=== PATIENT | female | born 1965 | race Caucasian/White ===

== ENCOUNTER → 2016-06-07 | Outpatient (CLI) | payer MEDICARE, MEDICAID ==
--- NOTE | 2016-06-07 18:34 | REP ---
MRI of lumbosacral spine 06/07/2016: Indication: Back pain, numbness, tingling. Comparison: None. Technique: Sagittal and axial images were obtained of the lumbosacral spine and T1 T2-weighted pulse sequences. STIR sagittal images were also provided. Findings: L1-2: Negative. L2-3: Negative without significant disc bulge or foraminal narrowing bilaterally. There is ligamentum flavum and facet joint hypertrophy but no central canal stenosis. Exiting nerve roots are without compression in the neural foramina L 3-4: Disc desiccation, minimal diffuse bulging disc with minimal thecal sac compression. There is moderate facet joint hypertrophy as well as facet osteoarthritic changes. There is no significant spinal stenosis and exiting nerve roots are without compression in the neural foramina bilaterally. L4-5: Disc desiccation small diffuse bulging disc with minimal thecal sac compression. Bilateral facet joint hypertrophy and mild facet osteoarthritis noted. Exiting L4 nerve roots however are without compression in the neural foramina. L5 S1: Minimal diffuse bulging disc with minimal anterior thecal sac compression . There is minimal impression on the S1 nerve roots bilaterally. Exiting L5 nerve roots are without compression in the neural foramina. There is facet joint hypertrophy and no significant spinal stenosis. Conus medullaris is normal. There is no fracture or abnormal marrow replacing lesion. Impression: Mild degenerative disc changes characterized by disc desiccation, and facet joint hypertrophy/mild facet osteoarthritis at multiple levels. There is no significant spinal stenosis and there is no compression of the exiting lumbar nerve roots within the neural foramina bilaterally. There is minimal impression on the S1 nerve roots bilaterally secondary to diffuse bulging disc at L5-S1.. Signed by Cailin Cassidy MD 06/07/2016 08:05 P
--- NOTE | 2016-06-08 08:20 | REP ---
MRI THORACIC SPINE WITHOUT CONTRAST: HISTORY: Mid back pain. A small right paracentral disc protrusion is present at the T4-5 level. There is minimal effacement of the thecal sac without spinal cord compression. The T4 neural foramina are patent. A small left paracentral disc protrusion is present at the T7-8 level. There is minimal effacement of the thecal sac without spinal cord compression. The T7 neural foramina are patent. A small right paracentral disc protrusion is present at the T8-9 level. There is minimal effacement of the thecal sac without spinal cord compression. The T8 neural foramina are patent. There is no other disc bulge or herniation. The remaining neural foramina are patent. The spinal cord is normal in signal intensity. There is no intradural extramedullary lesion. A hemangioma is present in the T9 vertebral body. Normal signal intensity is present in the remaining thoracic vertebral bodies. Anterior osteophytes are present in the mid and lower thoracic spine. IMPRESSION: Small disc protrusions at the T4-5, T7-8 and T8-9 levels without spinal cord compression. Signed by Souleymane Berumen MD 06/08/2016 08:31 A
== END ==
LOC: M RAD 15:20
PROVIDERS: ATTEND Anesthesiology
DX: M47.819 Spondylosis without myelopathy or radiculopathy, site unspecified (principal); M51.27 Other intervertebral disc displacement, lumbosacral region; M51.24 Other intervertebral disc displacement, thoracic region

== ENCOUNTER → 2016-06-11 | Outpatient (REF) | payer MEDICARE, MEDICAID ==
[2016-06-11 19:23] LABS: CALCIUM LEVEL 8.3 MG/DL (8.5-10.1); CREATININE FOR GFR 1.21 MG/DL (0.55-1.02); GLOMERULAR FILTRATION RATE 49.6 (>51); POTASSIUM SERUM 4.7 MEQ/L (3.5-5.1)
[2016-06-14 00:20] LABS: %CD3+CD4+CD8- 36.3 % (Not Estab.); %CD3+CD4-CD8+ 39.7 % (Not Estab.); %CD3+CD4-CD8- 1.9 % (Not Estab.); ABS CD3+CD4+CD8+ 18 /uL (Not Estab.); ABS CD3+CD4+CD8- 653 /uL (Not Estab.); ABS CD3+CD4-CD8+ 715 /uL (Not Estab.); ABS CD3+CD4-CD8- 34 /uL (Not Estab.); CD4/CD8 NYSDOH RATIO 0.91 (Not Estab.); Eosinophils 1 % (.); HCT 34.6 % (34.0-46.6); HGB 11.6 g/dL (11.1-15.9); Monocytes 7 % (.); Neutrophils 68 % (.); WBC 7.3 x10E3/uL (3.4-10.8)
== END ==
LOC: M SFHCPLAZ 14:52
PROVIDERS: ATTEND Internal Medicine Infectious Disease
DX: B20 Human immunodeficiency virus [HIV] disease (principal); E11.40 Type 2 diabetes mellitus with diabetic neuropathy, unspecified

== ENCOUNTER → 2016-08-19 | Outpatient (CLI) | payer MEDICARE, MEDICAID ==
--- NOTE | 2016-08-29 23:48 | ECWPNPC ---
PATIENT NAME: GEREMIAS WYATT : 1965 GENDER: FEMALE VISIT DATE: 08/19/2016 DISCHARGE DATE: 08/19/16 1724 VISIT LOCKED DATE TIME: PHYSICIAN: CLAUDIA HUI RESOURCE: CLAUDIA HUI REASON FOR APPOINTMENT 1. BACK PAIN HISTORY OF PRESENT ILLNESS HISTORY OF PRESENT ILLNESS: PAIN THE PATIENT DESCRIBES THE PAIN... 51 YEAR OLD FEMALE PATIENT WITH HISTORY OF CHRONIC BACK AND LEG PAIN. PATIENT DESCRIBES THE PAIN ACHING, BURNING, SHARP, TENDER, THROBBING, AND HAVING IT ALL THE TIME WITH A PAIN SCORE OF 10/10. PATIENT REPORTS UNABLE TO SEE DR. PHAM DUE TO NOT HAVING TRANSPORTATION TO [place]. MRS. WYATT STATES THAT INJECTIONS DO NOT WORK AND THE ONLY THING THAT AIDS IN PAIN RELIEF IS MEDICATION AT THIS TIME. PATIENT REPORTS THAT DR. BUTLER DOES NOT WANT TO CONTINUE TO PRESCRIBE THE PERCOCET TO THE PATIENT AND WOULD LIKE MYSELF TO TAKE OVER. MRS. WYATT STATES T HAT WALKING, STANDING, SITTING, AND ANY TYPE OF ACTIVITY INCREASES THE PAIN IN HER BACK AND FEET. FALL RISK SCREENING: SCREENING :NO FALLS IN THE PAST YEAR CURRENT MEDICATIONS TAKING FLINSTONES GUMMIES OMEGA-3 DHA TABLET CHEWABLE 2 TABLETS ORALLY BID TAKING TRAZODONE HCL 50 MG TABLET 1 TABLET AT BEDTIME NEEDED ORALLY ONCE A DAY TAKING PREZCOBIX 800-150 MG TABLET TAKE ONE TABLET BY MOUTH ONCE DAILY TAKING VIREAD 300 MG TABLET TAKE ONE TABLET BY MOUTH ONCE DAILY TAKING TIVICAY 50 MG TABLET TAKE ONE TABLET BY MOUTH ONCE DAILY TAKING NEXIUM 40 MG CAPSULE DELAYED RELEASE 1 CAPSULE ORALLY ONCE A DAY TAKING VENTOLIN HFA 108 (90 BASE) MCG/ACT AEROSOL SOLUTION INHALE 2 PUFFS BY MOUTH EVERY 4 HRS NEEDED TAKING SUMATRIPTAN SUCCINATE 100 MG TABLET TAKE NEEDED DIRECTED TAKING ATORVASTATIN CALCIUM 40 MG TABLET TAKE ONE TABLET BY MOUTH ONCE DAILY TAKING INCRUSE ELLIPTA 62.5 MCG/INH AEROSOL POWDER BREATH ACTIVATED INHALE 1 PUFF BY MOUTH ONCE DAILY TAKING ASPIRIN CHILDRENS 81 MG TABLET CHEWABLE 1 TABLET ORALLY ONCE A DAY TAKING LOMOTIL 2.5-0.025 MG TABLET 1 TABLET NEEDED ORALLY 4 TIMES A DAY NEEDED MDD: 4 TAKING TRIAMCINOLONE ACETONIDE 0.1 % CREAM APPLY TOPICALLY TWICE DAILY FOR ONE MONTH TAKING NYSTOP [id number] UNIT/GM POWDER USE DIRECTED EXTERNALLY NEEDED FOR 1 MONTH TAKING VITAMIN D 2000 UNIT TABLET TAKE ONE TABLET BY MOUTH ONCE DAILY DIRECTED TAKING LYRICA 100 MG CAPSULE 1 CAPSULE ORALLY TWICE A DAY TAKING PERCOCET 7.5-325 MG TABLET 1 TABLET NEEDED ORALLY/MDD#3 THREE TIMES DAILY NEEDED MEDICATION LIST REVIEWED AND RECONCILED WITH THE PATIENT PAST MEDICAL HISTORY HIV DIAGNOSED IN 1993, RESISTANCE TO EPIVIR HERPES SIMPLEX COPD ASTHMA IDDM CHRONIC DDD CAMPYLOBACTER COLITIS HYPERCHOLESTEOLEMIA MENOPAUSE RT ADRENAL MASS 2X 1 CM EDENTULOUS WEARS DENTURES HIV TREATMENT HISTORY VIDEX 1999 ZIAGEN 2000, TRIZIVIR [id number], ZERIT, TRUVADA,REYATAZ/NORVIR, ZERIT DC 01/29 DUE TO NEUROPATHY 2002 VIRTUAL PHENOTYPE RST EPIVIR, RST VIRAMUNE AND EFAVIRENZ 05/15/2014 NERVE CONDUCTION STUDOES SEVERE SENSORIMOTOR POLYNEUROPATHY DIABETES?HIV , 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 SOCIAL HISTORY GENERAL: TOBACCO USE ARE YOU A:CURRENT SMOKER HOW MANY CIGARETTES A DAY DO YOU SMOKE?6-10 HOW SOON AFTER YOU WAKE UP DO YOU SMOKE YOUR FIRST CIGARETTE?6-30 MIN HOW OFTEN DO YOU SMOKE CIGARETTES?EVERY DAY PATIENT COUNSELED ON THE DANGERS OF TOBACCO USE AND URGED TO QUIT:06/08/2016 ARE YOU INTERESTED IN QUITTING?NOT READY TO QUIT COUNSELED THE PATIENT ON SMOKING EFFECTS, EDUCATION [id number]/17/2017 SMOKING CESSATION INFORMATION GIVEN06/08/2016 BMI CARE GOAL FOLLOW-UP ABOVE NORMAL BMI FOLLOW-UPDIETARY NEEDS EDUCATION ALCOHOL SCREENING DID YOU HAVE A DRINK CONTAINING ALCOHOL IN THE PAST YEAR?NO POINTS0 INTERPRETATIONNEGATIVE RECREATIONAL DRUG USE DRUG USE?NO PATIENT DENIES ABUSE OR MISSUSED OF ANY MEDICATION. PATIENT DENIES USE OF ANY ILLEGAL SUBSTANCE INCLUDING MARIJUANA OR COCAINE. CAFFEINE CAFFEINE USE?YES HOW OFTEN AND HOW MUCH? 1-2 CUP QD HIV / HEP-C SCREENING HIV TEST OFFERED TO PATIENT:YES DATE OFFERED:06/08/2016 TEST ACCEPTED: PREV TESTED HEP-C TEST OFFERED TO PATIENT:YES DATE OFFERED:06/08/2016 TEST ACCEPTED: PREV TESTED OCCUPATION: DISABLED. MARITAL STATUS: SINGLE. MORMON NO YAZIDISM BELIEFS THAT WOULD IMPACT HEALTH CARE. LANGUAGE BAHAMIAN. LEARNING BARRIERS / SPECIAL NEEDS CHANGE FROM LAST VISIT?NO BARRIERS TO LEARNING?NO HEARING IMPAIRED?NO VISION IMPAIRED?YES :CORRECTIVE LENSES COGNITIVELY IMPAIRED?NO READINESS TO LEARN?YES LEARNING PREFERENCES?NO LEARNING CAPABILITIES PRESENT?YES EMOTIONAL BARRIERS?NO SPECIAL DEVICES?NO FEMALE 6 MONTH RISK ASSESSMENT FOR STD DESCRIBE YOUR SEXUAL PARTNERS:MALE MONOGAMOUS?YES HIV POSITIVE?YES EVER INJECT DRUGS?NO VAGINAL SEX?NO ANAL SEX?NO ORAL SEX?NO ARE YOU TAKING ANY STEPS TO PREVENT ?YES METHODS (CHECK ALL THAT APPLY):MALE CONDOMS WHAT STEPS HAVE YOU TAKEN TO PROTECT YOURSELF FROM STDS, INCLUDING HIV? (CHECK ALL THAT APPLY):MUTUAL MONOGAMY, MALE CONDOMS HAVE YOU OR ANY OF YOUR SEXUAL PARTNERS EVER HAD AN STD? IF YES PLEASE LIST:NO IS THERE ANYTHING ELSE WE SHOULD TALK ABOUT CONCERNING YOUR SEXUAL HISTORY OR PRACTICE?NO NEW PATIENT PAIN DIARY TODAY'S VISITNOTES FROM 0-10, WHAT LEVEL IS YOUR PAIN TODAY?0 PAIN CLINIC PFS, CLERGY, PUBLIC HEALTH REFERRALS PFS REFERRAL NEEDED?NO CLERGY REFERRAL NEEDED?NO PUBLIC HEALTH REFERRAL NEEDED?NO WAS THE PROVIDER NOTIFIED OF ANY PERTINENT INFO?NO PFS REFERRAL NEEDED?NO CLERGY REFERRAL NEEDED?NO PUBLIC HEALTH REFERRAL NEEDED?NO WAS THE PROVIDER NOTIFIED OF ANY PERTINENT INFO?NO HOSPITALIZATION/MAJOR DIAGNOSTIC PROCEDURE HYPOGLYCEMIC EPISODE/UTI 2016 REVIEW OF SYSTEMS CONSTITUTIONAL: ANY CHANGE IN YOUR MEDICAL CONDITION? NO . CHILLS NO . FEVER NO . INFECTION: DO YOU HAVE NEW INFECTIONS? NO . DO YOU HAVE HISTORY OF MRSA? NO . MUSCULOSKELETAL: ANY NEW PATTERNS OF PAIN OR NUMBNESS? NO . GASTROENTEROLOGY: ANY NEW CHANGE IN BOWEL CONTROL? NO . GENITOURINARY: ANY NEW CHANGE IN BLADDER CONTROL? NO . IS THERE A CHANCE YOU COULD BE ? NO . HEMATOLOGY/LYMPH: DO YOU TAKE ANY BLOOD THINNERS? (FOR EXAMPLE- COUMADIN, PLAVIX, AGGRENOX, PLATEL, PRADAXA, OR XARELTO) NO . WHEN WAS YOUR LAST DOSE? DATE: TIME: . NEUROLOGY: HAVE YOU FALLEN IN THE PAST 6 MONTHS? NO . ANY NEW EXTREMITY NUMBNESS OR WEAKNESS? NO . CARDIOLOGY: DO YOU HAVE A PACEMAKER OR DEFIBRILLATOR? NO . RESPIRATORY: HAVE YOU BEEN SICK IN THE PAST WEEK? NO . FEVER NO . FLU LIKE SYMPTOMS? NO . COUGH NO . INTEGUMENTARY: DO YOU HAVE ANY RASHES OR OPEN SORES? NO . ALLERGIC/IMMUNO: ARE YOU ALLERGIC TO SHELLFISH OR IV DYE? NO . ANY NEW ALLERGIES? NO . PSYCHIATRIC: DO YOU HAVE THOUGHTS OF HURTING YOURSELF OR SOMEONE ELSE? NO . ARE YOU ABUSED, NEGLECTED, OR IN AN UNSAFE ENVIRONMENT? NO . ENDOCRINOLOGY: ARE YOU DIABETIC? NO . OTHER: DO YOU NEED ANY PRESCRIPTIONS? PT STATES THAT SHE NEEDS REFILLS . IF YES, PLEASE LIST: ____ . ANY NEW PROBLEMS WITH YOUR MEDICATIONS? NO . WHEN DID YOU LAST EAT? NOON . WHEN DID YOU LAST DRINK? NOW . WHAT DID YOU LAST DRINK? WATER & COFFEE . NAME OF PERSON DRIVING YOU HOME? TRACK SERVICE PERSON . DO YOU HAVE ANY OTHER QUESTIONS OR CONCERNS PT STATES THAT SHE IS A CURRENT SMOKER AND REFUSES ANY SMOKING CESSATION COUSELING AT THIS TIME . REVIEWED BY: PROVIDER: CLAUDIA HUI MD . VITAL SIGNS WT 215.0 LBS, HT 69 IN, BMI 31.75 INDEX, BP 137/84 MM HG, HR 78 /MIN, RR 16 /MIN, TEMP 98.0 F, OXYGEN SAT % 95, NA INITIALS TL 1600. EXAMINATION : PATIENT IS ALERT O X 3 AND COOPERATIVE. TENDERNESS IN THE LOWER BACK AND PARASPINAL MUSCLE GROUP. PITTING EDEMA 3/4 ESPECIALLY OVER THE LEFT LEG. MRI DONE ON 11/18/11 SHOWS A TARLOV CYST AT S2, WITH DEGENERATIVE DISC DISEASE AT MULTIPLE LEVELS, AND DEGENERATIVE CHANGES OF MULTIPLE FACET JOINTS. 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 WYATT'S PAIN MANAGEMENT CASE. PATIENT IS AWARE THAT I WILL NEED TO SPEAK WITH DR. BUTLER BEFORE PRESCRIBING ANY TYPE OF NARCOTIC TO THE PATIENT. AT THIS TIME THE PATIENT REPORTS INJECTIONS NOT AIDING IN PAIN RELIEF. I WILL REFER THE PATIENT TO DR. ROPER'S FOR A PSYCHOLOGICAL EVALUATION DUE TO THE PATIENT UNABLE TO GET TO [facility]. PATIENT WILL RETURN TO THE CLINIC TOMORROW TO FURTHER DISCUSS MEDICATION MANAGEMENT WITH THE PATIENT, TO SEE IF THERE IS ANY MEDICATION THAT WILL AID THE PATIENT OVER THEN NARCOTICS. INSTRUCTIONS WERE GIVEN, QUESTIONS WERE ANSWERED, PATIENT REPORTS UNDERSTANDING AND AGREES WITH THE PLAN. I, DARON ALDRIDGE, DOCUMENTED THE ABOVE INFORMATION ACTING A SCRIBE FOR DR. HUI. I HAVE REVIEWED THE ABOVE DOCUMENT, WRITTEN BY DARON MILLER AND I VERIFY THAT IT IS ACCURATE. PROCEDURE CODES FA211 ESTABILISHED PATIENT [facility] CHARGE G8427 DOC MEDS VERIFIED W/PT OR RE G8730 PAIN ASSESS POS TOOL F/U PLAN DOC DISPOSITION & COMMUNICATION FOLLOW UP 2 - 3 DAYS ELECTRONICALLY SIGNED BY CLAUDIA HUI MD ON 08/29/2016 AT 09:14 PM EDT DISCLAIMER : THIS IS A VISIT SUMMARY EXTRACTED FROM THE [employer] CHART. IT IS NOT A COPY OF THE [employer] PROGRESS NOTE. DEE
== END ==
LOC: M PAIN 14:40
PROVIDERS: ATTEND Anesthesiology
DX: Z09 Encounter for follow-up examination after completed treatment for conditions other than malignant neoplasm (principal); G89.29 Other chronic pain; M51.16 Intervertebral disc disorders with radiculopathy, lumbar region; M51.17 Intervertebral disc disorders with radiculopathy, lumbosacral region; G62.9 Polyneuropathy, unspecified; B20 Human immunodeficiency virus [HIV] disease; J44.9 Chronic obstructive pulmonary disease, unspecified; E11.9 Type 2 diabetes mellitus without complications; E78.00 Pure hypercholesterolemia, unspecified; I10 Essential (primary) hypertension; E66.01 Morbid (severe) obesity due to excess calories; Z68.31 Body mass index [BMI] 31.0-31.9, adult; F17.200 Nicotine dependence, unspecified, uncomplicated; L23.1 Allergic contact dermatitis due to adhesives; Z79.82 Long term (current) use of aspirin; Z79.899 Other long term (current) drug therapy; Z96.612 Presence of left artificial shoulder joint

== ENCOUNTER → 2016-09-23 | Outpatient (CLI) | payer MEDICARE, MEDICAID ==
--- NOTE | 2016-10-05 02:14 | ECWPNPC ---
PATIENT NAME: GEREMIAS WYATT : 1965 GENDER: FEMALE VISIT DATE: 09/23/2016 DISCHARGE DATE: 09/23/16 1624 VISIT LOCKED DATE TIME: PHYSICIAN: CLAUDIA HUI RESOURCE: CLAUDIA HUI REASON FOR APPOINTMENT 1. MEDS HISTORY OF PRESENT ILLNESS HISTORY OF PRESENT ILLNESS: PAIN THE PATIENT DESCRIBES THE PAIN... 51 YEAR OLD FEMALE PATIENT WITH HISTORY OF CHRONIC BACK AND LEG PAIN. PATIENT DESCRIBES THE PAIN ACHING, BURNING, SHARP, STABBING, THROBBING, SORE, SHOOTING, IT COMES AND GOES, AND HAVING IT ALL THE TIME WITH A PAIN SCORE OF 10/10 ON TODAY'S VISIT. PATIENT REPORTS THAT SHE SAW A PSYCHOLOGIST FOR THE PSYCHOLOGICAL EVALUATION FOR THE SCS TRIAL. MS. WYATT STATES THAT WALKING, STANDING, SITTING, AND ANY TYPE OF ACTIVITY INCREASES THE PAIN IN HER BACK AND FEET. PATIENT DENIES UNEXPLAINABLE WEIGHT LOSS, FEVER, CHILLS, NEW CHANGES ON HER URINARY OR BOWEL CONTROL. ,. FALL RISK SCREENING: SCREENING :NO FALLS IN THE PAST YEAR CURRENT MEDICATIONS TAKING FLCaribou Coffee CompanyMERRY OMEGA-3 DHA TABLET CHEWABLE 2 TABLETS ORALLY BID TAKING LOMOTIL 2.5-0.025 MG TABLET 1 TABLET NEEDED ORALLY 4 TIMES A DAY NEEDED MDD: 4 TAKING PREZISTA 600 MG TABLET 1 TABLET WITH FOOD ORALLY DAILY TAKING GENVOYA [id number] MG TABLET DIRECTED ORALLY MONTHLY TAKING LYRICA 150 MG CAPSULE 1 CAPSULE ORALLY TWICE A DAY TAKING PERCOCET 10-325 MG TABLET 1 TABLET NEEDED ORALLY EVERY 8 HRS TAKING ANIMAL SHAPES WITH C & FA TABLET CHEWABLE TAKE TWO TABLETS BY MOUTH DAILY TAKING VITAMIN D 2000 UNIT TABLET TAKE ONE TABLET BY MOUTH ONCE DAILY DIRECTED ORALLY ONCE A DAY TAKING NEXIUM 40 MG CAPSULE DELAYED RELEASE 1 CAPSULE ORALLY ONCE A DAY TAKING TRAZODONE HCL 50 MG TABLET 1 TABLET AT BEDTIME NEEDED ORALLY ONCE A DAY UNKNOWN VENTOLIN HFA 108 (90 BASE) MCG/ACT AEROSOL SOLUTION INHALE 2 PUFFS BY MOUTH EVERY 4 HRS NEEDED UNKNOWN SUMATRIPTAN SUCCINATE 100 MG TABLET TAKE NEEDED DIRECTED UNKNOWN ATORVASTATIN CALCIUM 40 MG TABLET TAKE ONE TABLET BY MOUTH ONCE DAILY UNKNOWN INCRUSE ELLIPTA 62.5 MCG/INH AEROSOL POWDER BREATH ACTIVATED INHALE 1 PUFF BY MOUTH ONCE DAILY UNKNOWN ASPIRIN CHILDRENS 81 MG TABLET CHEWABLE 1 TABLET ORALLY ONCE A DAY UNKNOWN TRIAMCINOLONE ACETONIDE 0.1 % CREAM APPLY TOPICALLY TWICE DAILY FOR ONE MONTH UNKNOWN NYSTOP [id number] UNIT/GM POWDER USE DIRECTED EXTERNALLY NEEDED FOR 1 MONTH UNKNOWN VITAMIN D 2000 UNIT TABLET TAKE ONE TABLET BY MOUTH ONCE DAILY DIRECTED MEDICATION LIST REVIEWED AND RECONCILED WITH THE PATIENT PAST MEDICAL HISTORY HIV DIAGNOSED IN 1993, RESISTANCE TO EPIVIR HERPES SIMPLEX COPD ASTHMA IDDM CHRONIC DDD CAMPYLOBACTER COLITIS HYPERCHOLESTEOLEMIA MENOPAUSE RT ADRENAL MASS 2X 1 CM EDENTULOUS WEARS DENTURES HIV TREATMENT HISTORY VIDEX 1999 ZIAGEN 2001, TRIZIVIR [id number], ZERIT, TRUVADA,REYATAZ/NORVIR, ZERIT DC 01/29 DUE TO NEUROPATHY 2002 VIRTUAL PHENOTYPE RST EPIVIR, RST VIRAMUNE AND EFAVIRENZ 05/15/2014 NERVE CONDUCTION STUDOES SEVERE SENSORIMOTOR POLYNEUROPATHY DIABETES?HIV , 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 SOCIAL HISTORY GENERAL: TOBACCO USE ARE YOU A:CURRENT SMOKER HOW MANY CIGARETTES A DAY DO YOU SMOKE?6-10 HOW SOON AFTER YOU WAKE UP DO YOU SMOKE YOUR FIRST CIGARETTE?6-30 MIN HOW OFTEN DO YOU SMOKE CIGARETTES?EVERY DAY PATIENT COUNSELED ON THE DANGERS OF TOBACCO USE AND URGED TO QUIT:06/08/2016 ARE YOU INTERESTED IN QUITTING?NOT READY TO QUIT COUNSELED THE PATIENT ON SMOKING EFFECTS, EDUCATION [id number]/17/2017 SMOKING CESSATION INFORMATION GIVEN06/08/2016 BMI CARE GOAL FOLLOW-UP ABOVE NORMAL BMI FOLLOW-UPDIETARY NEEDS EDUCATION ALCOHOL SCREENING DID YOU HAVE A DRINK CONTAINING ALCOHOL IN THE PAST YEAR?NO POINTS0 INTERPRETATIONNEGATIVE RECREATIONAL DRUG USE DRUG USE?NO PATIENT DENIES ABUSE OR MISSUSED OF ANY MEDICATION. PATIENT DENIES USE OF ANY ILLEGAL SUBSTANCE INCLUDING MARIJUANA OR COCAINE. CAFFEINE CAFFEINE USE?YES HOW OFTEN AND HOW MUCH? 1-2 CUP QD HIV / HEP-C SCREENING HIV TEST OFFERED TO PATIENT:YES DATE OFFERED:06/08/2016 TEST ACCEPTED: PREV TESTED HEP-C TEST OFFERED TO PATIENT:YES DATE OFFERED:06/08/2016 TEST ACCEPTED: PREV TESTED OCCUPATION: DISABLED. MARITAL STATUS: SINGLE. PRESYBETERIAN NO YARSANISM BELIEFS THAT WOULD IMPACT HEALTH CARE. LANGUAGE YAKUT. LEARNING BARRIERS / SPECIAL NEEDS CHANGE FROM LAST VISIT?NO BARRIERS TO LEARNING?NO HEARING IMPAIRED?NO VISION IMPAIRED?YES :CORRECTIVE LENSES COGNITIVELY IMPAIRED?NO READINESS TO LEARN?YES LEARNING PREFERENCES?NO LEARNING CAPABILITIES PRESENT?YES EMOTIONAL BARRIERS?NO SPECIAL DEVICES?NO FEMALE 6 MONTH RISK ASSESSMENT FOR STD DESCRIBE YOUR SEXUAL PARTNERS:MALE MONOGAMOUS?YES HIV POSITIVE?YES EVER INJECT DRUGS?NO VAGINAL SEX?NO ANAL SEX?NO ORAL SEX?NO ARE YOU TAKING ANY STEPS TO PREVENT ?YES METHODS (CHECK ALL THAT APPLY):MALE CONDOMS WHAT STEPS HAVE YOU TAKEN TO PROTECT YOURSELF FROM STDS, INCLUDING HIV? (CHECK ALL THAT APPLY):MUTUAL MONOGAMY, MALE CONDOMS HAVE YOU OR ANY OF YOUR SEXUAL PARTNERS EVER HAD AN STD? IF YES PLEASE LIST:NO IS THERE ANYTHING ELSE WE SHOULD TALK ABOUT CONCERNING YOUR SEXUAL HISTORY OR PRACTICE?NO NEW PATIENT PAIN DIARY TODAY'S VISIT NOTES, FROM 0-10, WHAT LEVEL IS YOUR PAIN TODAY? 0. PAIN CLINIC PFS, CLERGY, PUBLIC HEALTH REFERRALS PFS REFERRAL NEEDED? NO, CLERGY REFERRAL NEEDED? NO, PUBLIC HEALTH REFERRAL NEEDED? NO, WAS THE PROVIDER NOTIFIED OF ANY PERTINENT INFO? NO, PFS REFERRAL NEEDED? NO, CLERGY REFERRAL NEEDED? NO, PUBLIC HEALTH REFERRAL NEEDED? NO, WAS THE PROVIDER NOTIFIED OF ANY PERTINENT INFO? NO. HOSPITALIZATION/MAJOR DIAGNOSTIC PROCEDURE HYPOGLYCEMIC EPISODE/UTI 2016 REVIEW OF SYSTEMS CONSTITUTIONAL: ANY CHANGE IN YOUR MEDICAL CONDITION? NO . CHILLS NO . FEVER NO . INFECTION: DO YOU HAVE NEW INFECTIONS? NO . DO YOU HAVE HISTORY OF MRSA? NO . MUSCULOSKELETAL: ANY NEW PATTERNS OF PAIN OR NUMBNESS? NO . GASTROENTEROLOGY: ANY NEW CHANGE IN BOWEL CONTROL? NO . GENITOURINARY: ANY NEW CHANGE IN BLADDER CONTROL? NO . IS THERE A CHANCE YOU COULD BE ? NO . HEMATOLOGY/LYMPH: DO YOU TAKE ANY BLOOD THINNERS? (FOR EXAMPLE- COUMADIN, PLAVIX, AGGRENOX, PLATEL, PRADAXA, OR XARELTO) NO . WHEN WAS YOUR LAST DOSE? DATE: TIME: . NEUROLOGY: HAVE YOU FALLEN IN THE PAST 6 MONTHS? NO . ANY NEW EXTREMITY NUMBNESS OR WEAKNESS? NO . CARDIOLOGY: DO YOU HAVE A PACEMAKER OR DEFIBRILLATOR? NO . RESPIRATORY: HAVE YOU BEEN SICK IN THE PAST WEEK? NO . FEVER NO . FLU LIKE SYMPTOMS? NO . COUGH NO . INTEGUMENTARY: DO YOU HAVE ANY RASHES OR OPEN SORES? NO . ALLERGIC/IMMUNO: ARE YOU ALLERGIC TO SHELLFISH OR IV DYE? NO . ANY NEW ALLERGIES? NO . PSYCHIATRIC: DO YOU HAVE THOUGHTS OF HURTING YOURSELF OR SOMEONE ELSE? NO . ARE YOU ABUSED, NEGLECTED, OR IN AN UNSAFE ENVIRONMENT? NO . ENDOCRINOLOGY: ARE YOU DIABETIC? NO . OTHER: DO YOU NEED ANY PRESCRIPTIONS? NO . IF YES, PLEASE LIST: ____ . ANY NEW PROBLEMS WITH YOUR MEDICATIONS? NO . WHEN DID YOU LAST EAT? ____LUNCHTIM . WHEN DID YOU LAST DRINK? ____ . WHAT DID YOU LAST DRINK? ____ . NAME OF PERSON DRIVING YOU HOME? ____ . DO YOU HAVE ANY OTHER QUESTIONS OR CONCERNS NO . REVIEWED BY: PROVIDER: CLAUDIA HUI MD . VITAL SIGNS WT 213.6 LBS, HT 69 IN, BMI 31.54 INDEX, BP 98/68 MM HG, HR 77 /MIN, RR 16 /MIN, TEMP 97.2 F, OXYGEN SAT % 99%, NA INITIALS SC 14:52, REVIEWED BY: VD. EXAMINATION : PATIENT IS ALERT O X 3 AND COOPERATIVE. TENDERNESS IN THE LOWER BACK AND PARASPINAL MUSCLE GROUP. PITTING EDEMA 3/4 ESPECIALLY OVER THE LEFT LEG. MRI DONE ON 11/18/11 SHOWS A TARLOV CYST AT S2, WITH DEGENERATIVE DISC DISEASE AT MULTIPLE LEVELS, AND DEGENERATIVE CHANGES OF MULTIPLE FACET JOINTS. 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 WYATT'S PAIN MANAGEMENT CASE. I DISCUSSED WITH THE PATIENT ABOUT THE RESULTS FROM THE PSYCHOLOGICAL EVALUATION. I EXPLAINED TO THE PATIENT THAT AT THE MOMENT WE WILL PUT ON HOLD THE SCS TRIAL. I START TO DISCUSS WITH HER OTHER OPTIONS. I EXPLAINED TO THE PATIENT TO GIVE ME SEVERAL MINUTES TO RESOLVE AN ISSUE AT ANOTHER ROOM. WHEN I CAME BACK I WAS INFORMED THAT MS. WYATT ABRUPTLY EXITED THE FOLLOW UP ROOM AND LEFT THE FACILITY GROUNDS. I WAS UNABLE TO COMPLETE THE DISCUSSION WITH MS. PEETS. IF THE PATIENT CALLS, I WILL HAVE HER FOLLOW UP WITH SHIVAM VALDES FOR MEDICATIONS AND AN AGREEMENT WITH LUKE DAILEY IS NEEDED FOR US TO PRESCRIBE ANY MEDICATIONS TO THE PATIENT. I, ABIDA SOTELO, DOCUMENTED THE ABOVE INFORMATION ACTING A SCRIBE FOR DR. HUI. I HAVE REVIEWED THE ABOVE DOCUMENT, WRITTEN BY ABIDA SOTELO SCRIBE AND I VERIFY THAT IT IS ACCURATE. PROCEDURE CODES FA211 ESTABILISHED PATIENT [facility] CHARGE G8730 PAIN ASSESS POS TOOL F/U PLAN DOC G8427 DOC MEDS VERIFIED W/PT OR RE DISPOSITION & COMMUNICATION FOLLOW UP WITH SHIVAM VALDES TO CONSIDER MEDICATION OPTIONS ELECTRONICALLY SIGNED BY CLAUDIA HUI MD ON 10/04/2016 AT 11:16 AM EDT DISCLAIMER : THIS IS A VISIT SUMMARY EXTRACTED FROM THE [employer] CHART. IT IS NOT A COPY OF THE [employer] PROGRESS NOTE. DEE
== END ==
LOC: M PAIN 15:00
PROVIDERS: ATTEND Anesthesiology
DX: G89.29 Other chronic pain (principal); G62.9 Polyneuropathy, unspecified; M51.16 Intervertebral disc disorders with radiculopathy, lumbar region; M51.17 Intervertebral disc disorders with radiculopathy, lumbosacral region; B20 Human immunodeficiency virus [HIV] disease; J44.9 Chronic obstructive pulmonary disease, unspecified; E11.9 Type 2 diabetes mellitus without complications; E78.00 Pure hypercholesterolemia, unspecified; F17.200 Nicotine dependence, unspecified, uncomplicated; L23.1 Allergic contact dermatitis due to adhesives; Z79.899 Other long term (current) drug therapy

== ENCOUNTER → 2016-09-23 | Outpatient (CLI) | payer MEDICARE, MEDICAID ==
--- NOTE | 2016-09-23 14:39 | REP ---
Chest two views HISTORY: COPD Comparison: 09/08/2015 The lungs are clear. The heart is normal in size. The pulmonary vasculature is normal in appearance. The bony structure is intact. The patient is status post left shoulder arthroplasty. IMPRESSION: No acute disease. Signed by Souleymane Berumen MD 09/23/2016 02:30 P
[2016-09-23 15:10] LABS: ALBUMIN 3.1 GM/DL (3.2-5.2); ALBUMIN/GLOBULIN RATIO 1.29 (1.00-1.93); ALKALINE PHOSPHATASE 59 U/L (45-117); ALT/SGPT 24 U/L (12-78); ANION GAP 6 MEQ/L (8-16); AST/SGOT 22 U/L (15-37); BILIRUBIN,TOTAL 0.7 MG/DL (0.2-1.0); BLOOD UREA NITROGEN 18 MG/DL (7-18); CALCIUM LEVEL 8.3 MG/DL (8.5-10.1); CARBON DIOXIDE LEVEL 29 MEQ/L (21-32); CHLORIDE LEVEL 109 MEQ/L (98-107); CHOLESTEROL LEVEL 101 MG/DL (<200); CREATININE FOR GFR 0.85 MG/DL (0.55-1.02); GLOMERULAR FILTRATION RATE > 60.0 (>51); GLUCOSE, FASTING 95 MG/DL (70-105); POTASSIUM SERUM 4.2 MEQ/L (3.5-5.1); SODIUM LEVEL 144 MEQ/L (136-145); TOTAL PROTEIN 5.5 GM/DL (6.4-8.2); TRIGLYCERIDES LEVEL 102 MG/DL (<150)
[2016-09-25 00:07] LABS: %CD3+CD4+CD8+ 1.1 % (Not Estab.); %CD3+CD4+CD8- 39.3 % (Not Estab.); %CD3+CD4-CD8+ 36.8 % (Not Estab.); %CD3+CD4-CD8- 2.6 % (Not Estab.); ABS CD3+CD4+CD8+ 23 /uL (Not Estab.); ABS CD3+CD4+CD8- 825 /uL (Not Estab.); ABS CD3+CD4-CD8+ 773 /uL (Not Estab.); ABS CD3+CD4-CD8- 55 /uL (Not Estab.); CD4/CD8 NYSDOH RATIO 1.07 (Not Estab.); Eosinophils 3 % (.); HCT 34.2 % (34.0-46.6); HGB 12.4 g/dL (11.1-15.9); Monocytes 7 % (.); Neutrophils 57 % (.); WBC 6.6 x10E3/uL (3.4-10.8)
[2016-09-27 10:09] LABS: HIV-1 RNA ULTRA 1 <20 copies/mL (.)
== END ==
LOC: M LAB 13:53
PROVIDERS: ATTEND Internal Medicine Infectious Disease
DX: B20 Human immunodeficiency virus [HIV] disease (principal); J44.9 Chronic obstructive pulmonary disease, unspecified; E11.40 Type 2 diabetes mellitus with diabetic neuropathy, unspecified
CPT/HCPCS: 36415; 71020; 80053; 80061; 81001; 82043; 83036; 86360; 87536; G0463

== ENCOUNTER → 2017-01-17 | Outpatient (REF) | payer MEDICARE, MEDICAID | LOC: M SFHCPLAZ 11:46 | PROVIDERS: ATTEND Internal Medicine Infectious Disease | DX: B20 Human immunodeficiency virus [HIV] disease (principal); E11.40 Type 2 diabetes mellitus with diabetic neuropathy, unspecified; Z53.8 Procedure and treatment not carried out for other reasons ==

== ENCOUNTER → 2017-01-26 | Outpatient (REF) | payer MEDICARE, MEDICAID ==
[2017-01-26 14:51] LABS: ALBUMIN 3.4 GM/DL (3.2-5.2); ALBUMIN/GLOBULIN RATIO 1.36 (1.00-1.93); ALKALINE PHOSPHATASE 66 U/L (45-117); ALT/SGPT 21 U/L (12-78); ANION GAP 8 MEQ/L (8-16); AST/SGOT 16 U/L (15-37); BILIRUBIN,TOTAL 0.6 MG/DL (0.2-1.0); BLOOD UREA NITROGEN 17 MG/DL (7-18); CALCIUM LEVEL 8.7 MG/DL (8.5-10.1); CARBON DIOXIDE LEVEL 28 MEQ/L (21-32); CHLORIDE LEVEL 107 MEQ/L (98-107); CHOLESTEROL LEVEL 185 MG/DL (<200); CREATININE FOR GFR 0.74 MG/DL (0.55-1.02); GLOMERULAR FILTRATION RATE > 60.0 (>51); GLUCOSE, FASTING 76 MG/DL (70-105); POTASSIUM SERUM 4.2 MEQ/L (3.5-5.1); SODIUM LEVEL 143 MEQ/L (136-145); TOTAL PROTEIN 5.9 GM/DL (6.4-8.2); TRIGLYCERIDES LEVEL 142 MG/DL (<150)
[2017-02-02 00:07] LABS: %CD3+CD4+CD8- 39.9 % (Not Estab.); %CD3+CD4-CD8+ 38.2 % (Not Estab.); %CD3+CD4-CD8- 2.4 % (Not Estab.); ABS CD3+CD4+CD8+ 22 /uL (Not Estab.); ABS CD3+CD4+CD8- 878 /uL (Not Estab.); ABS CD3+CD4-CD8+ 840 /uL (Not Estab.); ABS CD3+CD4-CD8- 53 /uL (Not Estab.); CD4/CD8 NYSDOH RATIO 1.04 (Not Estab.); Eosinophils 2 % (.); HCT 35.1 % (34.0-46.6); HGB 11.8 g/dL (11.1-15.9); Monocytes 6 % (.); Neutrophils 56 % (.); WBC 6.4 x10E3/uL (3.4-10.8)
== END ==
LOC: M SFHCPLAZ 10:29
PROVIDERS: ATTEND Internal Medicine Infectious Disease
DX: B20 Human immunodeficiency virus [HIV] disease (principal); E11.40 Type 2 diabetes mellitus with diabetic neuropathy, unspecified

== ENCOUNTER → 2017-04-07 | Outpatient (CLI) | payer MEDICARE, MEDICAID ==
--- NOTE | 2017-04-07 12:38 | REPMRS ---
Patient History The patient states she had a clinical breast exam in 04/08 Baseline Mammogram Patient is postmenopausal. No known family history of cancer. Benign excisional biopsy of the left breast. Digital Woman Screen Mammo: April 07, 2017 - Exam #: [id number] Bilateral CC and MLO view(s) were taken. Technologist: Meghana Bustamante, Technologist FINDINGS: There are scattered fibroglandular densities. There is no evidence of cancer on this mammogram. ASSESSMENT: BI-RADS/ACR category 2 mammogram. Benign finding(s). Recommendation Routine screening mammogram of both breasts in 1 year (for women over age 40). This mammogram was interpreted with the aid of an FDA-approved computer-aided dectection system. Electronically Signed By: Golden Cesar MD 04/07/17 [id number]
--- NOTE | 2017-04-08 09:08 | DEXA ---
AP SPINE L1 - L4 1.169 -0.2 0.5 LT FEMUR TOTAL 1.019 0.1 0.7 RT FEMUR TOTAL 1.026 0.1 0.7 TOTAL BODY TOTAL OTHER COMMENTS: Normal bone densitometry of the spine and hips. FOLLOW-UP: Recommendation for the next bone density exam: 5 years. FRANCYD
== END ==
LOC: M WHC 10:36
PROVIDERS: ATTEND Nurse Practitioner Family
DX: Z01.419 Encounter for gynecological examination (general) (routine) without abnormal findings (principal); Z12.31 Encounter for screening mammogram for malignant neoplasm of breast; N95.9 Unspecified menopausal and perimenopausal disorder; Z78.0 Asymptomatic menopausal state; Z12.12 Encounter for screening for malignant neoplasm of rectum
CPT/HCPCS: 77080; 82270; G0101; G0123; G0202

== ENCOUNTER → 2017-04-07 | Outpatient (REF) | payer MEDICARE, MEDICAID | LOC: M SFHCWAGY 11:12 | PROVIDERS: ATTEND Nurse Practitioner Family | DX: Z01.419 Encounter for gynecological examination (general) (routine) without abnormal findings (principal) ==

== ENCOUNTER → 2017-06-02 | Outpatient (REF) | payer MEDICARE, MEDICAID ==
[2017-06-02 14:19] LABS: ALBUMIN 3.6 GM/DL (3.2-5.2); ALBUMIN/GLOBULIN RATIO 1.29 (1.00-1.93); ALKALINE PHOSPHATASE 76 U/L (45-117); ALT/SGPT 32 U/L (12-78); ANION GAP 10 MEQ/L (8-16); AST/SGOT 21 U/L (7-37); BLOOD UREA NITROGEN 25 MG/DL (7-18); CALCIUM LEVEL 8.7 MG/DL (8.5-10.1); CARBON DIOXIDE LEVEL 24 MEQ/L (21-32); CHLORIDE LEVEL 108 MEQ/L (98-107); CHOLESTEROL LEVEL 172 MG/DL (<200); CREATININE FOR GFR 0.96 MG/DL (0.55-1.02); GLOMERULAR FILTRATION RATE > 60.0 (>51); GLUCOSE, FASTING 84 MG/DL (70-105); HDL CHOLESTEROL 86 MG/DL (>40); LDL CHOLESTEROL 67.2 MG/DL (<100); NON-HDL-C 86 MG/DL; POTASSIUM SERUM 4.3 MEQ/L (3.5-5.1); SODIUM LEVEL 142 MEQ/L (136-145); TOTAL PROTEIN 6.4 GM/DL (6.4-8.2); TRIGLYCERIDES LEVEL 94 MG/DL (<150)
[2017-06-02 15:25] LABS: AMORPHOUS SEDIMENT SMALL (NEGATIVE); APPEARANCE, URINE CLOUDY (CLEAR); BACTERIA, URINE AUTO NEGATIVE (NEGATIVE); BILIRUBIN, URINE AUTO NEGATIVE (NEGATIVE); BLOOD, URINE BLOOD NEGATIVE (NEGATIVE); COLOR, URINE AMBER (YELLOW); GLUCOSE, URINE (UA) AUTO NEGATIVE (NEGATIVE); KETONE, URINE AUTO TRACE mg/dL (NEGATIVE); LEUKOCYTE ESTERASE, URINE AUTO TRACE (NEGATIVE); MUCUS, URINE SMALL (NEGATIVE); NITRITE, URINE AUTO NEGATIVE (NEGATIVE); PROTEIN, URINE AUTO NEGATIVE (NEGATIVE); RBC, URINE AUTO 2 /HPF (0-3); SPECIFIC GRAVITY URINE AUTO 1.024 (1.002-1.035); SQUAMOUS EPITHELIAL CELL UR AU 11 /HPF (0-6); WBC, URINE AUTO 5 /HPF (0-3)
[2017-06-02 16:12] LABS: MALB URINE SIEMENS 32.8 MG/L; MAU/CREAT RATIO 18.1 MCG/MG (0.0-30.0)
[2017-06-02 17:06] LABS: CHLAMYDIA DNA AMPLIFICATION NEGATIVE (NEGATIVE); GC DNA AMPLIFICATION NEGATIVE (NEGATIVE)
[2017-06-04 14:10] LABS: QUANTIFERON GOLD TB Negative (Negative); TB Test (QFT) Antigen 0.12 IU/mL (.); TB Test (QFT) Antigen Minus Ni 0.07 IU/mL (.); TB Test (QFT) Mitogen 5.38 IU/mL (.); TB Test (QFT) Nil 0.05 IU/mL (.)
[2017-06-07 00:08] LABS: % CD8 Pos Lymph 39.3 % (12.0-35.5); %CD4 Pos Lymphs 41.8 % (30.8-58.5); ABS Eosinophils 0.2 x10E3/uL (0.0-0.4); ABS Lymphs 2.7 x10E3/uL (0.7-3.1); ABS Monocytes 0.6 x10E3/uL (0.1-0.9); ABS Neutophils 5.3 x10E3/uL (1.4-7.0); Abs CD4 Helper 1129 /uL (359-1519); Abs CD8 Suppres 1061 /uL (109-897); CD4/CD8 Ratio 1.06 (0.92-3.72); Eosinophils 2 % (Not Estab.); HCT 38.7 % (34.0-46.6); HGB 12.3 g/dL (11.1-15.9); HIV-1 RNA PCR QUANT 2 LC550285 <20 copies/mL (.); Immature Grans 0 % (Not Estab.); Lymphocytes 31 % (Not Estab.); MCH 29.7 pg (26.6-33.0); MCHC 31.8 g/dL (31.5-35.7); MCV 94 fL (79-97); Monocytes 7 % (Not Estab.); Neutrophils 60 % (Not Estab.); Platelets 127 x10E3/uL (150-379); RBC 4.14 x10E6/uL (3.77-5.28); RDW 14.1 % (12.3-15.4); WBC 8.9 x10E3/uL (3.4-10.8)
== END ==
LOC: M SFHCPLAZ 11:07
DX: B20 Human immunodeficiency virus [HIV] disease (principal); E11.40 Type 2 diabetes mellitus with diabetic neuropathy, unspecified
CPT/HCPCS: 80053

== ENCOUNTER → 2017-08-23 | Outpatient (REF) | payer MEDICARE, MEDICAID ==
[2017-08-23 13:28] LABS: APPEARANCE, URINE CLOUDY (CLEAR); BACTERIA, URINE AUTO NEGATIVE (NEGATIVE); BILIRUBIN, URINE AUTO NEGATIVE (NEGATIVE); BLOOD, URINE BLOOD NEGATIVE (NEGATIVE); CALCIUM OXALATE CRYSTALS SMALL; COLOR, URINE YELLOW (YELLOW); GLUCOSE, URINE (UA) AUTO NEGATIVE (NEGATIVE); KETONE, URINE AUTO TRACE mg/dL (NEGATIVE); LEUKOCYTE ESTERASE, URINE AUTO NEGATIVE (NEGATIVE); MUCUS, URINE SMALL (NEGATIVE); NITRITE, URINE AUTO NEGATIVE (NEGATIVE); PROTEIN, URINE AUTO NEGATIVE (NEGATIVE); RBC, URINE AUTO 1 /HPF (0-3); SPECIFIC GRAVITY URINE AUTO 1.017 (1.002-1.035); SQUAMOUS EPITHELIAL CELL UR AU 11 /HPF (0-6); WBC, URINE AUTO 2 /HPF (0-3)
[2017-08-23 13:40] LABS: ALBUMIN 3.4 GM/DL (3.2-5.2); ALBUMIN/GLOBULIN RATIO 1.26 (1.00-1.93); ALKALINE PHOSPHATASE 64 U/L (45-117); ALT/SGPT 20 U/L (12-78); ANION GAP 3 MEQ/L (8-16); AST/SGOT 21 U/L (7-37); BILIRUBIN,TOTAL 0.8 MG/DL (0.2-1.0); BLOOD UREA NITROGEN 18 MG/DL (7-18); CALCIUM LEVEL 8.3 MG/DL (8.5-10.1); CARBON DIOXIDE LEVEL 29 MEQ/L (21-32); CHLORIDE LEVEL 110 MEQ/L (98-107); CHOLESTEROL LEVEL 163 MG/DL (<200); CHOLESTEROL RISK RATIO 2.762 (<5); CREATININE FOR GFR 0.73 MG/DL (0.55-1.30); GLOMERULAR FILTRATION RATE > 60.0 (>51); GLUCOSE, FASTING 92 MG/DL (70-100); HDL CHOLESTEROL 59 MG/DL (>40); LDL CHOLESTEROL 79.2 MG/DL (<100); NON-HDL-C 104 MG/DL; POTASSIUM SERUM 3.9 MEQ/L (3.5-5.1); SODIUM LEVEL 142 MEQ/L (136-145); TOTAL PROTEIN 6.1 GM/DL (6.4-8.2); TRIGLYCERIDES LEVEL 124 MG/DL (<150)
[2017-08-23 13:44] LABS: ESTIMATED AVERAGE GLUCOSE 94 MG/DL (60-110); HEMOGLOBIN A1c 4.9 %
[2017-08-23 13:51] LABS: AMPHETAMINES URINE REFLEX NEGATIVE (NEGATIVE); BARBITURATES URINE REFLEX NEGATIVE (NEGATIVE); BENZODIAZEPINES URINE REFLEX NEGATIVE (NEGATIVE); CANNABINOIDS URINE REFLEX NEGATIVE (NEGATIVE); COCAINE METABOLITE URINE REFLE NEGATIVE (NEGATIVE); METHADONE URINE REFLEX NEGATIVE (NEGATIVE); OPIATES URINE REFLEX NEGATIVE (NEGATIVE); PHENCYCLIDINE URINE REFLEX NEGATIVE (NEGATIVE)
[2017-08-23 14:58] LABS: CHLAMYDIA DNA AMPLIFICATION NEGATIVE (NEGATIVE); GC DNA AMPLIFICATION NEGATIVE (NEGATIVE)
[2017-08-24 14:13] LABS: % CD8 Pos Lymph 37.3 % (12.0-35.5); %CD4 Pos Lymphs 40.2 % (30.8-58.5); ABS Eosinophils 0.1 x10E3/uL (0.0-0.4); ABS Lymphs 1.6 x10E3/uL (0.7-3.1); ABS Monocytes 0.5 x10E3/uL (0.1-0.9); ABS Neutophils 4.5 x10E3/uL (1.4-7.0); Abs CD4 Helper 643 /uL (359-1519); Abs CD8 Suppres 597 /uL (109-897); CD4/CD8 Ratio 1.08 (0.92-3.72); Eosinophils 2 % (Not Estab.); HCT 36.2 % (34.0-46.6); HGB 11.9 g/dL (11.1-15.9); Immature Grans 0 % (Not Estab.); Lymphocytes 23 % (Not Estab.); MCH 30.4 pg (26.6-33.0); MCHC 32.9 g/dL (31.5-35.7); MCV 93 fL (79-97); Monocytes 8 % (Not Estab.); Neutrophils 67 % (Not Estab.); Platelets 135 x10E3/uL (150-379); RBC 3.91 x10E6/uL (3.77-5.28); RDW 13.7 % (12.3-15.4); WBC 6.7 x10E3/uL (3.4-10.8)
[2017-08-25 14:15] LABS: HIV-1 RNA PCR QUANT 2 LC550285 <20 copies/mL (.); QUANTIFERON GOLD TB Negative (Negative); TB Test (QFT) Antigen 0.15 IU/mL (.); TB Test (QFT) Mitogen 8.24 IU/mL (.); TB Test (QFT) Nil 0.15 IU/mL (.)
== END ==
LOC: M SFHCPLAZ 11:32
DX: B20 Human immunodeficiency virus [HIV] disease (principal); E11.40 Type 2 diabetes mellitus with diabetic neuropathy, unspecified; E11.621 Type 2 diabetes mellitus with foot ulcer; L97.419 Non-pressure chronic ulcer of right heel and midfoot with unspecified severity; Z79.899 Other long term (current) drug therapy
CPT/HCPCS: 80053

== ENCOUNTER 2017-12-20 17:40 | Emergency (ER) | payer MEDICARE, MEDICAID ==
[2017-12-20] MEDS: CLINDAMYCIN 900 MG in APPROPRIATE DILUENT 1 EA IV (19:27)
[2017-12-20] MEDS: PREGABALIN 100 MG CAP (LYRICA) PO (19:28)
[2017-12-20] MEDS: PERCOCET 5MG/325MG TAB PO (19:29)
[2017-12-20 19:58] LABS: BASO # 0.1 10^3/uL (0.0-0.2); EOS # 0.1 10^3/uL (0.0-0.50); EOS % 1.8 % (0.0-3.0); HEMOGLOBIN 11.1 g/dl (12.0-15.5); IMMATURE GRANULOCYTE % 2.4 % (0-3.0); LYMPH # 1.3 10^3/uL (1.5-4.5); LYMPH % 25.2 % (24.0-44.0); MEAN CORPUSCULAR HEMOGLOBIN 28.9 pg (27.0-33.0); MEAN CORPUSCULAR HGB CONC 31.7 g/dl (32.0-36.5); MEAN CORPUSCULAR VOLUME 91.1 fl (80.0-96.0); MONO # 0.5 10^3/uL (0.0-0.8); MONO % 9.7 % (0.0-5.0); NEUTROPHILS % 59.9 % (36.0-66.0); PLATELET COUNT, AUTOMATED 111 10^3/uL (150-450); RED BLOOD COUNT 3.84 10^6/uL (4.00-5.40); RED CELL DISTRIBUTION WIDTH 13.5 % (11.5-14.5)
[2017-12-20 20:20] LABS: ANION GAP 7 MEQ/L (8-16); BLOOD UREA NITROGEN 11 MG/DL (7-18); C REACTIVE PROTEIN QUANTITATIV 1.57 MG/DL (0.00-0.30); CALCIUM LEVEL 8.1 MG/DL (8.5-10.1); CARBON DIOXIDE LEVEL 29 MEQ/L (21-32); CHLORIDE LEVEL 106 MEQ/L (98-107); CREATININE FOR GFR 0.71 MG/DL (0.55-1.30); GLOMERULAR FILTRATION RATE > 60.0 (>51); GLUCOSE, FASTING 83 MG/DL (70-100); SODIUM LEVEL 142 MEQ/L (136-145)
[2017-12-20 20:25] LABS: ERYTHROCYTE SEDIMENTATION RATE 40 mm/hr (0-30)
[2017-12-20 20:30] LABS: LACTIC ACID SEPSIS PROTOCOL 0.8 MMOL/L (0.4-2.0)
== END 2017-12-20 21:29 | disposition home or self-care (01) ==
LOC: M ED 17:40
DX: L03.116 Cellulitis of left lower limb (principal); B20 Human immunodeficiency virus [HIV] disease; Z98.84 Bariatric surgery status; Z79.899 Other long term (current) drug therapy; F17.210 Nicotine dependence, cigarettes, uncomplicated
CPT/HCPCS: 73630

== ENCOUNTER → 2018-02-27 | Outpatient (REF) | payer MEDICARE, MEDICAID ==
[2018-02-27 14:18] LABS: ESTIMATED AVERAGE GLUCOSE 111 MG/DL (60-110); HEMOGLOBIN A1c 5.5 %
[2018-02-27 14:32] LABS: ALBUMIN 3.5 GM/DL (3.2-5.2); ALBUMIN/GLOBULIN RATIO 0.97 (1.00-1.93); ALKALINE PHOSPHATASE 99 U/L (45-117); ALT/SGPT 14 U/L (12-78); ANION GAP 8 MEQ/L (8-16); AST/SGOT 17 U/L (7-37); BILIRUBIN,TOTAL 0.5 MG/DL (0.2-1.0); BLOOD UREA NITROGEN 22 MG/DL (7-18); C REACTIVE PROTEIN QUANTITATIV 0.93 MG/DL (0.00-0.30); CALCIUM LEVEL 9.3 MG/DL (8.5-10.1); CARBON DIOXIDE LEVEL 29 MEQ/L (21-32); CHLORIDE LEVEL 105 MEQ/L (98-107); CREATININE FOR GFR 0.94 MG/DL (0.55-1.30); GLOMERULAR FILTRATION RATE > 60.0 (>51); GLUCOSE, FASTING 101 MG/DL (70-100); POTASSIUM SERUM 4.2 MEQ/L (3.5-5.1); SODIUM LEVEL 142 MEQ/L (136-145); TOTAL PROTEIN 7.1 GM/DL (6.4-8.2)
[2018-02-27 14:35] LABS: ERYTHROCYTE SEDIMENTATION RATE 44 mm/hr (0-30)
== END ==
LOC: M SFHCPLAZ 11:30
DX: L97.522 Non-pressure chronic ulcer of other part of left foot with fat layer exposed (principal); B20 Human immunodeficiency virus [HIV] disease; E08.621 Diabetes mellitus due to underlying condition with foot ulcer
CPT/HCPCS: 80053

== ENCOUNTER → 2018-02-27 | Outpatient (REF) | payer MEDICARE, MEDICAID | LOC: M SFHCPLAZ 13:10 | DX: Z01.812 Encounter for preprocedural laboratory examination (principal); M20.12 Hallux valgus (acquired), left foot; Z21 Asymptomatic human immunodeficiency virus [HIV] infection status; E08.621 Diabetes mellitus due to underlying condition with foot ulcer; Z23 Encounter for immunization | CPT/HCPCS: 80053; 87070; 87186 ==

== ENCOUNTER → 2018-04-11 | Outpatient (REF) | payer MEDICARE, MEDICAID | LOC: M SFHCWAGY 11:11 | DX: Z12.4 Encounter for screening for malignant neoplasm of cervix (principal) | CPT/HCPCS: G0123 ==

== ENCOUNTER → 2018-04-11 | Outpatient (CLI) | payer MEDICARE, MEDICAID | LOC: M WHC 10:52 | DX: Z12.31 Encounter for screening mammogram for malignant neoplasm of breast (principal); Z01.419 Encounter for gynecological examination (general) (routine) without abnormal findings (principal); Z78.0 Asymptomatic menopausal state; R92.1 Mammographic calcification found on diagnostic imaging of breast; Z92.89 Personal history of other medical treatment; Z12.12 Encounter for screening for malignant neoplasm of rectum | CPT/HCPCS: 77067; G0123 ==

== ENCOUNTER 2018-04-19 16:00 | Inpatient (IN) | payer MEDICARE, MEDICAID ==
[2018-04-19 17:43] LABS: ALBUMIN 2.7 GM/DL (3.2-5.2); ALBUMIN/GLOBULIN RATIO 0.73 (1.00-1.93); ALKALINE PHOSPHATASE 84 U/L (45-117); ALT/SGPT 13 U/L (12-78); ANION GAP 9 MEQ/L (8-16); AST/SGOT 17 U/L (7-37); BILIRUBIN,TOTAL 1.1 MG/DL (0.2-1.0); BLOOD UREA NITROGEN 26 MG/DL (7-18); CALCIUM LEVEL 8.1 MG/DL (8.5-10.1); CARBON DIOXIDE LEVEL 28 MEQ/L (21-32); CHLORIDE LEVEL 100 MEQ/L (98-107); CREATININE FOR GFR 0.71 MG/DL (0.55-1.30); GLOMERULAR FILTRATION RATE > 60.0 (>51); GLUCOSE, FASTING 84 MG/DL (70-100); POTASSIUM SERUM 4.1 MEQ/L (3.5-5.1); SODIUM LEVEL 137 MEQ/L (136-145); TOTAL PROTEIN 6.4 GM/DL (6.4-8.2)
[2018-04-19] MEDS ORDERED: traZODone 50 MG TAB PO (17:45)
[2018-04-19] MEDS: PIPERACILLIN/TAZOBACTAM SOD 3.375 GM in D5W MINI-BAG PLUS 50 ML IV ×2 (17:52→23:53)
[2018-04-19] MEDS: MORPHINE 4 MG/ML 1ML VIAL/SYRINGE (J2270) IV ×2 (17:52→23:53)
[2018-04-19] MEDS: VANCOMYCIN HCL 1,000 MG, VIAL MATE ADAPTER 1 EACH in D5W 250 ML IV (18:47)
[2018-04-19] MEDS: VANCOMYCIN HCL 500 MG in D5W MINI-BAG PLUS 100 ML IV (20:09)
[2018-04-19] MEDS: PREGABALIN 100 MG CAP (LYRICA) PO (20:09)
[2018-04-20] MEDS: VANCOMYCIN HCL 1,000 MG, VIAL MATE ADAPTER 1 EACH in D5W 250 ML IV ×3 (03:34→20:52)
[2018-04-20] MEDS: MORPHINE 4 MG/ML 1ML VIAL/SYRINGE (J2270) IV ×3 (05:47→18:29)
[2018-04-20] MEDS: PIPERACILLIN/TAZOBACTAM SOD 3.375 GM in D5W MINI-BAG PLUS 50 ML IV ×3 (05:47→18:29)
[2018-04-20] MEDS: VITAMIN D 1,000 INTERNATIONAL UNITS TABLET PO (08:26)
[2018-04-20] MEDS: PREGABALIN 100 MG CAP (LYRICA) PO ×2 (08:26→20:52)
[2018-04-20 09:52] LABS: HEMATOCRIT 32.9 % (36.0-47.0); HEMOGLOBIN 10.5 g/dl (12.0-15.5); MEAN CORPUSCULAR HEMOGLOBIN 27.3 pg (27.0-33.0); MEAN CORPUSCULAR HGB CONC 31.9 g/dl (32.0-36.5); MEAN CORPUSCULAR VOLUME 85.5 fl (80.0-96.0); PLATELET COUNT, AUTOMATED 110 10^3/uL (150-450); RED BLOOD COUNT 3.85 10^6/uL (4.00-5.40); RED CELL DISTRIBUTION WIDTH 14.5 % (11.5-14.5); WHITE BLOOD COUNT 7.1 10^3/uL (4.0-10.0)
[2018-04-20 10:19] LABS: C REACTIVE PROTEIN QUANTITATIV 7.93 MG/DL (0.00-0.30)
[2018-04-20] MEDS: PERCOCET 5MG/325MG TAB PO ×3 (12:32→20:53)
[2018-04-20 18:52] LABS: VANCOMYCIN LEVEL TROUGH 16.5 UG/ML (10.0-20.0)
[2018-04-21] MEDS: PIPERACILLIN/TAZOBACTAM SOD 3.375 GM in D5W MINI-BAG PLUS 50 ML IV ×4 (00:06→18:30)
[2018-04-21] MEDS: MORPHINE 4 MG/ML 1ML VIAL/SYRINGE (J2270) IV ×2 (01:25→07:47)
[2018-04-21] MEDS: VANCOMYCIN HCL 1,000 MG, VIAL MATE ADAPTER 1 EACH in D5W 250 ML IV ×3 (03:14→20:21)
[2018-04-21] MEDS: PERCOCET 5MG/325MG TAB PO ×4 (05:17→20:23)
[2018-04-21 06:27] LABS: HEMOGLOBIN 10.1 g/dl (12.0-15.5); MEAN CORPUSCULAR HEMOGLOBIN 26.8 pg (27.0-33.0); MEAN CORPUSCULAR HGB CONC 31.6 g/dl (32.0-36.5); MEAN CORPUSCULAR VOLUME 84.9 fl (80.0-96.0); PLATELET COUNT, AUTOMATED 102 10^3/uL (150-450); RED BLOOD COUNT 3.77 10^6/uL (4.00-5.40); RED CELL DISTRIBUTION WIDTH 14.4 % (11.5-14.5); WHITE BLOOD COUNT 4.9 10^3/uL (4.0-10.0)
[2018-04-21 06:46] LABS: ANION GAP 8 MEQ/L (8-16); BLOOD UREA NITROGEN 22 MG/DL (7-18); C REACTIVE PROTEIN QUANTITATIV 7.14 MG/DL (0.00-0.30); CALCIUM LEVEL 8.1 MG/DL (8.5-10.1); CARBON DIOXIDE LEVEL 28 MEQ/L (21-32); CHLORIDE LEVEL 100 MEQ/L (98-107); CREATININE FOR GFR 0.78 MG/DL (0.55-1.30); GLOMERULAR FILTRATION RATE > 60.0 (>51); GLUCOSE, FASTING 93 MG/DL (70-100); MAGNESIUM LEVEL 1.8 MG/DL (1.8-2.4); POTASSIUM SERUM 3.7 MEQ/L (3.5-5.1); SODIUM LEVEL 136 MEQ/L (136-145)
[2018-04-21] MEDS: PREGABALIN 100 MG CAP (LYRICA) PO ×2 (09:30→20:22)
[2018-04-21] MEDS: VITAMIN D 1,000 INTERNATIONAL UNITS TABLET PO (09:30)
[2018-04-21] MEDS ORDERED: PROPOFOL 200 MG/20 ML VIAL As Ordered (16:51)
[2018-04-21] MEDS ORDERED: MIDAZOLAM INJ 2 MG/2 ML VIAL (J2250) As Ordered (16:51)
[2018-04-21] MEDS ORDERED: fentaNYL 100 MCG/2 ML INJECTION (J3010) As Ordered (16:51)
[2018-04-21] MEDS: LIDOCAINE 1% MDV 20ML VIAL As Ordered (17:15)
[2018-04-21] MEDS: BUPIVACAINE HCL 0.5% 10 ML VIAL As Ordered (17:15)
[2018-04-21] MEDS ORDERED: ONDANSETRON 4MG/2ML VIAL (J2405) As Ordered (17:18)
[2018-04-21] MEDS ORDERED: dexameTHASONE 4 MG/ML 1ML VIAL (J1100) As Ordered (17:18)
[2018-04-21] MEDS ORDERED: ePHEDrine SULFATE 25 MG/5 ML(5MG/ML) SYRINGE As Ordered (17:22)
[2018-04-21] MEDS ORDERED: ONDANSETRON 4MG/2ML VIAL (J2405) IV (18:15)
[2018-04-21] MEDS: LR 1,000 ML IV (18:15)
[2018-04-21] MEDS ORDERED: PERCOCET 5MG/325MG TAB PO (18:15)
[2018-04-22] MEDS: PIPERACILLIN/TAZOBACTAM SOD 3.375 GM in D5W MINI-BAG PLUS 50 ML IV ×4 (00:15→18:22)
[2018-04-22] MEDS: PERCOCET 5MG/325MG TAB PO ×5 (00:16→20:58)
[2018-04-22] MEDS: VANCOMYCIN HCL 1,000 MG, VIAL MATE ADAPTER 1 EACH in D5W 250 ML IV ×2 (03:13→11:14)
[2018-04-22] MEDS: MORPHINE 4 MG/ML 1ML VIAL/SYRINGE (J2270) IV (03:15)
[2018-04-22 06:46] LABS: HEMATOCRIT 31.8 % (36.0-47.0); HEMOGLOBIN 10.1 g/dl (12.0-15.5); MEAN CORPUSCULAR HEMOGLOBIN 26.9 pg (27.0-33.0); MEAN CORPUSCULAR HGB CONC 31.8 g/dl (32.0-36.5); MEAN CORPUSCULAR VOLUME 84.8 fl (80.0-96.0); PLATELET COUNT, AUTOMATED 136 10^3/uL (150-450); RED BLOOD COUNT 3.75 10^6/uL (4.00-5.40); RED CELL DISTRIBUTION WIDTH 13.7 % (11.5-14.5); WHITE BLOOD COUNT 5.3 10^3/uL (4.0-10.0)
[2018-04-22 07:00] LABS: ANION GAP 8 MEQ/L (8-16); BLOOD UREA NITROGEN 19 MG/DL (7-18); C REACTIVE PROTEIN QUANTITATIV 5.71 MG/DL (0.00-0.30); CALCIUM LEVEL 8.4 MG/DL (8.5-10.1); CARBON DIOXIDE LEVEL 26 MEQ/L (21-32); CHLORIDE LEVEL 99 MEQ/L (98-107); CREATININE FOR GFR 0.84 MG/DL (0.55-1.30); GLOMERULAR FILTRATION RATE > 60.0 (>51); GLUCOSE, FASTING 216 MG/DL (70-100); MAGNESIUM LEVEL 2.1 MG/DL (1.8-2.4); POTASSIUM SERUM 4.2 MEQ/L (3.5-5.1); SODIUM LEVEL 133 MEQ/L (136-145)
[2018-04-22] MEDS: PREGABALIN 100 MG CAP (LYRICA) PO ×2 (09:13→20:01)
[2018-04-22] MEDS: ENOXAPARIN 40 MG/0.4 ML SYRINGE (J1650) SC (09:13)
[2018-04-22] MEDS: VITAMIN D 1,000 INTERNATIONAL UNITS TABLET PO (09:13)
[2018-04-22 18:45] LABS: VANCOMYCIN LEVEL TROUGH 26.5 UG/ML (10.0-20.0)
[2018-04-23] MEDS: PIPERACILLIN/TAZOBACTAM SOD 3.375 GM in D5W MINI-BAG PLUS 50 ML IV ×2 (00:40→08:03)
[2018-04-23] MEDS: PERCOCET 5MG/325MG TAB PO ×4 (03:25→21:23)
[2018-04-23 05:51] LABS: HEMOGLOBIN 9.5 g/dl (12.0-15.5); MEAN CORPUSCULAR HEMOGLOBIN 26.5 pg (27.0-33.0); MEAN CORPUSCULAR HGB CONC 31.7 g/dl (32.0-36.5); MEAN CORPUSCULAR VOLUME 83.8 fl (80.0-96.0); PLATELET COUNT, AUTOMATED 132 10^3/uL (150-450); RED BLOOD COUNT 3.58 10^6/uL (4.00-5.40); RED CELL DISTRIBUTION WIDTH 13.8 % (11.5-14.5); WHITE BLOOD COUNT 4.8 10^3/uL (4.0-10.0)
[2018-04-23] MEDS: VANCOMYCIN HCL 1,000 MG, VIAL MATE ADAPTER 1 EACH in D5W 250 ML IV ×2 (06:00→17:10)
[2018-04-23 06:06] LABS: ANION GAP 6 MEQ/L (8-16); BLOOD UREA NITROGEN 21 MG/DL (7-18); C REACTIVE PROTEIN QUANTITATIV 2.16 MG/DL (0.00-0.30); CALCIUM LEVEL 8.2 MG/DL (8.5-10.1); CARBON DIOXIDE LEVEL 28 MEQ/L (21-32); CHLORIDE LEVEL 104 MEQ/L (98-107); CREATININE FOR GFR 0.76 MG/DL (0.55-1.30); GLOMERULAR FILTRATION RATE > 60.0 (>51); GLUCOSE, FASTING 92 MG/DL (70-100); MAGNESIUM LEVEL 1.8 MG/DL (1.8-2.4); POTASSIUM SERUM 3.3 MEQ/L (3.5-5.1); SODIUM LEVEL 138 MEQ/L (136-145)
[2018-04-23] MEDS: PREGABALIN 100 MG CAP (LYRICA) PO ×2 (08:01→21:22)
[2018-04-23] MEDS: VITAMIN D 1,000 INTERNATIONAL UNITS TABLET PO (08:01)
[2018-04-23] MEDS: ENOXAPARIN 40 MG/0.4 ML SYRINGE (J1650) SC (08:03)
[2018-04-23] MEDS: POTASSIUM CHLORIDE 10 MEQ SR TABLET PO (09:35)
[2018-04-24] MEDS: PERCOCET 5MG/325MG TAB PO ×4 (05:40→23:50)
[2018-04-24 05:41] LABS: HEMATOCRIT 30.6 % (36.0-47.0); HEMOGLOBIN 9.6 g/dl (12.0-15.5); MEAN CORPUSCULAR HGB CONC 31.4 g/dl (32.0-36.5); RED BLOOD COUNT 3.56 10^6/uL (4.00-5.40); RED CELL DISTRIBUTION WIDTH 14.2 % (11.5-14.5); WHITE BLOOD COUNT 4.1 10^3/uL (4.0-10.0)
[2018-04-24 05:42] LABS: PLATELET COUNT, AUTOMATED 146 10^3/uL (150-450)
[2018-04-24 06:00] LABS: ANION GAP 3 MEQ/L (8-16); BLOOD UREA NITROGEN 21 MG/DL (7-18); C REACTIVE PROTEIN QUANTITATIV 1.71 MG/DL (0.00-0.30); CALCIUM LEVEL 7.8 MG/DL (8.5-10.1); CARBON DIOXIDE LEVEL 30 MEQ/L (21-32); CHLORIDE LEVEL 108 MEQ/L (98-107); CREATININE FOR GFR 0.61 MG/DL (0.55-1.30); GLOMERULAR FILTRATION RATE > 60.0 (>51); GLUCOSE, FASTING 79 MG/DL (70-100); MAGNESIUM LEVEL 1.6 MG/DL (1.8-2.4); POTASSIUM SERUM 4.7 MEQ/L (3.5-5.1); SODIUM LEVEL 141 MEQ/L (136-145)
[2018-04-24 06:02] LABS: VANCOMYCIN LEVEL TROUGH 14.7 UG/ML (10.0-20.0)
[2018-04-24] MEDS: VANCOMYCIN HCL 1,000 MG, VIAL MATE ADAPTER 1 EACH in D5W 250 ML IV ×3 (06:32→18:25)
[2018-04-24] MEDS: ENOXAPARIN 40 MG/0.4 ML SYRINGE (J1650) SC (09:49)
[2018-04-24] MEDS: VITAMIN D 1,000 INTERNATIONAL UNITS TABLET PO (09:49)
[2018-04-24] MEDS: PREGABALIN 100 MG CAP (LYRICA) PO ×2 (09:49→20:30)
[2018-04-25] MEDS: PERCOCET 5MG/325MG TAB PO ×3 (06:03→17:52)
[2018-04-25] MEDS: VANCOMYCIN HCL 1,000 MG, VIAL MATE ADAPTER 1 EACH in D5W 250 ML IV ×2 (06:03→17:52)
[2018-04-25 06:56] LABS: HEMATOCRIT 27.8 % (36.0-47.0); HEMOGLOBIN 8.9 g/dl (12.0-15.5); MEAN CORPUSCULAR HEMOGLOBIN 27.1 pg (27.0-33.0); MEAN CORPUSCULAR VOLUME 84.8 fl (80.0-96.0); PLATELET COUNT, AUTOMATED 141 10^3/uL (150-450); RED BLOOD COUNT 3.28 10^6/uL (4.00-5.40); RED CELL DISTRIBUTION WIDTH 14.3 % (11.5-14.5); WHITE BLOOD COUNT 3.5 10^3/uL (4.0-10.0)
[2018-04-25 07:23] LABS: ANION GAP 4 MEQ/L (8-16); BLOOD UREA NITROGEN 21 MG/DL (7-18); C REACTIVE PROTEIN QUANTITATIV 1.52 MG/DL (0.00-0.30); CALCIUM LEVEL 8.1 MG/DL (8.5-10.1); CARBON DIOXIDE LEVEL 29 MEQ/L (21-32); CHLORIDE LEVEL 108 MEQ/L (98-107); CREATININE FOR GFR 0.56 MG/DL (0.55-1.30); GLOMERULAR FILTRATION RATE > 60.0 (>51); GLUCOSE, FASTING 89 MG/DL (70-100); MAGNESIUM LEVEL 1.4 MG/DL (1.8-2.4); POTASSIUM SERUM 3.9 MEQ/L (3.5-5.1); SODIUM LEVEL 141 MEQ/L (136-145)
[2018-04-25] MEDS: ENOXAPARIN 40 MG/0.4 ML SYRINGE (J1650) SC (08:40)
[2018-04-25] MEDS: PREGABALIN 100 MG CAP (LYRICA) PO (08:40)
[2018-04-25] MEDS: MAG SULF 1GM/100ML (MAG RUN) 1 GM in APPROPRIATE DILUENT 1 EA IV ×3 (08:40→10:00)
[2018-04-25] MEDS: VITAMIN D 1,000 INTERNATIONAL UNITS TABLET PO (08:40)
== END 2018-04-25 18:35 | disposition home health service (06) | DRG 617 ==
LOC: M MS4PR 04-24 18:37 → M MS5PR 16:00
PROC: 0Y6Q0Z1 Detachment at Left 1st Toe, High, Open Approach (ICD-10-PCS; principal; 2018-04-21 17:04)
DX: E11.622 Type 2 diabetes mellitus with other skin ulcer (principal); L03.116 Cellulitis of left lower limb; E11.51 Type 2 diabetes mellitus with diabetic peripheral angiopathy without gangrene; E11.40 Type 2 diabetes mellitus with diabetic neuropathy, unspecified; E11.621 Type 2 diabetes mellitus with foot ulcer; Z79.899 Other long term (current) drug therapy; F17.200 Nicotine dependence, unspecified, uncomplicated; K21.9 Gastro-esophageal reflux disease without esophagitis

== ENCOUNTER → 2018-06-19 | Outpatient (CLI) | payer MEDICARE, MEDICAID ==
[~2018-06-19] MED LIST: CEPH500C PO; CLEO300C2 PO; CLOP75TA2 PO; DIFL10SU PO; DOXY-350 PO; ESOM1CAP5 PO; FURO20TA2 PO; FURO40TA2; FURO40TA2 PO; GENV1TAB PO; KLOR10TA76 PO; LOMO2.5T PO; LYRI300C PO; MAG400TA PO; NITR2OI TOP; ONDA8TAB7 PO; OXYC10TA3 PO; OXYCOD/APAP PO; PANT40TA3 PO; PERC7.5T11 PO; PREZ800T2 PO; SUCR1SS; SUCR1SS PO; TRAZ-160 PO; VITA100066 PO; VITA100067 PO
--- NOTE | 2018-06-19 14:50 | REP ---
Duplex extremity venous ultrasound: Left lower extremity. History: Left leg swelling. Findings: The deep veins are anechoic and fully compressible from the groin to the popliteal fossa in the left lower extremity. Color flow imaging is homogeneous. Spectral Doppler interrogation demonstrates intact respiratory variation in flow and normal manual augmentation of flow. There is no evidence of deep vein thrombosis. Impression: Negative left lower extremity duplex venous ultrasound. No evidence of deep vein thrombosis. Electronically Signed by Aristeo Gonzalez MD 06/19/2018 02:41 P
== END ==
LOC: M RAD 14:04
PROVIDERS: ATTEND Internal Medicine Infectious Disease
DX: M79.89 Other specified soft tissue disorders (principal)
CPT/HCPCS: 93971; G0463

== ENCOUNTER 2018-06-27 18:13 | Inpatient (IN) | payer MEDICARE, OTHER, MEDICAID ==
[~2018-06-27] VITALS: Ht 172.7 cm; Wt 83.1 kg
[~2018-06-27 18:13] MED LIST changes: -CLOP75TA2 PO; -DIFL10SU PO; -FURO40TA2; -FURO40TA2 PO; -KLOR10TA76 PO; -MAG400TA PO; -NITR2OI TOP; -ONDA8TAB7 PO; -PANT40TA3 PO; -SUCR1SS; -SUCR1SS PO; -VITA100066 PO
[2018-06-27] MEDS ORDERED: FURO40TA2 (18:25)
[2018-06-27] MEDS ORDERED: SUCR1SS (18:25)
[2018-06-27] MEDS ORDERED: PREGABALIN 100 MG CAP (LYRICA) PO ONE (20:15)
[2018-06-27] MEDS ORDERED: PERCOCET 5MG/325MG TAB PO ONE (20:15)
[2018-06-27 21:21] LABS: BASO # 0.1 10^3/uL (0.0-0.2); EOS % 0.7 % (0.0-3.0); HEMATOCRIT 31.7 % (36.0-47.0); HEMOGLOBIN 10.3 g/dl (12.0-15.5); LYMPH # 2.1 10^3/uL (1.5-4.5); LYMPH % 34.6 % (24.0-44.0); MEAN CORPUSCULAR HEMOGLOBIN 26.7 pg (27.0-33.0); MEAN CORPUSCULAR HGB CONC 32.5 g/dl (32.0-36.5); MEAN CORPUSCULAR VOLUME 82.1 fl (80.0-96.0); MONO # 0.5 10^3/uL (0.0-0.8); NEUTROPHILS # 3.2 10^3/uL (1.8-7.7); NEUTROPHILS % 53.7 % (36.0-66.0); PLATELET COUNT, AUTOMATED 120 10^3/uL (150-450); RED BLOOD COUNT 3.86 10^6/uL (4.00-5.40); WHITE BLOOD COUNT 5.9 10^3/uL (4.0-10.0)
[2018-06-27 21:33] LABS: INR 1.02; PROTHROMBIN TIME 13.5 SECONDS (12.1-14.4)
[2018-06-27 21:34] LABS: PARTIAL THROMBOPLASTIN TIME 33.7 SECONDS (25.4-37.6)
[2018-06-27 21:46] LABS: BLOOD UREA NITROGEN 27 MG/DL (7-18); C REACTIVE PROTEIN QUANTITATIV 0.98 MG/DL (0.00-0.30); CALCIUM LEVEL 7.8 MG/DL (8.5-10.1); CARBON DIOXIDE LEVEL 28 MEQ/L (21-32); CHLORIDE LEVEL 102 MEQ/L (98-107); CREATININE FOR GFR 0.61 MG/DL (0.55-1.30); GLOMERULAR FILTRATION RATE > 60.0 (>51); GLUCOSE, FASTING 97 MG/DL (70-100); NT-PRO BNP 323 PG/ML (<125); POTASSIUM SERUM 3.1 MEQ/L (3.5-5.1); SODIUM LEVEL 138 MEQ/L (136-145)
[2018-06-27 21:53] LABS: ERYTHROCYTE SEDIMENTATION RATE 21 mm/hr (0-30)
[2018-06-27] MEDS ORDERED: FUROSEMIDE 20 MG/2 ML VIAL (J1940) IV ONE (22:30)
[2018-06-27] MEDS ORDERED: POTASSIUM CHLORIDE 10 MEQ SR TABLET PO ONE (23:30)
[2018-06-28 00:04] LABS: ALBUMIN 2.4 GM/DL (3.2-5.2); ALT/SGPT 15 U/L (12-78); BILIRUBIN,DIRECT 0.3 MG/DL (0.0-0.2); BILIRUBIN,TOTAL 0.6 MG/DL (0.2-1.0); MAGNESIUM LEVEL 1.3 MG/DL (1.8-2.4); TOTAL PROTEIN 5.1 GM/DL (6.4-8.2)
[2018-06-28] MEDS ORDERED: DIFL10SU PO (00:16)
[2018-06-28] MEDS ORDERED: ONDA8TAB7 PO (00:16)
[2018-06-28] MEDS ORDERED: VITA100066 PO (00:16)
[2018-06-28] MEDS ORDERED: FURO40TA2 PO (00:16)
[2018-06-28] MEDS ORDERED: PANT40TA3 PO (00:16)
[2018-06-28] MEDS ORDERED: SUCR1SS PO (00:16)
[2018-06-28] MEDS ORDERED: traZODone 50 MG TAB PO PRN (00:45)
[2018-06-28] MEDS ORDERED: ONDANSETRON 4 MG TAB (S0181) PO PRN (00:45)
--- NOTE | 2018-06-28 01:34 | HPEPDOC ---
[facility] Medical History & Physical Date of Admission Jun 28, 2018 Other Provider Dictating/admitting: Virginia Warren M.D. Attending Physician: MIRANDA HERNANDEZ MD History and Physical CHIEF COMPLAINT: Swollen lower extremities 1 week. Unable to ambulate in her home 1 week. HISTORY OF PRESENT ILLNESS: Patient is a 53-year-old woman with medical history significant for diabetes, chronic tobacco use, peripheral vascular disease, HIV and GERD. She is status post left hallux amputation last year. Patient follows with Dr. Arroyo (ID) and Saravanan (Podiatry). According to her, she was in her usual state of health until sometime about a week ago when she started having bilateral lower extremity swellings with pains. She had gone earlier to see her PCP who placed her on increased doses of Lasix. She reports using Lasix and being compliant with all her medications, but swelling still persists and now she is finding it difficult ambulating up and down the stairways in the home as she is unable to use her bathroom which is on the upper level in her home. On account of this, she decided to come in and seek medical attention. She denies any chills, fevers, nausea, vomiting, chest pain, palpitations, cough, shortness of breath. She also denies any trauma to both lower extremities. She denies recent long distance travel or so, denies any change in her bowel or urinary habits. Patient was worked up in the emergency room with unremarkable, labs, but due to the fact that she is unable to ambulate at this time in the home. She is requesting home care, hence the reason for this admission on observation. PAST MEDICAL HISTORY: Per HPI PAST SURGICAL HISTORY: Status post left hallux amputation March 2018. SOCIAL HISTORY: Smokes 2 packs a day cigarette denies alcohol use. Denies illicit drug use. FAMILY HISTORY: No significant ischemic heart disease in the family. ALLERGIES: Please see below. REVIEW OF SYSTEMS: he denies any chills, fevers, nausea, vomiting, chest pain, palpitations, cough, shortness of breath. She also denies any trauma to both lower extremities. She denies recent long distance travel or so, denies any change in her bowel or urinary habits. Other systems reviewed, negative other than that specified in the body of HPI. 12 point review of system was done. HOME MEDICATIONS: Please see below. PHYSICAL EXAMINATION: VITAL SIGNS: Temperature 97.8, pulse 86, respiratory rate 16, blood pressure 95/62, pulse oximetry 100 % on room air. GENERAL APPEARANCE: Middle aged woman, lying calmly in bed, not in any apparent distress. She is not pale, anicteric and afebrile HEENT: Atraumatic. Neck: Supple. LUNGS: Clear to auscultation bilaterally. CARDIOVASCULAR: S1 and 2 heard, no murmurs, rubs or gallops. ABDOMEN: Obese, soft, not tender, not distended. Bowel sounds normoactive. MUSCULOSKELETAL: Apparently within normal limits. EXTREMITIES: bilateral stasis dermatitis/erythematous, 2+ bilateral pedal pulses noted. NEUROLOGICAL: Awake, alert, oriented 3. PSYCHIATRIC: Normal affect LABORATORY DATA: See below. IMAGING: Chest x-ray: No acute disease MICROBIOLOGY: Please see below. ASSESSMENT: 53-year-old woman with HIV diabetes, chronic tobacco use, peripheral vascular disease and GERD comes in with a weeks duration of lower extremity swelling with redness and pain bilaterally, having failed management with diuretics as outpatient and having progressive difficulty ambulating in her home. Physical exam reveals features consistent with bilateral lower extremity venous stasis dermatitis unlikely bilateral cellulitis. DIAGNOSES: 1. Bilateral lower extremity venous stasis dermatitis. 2. Physical deconditioning. . PLAN: 1. I will admit this patient for observation to the medical floors under care of Dr. Hernandez. 2. Lower extremity lesions, highly unlikely a case of bilateral cellulitis but consistent with bilateral venous stasis dermatitis. Will continue patient's pain medication for pain control. I will also rule out DVT with lower extremity ultrasonogram. Patient will also get visits from both physical therapy and social work as she would need home care or assistance with ambulating at home. 3. HIV. Patient will continue her home HIV medications. 4. GI prophylaxis. Continue pantoprazole. 5. DVT prophylaxis with subcutaneous heparin. 6. Anticipate discharge after patient has been seen by social worker aide. Vital Signs Vital Signs Date Time Temp Pulse Resp B/P (MAP) Pulse Ox O2 Delivery O2 Flow Rate FiO2 06/28/18 00:05 98.6 06/28/18 00:02 74 16 88/51 (63) 100 Room Air Laboratory Data Labs 24H Laboratory Tests 2 06/27/18 20:44: Immature Granulocyte % (Auto) 1.0, White Blood Count 5.9, Red Blood Count 3.86L, Hemoglobin 10.3L, Hematocrit 31.7L, Mean Corpuscular Volume 82.1, Mean Corpuscular Hemoglobin 26.7L, Mean Corpuscular Hemoglobin Concent 32.5, Red Cell Distribution Width 18.1H, Platelet Count 120L, Neutrophils (%) (Auto) 53.7, Lymphocytes (%) (Auto) 34.6, Monocytes (%) (Auto) 9.0H, Eosinophils (%) (Auto) 0.7, Basophils (%) (Auto) 1.0, Neutrophils # (Auto) 3.2, Lymphocytes # (Auto) 2.1, Monocytes # (Auto) 0.5, Eosinophils # (Auto) 0.0, Basophils # (Auto) 0.1, Nucleated Red Blood Cells % (auto) 0.0, Erythrocyte Sedimentation Rate 21, Prothrombin Time 13.5, Prothromb Time International Ratio 1.02, Activated Partia l Thromboplast Time 33.7, Anion Gap 8, Glomerular Filtration Rate > 60.0, Calcium Level 7.8L, Magnesium Level 1.3L, Aspartate Amino Transf (AST/SGOT) 25, Alanine Aminotransferase (ALT/SGPT) 15, Alkaline Phosphatase 82, Total Bilirubin 0.6, Direct Bilirubin 0.3H, C-Reactive Protein, Quantitative 0.98H, PT-Duh-F-Type Natriuretic Peptide 323H, Total Protein 5.1L, Albumin 2.4L, Albumin/Globulin Ratio 0.89L CBC/BMP Laboratory Tests 06/27/18 20:44 Red Blood Count 3.86 L, Mean Corpuscular Volume 82.1, Mean Corpuscular Hemoglobin 26.7 L, Mean Corpuscular Hemoglobin Concent 32.5, Red Cell Distribution Width 18.1 H, Neutrophils (%) (Auto) 53.7, Lymphocytes (%) (Auto) 34.6, Monocytes (%) (Auto) 9.0 H, Eosinophils (%) (Auto) 0.7, Basophils (%) (Auto) 1.0, Neutrophils # (Auto) 3.2, Lymphocytes # (Auto) 2.1, Monocytes # (Auto) 0.5, Eosinophils # (Auto) 0.0, Basophils # (Auto) 0.1 Microbiology Microbiology 06/27/18 Blood Culture, Received Pending 06/27/18 Blood Culture, Received Pending Home Medications Scheduled (Genvoya [phone] mg) 1 Tab Tab, 1 TAB PO DAILY Cholecalciferol (Vitamin D) 1,000 Unit Tab, 1,000 UNIT PO DAILY Darunavir Ethanolate (Prezista) 800 Mg Tab, 1 TAB PO DAILY Fluconazole (Diflucan) 10 Mg/Ml Kristi, 10 ML PO DAILY Furosemide (Furosemide) 40 Mg Tab, 40 MG PO DAILY Pantoprazole Sodium (Pantoprazole Sodium) 40 Mg Tab, 40 MG PO DAILY Pregabalin (Lyrica) 300 Mg Cap, 300 MG PO BID Sucralfate (Carafate) 1 Gm/10 Ml Kristi, 10 ML PO QID Scheduled PRN (Oxycodone/Acetaminophen 10-325 mg) 1 Tab Tab, 1 TAB PO QID PRN for PAIN Diphenoxylate/Atropine (Lomotil 2.5-0.025 mg) 1 Tab Tab, 1 TAB PO Q4H PRN for DIARRHEA Ondansetron HCl (Ondansetron HCl) 8 Mg Tab, 8 MG PO TID PRN for NAUSEA Trazodone HCl (Trazodone HCl) 50 Mg Tab, 50 MG PO QHS PRN for SLEEP Allergies Coded Allergies: No Known Drug Allergy (Verified Allergy, Unknown, 02/24/18) VIRGINIA WARREN MD Jun 28, 2018 01:34
[2018-06-28] MEDS ORDERED: GLUCAGON FOR INJ 1 MG VIAL (J1610) SC PRN (02:30)
[2018-06-28] MEDS ORDERED: GLUCOSE 4 GM CHEW TABLET PO PRN (02:30)
[2018-06-28] MEDS ORDERED: DEXTROSE 50% 50 ML SYRINGE IV PRN (02:30)
[2018-06-28 03:00] VITALS: BP 88/59
[2018-06-28] MEDS: PERCOCET 5MG/325MG TAB PO PRN ×3 (03:21→19:02)
[2018-06-28 06:37] LABS: BASO # 0.1 10^3/uL (0.0-0.2); BASO % 1.1 % (0.0-1.0); EOS # 0.1 10^3/uL (0.0-0.50); EOS % 1.2 % (0.0-3.0); HEMATOCRIT 29.9 % (36.0-47.0); HEMOGLOBIN 9.8 g/dl (12.0-15.5); LYMPH # 2.1 10^3/uL (1.5-4.5); LYMPH % 37.7 % (24.0-44.0); MEAN CORPUSCULAR HEMOGLOBIN 26.5 pg (27.0-33.0); MEAN CORPUSCULAR HGB CONC 32.8 g/dl (32.0-36.5); MEAN CORPUSCULAR VOLUME 80.8 fl (80.0-96.0); MONO # 0.5 10^3/uL (0.0-0.8); MONO % 9.5 % (0.0-5.0); NEUTROPHILS # 2.8 10^3/uL (1.8-7.7); NEUTROPHILS % 48.9 % (36.0-66.0); PLATELET COUNT, AUTOMATED 151 10^3/uL (150-450); WHITE BLOOD COUNT 5.7 10^3/uL (4.0-10.0)
[2018-06-28 07:01] LABS: BLOOD UREA NITROGEN 26 MG/DL (7-18); CALCIUM LEVEL 7.9 MG/DL (8.5-10.1); CARBON DIOXIDE LEVEL 30 MEQ/L (21-32); CHLORIDE LEVEL 101 MEQ/L (98-107); CREATININE FOR GFR 0.63 MG/DL (0.55-1.30); GLOMERULAR FILTRATION RATE > 60.0 (>51); GLUCOSE, FASTING 99 MG/DL (70-100); POTASSIUM SERUM 3.3 MEQ/L (3.5-5.1); SODIUM LEVEL 139 MEQ/L (136-145)
[2018-06-28] MEDS ORDERED: POTASSIUM CHLORIDE 10 MEQ SR TABLET PO ONE (07:30)
[2018-06-28] MEDS: HumaLOG INSULIN (NovoLOG) PER UNIT SC SCH ×3 (07:30→18:09)
[2018-06-28 07:59] LABS: MAGNESIUM LEVEL 1.4 MG/DL (1.8-2.4)
[2018-06-28 08:24] VITALS: BP 90/50
--- NOTE | 2018-06-28 08:36 | REP ---
Chest two views HISTORY: Edema Comparison: 09/23/2016 The lungs are clear. The heart is normal in size. The pulmonary vasculature is normal in appearance. The patient is status post left shoulder arthroplasty. IMPRESSION: No acute disease. Electronically Signed by Souleymane Berumen MD 06/28/2018 08:28 A
[2018-06-28] MEDS ORDERED: FUROSEMIDE 20 MG/2 ML VIAL (J1940) IV ONE (09:00)
[2018-06-28] MEDS ORDERED: FUROSEMIDE 40 MG TAB PO SCH (09:00)
[2018-06-28] MEDS: SUCRALFATE SUSP 1GM/10ML UD PO SCH ×4 (09:37→21:19)
[2018-06-28] MEDS: PANTOPRAZOLE 40MG TAB (PROTONIX) PO SCH (09:38)
[2018-06-28] MEDS: VITAMIN D 1,000 INTERNATIONAL UNITS TABLET PO SCH (09:38)
[2018-06-28] MEDS: PREGABALIN 100 MG CAP (LYRICA) PO SCH ×2 (09:38→21:19)
[2018-06-28] MEDS: MAG SULF 1GM/100ML (MAG RUN) 1 GM in APPROPRIATE DILUENT 1 EA IV SCH ×2 (09:40→11:09)
[2018-06-28] MEDS: HEPARIN SOD (PORCINE) 5000 UNITS/ML VIAL SQ SCH ×2 (09:40→21:19)
[2018-06-28 10:00] VITALS: BP 100/58
[2018-06-28 10:15] VITALS: BP 100/58
--- NOTE | 2018-06-28 10:16 | REP ---
Duplex extremity venous ultrasound: Bilateral lower extremities. History: Lower extremity swelling and pain bilaterally. Venous stasis. Rule out DVT. Findings: The deep veins are anechoic and fully compressible from the groin to the popliteal fossa in the left and right lower extremity. Color flow imaging is homogeneous. Spectral Doppler interrogation demonstrates intact respiratory variation in flow and normal manual augmentation of flow. There is no evidence of deep vein thrombosis. Incidental note is made of a Wilson's cyst in the left popliteal soft tissues measuring 4.8 x 1.0 x 2.2 cm. Impression: 4.8 cm left Wilson's cyst noted. Otherwise negative bilateral lower extremity duplex venous ultrasound. No evidence of deep vein thrombosis. Electronically Signed by Aristeo Gonzalez MD 06/28/2018 10:07 A
[2018-06-28 14:00] VITALS: BP 110/72
--- NOTE | 2018-06-28 15:58 | REP ---
Bilateral lower extremity arterial Doppler ultrasound: History: Issue diabetes. Prior toe amputations. Findings: Ankle brachial indices are normal, measured at 1.0 on the right and 1.1 on the left. Extensive atherosclerotic plaquing is seen throughout both lower extremity arteries. Abnormal monophasic wave forms are seen in the arteries distal to the and including the popliteal on the right and distal to and including the mid SFA on the left. Multiple areas of stenosis less than 50% are seen bilaterally. Question inflow disease. Abdominal aortic peak systolic velocity is somewhat low at 46 cm/sec. Consider angiography. Right lower extremity arterial Doppler velocity chart: Right common iliac artery 108 cm/S Right external iliac artery 83 cm/S CF A 75 Profunda 86 Proximal SFA 65 Mid SFA 86-131 Distal SFA 95-134 Popliteal 46 Proximal AT A 44 Tibioperoneal trunk 67 Proximal FORENSIC SCIENCE TECHNICIAN 97 Distal FORENSIC SCIENCE TECHNICIAN 17 Distal AT A 62 Left lower extremity arterial Doppler velocity chart: Left common iliac artery 08/02 cm/S Left external iliac artery 79 cm/S CF A 74 Profunda 68 Proximal SFA 103 Mid SFA 108 Distal SFA 89-163 Popliteal 86 Proximal AT A 55 Tibioperoneal trunk 81 Proximal FORENSIC SCIENCE TECHNICIAN 107 Distal FORENSIC SCIENCE TECHNICIAN 61 Distal AT A 87 Electronically Signed by Aristeo Gonzalez MD 06/28/2018 03:50 P
[2018-06-28 20:00] VITALS: BP 88/52
[2018-06-28] MEDS ORDERED: HumaLOG INSULIN (NovoLOG) PER UNIT SC SCH (21:00)
--- NOTE | 2018-06-28 21:46 | CR ---
DATE OF CONSULTATION: 06/28/2018 REASON FOR CONSULTATION: Lower extremity swelling and toe discoloration. Carol Ann Dhillon is a patient well known to me who was admitted to the hospital yesterday due to worsening swelling and redness in her legs. She states she has had this swelling for the last few weeks. She has been prescribed Lasix, which she states she has been taking but with persisting swelling and redness, which is affecting her ability to walk. She denies other symptoms. Denies nausea, vomiting, fever, or chills. Does note some discoloration to her toes. PAST MEDICAL HISTORY: Significant for: 1. Diabetes. 2. Chronic tobacco use. 3. Peripheral vascular disease. 4. Acid reflux. 5. History of gastrointestinal (GI) bleeds. PAST SURGICAL HISTORY: Include: 1. Left hallux amputation. 2. Right 2nd toe amputation. ALLERGIES: No known allergies. FAMILY HISTORY: Noncontributory. SOCIAL HISTORY: Positive for 2-pack a day smoking. Vital signs are reviewed. She has been able since admission. Maximal temperature is 98.6. Labs are reviewed. White blood cell count is 5.7, neutrophils 48.9. Labs are reviewed. Lactic acid is 1.0. ESR is 21. CRP is 0.98. Glucose is 99. Blood cultures are pending. IMAGING STUDIES: Chest x-ray showed no pathology. Vascular ultrasound shows Wilson's cyst on the left but no signs of deep vein thrombosis (DVT). Lower extremity examination: There is positive erythema and edema to the bilateral lower extremities with some warmth to the anterior shins. There are no open ulcerations to the feed or legs. There is some duskiness with delayed capillary refill to the 1st and 2nd toes on both feet. Pedal pulses are weakly palpable. ASSESSMENT: A 53-year-old female with a history of toe amputations with lower leg edema. Recommend arterial ultrasounds to evaluate for arterial flow to rule out any blockages. Should there be a blockage, would recommend vascular consultation. At this time I do not see obvious signs of infection or positive signs in lab work to suggest need for antibiotics; however, if swelling and redness do not improve with diuretics, may consider antibiotic therapy. Will follow.
[2018-06-29] MEDS: PERCOCET 5MG/325MG TAB PO PRN ×4 (03:16→22:18)
[2018-06-29 06:00] VITALS: BP 90/59
[2018-06-29 06:04] LABS: BASO # 0.1 10^3/uL (0.0-0.2); BASO % 1.2 % (0.0-1.0); EOS # 0.1 10^3/uL (0.0-0.50); HEMATOCRIT 32.8 % (36.0-47.0); HEMOGLOBIN 10.5 g/dl (12.0-15.5); LYMPH # 1.2 10^3/uL (1.5-4.5); LYMPH % 22.2 % (24.0-44.0); MEAN CORPUSCULAR HEMOGLOBIN 26.8 pg (27.0-33.0); MEAN CORPUSCULAR VOLUME 83.7 fl (80.0-96.0); MONO # 0.5 10^3/uL (0.0-0.8); MONO % 8.9 % (0.0-5.0); NEUTROPHILS # 3.4 10^3/uL (1.8-7.7); NEUTROPHILS % 65.5 % (36.0-66.0); PLATELET COUNT, AUTOMATED 137 10^3/uL (150-450); RED BLOOD COUNT 3.92 10^6/uL (4.00-5.40); WHITE BLOOD COUNT 5.2 10^3/uL (4.0-10.0)
[2018-06-29 06:18] LABS: BLOOD UREA NITROGEN 32 MG/DL (7-18); CALCIUM LEVEL 7.9 MG/DL (8.5-10.1); CARBON DIOXIDE LEVEL 30 MEQ/L (21-32); CHLORIDE LEVEL 105 MEQ/L (98-107); CREATININE FOR GFR 0.66 MG/DL (0.55-1.30); GLOMERULAR FILTRATION RATE > 60.0 (>51); GLUCOSE, FASTING 73 MG/DL (70-100); MAGNESIUM LEVEL 1.9 MG/DL (1.8-2.4); POTASSIUM SERUM 4.1 MEQ/L (3.5-5.1); SODIUM LEVEL 140 MEQ/L (136-145)
[2018-06-29] MEDS: HumaLOG INSULIN (NovoLOG) PER UNIT SC SCH ×2 (07:30→12:00)
[2018-06-29] MEDS ORDERED: GENVOYA PO SCH (08:00)
[2018-06-29] MEDS ORDERED: DARUNAVIR 800 MG PO SCH ×2 (08:00→09:00)
[2018-06-29] MEDS: HEPARIN SOD (PORCINE) 5000 UNITS/ML VIAL SQ SCH ×2 (09:36→20:43)
[2018-06-29] MEDS: SUCRALFATE SUSP 1GM/10ML UD PO SCH ×4 (09:36→20:43)
[2018-06-29] MEDS: PREGABALIN 100 MG CAP (LYRICA) PO SCH ×2 (09:36→20:44)
[2018-06-29] MEDS: PANTOPRAZOLE 40MG TAB (PROTONIX) PO SCH (09:37)
[2018-06-29] MEDS: VITAMIN D 1,000 INTERNATIONAL UNITS TABLET PO SCH (09:37)
[2018-06-29 14:00] VITALS: BP 95/54
--- NOTE | 2018-06-29 14:12 | IPN ---
DATE: 06/29/2018 Patient is seen and examined. Notes some improvement in her leg swelling, although states the discoloration to her toes has not improved. Denies other complaints. Vitals are reviewed. She has been afebrile. Labs are reviewed. White blood cell count is 5.2 and neutrophils 65.5. Arterial imaging studies show monophasic waveforms distal to and including the popliteal on the right and including the mid SFA on the left with multiple areas of 50% stenosis, and suggest angiography for further evaluation. Lower extremity examination: Erythema and edema to the legs are improved. There is some persisting purplish discoloration at the 1st and 2nd toes of both feet. Assessment is diabetic female with peripheral vascular disease. Recommend consultation with Dr. Ballard for evaluation and possible angiogram as indicated. Will follow. DEE
[2018-06-29 14:30] LABS: HEMOGLOBIN A1c 5.2 %
[2018-06-29] MEDS: LACTIC ACID 12% LOTION 225 GM BTL TOP SCH (18:04)
[2018-06-29] MEDS: DARUNAVIR 800 MG PO SCH (19:22)
[2018-06-29] MEDS: GENVOYA PO SCH (19:23)
[2018-06-29 22:00] VITALS: BP 88/50
--- NOTE | 2018-06-29 22:00 | ECHO ---
DATE OF PROCEDURE: 06/29/2018 REFERRING PHYSICIAN: Dr. Lorene Hernandez INDICATION: Edema. HEIGHT: 173 cm WEIGHT: 83.1 kg 2D MEASUREMENTS: Left atrium: 3.6 cm Ventricular septum: 0.98 cm Posterior wall: 0.94 cm Left ventricle diastole: 4.6 cm Aortic root: 3.1 cm Aortic annulus: 2.0 cm Inferior vena cava: Measurement was technically difficult due to poor subcostal views. DOPPLER MEASUREMENTS: Aortic valve velocity: 130 cm/s LVOT velocity: 128 cm/s LVOT VTI: 24.9 cm Very mild mitral regurgitation. Mitral E velocity: 72.6 cm/s Mitral A velocity: 73.1 cm/s Mitral deceleration time: 201 ms Very mild tricuspid regurgitation. Estimated right ventricle systolic pressure: 24 mmHg assuming a right atrial pressure of 5 mmHg. Pulmonary artery systolic pressure: 28 mmHg. MITRAL ANNULAR TISSUE DOPPLER: E prime septal: 7.2 cm/s E prime lateral: 10.4 cm/s DESCRIPTION: Rhythm was sinus. Image quality was fair. Technically difficult subcostal views. No pericardial effusion. This was a 2D, M-mode, color flow Doppler and pulse wave Doppler examination and included mitral annular tissue Doppler. CONCLUSIONS: 1. Normal left ventricle internal dimensions and wall thickness. Normal regional left ventricular (LV) wall motion and wall thickening. Normal LV systolic function. Left ventricular ejection fraction (LVEF) 70% by visual estimate. Normal LV diastolic function for age. 2. Normal pulmonary artery systolic pressure and estimated right ventricle systolic pressure. 3. Technically difficult visualization for the inferior vena cava due to difficult subcostal views. Unable to estimate central venous pressure. 4. Otherwise normal appearing echocardiogram Doppler findings.
[2018-06-29] MEDS ORDERED: FUROSEMIDE 20 MG/2 ML VIAL (J1940) IV ONE (23:00)
[2018-06-30] MEDS: PERCOCET 5MG/325MG TAB PO PRN ×4 (04:20→22:29)
[2018-06-30] MEDS: LOMOTIL 2.5MG/0.025MG TABLET PO PRN ×4 (05:19→20:32)
[2018-06-30 06:00] VITALS: BP 93/55
[2018-06-30 07:03] LABS: BASO % 1.2 % (0.0-1.0); EOS % 0.9 % (0.0-3.0); HEMOGLOBIN 9.6 g/dl (12.0-15.5); LYMPH % 29.9 % (24.0-44.0); MEAN CORPUSCULAR HEMOGLOBIN 26.7 pg (27.0-33.0); MEAN CORPUSCULAR VOLUME 86.1 fl (80.0-96.0); MONO # 0.5 10^3/uL (0.0-0.8); MONO % 14.5 % (0.0-5.0); NEUTROPHILS # 1.7 10^3/uL (1.8-7.7); PLATELET COUNT, AUTOMATED 104 10^3/uL (150-450); WHITE BLOOD COUNT 3.2 10^3/uL (4.0-10.0)
[2018-06-30 07:25] LABS: BLOOD UREA NITROGEN 32 MG/DL (7-18); CALCIUM LEVEL 7.7 MG/DL (8.5-10.1); CARBON DIOXIDE LEVEL 29 MEQ/L (21-32); CHLORIDE LEVEL 109 MEQ/L (98-107); CHOLESTEROL LEVEL 100 MG/DL (<200); CHOLESTEROL RISK RATIO 2.083 (<5); CREATININE FOR GFR 0.62 MG/DL (0.55-1.30); GLOMERULAR FILTRATION RATE > 60.0 (>51); GLUCOSE, FASTING 79 MG/DL (70-100); HDL CHOLESTEROL 48 MG/DL (>40); LDL CHOLESTEROL 28 MG/DL (<100); MAGNESIUM LEVEL 1.7 MG/DL (1.8-2.4); NON-HDL-C 52 MG/DL; POTASSIUM SERUM 3.9 MEQ/L (3.5-5.1); SODIUM LEVEL 143 MEQ/L (136-145); TRIGLYCERIDES LEVEL 121 MG/DL (<150)
[2018-06-30] MEDS: VITAMIN D 1,000 INTERNATIONAL UNITS TABLET PO SCH (08:59)
[2018-06-30] MEDS: HEPARIN SOD (PORCINE) 5000 UNITS/ML VIAL SQ SCH ×2 (08:59→20:32)
[2018-06-30] MEDS: PANTOPRAZOLE 40MG TAB (PROTONIX) PO SCH (08:59)
[2018-06-30] MEDS: SUCRALFATE SUSP 1GM/10ML UD PO SCH ×4 (08:59→20:32)
[2018-06-30] MEDS: LACTIC ACID 12% LOTION 225 GM BTL TOP SCH (09:00)
[2018-06-30] MEDS: PREGABALIN 100 MG CAP (LYRICA) PO SCH ×2 (09:00→20:32)
--- NOTE | 2018-06-30 12:56 | REP ---
DUPLEX DOPPLER ULTRASOUND, BILATERAL LOWER EXTREMITIES VENOUS SYSTEMS FOR VENOUS REFLUX: Real-time ultrasound evaluation of bilateral lower extremity venous systems is performed to evaluate for possible reflux. Exam was done with the bed tipped as well as in the standing position. On the right there is no evidence of reflux throughout the deep system. There is no reflux in any portion of the greater saphenous or lesser saphenous veins. There is an anterior accessory greater saphenous vein present without reflux. AP diameter of the right greater saphenous vein at the saphenofemoral junction is 6 mm, at midthigh and knee level 2 mm. AP diameter lesser saphenous vein is 4 mm. On the left there is reflux is minimal reflux in the common femoral, superficial femoral and popliteal veins. There is no evidence of an anterior accessory greater saphenous vein. There is no reflux in any portion of the greater saphenous vein, which measures 4 mm at the saphenofemoral junction, 3 mm in mid thigh and at the knee. There is no reflux in the lesser saphenous vein which measures 2 mm. Electronically Signed by Golden Cesar MD 06/30/2018 01:44 P
[2018-06-30 14:00] VITALS: BP 90/50
[2018-06-30] MEDS: DARUNAVIR 800 MG PO SCH (17:18)
[2018-06-30] MEDS: GENVOYA PO SCH (17:18)
--- NOTE | 2018-06-30 21:21 | IPNPDOC ---
Date Seen The patient was seen on 06/30/18. Progress Note SUBJECTIVE: Patient c/o that she is no longer diabetic or has HLD and she is still receiving a diet with those specifications. She said she is otherwise doing well, but her lower extremity swelling is hindering her to ambulating the way she wants to. She denied sob, cough, chest pain, or fever OBJECTIVE REVIEW OF SYSTEMS: All 14 points ROS is negative except what's stated as above PHYSICAL EXAMINATION: GEN: no acute distress HEENT : no lymphadenopathy, PERRLA , no oropharyngeal erythema or exudates CVS: Normal S1/s2, no murmurs, rubs or gallops, RESP: Lungs are clear to auscultation bilaterally, no crackles, wheezes or rhonchi Abd: soft, nontender, nondistended, + BS MSK: full ROM, 5/5 strength in all extremities , b/l 3+ pitting edema, right >left Integumentary: no rash or bruises Neuro: AOAx3, no focal deficit psych: normal mood, good judgement and cooperative LABORATORY DATA, IMAGING STUDIES, MICROBIOLOGY: Please see below. hba1c 5.2 - dc all DM2, patient is no longer diabetic. SHe is half the size she was when dx with DM2 Arterial doppler Findings: Ankle brachial indices are normal, measured at 1.0 on the right and 1.1 on the left. Extensive atherosclerotic plaquing is seen throughout both lower extremity arteries. Abnormal monophasic wave forms are seen in the arteries distal to the and including the popliteal on the right and distal to a nd including the mid SFA on the left. Multiple areas of stenosis less than 50% are seen bilaterally. Question inflow disease. Abdominal aortic peak systolic velocity is somewhat low at 46 cm/sec. Consider angiography. Venous doppler 4.8 cm left Wilson's cyst noted. Otherwise negative bilateral lower extremity duplex venous ultrasound. No evidence of deep vein thrombosis. Echocardiogram: [wnl ]. ASSESSMENT AND PLAN: Lower extremity chronic venous - with mild erythema - negative for dvt elevated legs compression stockings diet changed to regular diet -patient is no longer diabetic and cholesterol is wnl dvt ppx full code VS, I&O, 24H, Fishbone Vital Signs/I&O Vital Signs Date Time Temp Pulse Resp B/P (MAP) Pulse Ox O2 Delivery O2 Flow Rate FiO2 06/30/18 17:10 18 06/30/18 14:00 98.2 101 90/50 (63) 100 06/28/18 03:51 2.0 06/28/18 02:22 Room Air I&O- Last 24 Hours up to 6 AM 06/30/18 06:00 Intake Total 2400 ml Output Total 500 ml Balance 1900 ml Laboratory Data 24H LABS Laboratory Tests 2 06/30/18 06:07: Immature Granulocyte % (Auto) 1.5, White Blood Count 3.2L, Red Blood Count 3.60L, Hemoglobin 9.6L, Hematocrit 31.0L, Mean Corpuscular Volume 86.1, Mean Corpuscular Hemoglobin 26.7L, Mean Corpuscular Hemoglobin Concent 31.0L, Red Cell Distribution Width 18.6H, Platelet Count 104L, Neutrophils (%) (Auto) 52.0, Lymphocytes (%) (Auto) 29.9, Monocytes (%) (Auto) 14.5H, Eosinophils (%) (Auto) 0.9, Basophils (%) (Auto) 1.2H, Neutrophils # (Auto) 1.7L, Lymphocytes # (Auto) 1.0L, Monocytes # (Auto) 0.5, Eosinophils # (Auto) 0.0, Basophils # (Auto) 0.0, Nucleated Red Blood Cells % (auto) 0.0, Anion Gap 5L, Glomerular Filtration Rate > 60.0, Calcium Level 7.7L, Magnesium Level 1.7L, Triglycerides Level 121, LDL Cholesterol 28, Total Cholesterol 100, Non-HDL Cholesterol (LDL + VLDL) 52, Total HDL Cholesterol 48, Cholesterol/HDL Ratio 2.083 06/30/18 10:26: Bedside Glucose (Misc Panel) 69L 06/30/18 11:42: Bedside Glucose (Misc Panel) 111H CBC/BMP Laboratory Tests 06/30/18 06:07 Red Blood Count 3.60 L, Mean Corpuscular Volume 86.1, Mean Corpuscular Hemoglobin 26.7 L, Mean Corpuscular Hemoglobin Concent 31.0 L, Red Cell Distribution Width 18.6 H, Neutrophils (%) (Auto) 52.0, Lymphocytes (%) (Auto) 29.9, Monocytes (%) (Auto) 14.5 H, Eosinophils (%) (Auto) 0.9, Basophils (%) (Auto) 1.2 H, Neutrophils # (Auto) 1.7 L, Lymphocytes # (Auto) 1.0 L, Monocytes # (Auto) 0.5, Eosinophils # (Auto) 0.0, Basophils # (Auto) 0.0 Microbiology Microbiology 06/27/18 Blood Culture - Preliminary, Resulted No Growth after 72 hours. All specime... 06/27/18 Blood Culture - Preliminary, Resulted No Growth after 72 hours. All specime... LEXY ART MD Jun 30, 2018 21:21
[2018-06-30 22:00] VITALS: BP 105/59
[2018-07-01] MEDS: LOMOTIL 2.5MG/0.025MG TABLET PO PRN ×5 (00:49→22:42)
[2018-07-01] MEDS: PERCOCET 5MG/325MG TAB PO PRN ×4 (04:33→22:43)
[2018-07-01 06:00] VITALS: BP_SYST 157; BP_SYST 98; BP_DIAS 53; BP_DIAS 69
[2018-07-01 06:24] LABS: BASO % 1.2 % (0.0-1.0); EOS # 0.1 10^3/uL (0.0-0.50); EOS % 2.1 % (0.0-3.0); HEMATOCRIT 31.5 % (36.0-47.0); HEMOGLOBIN 9.7 g/dl (12.0-15.5); LYMPH # 1.2 10^3/uL (1.5-4.5); MEAN CORPUSCULAR HEMOGLOBIN 26.4 pg (27.0-33.0); MEAN CORPUSCULAR HGB CONC 30.8 g/dl (32.0-36.5); MEAN CORPUSCULAR VOLUME 85.8 fl (80.0-96.0); MONO # 0.4 10^3/uL (0.0-0.8); MONO % 11.7 % (0.0-5.0); NEUTROPHILS # 1.6 10^3/uL (1.8-7.7); NEUTROPHILS % 48.5 % (36.0-66.0); PLATELET COUNT, AUTOMATED 117 10^3/uL (150-450); RED BLOOD COUNT 3.67 10^6/uL (4.00-5.40); WHITE BLOOD COUNT 3.3 10^3/uL (4.0-10.0)
[2018-07-01 06:41] LABS: BLOOD UREA NITROGEN 31 MG/DL (7-18); CALCIUM LEVEL 7.7 MG/DL (8.5-10.1); CARBON DIOXIDE LEVEL 27 MEQ/L (21-32); CHLORIDE LEVEL 111 MEQ/L (98-107); CREATININE FOR GFR 0.58 MG/DL (0.55-1.30); GLOMERULAR FILTRATION RATE > 60.0 (>51); GLUCOSE, FASTING 75 MG/DL (70-100); MAGNESIUM LEVEL 1.3 MG/DL (1.8-2.4); POTASSIUM SERUM 3.8 MEQ/L (3.5-5.1); SODIUM LEVEL 143 MEQ/L (136-145)
[2018-07-01] MEDS: SUCRALFATE SUSP 1GM/10ML UD PO SCH ×4 (07:38→21:51)
--- NOTE | 2018-07-01 09:07 | IPN ---
DATE: 07/01/2018 Carol Ann was seen while rounding for the hospitalist. She was admitted with chronic edema with venous stasis dermatitis. Ultrasound was negative for deep vein thrombosis (DVT). She had echocardiogram done that showed ejection fraction of 70%, essentially normal echocardiogram. It looks like she has only had a single dose of intravenous Lasix and had a positive I/O yesterday. PHYSICAL EXAMINATION: Vital signs stable. Lungs clear. Heart regular rhythm. Abdomen soft and nontender. She has 2+ peripheral edema with venous stasis dermatitis. No cellulitis. IMPRESSION: 1. Lower extremity chronic venous stasis. Ultrasound negative for DVT. At this point, she is not really being diuresed. In fact, she had more input than output yesterday. Will initiate some intravenous Lasix to maintain a net diuresis. 2. Anemia of chronic disease probably secondary to chronic HIV. Her hemoglobin is stable. 3. HIV. Continue her current antiviral medications. 4. Type 2 diabetes. She reportedly has type 2 diabetes. She is on a sliding scale based upon fingerstick blood sugars. She has had only 4 units of insulin over three days, so we are going to stop the fingersticks and the coverage.
[2018-07-01] MEDS: FUROSEMIDE 20 MG/2 ML VIAL (J1940) IV SCH ×3 (09:30→18:20)
[2018-07-01] MEDS: PREGABALIN 100 MG CAP (LYRICA) PO SCH ×2 (09:43→21:51)
[2018-07-01] MEDS: VITAMIN D 1,000 INTERNATIONAL UNITS TABLET PO SCH (09:43)
[2018-07-01] MEDS: HEPARIN SOD (PORCINE) 5000 UNITS/ML VIAL SQ SCH ×2 (09:44→21:52)
[2018-07-01] MEDS: POTASSIUM CHLORIDE 10 MEQ SR TABLET PO SCH ×2 (09:44→21:51)
[2018-07-01] MEDS: PANTOPRAZOLE 40MG TAB (PROTONIX) PO SCH (09:44)
[2018-07-01] MEDS: LACTIC ACID 12% LOTION 225 GM BTL TOP SCH (10:12)
[2018-07-01 14:00] VITALS: BP 85/53
[2018-07-01] MEDS: DARUNAVIR 800 MG PO SCH (17:16)
[2018-07-01] MEDS: GENVOYA PO SCH (17:16)
[2018-07-01 22:00] VITALS: BP 95/59
[2018-07-02] MEDS: FUROSEMIDE 20 MG/2 ML VIAL (J1940) IV SCH ×2 (00:17→06:00)
[2018-07-02] MEDS: LOMOTIL 2.5MG/0.025MG TABLET PO PRN ×2 (04:47→20:51)
[2018-07-02] MEDS: PERCOCET 5MG/325MG TAB PO PRN ×4 (04:48→23:20)
[2018-07-02 06:00] VITALS: BP 99/57
[2018-07-02 06:40] LABS: BASO % 0.7 % (0.0-1.0); EOS # 0.1 10^3/uL (0.0-0.50); EOS % 1.7 % (0.0-3.0); HEMATOCRIT 29.6 % (36.0-47.0); HEMOGLOBIN 9.3 g/dl (12.0-15.5); LYMPH # 1.5 10^3/uL (1.5-4.5); LYMPH % 35.6 % (24.0-44.0); MEAN CORPUSCULAR HEMOGLOBIN 26.7 pg (27.0-33.0); MEAN CORPUSCULAR HGB CONC 31.4 g/dl (32.0-36.5); MEAN CORPUSCULAR VOLUME 85.1 fl (80.0-96.0); MONO # 0.3 10^3/uL (0.0-0.8); MONO % 7.8 % (0.0-5.0); NEUTROPHILS # 2.2 10^3/uL (1.8-7.7); PLATELET COUNT, AUTOMATED 118 10^3/uL (150-450); RED BLOOD COUNT 3.48 10^6/uL (4.00-5.40); WHITE BLOOD COUNT 4.1 10^3/uL (4.0-10.0)
[2018-07-02 06:49] LABS: BLOOD UREA NITROGEN 25 MG/DL (7-18); CALCIUM LEVEL 7.6 MG/DL (8.5-10.1); CARBON DIOXIDE LEVEL 26 MEQ/L (21-32); CHLORIDE LEVEL 113 MEQ/L (98-107); CREATININE FOR GFR 0.64 MG/DL (0.55-1.30); GLOMERULAR FILTRATION RATE > 60.0 (>51); GLUCOSE, FASTING 85 MG/DL (70-100); MAGNESIUM LEVEL 1.4 MG/DL (1.8-2.4); POTASSIUM SERUM 3.5 MEQ/L (3.5-5.1); SODIUM LEVEL 145 MEQ/L (136-145)
[2018-07-02] MEDS: SUCRALFATE SUSP 1GM/10ML UD PO SCH ×4 (08:10→20:40)
[2018-07-02] MEDS: HEPARIN SOD (PORCINE) 5000 UNITS/ML VIAL SQ SCH ×2 (08:10→20:40)
[2018-07-02] MEDS: POTASSIUM CHLORIDE 10 MEQ SR TABLET PO SCH ×2 (08:11→20:41)
[2018-07-02] MEDS: PANTOPRAZOLE 40MG TAB (PROTONIX) PO SCH (08:11)
[2018-07-02] MEDS: VITAMIN D 1,000 INTERNATIONAL UNITS TABLET PO SCH (08:11)
[2018-07-02] MEDS: LACTIC ACID 12% LOTION 225 GM BTL TOP SCH (08:11)
[2018-07-02] MEDS: PREGABALIN 100 MG CAP (LYRICA) PO SCH ×2 (08:11→20:41)
[2018-07-02] MEDS: FUROSEMIDE 40 MG/4 ML VIAL (J1940) IV SCH ×3 (11:38→23:19)
[2018-07-02 14:00] VITALS: BP 156/68
--- NOTE | 2018-07-02 14:14 | IPN ---
DATE: 07/02/2018 Carol Ann has not had any diuresis. I put her on net negative Lasix yesterday trying to get 1200 mL net negative but instead she is positive 1500. We will discuss this with the nursing staff and because of this there is no clinical change. PHYSICAL EXAMINATION: Afebrile. Vital signs stable. LUNGS: Clear. HEART: Regular rhythm. ABDOMEN: Soft, nontender. EXTREMITIES : Lower extremities have 2+ peripheral edema. PLAN: I increased her dose of furosemide. We are not going to get anywhere until she diureses. Her legs are still significantly edematous and I am not convinced there is a whole lot of cellulitis going on, I think that it is mostly peripheral edema with venous stasis. She is not on any antibiotic at this point, nor do I think that she needs it. She just needs to diurese.
[2018-07-02] MEDS: GENVOYA PO SCH (17:03)
[2018-07-02] MEDS: DARUNAVIR 800 MG PO SCH (17:04)
[2018-07-02 22:00] VITALS: BP 138/62
[2018-07-03 06:00] VITALS: BP 140/68
[2018-07-03] MEDS: PERCOCET 5MG/325MG TAB PO PRN ×3 (06:21→18:03)
[2018-07-03] MEDS: FUROSEMIDE 40 MG/4 ML VIAL (J1940) IV SCH ×3 (06:22→18:02)
[2018-07-03] MEDS: LOMOTIL 2.5MG/0.025MG TABLET PO PRN ×2 (06:33→20:45)
[2018-07-03 06:50] LABS: BLOOD UREA NITROGEN 23 MG/DL (7-18); CALCIUM LEVEL 7.6 MG/DL (8.5-10.1); CARBON DIOXIDE LEVEL 24 MEQ/L (21-32); CHLORIDE LEVEL 110 MEQ/L (98-107); CREATININE FOR GFR 0.59 MG/DL (0.55-1.30); GLOMERULAR FILTRATION RATE > 60.0 (>51); GLUCOSE, FASTING 68 MG/DL (70-100); MAGNESIUM LEVEL 1.2 MG/DL (1.8-2.4); SODIUM LEVEL 141 MEQ/L (136-145)
[2018-07-03] MEDS: VITAMIN D 1,000 INTERNATIONAL UNITS TABLET PO SCH (09:54)
[2018-07-03] MEDS: POTASSIUM CHLORIDE 10 MEQ SR TABLET PO SCH ×2 (09:54→20:45)
[2018-07-03] MEDS: SUCRALFATE SUSP 1GM/10ML UD PO SCH ×4 (09:54→20:44)
[2018-07-03] MEDS: PREGABALIN 100 MG CAP (LYRICA) PO SCH ×2 (09:54→20:45)
[2018-07-03] MEDS: PANTOPRAZOLE 40MG TAB (PROTONIX) PO SCH (09:54)
[2018-07-03] MEDS: LACTIC ACID 12% LOTION 225 GM BTL TOP SCH (09:55)
[2018-07-03] MEDS: HEPARIN SOD (PORCINE) 5000 UNITS/ML VIAL SQ SCH ×2 (09:55→20:44)
--- NOTE | 2018-07-03 10:31 | IPN ---
DATE: 07/03/2018 Carol Ann is here essentially for lower extremity edema with some venous stasis. She finally had a net diuresis yesterday. I spoke with the staff about the net diuresis concept. We have been eliminating her fluid intake a little bit. We finally got ahead on fluids yesterday. PHYSICAL EXAMINATION: Vital signs: Stable, 140/68. Lungs: Clear. Heart: Regular rate and rhythm. Abdomen: Soft, nontender. 1+ peripheral edema. Lower extremity venous stasis. LABS: Potassium is 4. BUN/creatinine 23/0.5. CBC is pending. IMPRESSION: Lower extremity venous stasis. PLAN: Continue current diuretic regimen. We are finally getting ahead on the fluids. I suspect she could probably be discharged tomorrow. I will put in for a home safety evaluation. Dr. Traci Romeo will be assuming her care in the morning.
[2018-07-03 14:00] VITALS: BP 81/52
[2018-07-03] MEDS: GENVOYA PO SCH (18:02)
[2018-07-03] MEDS: DARUNAVIR 800 MG PO SCH (18:02)
[2018-07-03 20:46] LABS: BASO % 0.6 % (0.0-1.0); EOS # 0.1 10^3/uL (0.0-0.50); EOS % 0.9 % (0.0-3.0); HEMATOCRIT 32.8 % (36.0-47.0); HEMOGLOBIN 10.2 g/dl (12.0-15.5); LYMPH % 30.9 % (24.0-44.0); MEAN CORPUSCULAR HEMOGLOBIN 26.6 pg (27.0-33.0); MEAN CORPUSCULAR HGB CONC 31.1 g/dl (32.0-36.5); MEAN CORPUSCULAR VOLUME 85.6 fl (80.0-96.0); MONO # 0.5 10^3/uL (0.0-0.8); MONO % 7.8 % (0.0-5.0); NEUTROPHILS # 3.9 10^3/uL (1.8-7.7); NEUTROPHILS % 59.3 % (36.0-66.0); PLATELET COUNT, AUTOMATED 118 10^3/uL (150-450); RED BLOOD COUNT 3.83 10^6/uL (4.00-5.40); WHITE BLOOD COUNT 6.6 10^3/uL (4.0-10.0)
--- NOTE | 2018-07-03 21:25 | IPN ---
DATE OF SERVICE: 06/29/2018 This is a 53-year-old female with a history of peripheral vascular disease, hypertension, reflux, HIV, who was admitted with bilateral lower extremity swelling and pain. She had gone earlier to see her primary care provider, who placed her on an increased dose of Lasix. She reports using it. She found it difficult to ambulate. Assessment was done and she was admitted to the hospital. She has a history of amputation first digit left toe by Dr. Coe. He was consulted, recommended an extremity arterial study of her thumb, and it showed abnormal monophasic waveforms as seen in the arteries distal to and including the popliteal on the right and including the mid-superficial femoral artery (SFA) on the left. Multiple areas of stenosis. Consider angiography. Dr. Ballard will be consulted. Echocardiogram was done, shows ejection fraction 70%. LABORATORY STUDIES: Today, white count remains normal. Hemoglobin and hematocrit 10.5 and 32.8, platelets are 137, electrolytes are normal, BUN 32, creatinine 0.66. Blood pressure 95/54, which is her baseline. She runs high 80s to 90 systolic. Pulse 80, respirations 20, temperature 98.1, oxygen saturation 100% on room air. Patient is alert and oriented times three. Pupils equal and reactive to light. Pharynx, tongue, gums pink and moist. Tongue is midline. NECK: Is supple without lymphadenopathy. No thyromegaly. No goiter. CHEST: Clear to auscultation without wheeze or retraction. HEART: Is regular. ABDOMEN: Benign. Bowel sounds are positive. GENITOURINARY ()/RECTAL: Not done. LOWER EXTREMITIES: Bilateral stasis dermatitis. 2+ bilateral pedal pulses noted. +1 bilateral pedal and ankle edema. IMPRESSION/PLAN: Bilateral lower extremity venous stasis dermatitis. Abnormal lower extremity arterial ultrasound. Dr. Ballard was consulted. 1. History of reflux, stable. 2. History of HIV. Continues on her medications. 3. Gastrointestinal (GI) prophylaxis. Continue pantoprazole. 4. Deep venous thrombosis (DVT) prophylaxis. Continue subcutaneous Heparin. Patient had been placed on fingerstick Accu-Cheks with a sliding scale. Blood sugar after (cut off) had been 70s to 90s. After dinner, it had been (cut off). On a coverage and immediately dropped to 50s. Throughout the day today, she has been being fed to keep it above 90. She states that she has not taken any medication for diabetes for over 2 years since she lost 150 pounds having gastric bypass. Hemoglobin A1c was done; it is 5.2. Mean plasma glucose is 103. Blood sugars today have been 97 and 73. We will discontinue consistent carbohydrate diet. Place on low fat, low cholesterol. Discontinue insulin sliding scale protocol. Will do fingerstick once a day. Continue DVT prophylaxis with heparin.
[2018-07-03 22:00] VITALS: BP 110/64
[2018-07-04] MEDS: FUROSEMIDE 40 MG/4 ML VIAL (J1940) IV SCH ×4 (00:09→18:05)
[2018-07-04] MEDS: PERCOCET 5MG/325MG TAB PO PRN ×4 (00:10→20:44)
[2018-07-04 06:00] VITALS: BP 105/68
[2018-07-04] MEDS: LOMOTIL 2.5MG/0.025MG TABLET PO PRN ×2 (06:25→20:43)
[2018-07-04 06:39] LABS: BASO % 0.8 % (0.0-1.0); EOS # 0.1 10^3/uL (0.0-0.50); EOS % 1.3 % (0.0-3.0); HEMATOCRIT 32.3 % (36.0-47.0); LYMPH # 1.6 10^3/uL (1.5-4.5); MEAN CORPUSCULAR HEMOGLOBIN 26.4 pg (27.0-33.0); MEAN CORPUSCULAR VOLUME 85.2 fl (80.0-96.0); MONO # 0.3 10^3/uL (0.0-0.8); MONO % 8.7 % (0.0-5.0); NEUTROPHILS # 1.7 10^3/uL (1.8-7.7); NEUTROPHILS % 45.9 % (36.0-66.0); PLATELET COUNT, AUTOMATED 111 10^3/uL (150-450); RED BLOOD COUNT 3.79 10^6/uL (4.00-5.40); WHITE BLOOD COUNT 3.8 10^3/uL (4.0-10.0)
[2018-07-04] MEDS: SUCRALFATE SUSP 1GM/10ML UD PO SCH ×4 (06:44→20:43)
[2018-07-04 07:05] LABS: BLOOD UREA NITROGEN 25 MG/DL (7-18); CALCIUM LEVEL 8.1 MG/DL (8.5-10.1); CARBON DIOXIDE LEVEL 30 MEQ/L (21-32); CHLORIDE LEVEL 105 MEQ/L (98-107); CREATININE FOR GFR 0.68 MG/DL (0.55-1.30); GLOMERULAR FILTRATION RATE > 60.0 (>51); GLUCOSE, FASTING 76 MG/DL (70-100); MAGNESIUM LEVEL 1.3 MG/DL (1.8-2.4); POTASSIUM SERUM 3.9 MEQ/L (3.5-5.1); SODIUM LEVEL 141 MEQ/L (136-145)
[2018-07-04] MEDS: LACTIC ACID 12% LOTION 225 GM BTL TOP SCH (09:00)
[2018-07-04] MEDS: HEPARIN SOD (PORCINE) 5000 UNITS/ML VIAL SQ SCH ×2 (09:38→20:43)
[2018-07-04] MEDS: POTASSIUM CHLORIDE 10 MEQ SR TABLET PO SCH ×2 (09:38→20:44)
[2018-07-04] MEDS: VITAMIN D 1,000 INTERNATIONAL UNITS TABLET PO SCH (09:39)
[2018-07-04] MEDS: PREGABALIN 100 MG CAP (LYRICA) PO SCH ×2 (09:39→20:43)
[2018-07-04] MEDS: PANTOPRAZOLE 40MG TAB (PROTONIX) PO SCH (09:39)
[2018-07-04] MEDS: MAGNESIUM OXIDE 400 MG TAB (MAG-OX) PO SCH ×2 (09:47→20:44)
[2018-07-04] MEDS ORDERED: LIDOCAINE 2% MDV 20 ML VIAL As Ordered ONE (11:14)
[2018-07-04] MEDS ORDERED: ISOVUE-300 61% 50ML VIAL (Q9967) As Ordered ONE (11:14)
[2018-07-04] MEDS ORDERED: HEPARIN 1,000 UNITS/ML 10ML VIAL (FOR RADIOLOGY& DIALYSIS ONLY) As Ordered ONE (11:14)
[2018-07-04] MEDS ORDERED: fentaNYL 100 MCG/2 ML INJECTION (J3010) As Ordered ONE (11:15)
[2018-07-04] MEDS ORDERED: MIDAZOLAM INJ 2 MG/2 ML VIAL (J2250) As Ordered ONE (11:16)
--- NOTE | 2018-07-04 13:46 | IPN ---
DATE: 07/03/2018 Patient is seen and examined. She states her legs are feeling better but her toes are looking a little bit worse. She denies other complaints. Vital signs are reviewed. She has been afebrile. Lab work is essentially benign in terms of infection. LOWER EXTREMITY EXAMINATION: There is some further discoloration to the 1st and 2nd toes on both feet with some distal gangrenous dry changes. ASSESSMENT: Patient is a 53-year-old diabetic female with some peripheral vascular disease. PLAN: Treatment is discussed with Dr. Ballard who states he will plan on doing angiogram in the next day or two to evaluate blood flow. Possible intervention to follow. Continue diuretics per primary.
[2018-07-04 14:00] VITALS: BP 107/63
[2018-07-04 14:30] VITALS: BP 96/60
[2018-07-04 15:30] VITALS: BP 98/56
[2018-07-04 16:30] VITALS: BP 95/53
[2018-07-04] MEDS: GENVOYA PO SCH (18:06)
[2018-07-04] MEDS: DARUNAVIR 800 MG PO SCH (18:06)
[2018-07-04 22:00] VITALS: BP 102/67
[2018-07-05] VITALS (7 sets, daily range): BP systolic 77–107; BP diastolic 46–69
[2018-07-05] MEDS: FUROSEMIDE 40 MG/4 ML VIAL (J1940) IV SCH ×3 (00:53→13:55)
[2018-07-05] MEDS: LOMOTIL 2.5MG/0.025MG TABLET PO PRN ×2 (00:53→06:10)
--- NOTE | 2018-07-05 01:53 | IPNPDOC ---
Text Note Date of Service The patient was seen on 07/04/18. NOTE Subjective: Patient does not offer any complaints today. Had lower expremity angio today. Pateint says that the skin over the amputated great toe on the right broke open after application of the lotion for dry skin. No fever or chills, no chest pain or SOB , no abdominal pain, nausea or vomiting or diarrhea. PHYSICAL EXAMINATION: VITAL SIGNS: As below GENERAL APPEARANCE: Middle aged woman, lying calmly in bed, not in any apparent distress. She is not pale, anicteric and afebrile HEENT: Atraumatic. Neck: Supple. LUNGS: Clear to auscultation bilaterally. CARDIOVASCULAR: S1 and 2 heard, no murmurs, rubs or gallops. ABDOMEN: Obese, soft, not tender, not distended. Bowel sounds normoactive. EXTREMITIES: bilateral stasis dermatitis/erythematous, 2+ bilateral pedal pulses noted. right great toe tip is dusky to black. NEUROLOGICAL: Awake, alert, oriented 3. PSYCHIATRIC: Normal affect Labs and Radiology : reviewed. Assessment and Plan: Patient is a 53-year-old woman with medical history significant for diabetes, chronic tobacco use, peripheral vascular disease, HIV and GERD. She is status post left hallux amputation last year. Patient follows with Dr. Arroyo (ID) and Saravanan (Podiatry). According to her, she was in her usual state of health until sometime about a week ago when she started having bilateral lower extremity swellings with pains. She had gone earlier to see her PCP who placed her on increased doses of Lasix. She reports using Lasix and being compliant with all her medications, but swelling still persists and now she is finding it difficult ambulating up and down the stairways in the home as she is unable to use her bathroom which is on the upper level in her home. On account of this, she decided to come in and seek medical attention. Bilateral venous stasis with stasis dermatitis and chronic arterial insufficiency toes with dusky coloration continue lasix. Had angio today await Dr Lindquist Distal gangrenous changes of the toes Angio done today. Diabetes with neuropathy continue insulin, lyrica, HIV continue home medication Peripheral arterial disease GERD continue pantoprazole and carafate. DVT prophylaxis in place. VS,Fishbone, I+O VS, Fishbone, I+O Laboratory Tests 07/04/18 06:15 Red Blood Count 3.79 L, Mean Corpuscular Volume 85.2, Mean Corpuscular Hemoglobin 26.4 L, Mean Corpuscular Hemoglobin Concent 31.0 L, Red Cell Distribution Width 19.1 H, Neutrophils (%) (Auto) 45.9, Lymphocytes (%) (Auto) 42.0, Monocytes (%) (Auto) 8.7 H, Eosinophils (%) (Auto) 1.3, Basophils (%) (Auto) 0.8, Neutrophils # (Auto) 1.7 L, Lymphocytes # (Auto) 1.6, Monocytes # (Auto) 0.3, Eosinophils # (Auto) 0.1, Basophils # (Auto) 0.0, Calcium Level 8.1 L Vital Signs Date Time Temp Pulse Resp B/P (MAP) Pulse Ox O2 Delivery O2 Flow Rate FiO2 07/04/18 22:00 97.7 75 19 102/67 (37) 97 I&O- Last 24 Hours up to 6 AM 07/05/18 06:00 Intake Total 2868 ml Output Total 3350 ml Balance -482 ml LINO DOUGLAS MD Jul 05, 2018 01:53
[2018-07-05] MEDS: PERCOCET 5MG/325MG TAB PO PRN ×4 (02:15→21:12)
[2018-07-05 06:58] LABS: BASO % 0.9 % (0.0-1.0); EOS # 0.1 10^3/uL (0.0-0.50); EOS % 1.3 % (0.0-3.0); HEMATOCRIT 33.2 % (36.0-47.0); HEMOGLOBIN 10.3 g/dl (12.0-15.5); LYMPH # 1.5 10^3/uL (1.5-4.5); LYMPH % 32.6 % (24.0-44.0); MEAN CORPUSCULAR HEMOGLOBIN 26.3 pg (27.0-33.0); MEAN CORPUSCULAR VOLUME 84.9 fl (80.0-96.0); MONO # 0.4 10^3/uL (0.0-0.8); MONO % 8.5 % (0.0-5.0); NEUTROPHILS # 2.5 10^3/uL (1.8-7.7); NEUTROPHILS % 55.4 % (36.0-66.0); PLATELET COUNT, AUTOMATED 123 10^3/uL (150-450); RED BLOOD COUNT 3.91 10^6/uL (4.00-5.40); WHITE BLOOD COUNT 4.5 10^3/uL (4.0-10.0)
[2018-07-05 07:18] LABS: BLOOD UREA NITROGEN 30 MG/DL (7-18); CALCIUM LEVEL 7.8 MG/DL (8.5-10.1); CARBON DIOXIDE LEVEL 31 MEQ/L (21-32); CHLORIDE LEVEL 104 MEQ/L (98-107); CREATININE FOR GFR 0.78 MG/DL (0.55-1.30); GLOMERULAR FILTRATION RATE > 60.0 (>51); GLUCOSE, FASTING 74 MG/DL (70-100); MAGNESIUM LEVEL 1.4 MG/DL (1.8-2.4); POTASSIUM SERUM 4.3 MEQ/L (3.5-5.1); SODIUM LEVEL 141 MEQ/L (136-145)
[2018-07-05] MEDS: MAG SULF 1GM/100ML (MAG RUN) 1 GM in APPROPRIATE DILUENT 1 EA IV ONE ×2 (08:22→12:39)
[2018-07-05] MEDS: SUCRALFATE SUSP 1GM/10ML UD PO SCH ×4 (08:22→21:11)
[2018-07-05] MEDS: VITAMIN D 1,000 INTERNATIONAL UNITS TABLET PO SCH (08:23)
[2018-07-05] MEDS: PANTOPRAZOLE 40MG TAB (PROTONIX) PO SCH (08:23)
[2018-07-05] MEDS: HEPARIN SOD (PORCINE) 5000 UNITS/ML VIAL SQ SCH ×2 (08:23→21:14)
[2018-07-05] MEDS: MAGNESIUM OXIDE 400 MG TAB (MAG-OX) PO SCH ×2 (08:23→21:13)
[2018-07-05] MEDS: PREGABALIN 100 MG CAP (LYRICA) PO SCH ×2 (08:23→21:13)
[2018-07-05] MEDS: LACTIC ACID 12% LOTION 225 GM BTL TOP SCH (08:24)
[2018-07-05] MEDS: POTASSIUM CHLORIDE 10 MEQ SR TABLET PO SCH ×2 (08:24→21:13)
[2018-07-05] MEDS: CLOPIDOGREL 75 MG TAB PO SCH (14:33)
[2018-07-05] MEDS: NITROGLYCERIN 2% OINT 1 GM *U/D* PKT TOP SCH ×2 (15:45→18:06)
[2018-07-05] MEDS: FUROSEMIDE 80 MG TAB PO SCH (18:03)
[2018-07-05] MEDS: GENVOYA PO SCH (18:04)
[2018-07-05] MEDS: DARUNAVIR 800 MG PO SCH (18:04)
--- NOTE | 2018-07-05 20:23 | IPNPDOC ---
Text Note Date of Service The patient was seen on 07/05/18. NOTE Subjective: Patient does not offer any complaints today. PHYSICAL EXAMINATION: VITAL SIGNS: As below GENERAL APPEARANCE: Middle aged woman, lying calmly in bed, not in any apparent distress. She is not pale, anicteric and afebrile HEENT: Atraumatic. Neck: Supple. LUNGS: Clear to auscultation bilaterally. CARDIOVASCULAR: S1 and 2 heard, no murmurs, rubs or gallops. ABDOMEN: Obese, soft, not tender, not distended. Bowel sounds normoactive. EXTREMITIES: bilateral stasis dermatitis/erythematous, 2+ bilateral pedal pulses noted. right great toe tip is dusky to black. NEUROLOGICAL: Awake, alert, oriented 3. PSYCHIATRIC: Normal affect Labs and Radiology : reviewed. Assessment and Plan: Patient is a 53-year-old woman with medical history significant for diabetes, chronic tobacco use, peripheral vascular disease, HIV and GERD. She is status post left hallux amputation last year. Patient follows with Dr. Arroyo (ID) and Saravanan (Podiatry). According to her, she was in her usual state of health until sometime about a week ago when she started having bilateral lower extremity swellings with pains. She had gone earlier to see her PCP who placed her on increased doses of Lasix. She reports using Lasix and being compliant with all her medications, but swelling still persists and now she is finding it difficult ambulating up and down the stairways in the home as she is unable to use her bathroom which is on the upper level in her home. On account of this, she decided to come in and seek medical attention. Bilateral venous stasis with stasis dermatitis and chronic small vessel arterial insufficiency probably due to DM and heavy smoking toes with dusky coloration probably due to small vessel ischemic disease will start on plavix. Angio showed only about 30% occlusion on both the legs in the thigh and calf region , no intervention was needed. Had good run off. continue lasix. Distal gangrenous changes of the toes Angio done today. Diabetes with neuropathy continue insulin, lyrica, HIV continue home medication Peripheral arterial disease GERD continue pantoprazole and carafate. DVT prophylaxis in place. VS,Fishbone, I+O VS, Fishbone, I+O Laboratory Tests 07/05/18 06:34 Red Blood Count 3.91 L, Mean Corpuscular Volume 84.9, Mean Corpuscular Hemoglobin 26.3 L, Mean Corpuscular Hemoglobin Concent 31.0 L, Red Cell Distribution Width 19.2 H, Neutrophils (%) (Auto) 55.4, Lymphocytes (%) (Auto) 32.6, Monocytes (%) (Auto) 8.5 H, Eosinophils (%) (Auto) 1.3, Basophils (%) (Auto) 0.9, Neutrophils # (Auto) 2.5, Lymphocytes # (Auto) 1.5, Monocytes # (Auto) 0.4, Eosinophils # (Auto) 0.1, Basophils # (Auto) 0.0, Calcium Level 7.8 L Vital Signs Date Time Temp Pulse Resp B/P (MAP) Pulse Ox O2 Delivery O2 Flow Rate FiO2 07/05/18 18:06 100/52 07/05/18 15:03 16 07/05/18 14:00 98.4 07/05/18 06:00 81 99 I&O- Last 24 Hours up to 6 AM 07/05/18 05:59 Intake Total 3508 ml Output Total 3750 ml Balance -242 ml LINO DOUGLAS MD Jul 05, 2018 20:23
[2018-07-06] MEDS: PERCOCET 5MG/325MG TAB PO PRN ×2 (03:13→09:37)
[2018-07-06 06:00] VITALS: BP 84/48
[2018-07-06] MEDS: SUCRALFATE SUSP 1GM/10ML UD PO SCH (08:01)
[2018-07-06] MEDS ORDERED: CLOP75TA2 PO (08:11)
[2018-07-06] MEDS ORDERED: MAG400TA PO (08:11)
[2018-07-06] MEDS ORDERED: FURO40TA2 PO (08:11)
[2018-07-06] MEDS ORDERED: NITR2OI TOP (08:11)
[2018-07-06] MEDS ORDERED: KLOR10TA76 PO (08:11)
[2018-07-06] MEDS: FUROSEMIDE 80 MG TAB PO SCH ×2 (09:00→10:05)
[2018-07-06] MEDS: PREGABALIN 100 MG CAP (LYRICA) PO SCH (09:36)
[2018-07-06] MEDS: LOMOTIL 2.5MG/0.025MG TABLET PO PRN (09:36)
[2018-07-06 09:40] VITALS: BP 84/50
[2018-07-06] MEDS: POTASSIUM CHLORIDE 10 MEQ SR TABLET PO SCH (10:03)
[2018-07-06] MEDS: MAGNESIUM OXIDE 400 MG TAB (MAG-OX) PO SCH (10:04)
[2018-07-06] MEDS: VITAMIN D 1,000 INTERNATIONAL UNITS TABLET PO SCH (10:04)
[2018-07-06] MEDS: CLOPIDOGREL 75 MG TAB PO SCH (10:04)
[2018-07-06] MEDS: PANTOPRAZOLE 40MG TAB (PROTONIX) PO SCH (10:04)
--- NOTE | 2018-07-06 13:26 | DS.PDOC ---
Discharge Summary General Date of Admission Jun 29, 2018 at 11:48 Date of Discharge 07/06/18 Attending Physician: LINO DOUGLAS MD Specialist/Consultants Involve: Evangelista Ballard MD Specialist/Consultants Involve Dr Coe Discharge Summary PROCEDURES PERFORMED DURING STAY: Lower extremity Angiogram DISCHARGE DIAGNOSES: Chronic small vessel arterial insufficiency with duskiness of several Toes Distal dry gangrenous changes of several toes Smoker Diabetes with neuropathy HIV Bilateral venous stasis with stasis dermatitis GERD COMPLICATIONS/CHIEF COMPLAINT: Venous Stasis Dermatitis Of Both Lower Extremeties. HISTORY OF PRESENT ILLNESS: Please see history and physical HOSPITAL COURSE: Patient is a 53-year-old woman with medical history significant for diabetes, chronic tobacco use, peripheral vascular disease, HIV and GERD. She is status post left hallux amputation last year. Patient follows with Dr. Arroyo (ID) and Saravanan (Podiatry). According to her, she was in her usual state of health until sometime about a week ago when she started having bilateral lower extremity swellings with pains. She had gone earlier to see her PCP who placed her on increased doses of Lasix. She reports using Lasix and being compliant with all her medications, but swelling still persists and now she is finding it difficult ambulating up and down the stairways in the home as she is unable to use her bathroom which is on the upper level in her home. On account of this, she decided to come in and seek medical attention. Bilateral venous stasis with stasis dermatitis and chronic small vessel arterial insufficiency probably due to DM and heavy smoking toes with dusky coloration probably due to small vessel ischemic disease will start on plavix. Angio showed only about 30% occlusion on both the legs in the thigh and calf region , no intervention was needed. Had good run off. continue lasix. Distal gangrenous changes of the toes Angio done today. Diabetes with neuropathy continue insulin, lyrica, HIV continue home medication Peripheral arterial disease only 30% occlusion in the arteries of both legs with good run off as per Dr Ballard seen in angio No intervention was needed GERD continue pantoprazole and carafate. DISCHARGE MEDICATIONS: Please see below. ALLERGIES: Please see below. PHYSICAL EXAMINATION ON DISCHARGE: VITAL SIGNS: Please see below. GENERAL APPEARANCE: Middle aged woman, lying calmly in bed, not in any apparent distress. She is not pale, anicteric and afebrile HEENT: Atraumatic. Neck: Supple. LUNGS: Clear to auscultation bilaterally. CARDIOVASCULAR: S1 and 2 heard, no murmurs, rubs or gallops. ABDOMEN: Obese, soft, not tender, not distended. Bowel sounds normoactive. EXTREMITIES: bilateral stasis dermatitis/erythematous, 2+ bilateral pedal pulses noted. right great toe tip is dusky to black. NEUROLOGICAL: Awake, alert, oriented 3. PSYCHIATRIC: Normal affect LABORATORY DATA: Please see below. ACTIVITY: [As tolerated]. DIET: Carb consistent DISPOSITION: Home Health Service. DISCHARGE INSTRUCTIONS: Follow up with [facility] in 2 weeks Follow up With Saravanan in 1 week Follow up With [facility] in 1 month DISCHARGE CONDITION: Stable TIME SPENT ON DISCHARGE: Greater than 30 minutes. Vital Signs/I&Os Vital Signs Date Time Temp Pulse Resp B/P (MAP) Pulse Ox O2 Delivery O2 Flow Rate FiO2 07/06/18 09:40 99.0 88 14 84/50 (61) 100 I&O- Last 24 Hours up to 6 AM 07/06/18 06:00 Intake Total 1920 ml Output Total 2300 ml Balance -380 ml Microbiology Microbiology 06/27/18 Blood Culture - Final, Complete NO GROWTH AFTER 5 DAYS 06/27/18 Blood Culture - Final, Complete NO GROWTH AFTER 5 DAYS Discharge Medications Scheduled (Genvoya [phone] mg) 1 Tab Tab, 1 TAB PO DAILY, (Reported) Cholecalciferol (Vitamin D) 1,000 Unit Tab, 1,000 UNIT PO DAILY, (Reported) Clopidogrel Bisulfate (Clopidogrel) 75 Mg Tab, 75 MG PO DAILY Darunavir Ethanolate (Prezista) 800 Mg Tab, 1 TAB PO DAILY, (Reported) Fluconazole (Diflucan) 10 Mg/Ml Kristi, 10 ML PO DAILY, (Reported) Furosemide (Furosemide) 40 Mg Tab, 40 MG PO BID Magnesium Oxide (Magnesium Oxide) 400 Mg Tab, 400 MG PO DAILY Nitroglycerin (Nitro-Bid) 1 Gm Oint, 0 GM TOP BID Pantoprazole Sodium (Pantoprazole Sodium) 40 Mg Tab, 40 MG PO DAILY, (Reported) Potassium Chloride (Klor-Con M10) 10 Meq Tabcr, 20 MEQ PO DAILY Pregabalin (Lyrica) 300 Mg Cap, 300 MG PO BID, (Reported) Sucralfate (Carafate) 1 Gm/10 Ml Kristi, 10 ML PO QID, (Reported) Scheduled PRN (Oxycodone/Acetaminophen 10-325 mg) 1 Tab Tab, 1 TAB PO QID PRN for PAIN, (Reported) Diphenoxylate/Atropine (Lomotil 2.5-0.025 mg) 1 Tab Tab, 1 TAB PO Q4H PRN for DIARRHEA, (Reported) Ondansetron HCl (Ondansetron HCl) 8 Mg Tab, 8 MG PO TID PRN for NAUSEA, (Reported) Trazodone HCl (Trazodone HCl) 50 Mg Tab, 50 MG PO QHS PRN for SLEEP, (Reported) Allergies Coded Allergies: No Known Drug Allergy (Verified Allergy, Unknown, 02/24/18) LINO DOUGLAS MD Jul 06, 2018 13:26
--- NOTE | 2018-07-06 16:21 | IPN ---
DATE OF SERVICE: 07/05/2018 Patient seen and examined at bedside. Denies new complaints. She had her angiogram done by Dr. Ballard. There was some mild stenosis, but no further intervention was required. No significant blockages were noted. Vital signs are reviewed. She has remained afebrile. Labs are reviewed. White blood cell count is 4.5. 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 ASSESSMENT: A 53-year-old diabetic female with likely small-vessel vascular disease PLAN: No further vascular intervention apparently warranted. She does seem to have some distal vascular changes to her toes. Will order Nitrobid paste to be applied to the base of the toes twice daily. She is okay to be discharged home. Would have followup with the wound care center in [place] for hyperbaric oxygen evaluation. Patient is closer to the [facility] [facility], as she is from [place]. She can followup with me in office 1-2 weeks. Patient was encouraged to further reduce or quit smoking, as this certainly can influence the perfusion to her toes. Edited: frank 07/07/2018 1908 MTDD
--- NOTE | 2018-07-19 11:52 | REPIR ---
DATE OF PROCEDURE: 07/04/2018 ATTENDING SURGEON: Dr. Brad Ballard ASSISTANTS: Alem Mendez and Adriana Walls. PREOPERATIVE DIAGNOSES: Bilateral lower extremity swelling, bilateral lower extremity toe discoloration and ulceration. POSTOPERATIVE DIAGNOSES: Bilateral lower extremity swelling, bilateral lower extremity toe discoloration and ulceration. PROCEDURE: Aortogram, iliofemoral angiogram, selective left common femoral artery catheter placement with left lower extremity angiogram, selective left superficial femoral artery catheter placement with left lower extremity angiogram, right lower extremity angiogram via the right common femoral arterial sheath. Mynx closure of the right common femoral arteriotomy. INDICATION: The patient is a 53-year-old female with swelling of both lower extremities and ulceration and discoloration of the toes bilaterally with diminished pulses in the lower extremities. The patient will undergo an angiogram with possible angioplasty stent and/or atherectomy. Risks, benefits, and alternative treatment options were discussed with the patient. ANESTHESIA: Local with sedation with 2 mg Versed, 100 mcg fentanyl and 10 mL of 2% lidocaine. FLUOROSCOPY TIME: 2.0 minutes. CONTRAST: 18 mL of Isovue-300. SEDATION TIME: 12:28 a.m. to 13:12 p.m. for a total of 44 minutes. COMPLICATIONS: None. Drains: None. SPECIMENS: None. IMPLANT: Right common femoral arteriotomy closure with a Mynx closure device. DESCRIPTION OF PROCEDURE: The patient was taken to the angiography suite, placed supine on the angiography room table and then prepped and draped in a standard surgical fashion. The right common femoral artery was cannulated with a micropuncture needle after anesthetizing overlying skin with 2% lidocaine. The micropuncture wire was advanced through the micropuncture needle, which was upsized to a micropuncture sheath. A Bentson wire was advanced through the micropuncture sheath, which was upsized to a 5-Pakistani sheath. An Omni flush catheter was placed in the aorta and an aortogram was performed. Catheter was pulled down to level of the bifurcation iliac arteries and an iliofemoral angiogram was performed. Catheter was directed over the bifurcation of the iliac arteries, placed in the left common femoral artery and a left lower extremity angiogram was performed. Catheter was advanced into the left superficial femoral artery and a left lower extremity angiogram was performed. Right lower extremity angiography was then performed through the right common femoral arterial sheath. Angiography showed no intervention was required. The right common femoral artery sheath was removed and the arteriotomy closed with a Mynx closure device with an additional 10 minutes of adjunctive pressure applied for hemostasis. Dressings were then applied. The patient tolerated the procedure well. All instrument, sponge, and needle counts were correct at the end the case. There were no complications. Dr. Ballard was present for directed the entire case. The patient was transferred to [facility] and subsequent to the floor in stable condition. There was no significant stenosis in the aortoiliac femoral popliteal or and tibial peroneal systems. There was diffuse small vessel disease in the foot bilaterally.
== END 2018-07-06 10:05 | disposition home health service (06) | DRG 253 ==
LOC: M ED 18:13 → M ED INP 18:14 → M MS5PR 06-28 03:00 → OBSVTOIN 06-29 11:48
PROVIDERS: ADMIT Hospitalist; ATTEND Internal Medicine Nephrology
PROC: 047N3ZZ Dilation of Left Popliteal Artery, Percutaneous Approach (ICD-10-PCS; principal; 2018-07-04)
PROC: 047L3ZZ Dilation of Left Femoral Artery, Percutaneous Approach (ICD-10-PCS; 2018-07-04)
PROC: 047J3ZZ Dilation of Left External Iliac Artery, Percutaneous Approach (ICD-10-PCS; 2018-07-04)
PROC: B41DYZZ Fluoroscopy of Aorta and Bilateral Lower Extremity Arteries using Other Contrast (ICD-10-PCS; 2018-07-04)
DX: E11.52 Type 2 diabetes mellitus with diabetic peripheral angiopathy with gangrene (principal); B20 Human immunodeficiency virus [HIV] disease; I70.263 Atherosclerosis of native arteries of extremities with gangrene, bilateral legs; I87.2 Venous insufficiency (chronic) (peripheral); E11.40 Type 2 diabetes mellitus with diabetic neuropathy, unspecified; F17.200 Nicotine dependence, unspecified, uncomplicated; K21.9 Gastro-esophageal reflux disease without esophagitis; Z79.899 Other long term (current) drug therapy; D63.8 Anemia in other chronic diseases classified elsewhere

== ENCOUNTER → 2018-07-21 | Outpatient (REF) | payer MEDICARE, OTHER, MEDICAID ==
[~2018-07-21] MED LIST changes: +BACT800T5 PO; +CLOP75TA2 PO; +DIFL10SU PO; +FURO40TA2; +FURO40TA2 PO; +KLOR10TA76 PO; +MAG400TA PO; +NITR2OI TOP; +ONDA8TAB7 PO; +PANT40TA3 PO; +SUCR1SS; +SUCR1SS PO; +VITA100066 PO
== END ==
LOC: M LAB REF 13:08
PROVIDERS: ATTEND Podiatrist Foot & Ankle Surgery
DX: M86.9 Osteomyelitis, unspecified (principal)

== ENCOUNTER → 2018-08-03 | Outpatient (REF) | payer MEDICARE, MEDICAID ==
[2018-08-03 16:39] LABS: ALBUMIN 2.4 GM/DL (3.2-5.2); ALT/SGPT 12 U/L (12-78); BILIRUBIN,TOTAL 0.3 MG/DL (0.2-1.0); BLOOD UREA NITROGEN 30 MG/DL (7-18); C REACTIVE PROTEIN QUANTITATIV < 0.30 MG/DL (0.00-0.30); CALCIUM LEVEL 8.1 MG/DL (8.5-10.1); CARBON DIOXIDE LEVEL 25 MEQ/L (21-32); CHLORIDE LEVEL 107 MEQ/L (98-107); CHOLESTEROL LEVEL 128 MG/DL (<200); CHOLESTEROL RISK RATIO 2.285 (<5); CREATININE FOR GFR 0.79 MG/DL (0.55-1.30); GLOMERULAR FILTRATION RATE > 60.0 (>51); GLUCOSE, FASTING 75 MG/DL (70-100); HDL CHOLESTEROL 56 MG/DL (>40); LDL CHOLESTEROL 52 MG/DL (<100); NON-HDL-C 72 MG/DL; POTASSIUM SERUM 4.5 MEQ/L (3.5-5.1); SODIUM LEVEL 140 MEQ/L (136-145); TOTAL PROTEIN 5.3 GM/DL (6.4-8.2); TRIGLYCERIDES LEVEL 99 MG/DL (<150)
[2018-08-03 16:55] LABS: FOLATE 7.4 NG/ML; TOTAL 25(OH) VITAMIN D 19.1 NG/ML (30.0-100.0); VITAMIN B12 LEVEL 267 PG/ML
[2018-08-05 14:37] LABS: % CD8 Pos Lymph 54.7 % (12.0-35.5); ABS Eosinophils 0.1 x10E3/uL (0.0-0.4); ABS Lymphs 2.2 x10E3/uL (0.7-3.1); ABS Monocytes 0.7 x10E3/uL (0.1-0.9); ABS Neutophils 3.6 x10E3/uL (1.4-7.0); Abs CD4 Helper 682 /uL (359-1519); Abs CD8 Suppres 1203 /uL (109-897); CD4/CD8 Ratio 0.57 (0.92-3.72); Eosinophils 1 % (Not Estab.); HCT 24.4 % (34.0-46.6); HGB 7.9 g/dL (11.1-15.9); Imm ABS Grans 0.1 x10E3/uL (0.0-0.1); Immature Grans 1 % (Not Estab.); Lymphocytes 33 % (Not Estab.); MCH 27.7 pg (26.6-33.0); MCHC 32.4 g/dL (31.5-35.7); MCV 86 fL (79-97); Monocytes 11 % (Not Estab.); Neutrophils 54 % (Not Estab.); Platelets 160 x10E3/uL (150-379); RBC 2.85 x10E6/uL (3.77-5.28); RDW 18.8 % (12.3-15.4); WBC 6.7 x10E3/uL (3.4-10.8)
[2018-08-09 00:06] LABS: HIV-1 RNA PCR QUANT 2 LC550285 13430 copies/mL (.); HIV-1 RNA PCR QUANT 3 LC550285 4.128 (.)
== END ==
LOC: M SFHCPLAZ 13:07
PROVIDERS: ATTEND Internal Medicine Infectious Disease
DX: B20 Human immunodeficiency virus [HIV] disease (principal); M86.9 Osteomyelitis, unspecified; E66.01 Morbid (severe) obesity due to excess calories; E08.621 Diabetes mellitus due to underlying condition with foot ulcer
CPT/HCPCS: 36415; 80053; 80061; 82306; 82607; 82746; 83036; 85652; 86140; 86360; 87536; G0463

== ENCOUNTER 2018-08-09 11:28 | Day surgery (SDC) | payer MEDICARE, MEDICAID ==
[~2018-08-09] VITALS: Ht 172.7 cm; Wt 70.3 kg
[~2018-08-09 11:28] MED LIST changes: +LIDOCAINE 2% INJ 100 MG/5 ML SDV (FOR ANES.) As Ordered ONE; +LR 1,000 ML IV SCH; +MIDAZOLAM INJ 2 MG/2 ML VIAL (J2250) As Ordered ONE; +ONDANSETRON 4MG/2ML VIAL (J2405) As Ordered ONE; +PROPOFOL 200 MG/20 ML VIAL As Ordered ONE; +VANCOMYCIN HCL 1,000 MG, VIAL MATE ADAPTER 1 EACH in D5W 250 ML IV SCH; +dexameTHASONE 4 MG/ML 1ML VIAL (J1100) As Ordered ONE; +fentaNYL 100 MCG/2 ML INJECTION (J3010) As Ordered ONE
[2018-08-09] MEDS ORDERED: dexameTHASONE 4 MG/ML 1ML VIAL (J1100) As Ordered ONE (11:36)
[2018-08-09] MEDS ORDERED: BUPIVACAINE HCL 0.5% 10 ML VIAL As Ordered ONE (11:36)
[2018-08-09] MEDS ORDERED: LIDOCAINE 1% MDV 20ML VIAL As Ordered ONE (11:36)
[2018-08-09] MEDS ORDERED: ePHEDrine SULFATE 25 MG/5 ML(5MG/ML) SYRINGE As Ordered ONE (12:47)
[2018-08-09] MEDS ORDERED: PERCOCET 5MG/325MG TAB As Ordered ONE (13:23)
[2018-08-09] MEDS: PERCOCET 5MG/325MG TAB PO PRN ×2 (13:25→14:00)
[2018-08-09] MEDS ORDERED: LR 1,000 ML IV SCH (13:30)
[2018-08-09] MEDS ORDERED: fentaNYL 100 MCG/2 ML INJECTION (J3010) IV PRN (13:30)
[2018-08-09] MEDS ORDERED: ONDANSETRON 4MG/2ML VIAL (J2405) IV PRN (13:30)
[2018-08-09] MEDS ORDERED: SUCRALFATE SUSP 1GM/10ML UD PO ONE (14:15)
[2018-08-09 16:30] VITALS: BP 98/56
--- NOTE | 2018-08-10 07:57 | RO ---
DATE OF PROCEDURE: 08/09/2018 PREPROCEDURE DIAGNOSIS: Left second toe osteomyelitis, gangrene. POSTPROCEDURE DIAGNOSIS: Left second toe osteomyelitis, gangrene. PROCEDURE: Left second toe amputation. SURGEON: Geovanni Coe DPM AUTOMATIC RIVETING MACHINE OPERATOR: None. ANESTHESIA: Monitored anesthesia care. PREOPERATIVE INJECTION: 10 mL of 1 to 1 mixture of 1% lidocaine plain and 1/2% Marcaine plain. ESTIMATED BLOOD LOSS: Minimal. MATERIAL: 3-0 Nylon. INJECTABLES: None. COMPLICATION: None. SPECIMEN: Left second toe. Carol Ann Dhillon is a 53-year-old female who was seen in my office and noted to have worsening progression of her left second toe ulceration. She was noted to have necrotic bone sticking out from the wound. Decision was made to bring her to the operating room for left second toe amputation. The patient signed consent. The patient's site and side were verified and marked in the preoperative area. Consent was reviewed and obtained. The risks, complications, and alternatives of the procedure were explained to the patient in detail and all questions were answered. PROCEDURE: Patient was brought to the operating room and placed on the operating room table in supine position. Monitored anesthesia care was delivered by the anesthesia team. Preoperative injection of 10 mL of a 1 to 1 mixture of 1% Lidocaine plain, 1/2% Marcaine plain were injected into the left foot. The left foot was prepped and draped in a normal sterile fashion. A tourniquet was used during the procedure. The patient received vancomycin preoperatively. An incision was drawn surrounding the left second toe in an elliptical fashion, this was carried full thickness with a #15 blade. The toe was disarticulated at the second metatarsal phalangeal joint and sent for pathology. There was no necrotic tissue noted or necrotic bone at the metatarsal head level. Site was irrigated with normal saline and the incision was repaired using #3-0 Nylon. Sterile dressings were applied. The patient was brought to the post-anesthesia care unit (PACU) with vital signs stable and neurovascular status intact. She will be weightbearing as tolerated. She will followup in the office in 2 days.
== END 2018-08-09 17:00 | disposition home or self-care (01) ==
LOC: M SDC 11:28
PROVIDERS: ATTEND Podiatrist Foot & Ankle Surgery
DX: M86.172 Other acute osteomyelitis, left ankle and foot (principal); I96 Gangrene, not elsewhere classified; E11.621 Type 2 diabetes mellitus with foot ulcer; E11.40 Type 2 diabetes mellitus with diabetic neuropathy, unspecified; B20 Human immunodeficiency virus [HIV] disease; J44.9 Chronic obstructive pulmonary disease, unspecified; M51.36 Other intervertebral disc degeneration, lumbar region; E78.00 Pure hypercholesterolemia, unspecified; K21.9 Gastro-esophageal reflux disease without esophagitis; E55.9 Vitamin D deficiency, unspecified; G25.81 Restless legs syndrome; I87.2 Venous insufficiency (chronic) (peripheral); B35.1 Tinea unguium; Z79.899 Other long term (current) drug therapy; Z72.0 Tobacco use; Z78.0 Asymptomatic menopausal state; Z98.84 Bariatric surgery status; Z96.612 Presence of left artificial shoulder joint; Z96.1 Presence of intraocular lens; Z98.41 Cataract extraction status, right eye
CPT/HCPCS: 28820; 88304; 88311; J1100; J2250; J2405; J3010; J3370

== ENCOUNTER → 2018-08-21 | Outpatient (REF) | payer MEDICARE, MEDICAID ==
[~2018-08-21] MED LIST changes: -LIDOCAINE 2% INJ 100 MG/5 ML SDV (FOR ANES.) As Ordered ONE; -LR 1,000 ML IV SCH; -MIDAZOLAM INJ 2 MG/2 ML VIAL (J2250) As Ordered ONE; -ONDANSETRON 4MG/2ML VIAL (J2405) As Ordered ONE; -PROPOFOL 200 MG/20 ML VIAL As Ordered ONE; -VANCOMYCIN HCL 1,000 MG, VIAL MATE ADAPTER 1 EACH in D5W 250 ML IV SCH; -dexameTHASONE 4 MG/ML 1ML VIAL (J1100) As Ordered ONE; -fentaNYL 100 MCG/2 ML INJECTION (J3010) As Ordered ONE
[2018-08-21 15:27] LABS: BASO % 0.3 % (0.0-1.0); EOS % 0.3 % (0.0-3.0); HEMATOCRIT 37.4 % (36.0-47.0); HEMOGLOBIN 11.8 g/dl (12.0-15.5); LYMPH # 2.3 10^3/uL (1.5-4.5); LYMPH % 35.4 % (24.0-44.0); MEAN CORPUSCULAR HEMOGLOBIN 27.2 pg (27.0-33.0); MEAN CORPUSCULAR HGB CONC 31.6 g/dl (32.0-36.5); MEAN CORPUSCULAR VOLUME 86.2 fl (80.0-96.0); MONO # 0.4 10^3/uL (0.0-0.8); MONO % 6.1 % (0.0-5.0); NEUTROPHILS # 3.6 10^3/uL (1.8-7.7); NEUTROPHILS % 57.1 % (36.0-66.0); PLATELET COUNT, AUTOMATED 130 10^3/uL (150-450); RED BLOOD COUNT 4.34 10^6/uL (4.00-5.40); WHITE BLOOD COUNT 6.4 10^3/uL (4.0-10.0)
[2018-08-21 16:06] LABS: ALT/SGPT 20 U/L (12-78); BILIRUBIN,TOTAL 0.3 MG/DL (0.2-1.0); BLOOD UREA NITROGEN 24 MG/DL (7-18); CALCIUM LEVEL 8.1 MG/DL (8.5-10.1); CARBON DIOXIDE LEVEL 26 MEQ/L (21-32); CHLORIDE LEVEL 104 MEQ/L (98-107); CREATININE FOR GFR 0.69 MG/DL (0.55-1.30); FERRITIN 272 NG/ML (8-252); GLOMERULAR FILTRATION RATE > 60.0 (>51); GLUCOSE, FASTING 98 MG/DL (70-100); IRON (FE) 33 UG/DL (50-170); PERCENT SATURATION 13.2 % (13.2-45.0); POTASSIUM SERUM 4.1 MEQ/L (3.5-5.1); SODIUM LEVEL 138 MEQ/L (136-145); TOTAL IRON BINDING CAPACITY 250 UG/DL (250-450); TOTAL PROTEIN 6.6 GM/DL (6.4-8.2)
[2018-08-25 00:06] LABS: HIV-1 RNA PCR QUANT 2 LC550285 60 copies/mL (.); HIV-1 RNA PCR QUANT 3 LC550285 1.778 (.)
== END ==
LOC: M SFHCPLAZ 14:16
PROVIDERS: ATTEND Internal Medicine Infectious Disease
DX: D50.0 Iron deficiency anemia secondary to blood loss (chronic) (principal); B20 Human immunodeficiency virus [HIV] disease
CPT/HCPCS: 36415; 80053; 82728; 83550; 85025; 86850; 86900; 86901; 87536; G0463

== ENCOUNTER 2018-10-17 12:20 | Inpatient (IN) | payer MEDICARE, MEDICAID ==
[~2018-10-17] VITALS: Ht 172.7 cm; Wt 96.9 kg
[~2018-10-17 12:20] MED LIST changes: -TRAZ-160 PO; +TRAZ-252 PO
[2018-10-17 13:25] VITALS: BP 93/69
[2018-10-17] MEDS ORDERED: ACETAMINOPHEN TAB 650MG DOSE (2X325MG) PO PRN (14:00)
[2018-10-17] MEDS ORDERED: MOM 30ML SUSPENSION UDC PO PRN (14:00)
[2018-10-17] MEDS ORDERED: MAGN400C PO (14:12)
[2018-10-17] MEDS ORDERED: TORS20TA2 PO (14:12)
[2018-10-17] MEDS ORDERED: ECOT81TA5 PO (14:12)
[2018-10-17] MEDS ORDERED: NEXI40CA PO (14:12)
[2018-10-17] MEDS ORDERED: PLAV1TAB2 PO (14:12)
[2018-10-17] MEDS ORDERED: POTA10TA17 PO (14:12)
[2018-10-17] MEDS ORDERED: NITR0.4S14 SL (14:12)
[2018-10-17] MEDS ORDERED: GLUCAGON FOR INJ 1 MG VIAL (J1610) SC PRN (14:30)
[2018-10-17] MEDS ORDERED: DEXTROSE 50% 50 ML SYRINGE IV PRN (14:30)
[2018-10-17] MEDS ORDERED: ONDANSETRON 4 MG TAB (S0181) PO PRN (14:30)
[2018-10-17] MEDS ORDERED: LOMOTIL 2.5MG/0.025MG TABLET PO PRN (14:30)
[2018-10-17] MEDS ORDERED: NITROGLYCERIN 0.4 MG SUBL TABLET SL PRN (14:30)
[2018-10-17] MEDS ORDERED: traZODone 50 MG TAB PO PRN (14:30)
[2018-10-17] MEDS ORDERED: GLUCOSE 4 GM CHEW TABLET PO PRN (14:30)
[2018-10-17 14:40] LABS: HEMATOCRIT 33.5 % (36.0-47.0); HEMOGLOBIN 10.4 g/dl (12.0-15.5); MEAN CORPUSCULAR HEMOGLOBIN 27.1 pg (27.0-33.0); MEAN CORPUSCULAR VOLUME 87.2 fl (80.0-96.0); PLATELET COUNT, AUTOMATED 148 10^3/uL (150-450); RED BLOOD COUNT 3.84 10^6/uL (4.00-5.40); WHITE BLOOD COUNT 7.1 10^3/uL (4.0-10.0)
[2018-10-17] MEDS: ASPIRIN 81 MG ENTERIC TAB PO SCH (14:58)
[2018-10-17] MEDS: CLOPIDOGREL 75 MG TAB PO SCH (14:59)
[2018-10-17] MEDS: PERCOCET 5MG/325MG TAB PO PRN ×3 (14:59→23:03)
[2018-10-17] MEDS ORDERED: SLF 3 ML SYR IV PRN (15:00)
[2018-10-17] MEDS ORDERED: PIPERACILLIN/TAZOBACTAM SOD 3.375 GM in D5W MINI-BAG PLUS 50 ML IV SCH (15:00)
[2018-10-17 15:09] LABS: INR 1.05; PROTHROMBIN TIME 13.8 SECONDS (12.1-14.4)
[2018-10-17 15:10] LABS: PARTIAL THROMBOPLASTIN TIME 41.9 SECONDS (25.4-37.6)
[2018-10-17 15:20] LABS: ALBUMIN 1.8 GM/DL (3.2-5.2); ALT/SGPT 10 U/L (12-78); BILIRUBIN,TOTAL 0.5 MG/DL (0.2-1.0); BLOOD UREA NITROGEN 23 MG/DL (7-18); CALCIUM LEVEL 7.8 MG/DL (8.5-10.1); CARBON DIOXIDE LEVEL 30 MEQ/L (21-32); CHLORIDE LEVEL 103 MEQ/L (98-107); CREATININE FOR GFR 0.46 MG/DL (0.55-1.30); GLOMERULAR FILTRATION RATE > 60.0 (>51); GLUCOSE, FASTING 86 MG/DL (70-100); POTASSIUM SERUM 2.6 MEQ/L (3.5-5.1); SODIUM LEVEL 140 MEQ/L (136-145); TOTAL PROTEIN 5.7 GM/DL (6.4-8.2)
[2018-10-17 16:00] VITALS: BP 82/51
--- NOTE | 2018-10-17 16:04 | HPEPDOC ---
General Date of Admission October 17, 2018 at 12:20 Date of Service: October 17, 2018 Chief Complaint The patient is a 53-year-old female admitted with a reason for visit of Infected Decubitus ulcer. Source: Patient History of Present Illness The patient is a 52-year-old female who was sent over as a direct admission from Dr. Arroyo's office for concerns regarding infected sacral decubitus ulcer. The patient reports having a fall in May and landing on her buttocks. She reports ever since, she has had a wound on her sacrum that has not healed. She reports she has been to the wound clinic previously but does not want to go there anymore. She reports she is also had increasing pain involving the sacral areadescribed as sharp/achy nature, 10 over 10 in intensity, constant, better with the Percocet and Lyricacomes down to 5/10 after the Ultracet. Denies any associated fevers or chills or sweats. She also reports a slight dry cough. She also has been dealing with a hawthorne ulcer since July of this year. She was seen in follow-up at Dr. Arroyo's office earlier today where, given concerns regarding possible infection involving the sacral decubitus ulcer, she was referred to the hospital for possible debridement. The patient reports she has been trying to stay off her back when she lies down in the bed. She reports she is usually able to ambulate about 15-20 feet with walker. She reports her friend helps her with ambulation. Home Medications Scheduled Aspirin (Ecotrin) 81 Mg Tablet.dr, 81 MG PO DAILY, (Reported) Cholecalciferol (Vitamin D3) (Vitamin D3) 1,000 Unit Tab, 1,000 UNIT PO DAILY, (Reported) Clopidogrel Bisulfate (Plavix) 75 Mg Tablet, 75 MG PO DAILY, (Reported) Darunavir Ethanolate (Prezista) 800 Mg Tab, 800 MG PO DAILY, (Reported) Elviteg/Cob/Emtri/Tenof Alafen (Genvoya Tablet) 1 Tab Tab, 1 TAB PO DAILY, (Reported) Esomeprazole Magnesium (Nexium) 40 Mg Capsule.dr, 40 MG PO DAILY, (Reported) Magnesium Oxide (Magnesium) 400 Mg Capsule, 400 MG PO DAILY, (Reported) Potassium Chloride (Potassium Chloride) 10 Meq Tab.er.prt, 20 MEQ PO DAILY, (Reported) Pregabalin (Lyrica) 300 Mg Cap, 300 MG PO BID, (Reported) Sucralfate (Carafate) 1 Gm/10 Ml Kristi, 10 ML PO QID, (Reported) Torsemide (Torsemide) 20 Mg Tablet, 20 MG PO BID, (Reported) Scheduled PRN Diphenoxylate HCl/Atropine (Lomotil 2.5-0.025 mg Tablet) 1 Tab Tab, 1 TAB PO Q4H PRN for DIARRHEA, (Reported) Nitroglycerin (Nitroglycerin) 0.4 Mg Tab.subl, 0.4 MG SL NITRO PRN for CHEST PAIN, (Reported) Ondansetron HCl (Ondansetron HCl) 8 Mg Tab, 8 MG PO TID PRN for NAUSEA, (Reported) Oxycodone HCl/Acetaminophen (Oxycodone-Acetaminophen 10-325) 1 Tab Tab, 1 TAB PO QID PRN for PAIN, (Reported) Trazodone HCl (Trazodone HCl) 50 Mg Tab, 50 MG PO QHS PRN for SLEEP, (Reported) Allergies Coded Allergies: No Known Allergies (Unverified , 10/17/18) Past Medical History Medical History Hawthorne ulcer, HIV on treatment, bilateral second toe amputation and left hallux amputation, orthostatic syncope previously, COPD/asthma, DM type II diet- controlled, chronic degenerative disc disease, Campylobacter colitis, hypercholesterolemia, menopause, right adrenal mass, edentulous state, severe sensory motor peripheral polyneuropathy, severe bilateral carpal tunnel and right ulnar neuropathy, right knee osteoarthritis Surgical History Gastric bypass, bowel perforation at site of gastric bypass, STEMI status post 1 stent/angioplasty, pericardial effusion/pericarditis after STEMI earlier this year, cholecystectomy, appendectomy, section, tubal ligation, bilateral rotator cuff repair, left shoulder replacement, bilateral Retinal surgery/elbow surgery, right cataract surgery, tonsillectomy and adenoidectomy Family History Dad secondary to PR, mom from unknown causes, one sister passed from lung cancer Social History * Smoker: other (smokes less than 1 pack per dayhe used to smoke 3 packs per day for 15 yearscurrently 3 cigarettes per day. She has been counseled zaina yuening quitting smoking.) Alcohol: Denies Drugs: denies A-FIB/CHADSVASC A-FIB History Current/History of A-Fib/PAF?: No Review of Systems Other systems Negative for 10 systems except as noted under history of present illness Physical Examination General Exam: Positive: Cooperative, No Acute Distress Eye Exam: Positive: PERRLA ENT Exam: Positive: Mucous membr. moist/pink Chest Exam: Positive: Clear to auscultation, Normal air movement; Negative: Rales, Rhonchi, Wheezing Heart Exam: Positive: Rate Normal, Regular Rhythm Abdomen Exam: Positive: Normal bowel sounds, Soft; Negative: Tenderness Extremity Exam: Positive: Other (bilateral lower extremity pitting edema2+ to 3+. ) Skin Exam: Positive: Other skin issue (sacral decubitus ulcer about 2.5-3 cm in size with purulent base and slight surrounding erythema. Also her hawthorne appears to be healing well. Necrotic appearing lesions over the left third and right first toe. Cool extremities and some slight dusky discolorationpatient had been walking outside in the rain with only socks on earlier.) Neuro Exam: Positive: Other (awake, alert, oriented 3. Moving all 4 extremities.) Psych Exam: Positive: Mental status NL Vital Signs Vital Signs Date Time Temp Pulse Resp B/P (MAP) Pulse Ox O2 Delivery O2 Flow Rate FiO2 10/17/18 14:59 17 10/17/18 13:25 98.0 95 93/69 (77) 100 Laboratory Data Labs 24H Laboratory Tests 2 10/17/18 14:27: Nucleated Red Blood Cells % (auto) 0.0, Prothrombin Time 13.8, Prothromb Time International Ratio 1.05, Activated Partial Thromboplast Time 41.9H, Anion Gap 7L, Glomerular Filtration Rate > 60.0, Lactic Acid Level 1.4, Blood Urea Nitrogen 23H, Creatinine 0.46L, Sodium Level 140, Potassium Level 2.6*L, Chloride Level 103, Carbon Dioxide Level 30, Calcium Level 7.8L, Aspartate Amino Transf (AST/SGOT) 18, Alanine Aminotransferase (ALT/SGPT) 10L, Alkaline Phosphatase 111, Total Bilirubin 0.5, Total Protein 5.7L, Albumin 1.8L, Al bumin/Globulin Ratio 0.46L, Prealbumin 8.4L CBC/BMP Laboratory Tests 10/17/18 14:27 Red Blood Count 3.84 L, Mean Corpuscular Volume 87.2, Mean Corpuscular Hemoglobin 27.1, Mean Corpuscular Hemoglobin Concent 31.0 L, Red Cell Distribution Width 18.1 H, Calcium Level 7.8 L, Aspartate Amino Transf (AST/SGOT) 18, Alanine Aminotransferase (ALT/SGPT) 10 L, Alkaline Phosphatase 111, Total Bilirubin 0.5, Total Protein 5.7 L, Albumin 1.8 L Microbiology Microbiology 10/17/18 Blood Culture, Received Pending Assessment/Plan Current Medications Acetaminophen (Tylenol Tab) 650 mg Q4H PRN PO PAIN OR FEVER; Start 10/17/18 at 14:00 Aspirin (Ecotrin) 81 mg DAILY PO Last administered on 10/17/18at 14:58; Start 10/17/18 at 09:00 Clopidogrel Bisulfate (PLAVix) 75 mg DAILY PO Last administered on 10/17/18at 14:59; Start 10/17/18 at 09:00 Dextrose (Dextrose 50%) 25 ml ASDIRECTED PRN IV SEE LABEL COMMENTS; Start 10/17/18 at 14:30 Diphenoxylate HCl/ Atropine (Lomotil 2.5mg/ 0.025mg) 1 ea Q4H PRN PO DIARRHEA; Start 10/17/18 at 14:30 Enoxaparin Sodium (Lovenox) 40 mg DAILY@2100 SC ; Start 10/17/18 at 21:00 Glucagon (Glucagon) 1 mg ASDIRECTED PRN SC SEE LABEL COMMENTS; Start 10/17/18 at 14:30 Glucose (Glucose) 16 GM ASDIRECTED PRN PO SEE LABEL COMMENTS; Start 10/17/18 at 14:30 Home Med (Med Rec Complete!) ASDIRECTED XX ; Start 10/17/18 at 14:15; Stop 10/17/18 at 14:15; Status DC Insulin Human Lispro (HumaLOG INSULIN) SEE PROTOCOL TABLE AC SC ; Start 10/17/18 at 17:30 Insulin Human Lispro (HumaLOG INSULIN) SEE PROTOCOL TABLE QHS SC ; Start 10/17/18 at 21:00 Magnesium Hydroxide (Milk Of Magnesia) 30 ml DAILY PRN PO CONSTIPATION; Start 10/17/18 at 14:00 Magnesium Oxide (Mag-Ox) 400 mg DAILY PO ; Start 10/18/18 at 09:00 Miscellaneous (Unresolved Patient Own Med Order) SEE LABEL COMMENTS DAILY XX ; Start 10/17/18 at 09:00 Nitroglycerin (Nitrostat (1/ 150)) 0.4 mg Q5MP PRN SL CHEST PAIN; Start 10/17/18 at 14:30 Ondansetron HCl (Zofran) 8 mg TID PRN PO NAUSEA; Start 10/17/18 at 14:30 Oxycodone/ Acetaminophen (Percocet 5mg/ 325mg Tablet) 2 tab Q4HP PRN PO MODERATE/SEVERE PAIN (PS 5-10) Last administered on 10/17/18at 14:59; Start 10/17/18 at 14:00 Pantoprazole Sodium (Protonix) 40 mg DAILY PO ; Start 10/18/18 at 09:00 Patient Own Medication (Patient'S Own Med) Genvoya [phone] mg 1 tab... DAILY PO ; Start 10/18/18 at 09:00; Status Future Hold Patient Own Medication (Patient'S Own Med) Prezista 800 mg 1 tab o... DAILY PO ; Start 10/18/18 at 09:00; Status UNV Piperacillin Sod/ Tazobactam Sod 3.375 gm/Dextrose 50 ml @ 50 mls/hr Q6H IV ; Start 10/17/18 at 15:00 Potassium Chloride (Micro-K Extencaps) 20 meq DAILY PO ; Start 10/18/18 at 09:00 Pregabalin (Lyrica) 300 mg BID PO ; Start 10/17/18 at 21:00 Sodium Chloride (Saline Lock Flush) 2 ml ASDIRECTED PRN IV SEE LABEL COMMENTS; Start 10/17/18 at 15:00 Sodium Chloride (Saline Lock Flush) 2 ml SLF IV ; Start 10/17/18 at 22:00 Sucralfate (Carafate Suspension) 1 gm QID PO ; Start 10/17/18 at 17:00 Torsemide (Demadex) 20 mg BID PO ; Start 10/17/18 at 21:00 Trazodone HCl (Desyrel) 50 mg QHS PRN PO SLEEP; Start 10/17/18 at 14:30 Vitamin D (Vitamin D) 1,000 units DAILY PO ; Start 10/18/18 at 09:00 Infected sacral decubitus ulcer: -Patient will be started on IV vancomycin and Zosyn -Wound cultures -General surgery consultation for a relation for debridement -Infectious disease consultation -Midline to be placed as peripheral IV could not be obtained -Blood cultures to be sent prior to antibiotics -When necessary Percocet for pain control Diabetes mellitus type 2 complicated by diabetic foot infections requiring previous toe amputations with necrotic areas over left third and right first toe: -Sliding-scale insulin -Consult and podiatrycase was discussed with Dr. Coe -Carbohydrate controlled diet HIV: -Continue home medications once friend/family brings medicine COPD/asthma in setting of history of nicotine dependence, not in exacerbation: -Counseled regarding quitting smoking Bilateral lower extremity edema: -Continued torsemide -Hypoalbuminemia also likely contributing to samealbumin 1.8 -Check echocardiogram Hypokalemia: -Replete and recheck DVT prophylaxis: -Enoxaparin CODE STATUS: -Full code per my discussion with the patient Disposition: -Admit as an inpatient to general medical floor for further evaluation and management of infected sacral decubitus ulcer. Anticipated length of stay more than 2 midnights. Anticipate eventual discharge home with home health versus penitentiary facility once medically stable Plan / VTE VTE Prophylaxis Ordered?: Yes KAELA HERNÁNDEZ MD October 17, 2018 16:04
[2018-10-17 16:08] LABS: MAGNESIUM LEVEL 1.5 MG/DL (1.8-2.4)
--- NOTE | 2018-10-17 16:49 | CR ---
DATE OF CONSULTATION: 10/17/2018 REASON FOR CONSULTATION: Toe wounds. The patient is seen in the hospital. She was admitted today due to infection of sacral wound. She was last seen by myself in July 2018. At that time, she had amputation of the toe due to gangrene and this has subsequently healed without issue. She had at that time also an anterior leg wound which is much improved. She has since had heart attack and stroke since last seen by myself. PAST MEDICAL HISTORY: Significant for diabetes, peripheral vascular disease, HIV, gastroesophageal reflux disease (GERD), myocardial infarction (MA), stroke. PAST SURGICAL HISTORY: Includes left hallux amputation and right second toe amputation. SOCIAL HISTORY: Significant for tobacco usage. ALLERGIES: None. REVIEW OF SYSTEMS: She denies fevers or chills. No pain in the lower extremities. Positive for edema. LOWER EXTREMITY EXAMINATION: Significant edema to both lower legs. The left anterior leg wound has some fibrous tissue, generally a granular base without surrounding erythema or purulent drainage. There are some dry gangrenous changes noted to the right distal hallux and left third toe. With debridement, there is viable tissue underneath. ASSESSMENT: A 53-year-old diabetic female with toe ulcerations and leg ulcerations and edema. PLAN: Presently toes appear viable and do not need amputation. Toes should be left open to air and allow further demarcation. We will remove the gangrenous portions as they demarcate. Edema needs to be addressed. Start PAT wrap for gentle compression. Apply Santyl to the left leg wound. We will monitor.
[2018-10-17] MEDS: HumaLOG INSULIN (NovoLOG) PER UNIT SC SCH ×2 (16:53→21:00)
[2018-10-17] MEDS: POTASSIUM CHLORIDE 10 MEQ SR TABLET PO SCH ×2 (16:57→21:14)
[2018-10-17] MEDS ORDERED: DOXYCYCLINE HYCLATE 100 MG TAB PO ONE (17:00)
[2018-10-17] MEDS ORDERED: AUGMENTIN 875 MG TAB PO ONE (17:00)
[2018-10-17] MEDS: SUCRALFATE SUSP 1GM/10ML UD PO SCH ×2 (18:11→21:14)
[2018-10-17] MEDS: SANTYL OINT 30GM TOP SCH (18:11)
[2018-10-17] MEDS ORDERED: guaiFENesin 200 MG TAB PO PRN (18:45)
[2018-10-17] MEDS ORDERED: BENZONATATE 100 MG CAP PO PRN (18:45)
[2018-10-17 20:00] VITALS: BP 82/52
[2018-10-17 20:50] LABS: C REACTIVE PROTEIN QUANTITATIV 2.38 MG/DL (0.00-0.30)
[2018-10-17] MEDS: TORSEMIDE 20 MG TAB PO SCH (21:00)
[2018-10-17] MEDS: SLF 3 ML SYR IV SCH (21:09)
[2018-10-17] MEDS: ENOXAPARIN 40 MG/0.4 ML SYRINGE (J1650) SC SCH (21:14)
[2018-10-17] MEDS: PREGABALIN 100 MG CAP (LYRICA) PO SCH (21:14)
[2018-10-17] MEDS ORDERED: KCL 10MEQ/100ML SWI (KRUN) 10 MEQ in APPROPRIATE DILUENT 1 EA IV ONE (22:30)
--- NOTE | 2018-10-17 23:27 | PHACANCOPD ---
PHARMACY VANCOMYCIN DOSING Pt Demographics Demographics Patient Age:53 , Weight:84.700 , Gender: female Events Past 24 Hours Events Past 24 Hours: NO: Dialysis, Diuretic Therapy, Change in CrCl, Fever, Elevation in WBC, Pending Diagnostics, Pending Procedures, Other Vancomycin Vancomycin indication: INFECTED DECUBITI Vancomycin Target Ranges: 10-20 mcg/ml Vancomycin Load Y/N: Yes Load Dose Date Time Vancomycin Load Dose: 1.5GM Date: 10/18/18 Time: 01:00 Vancomycin Dose Date: 10/18/18. Current Vancomycin Dose: [1GM IV Q12H (09:00)] Intermittent Dosing?: No Labs Labs Laboratory Tests 10/17/18 14:27 Red Blood Count 3.84 L, Mean Corpuscular Volume 87.2, Mean Corpuscular Hemoglobin 27.1, Mean Corpuscular Hemoglobin Concent 31.0 L, Red Cell Distribution Width 18.1 H, Calcium Level 7.8 L, Aspartate Amino Transf (AST/SGOT) 18, Alanine Aminotransferase (ALT/SGPT) 10 L, Alkaline Phosphatase 111, Total Bilirubin 0.5, Total Protein 5.7 L, Albumin 1.8 L Micro Microbiology 10/17/18 Blood Culture, Received Pending Creatinine Clearance Date:10/17/18. Creatinine Clearance: [>60 ml/min]. Assessment and Plan Maintaining Current Dose?: Yes Reason for dose change: No Dose Change Pharmacist Note Pharmacist Note Date: 10/17/18. PharmD note: IV TX INITIALLY DELAYED DUE TO LACK OF AN IV SITE; ORAL ABX ADMINISTERED APPROPRIATELY IN THE INTERVAL. ZOSYN 3.375GM IV Q6H STARTING AT 23:00 FOLLOWED BY A VANCO LOADD OF 1.5GM 10/18/18 01:00. FOLLOWING THE LOAD DOSE WE WILL PROCEED WITH VANCO 1GM IV Q12H STARTING AT 09:00 10/18. A VANCO TROUGH WILL BE ORDERED WHEN AT STEADY STATE. STEFAN [facility] October 17, 2018 23:27
[2018-10-17 23:59] VITALS: BP 84/50
[2018-10-18] VITALS (7 sets, daily range): BP systolic 80–84; BP diastolic 44–56
[2018-10-18] MEDS ORDERED: POTASSIUM CHLORIDE 10 MEQ SR TABLET PO ONE ×2 (00:15→07:45)
[2018-10-18] MEDS: PIPERACILLIN/TAZOBACTAM SOD 3.375 GM in D5W MINI-BAG PLUS 50 ML IV SCH ×5 (00:16→23:42)
[2018-10-18] MEDS ORDERED: VANCOMYCIN HCL 1,000 MG, VIAL MATE ADAPTER 1 EACH in D5W 250 ML IV ONE (01:00)
[2018-10-18] MEDS ORDERED: VANCOMYCIN HCL 500 MG in D5W MINI-BAG PLUS 100 ML IV ONE (02:00)
[2018-10-18] MEDS: PERCOCET 5MG/325MG TAB PO PRN ×4 (03:41→19:57)
[2018-10-18] MEDS ORDERED: SODIUM CHLORIDE 0.9% 1000ML IV ONE (04:30)
[2018-10-18] MEDS: SLF 3 ML SYR IV SCH ×3 (05:42→22:00)
[2018-10-18 06:27] LABS: HEMATOCRIT 27.1 % (36.0-47.0); HEMOGLOBIN 8.3 g/dl (12.0-15.5); MEAN CORPUSCULAR HEMOGLOBIN 26.4 pg (27.0-33.0); MEAN CORPUSCULAR HGB CONC 30.6 g/dl (32.0-36.5); MEAN CORPUSCULAR VOLUME 86.3 fl (80.0-96.0); PLATELET COUNT, AUTOMATED 128 10^3/uL (150-450); RED BLOOD COUNT 3.14 10^6/uL (4.00-5.40); WHITE BLOOD COUNT 6.6 10^3/uL (4.0-10.0)
[2018-10-18 06:54] LABS: ALBUMIN 1.3 GM/DL (3.2-5.2); ALT/SGPT 12 U/L (12-78); BILIRUBIN,TOTAL 0.2 MG/DL (0.2-1.0); BLOOD UREA NITROGEN 22 MG/DL (7-18); CALCIUM LEVEL 7.3 MG/DL (8.5-10.1); CARBON DIOXIDE LEVEL 30 MEQ/L (21-32); CHLORIDE LEVEL 106 MEQ/L (98-107); CREATININE FOR GFR 0.41 MG/DL (0.55-1.30); GLOMERULAR FILTRATION RATE > 60.0 (>51); GLUCOSE, FASTING 81 MG/DL (70-100); MAGNESIUM LEVEL 1.4 MG/DL (1.8-2.4); POTASSIUM SERUM 3.4 MEQ/L (3.5-5.1); SODIUM LEVEL 142 MEQ/L (136-145); TOTAL PROTEIN 4.7 GM/DL (6.4-8.2)
[2018-10-18] MEDS: HumaLOG INSULIN (NovoLOG) PER UNIT SC SCH ×4 (07:30→20:20)
[2018-10-18] MEDS: PREGABALIN 100 MG CAP (LYRICA) PO SCH ×2 (08:49→20:19)
[2018-10-18] MEDS: PANTOPRAZOLE 40MG TAB (PROTONIX) PO SCH (08:49)
[2018-10-18] MEDS: MAG SULF 1GM/100ML (MAG RUN) 1 GM in APPROPRIATE DILUENT 1 EA IV SCH ×3 (08:49→14:11)
[2018-10-18] MEDS: VITAMIN D 1,000 INTERNATIONAL UNITS TABLET PO SCH (08:49)
[2018-10-18] MEDS: CLOPIDOGREL 75 MG TAB PO SCH (08:49)
[2018-10-18] MEDS: TORSEMIDE 20 MG TAB PO SCH ×2 (08:50→20:20)
[2018-10-18] MEDS: SUCRALFATE SUSP 1GM/10ML UD PO SCH ×4 (08:50→20:19)
[2018-10-18] MEDS: MAGNESIUM OXIDE 400 MG TAB (MAG-OX) PO SCH (08:50)
[2018-10-18] MEDS: ASPIRIN 81 MG ENTERIC TAB PO SCH (08:50)
[2018-10-18] MEDS: POTASSIUM CHLORIDE 10 MEQ SR TABLET PO SCH (09:00)
[2018-10-18] MEDS ORDERED: GENVOYA PO SCH (09:00)
[2018-10-18] MEDS: VANCOMYCIN HCL 1,000 MG, VIAL MATE ADAPTER 1 EACH in D5W 250 ML IV SCH ×2 (10:10→20:31)
[2018-10-18] MEDS ORDERED: guaiFENesin SYRUP 200 MG/10 ML UDC PO PRN (10:30)
[2018-10-18] MEDS ORDERED: POTASSIUM CHLORIDE 10% LIQ 20 MEQ/15 ML UDC PO ONE (10:30)
[2018-10-18] MEDS ORDERED: MAGNESIUM SULFATE 1 GM/100 ML D5W BAG (10MG/ML) (J3475) As Ordered ONE (14:08)
[2018-10-18 15:27] LABS: HEMATOCRIT 28.6 % (36.0-47.0)
[2018-10-18] MEDS ORDERED: LIDOCAINE 1% MDV 20ML VIAL As Ordered ONE (16:22)
--- NOTE | 2018-10-18 17:29 | IPNPDOC ---
Subjective Date Seen The patient was seen on 10/18/18. Subjective Chief Complaint/HPI Infected decubitus ulcer Events since last encounter Patient reports some productive cough. No associated chest pain. No nausea or vomiting. Tolerating oral intake. Denies any abdominal pain. Urinating okay. No constipation. Reports difficulty swallowing the potassium pills/guaifenesin pillsprefers to use liquid instead. Denies noticing any blood in her stools or in her urine. No bleeding elsewhere. Objective Physical Examination General Exam: Positive: No Acute Distress, Other (lying in bed) Eye Exam: Positive: PERRLA ENT Exam: Positive: Mucous membr. moist/pink Chest Exam: Positive: Clear to auscultation, Normal air movement; Negative: Rales, Rhonchi, Wheezing Heart Exam: Positive: Rate Normal, Regular Rhythm Abdomen Exam: Positive: Soft; Negative: Tenderness Extremity Exam: Positive: Edema, Other (bilateral lower extremity pitting edema2+ to 3+. ) Skin Exam: Positive: Other skin issue (patient has Mark wrap's in bilateral lower extremities. Blackish discoloration/gangrenous small areas over the left third and right first toe. Sacral decubitus ulcer approximately 2.5-3 cm in size with purulent base - at least stage III) Neuro Exam: Positive: Other (awake, alert, oriented 3. Moving all 4 extremities.) Psych Exam: Positive: Mental status NL Assessment /Plan Assessment Current Medications Acetaminophen (Tylenol Tab) 650 mg Q4H PRN PO PAIN OR FEVER; Start 10/17/18 at 14:00 Aspirin (Ecotrin) 81 mg DAILY PO Last administered on 10/18/18at 08:50; Start 10/17/18 at 09:00 Benzonatate (Tessalon Perles) 100 mg TIDP PRN PO COUGH; Start 10/17/18 at 18:45 Clopidogrel Bisulfate (PLAVix) 75 mg DAILY PO Last administered on 10/18/18at 08:49; Start 10/17/18 at 09:00 Collagenase (Santyl) apply to left leg wound Q2D@0900 TOP Last administered on 10/17/18at 18:11; Start 10/17/18 at 09:00 Dextrose (Dextrose 50%) 25 ml ASDIRECTED PRN IV SEE LABEL COMMENTS; Start 10/17/18 at 14:30 Diphenoxylate HCl/ Atropine (Lomotil 2.5mg/ 0.025mg) 1 ea Q4H PRN PO DIARRHEA; Start 10/17/18 at 14:30 Enoxaparin Sodium (Lovenox) 40 mg DAILY@2100 SC Last administered on 10/17/18at 21:14; Start 10/17/18 at 21:00 Glucagon (Glucagon) 1 mg ASDIRECTED PRN SC SEE LABEL COMMENTS; Start 10/17/18 at 14:30 Glucose (Glucose) 16 GM ASDIRECTED PRN PO SEE LABEL COMMENTS; Start 10/17/18 at 14:30 Guaifenesin (Robitussin Tab) 200 mg Q4HP PRN PO COUGH Last administered on 10/17/18at 22:08; Start 10/17/18 at 18:45; Stop 10/18/18 at 10:22; Status DC Guaifenesin (Robitussin) 10 ml Q4HP PRN PO COUGH; Start 10/18/18 at 10:30 Home Med (Med Rec Complete!) ASDIRECTED XX ; Start 10/17/18 at 14:15; Stop 10/17/18 at 14:15; Status DC Insulin Human Lispro (HumaLOG INSULIN) SEE PROTOCOL TABLE AC SC ; Start 10/17/18 at 17:30 Insulin Human Lispro (HumaLOG INSULIN) SEE PROTOCOL TABLE QHS SC ; Start 10/17/18 at 21:00 Magnesium Hydroxide (Milk Of Magnesia) 30 ml DAILY PRN PO CONSTIPATION; Start 10/17/18 at 14:00 Magnesium Oxide (Mag-Ox) 400 mg DAILY PO Last administered on 10/18/18at 08:50; Start 10/18/18 at 09:00 Magnesium Sulfate/ Dextrose 1 gm/IV Miscellaneous Supplies 100 ml @ 100 mls/hr Q1H IV Last administered on 10/18/18at 14:11; Start 10/18/18 at 08:00; Stop 10/18/18 at 10:59; Status DC Miscellaneous (Unresolved Patient Own Med Order) SEE LABEL COMMENTS DAILY XX ; Start 10/17/18 at 09:00 Nitroglycerin (Nitrostat (1/ 150)) 0.4 mg Q5MP PRN SL CHEST PAIN; Start 10/17/18 at 14:30 Ondansetron HCl (Zofran) 8 mg TID PRN PO NAUSEA; Start 10/17/18 at 14:30 Oxycodone/ Acetaminophen (Percocet 5mg/ 325mg Tablet) 2 tab Q4HP PRN PO MODERATE/SEVERE PAIN (PS 5-10) Last administered on 10/18/18at 15:08; Start 10/17/18 at 14:00 Pantoprazole Sodium (Protonix) 40 mg DAILY PO Last administered on 10/18/18at 08:49; Start 10/18/18 at 09:00 Patient Own Medication (Patient'S Own Med) Genvoya [phone] mg 1 tab... DAILY PO ; Start 10/18/18 at 09:00; Status Future Hold Patient Own Medication (Patient'S Own Med) Prezista 800 mg 1 tab o... DAILY PO ; Start 10/18/18 at 09:00; Status UNV Piperacillin Sod/ Tazobactam Sod 3.375 gm/Dextrose 50 ml @ 50 mls/hr Q6H IV ; Start 10/17/18 at 15:00; Stop 10/17/18 at 23:04; Status DC Piperacillin Sod/ Tazobactam Sod 3.375 gm/Dextrose 50 ml @ 50 mls/hr Q6H IV Last administered on 10/18/18at 11:52; Start 10/17/18 at 23:00 Potassium Chloride (Micro-K Extencaps) 20 meq DAILY PO ; Start 10/18/18 at 09:00 Potassium Chloride (Micro-K Extencaps) 40 meq Q4H PO Last administered on 10/17/18at 21:14; Start 10/17/18 at 16:00; Stop 10/17/18 at 22:20; Status DC Potassium Chloride (Potassium Chloride Liquid) 20 meq DAILY PO ; Start 10/19/18 at 09:00 Pregabalin (Lyrica) 300 mg BID PO Last administered on 10/18/18at 08:49; Start 10/17/18 at 21:00 Sodium Chloride (Saline Lock Flush) 2 ml ASDIRECTED PRN IV SEE LABEL COMMENTS; Start 10/17/18 at 15:00 Sodium Chloride (Saline Lock Flush) 2 ml SLF IV Last administered on 10/18/18at 14:11; Start 10/17/18 at 22:00 Sucralfate (Carafate Suspension) 1 gm QID PO Last administered on 10/18/18at 12:47; Start 10/17/18 at 17:00 Torsemide (Demadex) 20 mg BID PO Last administered on 10/18/18at 08:50; Start 10/17/18 at 21:00 Trazodone HCl (Desyrel) 50 mg QHS PRN PO SLEEP; Start 10/17/18 at 14:30 Vancomycin HCl 1000 mg/IV Miscellaneous Supplies 1 each/ Dextrose 270 ml @ 270 mls/hr Q12H IV Last administered on 10/18/18at 10:10; Start 10/18/18 at 09:00 Vitamin D (Vitamin D) 1,000 units DAILY PO Last administered on 10/18/18 08:49; Start 10/18/18 at 09:00 Infected Stage 3 sacral decubitus ulcer, present on admission: -Ct IV vancomycin and Zosyn D2 -Wound culture requestedGram stain shows many gram-positive cocci in pairs. -General surgery consultation for evaluation for debridement was requested in case was discussed with Dr. Johnson 10/17 -Infectious disease consultation requested and case was discussed with Dr. Arroyo 10/17 -Midline to be placed today -Blood cultures preliminary negative at 24 hours -prn Percocet for pain control Diabetes mellitus type 2 complicated by diabetic foot infections requiring previous toe amputations with necrotic areas over left third and right first toe: -Ct Sliding-scale insulin -Fingersticks are controlled -Pt was seen by Dr. Coe from podiatryappreciate input -Carbohydrate controlled diet HIV: -Continue home medications once friend/family brings medicine COPD/asthma in setting of history of nicotine dependence, not in exacerbation: -Counseled previously regarding quitting smoking Bilateral lower extremity edema: -Continued torsemide -Hypoalbuminemia also likely contributing to same -Echocardiogram pending Hypokalemia: -Replete and recheck Anemia: -Hemoglobin lower today -Check FOBT -Recheck H&H this afternoon is stable -Blood as vision consent has been obtained and is in chart if patient does and up requiring blood transfusion Hypomagnesemia: -Replete and recheck DVT prophylaxis: -Enoxaparin Plan/VTE VTE Prophylaxis Ordered?: Yes VS, I&O, 24H, Fishbone Vital Signs/I&O Vital Signs Date Time Temp Pulse Resp B/P (MAP) Pulse Ox O2 Delivery O2 Flow Rate FiO2 10/18/18 15:08 18 10/18/18 12:00 98.0 91 82/56 (65) 100 I&O- Last 24 Hours up to 6 AM 10/18/18 05:59 Intake Total 1400 ml Output Total 400 ml Balance 1000 ml Laboratory Data 24H LABS Laboratory Tests 2 10/17/18 20:24: Bedside Glucose (Misc Panel) 161H 10/18/18 06:04: Nucleated Red Blood Cells % (auto) 0.0, Anion Gap 6L, Glomerular Filtration Rate > 60.0, Blood Urea Nitrogen 22H, Creatinine 0.41L, Sodium Level 142, Potassium Level 3.4#L, Chloride Level 106, Carbon Dioxide Level 30, Calcium Level 7.3L, Aspartate Amino Transf (AST/SGOT) 12, Alanine Aminotransferase (ALT/SGPT) 12, Alkaline Phosphatase 83, Total Bilirubin 0.2#, Total Protein 4.7L, Albumin 1.3#L, Magnesium Level 1.4L, Albumin/Globulin Ratio 0.38L 10/18/18 12:27: Bedside Glucose (Misc Panel) 98 CBC/BMP Laboratory Tests 10/18/18 06:04 Red Blood Count 3.14 L, Mean Corpuscular Volume 86.3, Mean Corpuscular Hemoglobin 26.4 L, Mean Corpuscular Hemoglobin Concent 30.6 L, Red Cell Distribution Width 18.3 H, Calcium Level 7.3 L, Aspartate Amino Transf (AST/SGOT) 12, Alanine Aminotransferase (ALT/SGPT) 12, Alkaline Phosphatase 83, Total Bilirubin 0.2 #, Total Protein 4.7 L, Albumin 1.3 #L 10/18/18 15:08 Microbiology Microbiology 10/17/18 Blood Culture - Preliminary, Resulted No growth after 24 hours . All specim... 10/18/18 Gram Stain - Final, Resulted 10/18/18 Wound Culture, Resulted Pending KAELA HERNÁNDEZ MD October 18, 2018 17:29
[2018-10-18] MEDS: ENOXAPARIN 40 MG/0.4 ML SYRINGE (J1650) SC SCH (20:19)
[2018-10-19 04:00] VITALS: BP 86/57
[2018-10-19] MEDS: PERCOCET 5MG/325MG TAB PO PRN ×5 (04:36→21:44)
[2018-10-19] MEDS: PIPERACILLIN/TAZOBACTAM SOD 3.375 GM in D5W MINI-BAG PLUS 50 ML IV SCH ×3 (04:37→17:27)
[2018-10-19] MEDS: SLF 3 ML SYR IV SCH ×3 (06:26→22:00)
--- NOTE | 2018-10-19 06:33 | ECHO ---
DATE OF STUDY: 10/18/2018 REFERRING PHYSICIAN: Dr. Natan Rader INDICATION: Edema. HEIGHT: 68 inches. WEIGHT: 83 kg. 2-D MEASUREMENTS: Left atrium: 3.6 cm Ventricular septum: 0.97 cm Posterior wall: 0.98 cm Left ventricle diastole: 4.1 cm Aortic root: 3.0 cm LVOT: 2.2 cm Inferior vena cava: 3.25 cm with marked reduction of respiratory variation DOPPLER MEASUREMENTS: Mild aortic regurgitation No aortic stenosis Aortic valve velocity: 94.2 cm/sec LVOT velocity: 88.0 cm/sec LVOT VTI: 17.2 cm Mitral E velocity: 56.8 cm/sec Mitral A velocity: 45.1 cm/sec Mitral deceleration time: 103 ms Mild tricuspid regurgitation Pulmonary artery systolic pressure 34 mmHg MITRAL ANNULAR TISSUE DOPPLER: E prime septal: 8.6 cm/sec E prime lateral: 16.1 cm/sec DESCRIPTION: The rhythm was sinus. Image quality was good. This was a 2-D, M-mode, color flow Doppler and pulse wave Doppler examination and included mitral annular tissue Doppler. CONCLUSIONS: 1. Dilated inferior vena cava with marked reduction of respiratory variation. Suggestive of elevated central venous pressure of at least 20 mmHg. 2. Suggestive of mild elevation of pulmonary artery systolic pressure. Normal right ventricle size and systolic function. 3. Normal left ventricle internal dimensions and wall thickness. Normal regional LV wall motion and wall thickening. Normal LV systolic function. LVEF 65% by visual estimate. Normal LV diastolic function. 4. Mild aortic valve sclerosis of a 3-cuspid aortic valve. Mild aortic regurgitation. 5. No pericardial effusion.
[2018-10-19 07:27] LABS: BASO % 0.4 % (0.0-1.0); EOS % 0.5 % (0.0-3.0); HEMATOCRIT 25.2 % (36.0-47.0); HEMOGLOBIN 7.9 g/dl (12.0-15.5); LYMPH # 1.2 10^3/uL (1.5-4.5); LYMPH % 22.4 % (24.0-44.0); MEAN CORPUSCULAR HGB CONC 31.3 g/dl (32.0-36.5); MEAN CORPUSCULAR VOLUME 89.4 fl (80.0-96.0); MONO # 0.4 10^3/uL (0.0-0.8); MONO % 7.3 % (0.0-5.0); NEUTROPHILS # 3.7 10^3/uL (1.8-7.7); NEUTROPHILS % 67.9 % (36.0-66.0); PLATELET COUNT, AUTOMATED 113 10^3/uL (150-450); RED BLOOD COUNT 2.82 10^6/uL (4.00-5.40); WHITE BLOOD COUNT 5.5 10^3/uL (4.0-10.0)
[2018-10-19] MEDS: HumaLOG INSULIN (NovoLOG) PER UNIT SC SCH ×4 (07:30→21:00)
[2018-10-19 07:47] LABS: BLOOD UREA NITROGEN 18 MG/DL (7-18); CALCIUM LEVEL 7.3 MG/DL (8.5-10.1); CARBON DIOXIDE LEVEL 30 MEQ/L (21-32); CHLORIDE LEVEL 107 MEQ/L (98-107); CREATININE FOR GFR 0.45 MG/DL (0.55-1.30); GLOMERULAR FILTRATION RATE > 60.0 (>51); GLUCOSE, FASTING 75 MG/DL (70-100); MAGNESIUM LEVEL 1.8 MG/DL (1.8-2.4); PHOSPHORUS LEVEL 2.8 MG/DL (2.5-4.9); SODIUM LEVEL 142 MEQ/L (136-145); VANCOMYCIN LEVEL TROUGH 14.8 UG/ML (10.0-20.0)
[2018-10-19 08:00] VITALS: BP 83/52
[2018-10-19] MEDS: VANCOMYCIN HCL 1,000 MG, VIAL MATE ADAPTER 1 EACH in D5W 250 ML IV SCH ×2 (08:12→21:45)
[2018-10-19] MEDS: SUCRALFATE SUSP 1GM/10ML UD PO SCH ×4 (08:12→21:43)
[2018-10-19] MEDS: VITAMIN D 1,000 INTERNATIONAL UNITS TABLET PO SCH (08:37)
[2018-10-19] MEDS: CLOPIDOGREL 75 MG TAB PO SCH (08:38)
[2018-10-19] MEDS: PANTOPRAZOLE 40MG TAB (PROTONIX) PO SCH (08:39)
[2018-10-19] MEDS: MAGNESIUM OXIDE 400 MG TAB (MAG-OX) PO SCH (08:39)
[2018-10-19] MEDS: PREGABALIN 100 MG CAP (LYRICA) PO SCH ×2 (08:39→21:43)
[2018-10-19] MEDS: ASPIRIN 81 MG ENTERIC TAB PO SCH (08:40)
[2018-10-19] MEDS: POTASSIUM CHLORIDE 10 MEQ SR TABLET PO SCH (08:40)
--- NOTE | 2018-10-19 08:53 | PHACANCOPD ---
PHARMACY VANCOMYCIN DOSING Pt Demographics Demographics Patient Age:53 , Weight:85.600 , Gender: female Vancomycin Vancomycin indication: INFECTED DECUBITI Vancomycin Target Ranges: 10-20 mcg/ml Vancomycin Load Y/N: Yes Load Dose Date Time Vancomycin Load Dose: 1.5GM Date: 10/18/18 Time: 01:00 Vancomycin Dose Date: 10/18/18. Current Vancomycin Dose: [1GM IV Q12H (09:00)] Intermittent Dosing?: No Labs Micro Microbiology 10/17/18 Blood Culture - Preliminary, Resulted No growth after 24 hours . All specim... 10/18/18 Gram Stain - Final, Resulted 10/18/18 Wound Culture, Resulted Pending Creatinine Clearance Date:10/17/18. Creatinine Clearance: [>60 ml/min]. Assessment and Plan Maintaining Current Dose?: Yes Reason for dose change: No Dose Change Pharmacist Note Pharmacist Note Day #3 IV vancomycin therapy. Vancomycin trough level today resulted at 14.8mcg/ml. Scr remains stable at 0.45 today from 0.46 at start of therapy. Cultures are still pending. We will continue the patient on her current regimen of 1g IV Q12H, and will schedule a follow-up trough level as needed. Date: 10/17/18. PharmD note: IV TX INITIALLY DELAYED DUE TO LACK OF AN IV SITE; ORAL ABX ADMINISTERED APPROPRIATELY IN THE INTERVAL. ZOSYN 3.375GM IV Q6H STARTING AT 23:00 FOLLOWED BY A VANCO LOADD OF 1.5GM 10/18/18 01:00. FOLLOWING THE LOAD DOSE WE WILL PROCEED WITH VANCO 1GM IV Q12H STARTING AT 09:00 10/18. A VANCO TROUGH WILL BE ORDERED WHEN AT STEADY STATE. [facility] October 19, 2018 08:53
[2018-10-19] MEDS: POTASSIUM CHLORIDE 10% LIQ 20 MEQ/15 ML UDC PO SCH (09:00)
[2018-10-19] MEDS: TORSEMIDE 20 MG TAB PO SCH ×2 (09:00→21:00)
[2018-10-19] MEDS: SANTYL OINT 30GM TOP SCH (09:00)
[2018-10-19 12:00] VITALS: BP 87/51
--- NOTE | 2018-10-19 12:02 | IPN ---
DATE OF SERVICE: 10/19/2018 The patient is seen and examined. She is currently working with physical therapy. Denies new complaints in her legs. States the wraps were put on too tight and presently there is no wrap on her leg. Labs are reviewed. White blood cell count is 5.5. On lower extremity examination significant edema persists to the lower extremities. There is some gangrenous changes throughout the distal hallux and right and left third toe. These however are somewhat loosened compared to previous examination with no further extension and no signs or infection. ASSESSMENT: 53-year-old diabetic female with toe ulcerations and gangrene. PLAN: Gangrenous changes are improving. Will most likely continue to demarcate into a more superficial wound. Continue wraps to improve edema. The patient can weight bear as tolerated on her feet.
[2018-10-19] MEDS ORDERED: LIDOCAINE 1% MDV 20ML VIAL As Ordered ONE (14:58)
[2018-10-19 16:35] VITALS: BP 78/49
--- NOTE | 2018-10-19 18:33 | IPNPDOC ---
Subjective Date Seen The patient was seen on 10/19/18. Subjective Chief Complaint/HPI Infected decubitus ulcer Events since last encounter The patient reports she still has significant pain involving her sacral area. Denies any problem with nausea or vomiting. Tolerating oral intake well. She is upset about restrictions on her dietdoes not want carbohydrate restrictions. Denies any problems with chest pain or shortness of breath. Denies any abdominal pain. No nausea or vomiting. Reports she didn't have a bowel movement yesterday but does not wish to try any stool softeners or laxatives. Urinating okay. Patient also did not have her Mark wrap on and lower extremitiesreports that it was too tight last night and was digging into her skin. Objective Physical Examination General Exam: Positive: No Acute Distress, Other (Ring up in bed eating breakfast) Eye Exam: Positive: PERRLA ENT Exam: Positive: Mucous membr. moist/pink Chest Exam: Positive: Clear to auscultation, Normal air movement; Negative: Rales, Rhonchi, Wheezing Heart Exam: Positive: Rate Normal, Regular Rhythm Abdomen Exam: Positive: Soft; Negative: Tenderness Extremity Exam: Positive: Edema, Other (bilateral lower extremity pitting edema2+ to 3+. ) Skin Exam: Positive: Other skin issue (patient has Mark wrap's in bilateral l ower extremities. Blackish discoloration/gangrenous small areas over the left third and right first toe. Sacral decubitus ulcer approximately 2.5-3 cm in size - unchanged. Necrotic appearing/purulent base - at least stage III) Neuro Exam: Positive: Other (awake, alert, oriented 3. Moving all 4 extremities.) Assessment /Plan Assessment 2-D echo: CONCLUSIONS: 1. Dilated inferior vena cava with marked reduction of respiratory variation. Suggestive of elevated central venous pressure of at least 20 mmHg. 2. Suggestive of mild elevation of pulmonary artery systolic pressure. Normal right ventricle size and systolic function. 3. Normal left ventricle internal dimensions and wall thickness. Normal regional LV wall motion and wall thickening. Normal LV systolic function. LVEF 65% by visual estimate. Normal LV diastolic function. 4. Mild aortic valve sclerosis of a 3-cuspid aortic valve. Mild aortic regurgitation. 5. No pericardial effusion. Infected Stage 3 sacral decubitus ulcer, present on admission: -Ct IV vancomycin and Zosyn D3 -Blood cultureno growth thus far -Wound culture pendingGram stain shows many gram-positive cocci in pairs. -General surgery consultation for evaluation for debridement was requested in case was discussed with Dr. Johnson 10/17 - will await recommendations as regards need for surgical intervention - case was discussed with him again today and he will be seeing the patient today. -Infectious disease consultation requested and case was discussed with Dr. rAroyo 10/17 -Midline to be reattempted today unsuccessful attempt yesterday -prn Percocet for pain control Diabetes mellitus type 2 complicated by diabetic foot infections requiring previous toe amputations with necrotic areas over left third and right first toe: -Ct Sliding-scale insulin -Fingersticks are controlled -Pt was seen by Dr. Coe from podiatryappreciate input -Patient refuses to comply with carbohydrate controlled dietchanged to low- sodium diet HIV: -Continue home medications once friend/family brings medicine COPD/asthma in setting of history of nicotine dependence, not in exacerbation: -Counseled previously regarding quitting smoking Bilateral lower extremity edema: -Continued torsemide -Hypoalbuminemia also likely contributing to same -Echocardiogram as above - EF 65% Hypokalemia: -Resolved Anemia: -Hemoglobin 7.9 -FOBT was ordered -Transfuse as needed if hemoglobin less than 7 -Blood transfusion consent has been obtained and is in chart if patient requires blood transfusion Hypomagnesemia: -Resolved DVT prophylaxis: -Enoxaparin Plan/VTE VTE Prophylaxis Ordered?: Yes VS, I&O, 24H, Fishbone Vital Signs/I&O Vital Signs Date Time Temp Pulse Resp B/P (MAP) Pulse Ox O2 Delivery O2 Flow Rate FiO2 10/19/18 17:27 98.5 92 16 78/49 99 I&O- Last 24 Hours up to 6 AM 10/19/18 06:00 Intake Total 1780 ml Output Total 2400 ml Balance -620 ml Laboratory Data 24H LABS Laboratory Tests 2 10/18/18 19:55: Bedside Glucose (Misc Panel) 211H 10/19/18 07:03: Immature Granulocyte % (Auto) 1.5, White Blood Count 5.5, Red Blood Count 2.82L, Hemoglobin 7.9L, Hematocrit 25.2L, Mean Corpuscular Volume 89.4, Mean Corpuscular Hemoglobin 28.0, Mean Corpuscular Hemoglobin Concent 31.3L, Red Cell Distribution Width 18.4H, Platelet Count 113L, Neutrophils (%) (Auto) 67.9H, Lymphocytes (%) (Auto) 22.4L, Monocytes (%) (Auto) 7.3H, Eosinophils (%) (Auto) 0.5, Basophils (%) (Auto) 0.4, Neutrophils # (Auto) 3.7, Lymphocytes # (Auto) 1.2L, Monocytes # (Auto) 0.4, Eosinophils # (Auto) 0.0, Basophils # (Auto) 0.0, Nucleated Red Blood Cells % (auto) 0.0, Anion Gap 5L, Glomerular Filtration Rate > 60.0, Blood Urea Nitrogen 18, Creatinine 0.45L, Sodium Level 142, Potassium Level 4.0, Chloride Level 107, Carbon Dioxide Level 30, Calcium Level 7.3L, Phosphorus Level 2.8, Magnesium Level 1.8, Vancomycin Level Trough 14.8 10/19/18 12:13: Bedside Glucose (Misc Panel) 132H 10/19/18 17:29: Bedside Glucose (Misc Panel) 100 CBC/BMP Laboratory Tests 10/19/18 07:03 Red Blood Count 2.82 L, Mean Corpuscular Volume 89.4, Mean Corpuscular Hemogl obin 28.0, Mean Corpuscular Hemoglobin Concent 31.3 L, Red Cell Distribution Width 18.4 H, Neutrophils (%) (Auto) 67.9 H, Lymphocytes (%) (Auto) 22.4 L, Monocytes (%) (Auto) 7.3 H, Eosinophils (%) (Auto) 0.5, Basophils (%) (Auto) 0.4, Neutrophils # (Auto) 3.7, Lymphocytes # (Auto) 1.2 L, Monocytes # (Auto) 0.4, Eosinophils # (Auto) 0.0, Basophils # (Auto) 0.0, Calcium Level 7.3 L Microbiology Microbiology 10/17/18 Blood Culture - Preliminary, Resulted No Growth after 48 hours. All Specime... 10/18/18 Gram Stain - Final, Resulted 10/18/18 Wound Culture, Resulted Pending KAELA HERNÁNDEZ MD October 19, 2018 18:33
[2018-10-19 20:00] VITALS: BP 85/49
--- NOTE | 2018-10-19 21:16 | CR ---
DATE OF CONSULTATION: 10/19/2018 Asked to consult by hospitalist for inpatient followup of patient with sacral decubitus ulcer, tellez ulcer, and HIV. HISTORY OF PRESENT ILLNESS: Carol Ann is a 52-year-old patient of mine whom I admitted directly from the office with an infected sacral decubitus ulcer and an underlying abscess. The patient had fallen in May and landed on her buttocks. Since then she has had a sore sacrum. She has been complaining of severe lower extremity edema and has been lying on her back quite a bit lately because of difficulty with walking and back pain. The patient has had increasing back pain radiating to both legs, sacral area. Was asking to be admitted to hospice care. The pain was severe, uncontrolled with Percocet and Lyrica. She stated the pain was 10/10. She had no fever or chills, no night sweats, but was having a cough, which is mostly nonproductive.. No shortness of breath. The patient usually ambulates with her walker 15 feet. She had been living with a friend, Lizbet, and her grandson, Damian, for whom she usually has long term care. PAST MEDICAL HISTORY: 1. Peripheral vascular disease status post amputation of two left toes. 2. Orthostatic hypotension. 3. Chronic obstructive pulmonary disease (COPD) and asthma. 4. Diabetes, type 2. 5. Continued tobacco abuse. 6. Chronic degenerative disc disease. 7. Hypercholesteremia. 8. Menopause. 9. Right adrenal mass. 10. Severe sensory and motor peripheral neuropathy. 11. Carpal tunnel syndrome. 12. Osteoarthritis. PAST SURGICAL HISTORY: 1. Gastric bypass complicated by bowel perforation at the gastric bypass site and hypoalbuminemia. 2. ST-elevation myocardial infarction (STEMI), status post one-stent angioplasty at [facility], complicated by pericarditis and pericardial effusion in August 2018. 3. Cholecystectomy. 4. Appendectomy. 5. section. 6. Tubal ligation. 7. Rotator cuff surgery. 8. Left shoulder replacement. 9. Bilateral retinal surgery. 10. Right cataract surgery. 11. Tonsillectomy. 12. Adenoidectomy. FAMILY HISTORY: Father of an myocardial infarction ([place]). Sister with lung cancer. SOCIAL HISTORY: She smokes a pack a day. Denies alcohol use or drug use. She is not . She has four children and has the care of her grandson, Damian. PHYSICAL EXAMINATION: She is a sick, frail female in no acute distress. Temperature is 98.5, pulse 92, respirations 16, blood pressure 78/49, oxygen saturation 99% on room air. HEART: Normal S1, S2. No murmurs, rubs, or gallops. LUNGS: Decreased breath sounds at bases. ABDOMEN: Soft, nontender. No hepatosplenomegaly. BACK: Sacral edema. Sacral ulcers measuring about 4 x 3 cm with necrotic tissue with underlying purulent drainage, foul smelling. EXTREMITIES: Pitting edema +3 bilaterally. Tellez ulcer on the left side, measuring about 3 x 2 cm. Amputation of the distal hallux. Amputation of the 2nd toe and gangrene of the 3rd toe of the distal phalanx. Diminished dorsalis pedis pulses. Lower extremities with +3 pitting edema bilaterally all the way to the upper thighs with a left tellez ulcer measuring 4 x 3 cm. Echocardiogram done on October 19 shows dilated inferior vena cave with marked reduction of respiratory variation, suggestive of his central venous pressure (CVP) of 20 mm. Mild elevation of pulmonary artery systolic pressure. Normal left ventricular dimensions. Ejection fraction (EF) 65%. Mild aortic valve sclerosis. Mild aortic regurgitation. IMAGING STUDIES: No imaging was done. MEDICATIONS: - potassium 20 mEq by mouth daily - Robitussin as needed - vitamin D at 1000 units by mouth daily - Protonix 40 mg by mouth daily - magnesium oxide 400 mg by mouth daily - Prezista one tablet by mouth daily - Genvoya one tablet by mouth daily - vancomycin 1 gram IV every 12 hours - Zosyn 3.375 grams IV every 6 hours - insulin sliding scale - Lyrica 300 mg by mouth twice a day - torsemide 20 mg by mouth twice a day. That has been held because of hypotension. She has only received one dose in the past 48 hours. - Carafate 1 gram by mouth four times a day - Lomotil as needed - nitroglycerin as needed - Percocet two tablets by mouth every 4 as needed - Plavix 75 mg by mouth daily - Santyl to leg wound. ALLERGIES: No known drug allergies. LABORATORY DATA: White count 5.5, hemoglobin 7.9, hematocrit 25.2, platelets 113, 68% neutrophils, 22% lymphocytes, 7% monocytes. PT 13.8, INR 1.05, PTT 41.9. Sodium 142, potassium 4, chloride 107, bicarbonate 30, BUN 18, creatinine 0.45, glucose 75, calcium 7.3, phosphorus 2.8, magnesium 1.8. Albumin 1.3. Blood cultures negative. Wound culture from decubitus ulcer is pending. Gram stain had many gram-positive cocci in pairs. IMPRESSION: This is 53-year-old female HIV positive well controlled CD4>500, recently hospitalized with myocardial infarction and pericarditis 08/2018 at [facility]. Since then has developed severe lower extremity edema and hypotension She has severe hypoalbunemia which is definitely contributing to that, no known Hx of liver disease or alcoholism. She has been having difficulty with hypotension and therefore has been lying in bed so has developed a worsening decubitus ulcer, which needs debridement. PLAN: 1. Obtain MRI of the pelvis to rule out osteomyelitis and underlying abscess. Please consult surgery for debridement of the wound and obtain cultures on IV vanco/ zosyn continue current regimene 2. Hypotension with lower extremity edema. Consult cardiology for followup. The patient has not been seen since hospital discharge from [place], and echocardiogram suggestive of elevated CVP. As far as lower extremity edema is concerned, I will apply compression stockings with Coban. 3. Dry gangrene of the left 3rd toe. Dr. Coe has followed the patient in the past and has seen her this hospitalization. No surgical intervention is recommended. 4. HIV/AIDS. Is controlled. Her last viral load was 60 and CD-4 count 682. MTDD
[2018-10-19] MEDS: ENOXAPARIN 40 MG/0.4 ML SYRINGE (J1650) SC SCH (21:44)
[2018-10-19 23:59] VITALS: BP 83/52
[2018-10-20] VITALS (7 sets, daily range): BP systolic 76–88; BP diastolic 47–58
[2018-10-20] MEDS: PIPERACILLIN/TAZOBACTAM SOD 3.375 GM in D5W MINI-BAG PLUS 50 ML IV SCH ×2 (00:08→04:28)
[2018-10-20] MEDS: PERCOCET 5MG/325MG TAB PO PRN ×5 (04:27→21:29)
[2018-10-20] MEDS: SLF 3 ML SYR IV SCH ×3 (04:28→21:27)
[2018-10-20] MEDS: SODIUM CHLORIDE 0.9% INJ 10 ML SYR IV SCH ×2 (04:28→17:02)
[2018-10-20 05:08] LABS: BASO % 0.2 % (0.0-1.0); EOS % 0.8 % (0.0-3.0); HEMATOCRIT 23.2 % (36.0-47.0); HEMOGLOBIN 7.2 g/dl (12.0-15.5); LYMPH # 1.3 10^3/uL (1.5-4.5); LYMPH % 27.2 % (24.0-44.0); MEAN CORPUSCULAR HEMOGLOBIN 26.8 pg (27.0-33.0); MEAN CORPUSCULAR VOLUME 86.2 fl (80.0-96.0); MONO # 0.4 10^3/uL (0.0-0.8); MONO % 7.5 % (0.0-5.0); NEUTROPHILS # 3.1 10^3/uL (1.8-7.7); NEUTROPHILS % 62.9 % (36.0-66.0); PLATELET COUNT, AUTOMATED 111 10^3/uL (150-450); RED BLOOD COUNT 2.69 10^6/uL (4.00-5.40); WHITE BLOOD COUNT 4.9 10^3/uL (4.0-10.0)
[2018-10-20 05:30] LABS: BLOOD UREA NITROGEN 18 MG/DL (7-18); C REACTIVE PROTEIN QUANTITATIV 2.27 MG/DL (0.00-0.30); CARBON DIOXIDE LEVEL 28 MEQ/L (21-32); CHLORIDE LEVEL 108 MEQ/L (98-107); CREATININE FOR GFR 0.41 MG/DL (0.55-1.30); GLOMERULAR FILTRATION RATE > 60.0 (>51); GLUCOSE, FASTING 74 MG/DL (70-100); MAGNESIUM LEVEL 1.7 MG/DL (1.8-2.4); POTASSIUM SERUM 3.5 MEQ/L (3.5-5.1); SODIUM LEVEL 141 MEQ/L (136-145)
[2018-10-20 05:40] LABS: ERYTHROCYTE SEDIMENTATION RATE 40 mm/hr (0-30)
[2018-10-20] MEDS: HumaLOG INSULIN (NovoLOG) PER UNIT SC SCH ×4 (07:30→21:00)
[2018-10-20] MEDS: MAG SULF 1GM/100ML (MAG RUN) 1 GM in APPROPRIATE DILUENT 1 EA IV SCH ×2 (08:36→12:42)
[2018-10-20] MEDS: SUCRALFATE SUSP 1GM/10ML UD PO SCH ×4 (08:39→22:31)
[2018-10-20] MEDS: CLOPIDOGREL 75 MG TAB PO SCH (08:39)
[2018-10-20] MEDS: ASPIRIN 81 MG ENTERIC TAB PO SCH (08:40)
[2018-10-20] MEDS: PANTOPRAZOLE 40MG TAB (PROTONIX) PO SCH (08:40)
[2018-10-20] MEDS: MAGNESIUM OXIDE 400 MG TAB (MAG-OX) PO SCH (08:40)
[2018-10-20] MEDS: VITAMIN D 1,000 INTERNATIONAL UNITS TABLET PO SCH (08:40)
[2018-10-20] MEDS: POTASSIUM CHLORIDE 10% LIQ 20 MEQ/15 ML UDC PO SCH (09:00)
[2018-10-20] MEDS: TORSEMIDE 20 MG TAB PO SCH ×2 (09:00→21:00)
[2018-10-20] MEDS ORDERED: MEROPENEM INJ 1 GM in APPROPRIATE DILUENT 1 EA IV SCH ×2 (09:00→10:00)
--- NOTE | 2018-10-20 09:07 | CR ---
DATE OF CONSULTATION: 10/19/2018 REASON FOR CONSULTATION: Decubitus ulcer, sacral area. HISTORY OF THE PRESENT ILLNESS: Patient is a 53-year-old woman with multiple medical problems. She has a known HIV infection. She has a history of diabetes mellitus. She suffered a myocardial infarction earlier in 2019 requiring placement of a coronary stent. She has had a fall earlier in the year as well. Her activity level has apparently been fairly limited recently. She was seen by Dr. Arroyo of infectious disease for a routine appointment and apparently found to be with a wound on the sacrum consistent with a decubitus ulcer that appeared to be infected. She was therefore directly admitted to the hospital and started on antibiotics by the hospitalist. I have been consulted to consider debridement of her decubitus ulcer. MEDICATIONS: Patient is normally on multiple medications as listed in her admission paperwork. ALLERGIES: Patient has NO KNOWN DRUG ALLERGIES. PAST SURGICAL HISTORY: Patient has undergone a gastric bypass. She apparently suffered a bowel perforation sometime postop. She had a myocardial infarction in early 2018 with placement of a stent. She has had a cholecystectomy, appendectomy, section, tubal ligation, bilateral rotator cuff repair, left shoulder replacement, bilateral retinal surgery. She has had right cataract surgery as well as tonsils and adenoids and some surgery on her elbow. PHYSICAL EXAMINATION (limited to the area of the sacral wound): She has an approximately 3-3.5 cm x 1.5-2 cm wide ovale longitudinally oriented area of skin necrosis. With gentle pressure there is some oozing of yellowish turbid fluid from several points around the edge of this area of necrosis. There is some faint erythema extending about 5-6 cm superiorly from the area of the decubitus ulcer. Clearly this appears ready for debridement. IMPRESSION: Decubitus ulcer with secondary infection. PLAN : With the patient already in position and the necrotic tissue beginning to separate around the edges from the surrounding viable tissue, I requested from the patient and was given verbal consent to proceed with sharp debridement to open the wound. There was an understanding that further debridement would likely be necessary to remove additional tissues at a later date. Therefore, I proceeded with removal of a mass of skin and underlying subcutaneous fat using a disposable suture removal kit. There was release of some purulent appearing fluid. There remains some necrotic subcutaneous tissues extending primarily superiorly. The sacral fascia is evident, but there is not obvious breakdown of the underlying bone. By gentle probing the wound extends superiorly approximately 5 cm from the edge of the wound and extends perhaps 2 cm on each side and inferiorly. The wound was partially filled with some alginate strips and an occlusive bandage was applied by the nurse. The patient tolerated the procedure well with no blood loss. I advised her that I will check in tomorrow and consider debriding some additional tissue from the wound. DEE
--- NOTE | 2018-10-20 09:09 | REP ---
Chest x-ray: Two views. History: Edema. Comparison study: June 27, 2018. Findings: A prosthetic left glenohumeral joint is seen. The lungs are symmetrically aerated. Pleural angles are sharp. There is slight blunting of the left lateral and left posterior pleural angles. Pulmonary vasculature is not increased. Impression: Small amount of left pleural fluid. Otherwise no acute disease. Electronically Signed by Aristeo Gonzalez MD 10/20/2018 03:52 P
--- NOTE | 2018-10-20 09:09 | REP ---
Right upper quadrant sonography: History: Hypoalbuminemia. Findings: The gallbladder is surgically absent. The central bile ducts including the common bile ducts are somewhat dilated. The intrahepatic bile ducts do not appear to be dilated. The common bile duct is 14.6 mm in AP dimension. There is evidence of fatty infiltration of the liver with a somewhat nodular surface pattern suggesting possible cirrhosis. There is a trace amount of ascites and a small right pleural effusion. The liver does not appear to be enlarged. No focal liver mass lesion is seen. Limited views of the pancreas show no abnormality. The right kidney measures 12.3 x 5.9 x 5.0 cm. There is a 1.5 cm mid pole cyst in the right kidney and a 0.6 cm cyst is also evident at mid pole level. Impression: Somewhat nodular liver contour and fatty infiltration. Question early cirrhosis. Minimal ascites. Small right pleural effusion. Postcholecystectomy. Dilated common bile duct 14.6 mm. Electronically Signed by Aristeo Gonzalez MD 10/20/2018 03:52 P
[2018-10-20] MEDS: PREGABALIN 100 MG CAP (LYRICA) PO SCH ×2 (10:45→21:30)
[2018-10-20] MEDS: POTASSIUM CHLORIDE 10 MEQ SR TABLET PO SCH (10:45)
[2018-10-20] MEDS ORDERED: PROHANCE 279.3MG/ML 15ML VIAL (A9576) As Ordered ONE (11:17)
[2018-10-20] MEDS: MEROPENEM INJ 1 GM in APPROPRIATE DILUENT 1 EA IV SCH ×2 (12:59→21:28)
--- NOTE | 2018-10-20 16:19 | REP ---
MIDLINE INSERTION WITH ULTRASOUND GUIDANCE REASON FOR EXAM: IV access needed PROCEDURE: Midline catheter insertion under ultrasound guidance. This procedure was performed by JOSEPH Mendes, under the direct supervision of Dr. Cesar. The risks and benefits of the procedure were explained to the patient and informed consent was obtained prior to the procedure both verbally and written. Directly prior to the start of the procedure, a formal timeout was completed in the procedure room. The left basilic vein was localized using ultrasound guidance. The skin was prepped and draped in a sterile fashion. 1% lidocaine was used as a local anesthetic. Using ultrasound guidance the left basilic vein was cannulated and a 0.018 guidewire was inserted. The needle was removed and a 5.5 Ecuadorean dilator and a Peel-Away sheath was inserted over the guidewire. A 5.5 Ecuadorean dual lumen catheter was cut to the length of 6 cm. The dilator was removed and the catheter was inserted over the guidewire. The Peel-Away sheath was removed and the catheter was flushed with heparinized saline as per hospital protocol. The catheter was affixed to the skin and a sterile dressing was applied. The patient tolerated the procedure well and there were no immediate complications. Reviewed by JOSEPH Duarte 10/19/2018 05:14 P Electronically Signed by Golden Cesar MD 10/20/2018 04:10 P
--- NOTE | 2018-10-20 17:50 | IPNPDOC ---
Subjective Date Seen The patient was seen on 10/20/18. Subjective Chief Complaint/HPI Infected decubitus ulcer Events since last encounter The patient reports she still has pain involving the sacral wound. No associated fevers/chills or sweats. Tolerating oral intake. No nausea or vomiting. Denies any chest pain or shortness of breath. Urinating okay. Denies any problems with constipation. Objective Physical Examination General Exam: Positive: No Acute Distress, Other (lying in bed) Eye Exam: Positive: PERRLA ENT Exam: Positive: Mucous membr. moist/pink Chest Exam: Positive: Clear to auscultation, Normal air movement; Negative: Rales, Rhonchi, Wheezing Heart Exam: Positive: Rate Normal, Regular Rhythm, Normal S1, Normal S2 Abdomen Exam: Positive: Soft; Negative: Tenderness Extremity Exam: Positive: Edema, Other (bilateral lower extremity pitting edema2+ to 3+: Unchanged) Skin Exam: Positive: Other skin issue (at least a stage III sacral decubitus ulcersome slight purulent appearing/necrotic appearing material present within the ulcer but seems to have been partially cleaned out following debridement yesterday. Seems to extend about 5 cm cephalad and 2 cm in other directions.) Neuro Exam: Positive: Other (awake, alert, oriented 3. Moving all 4 extremities.) Assessment /Plan Assessment Liver US: Impression: Somewhat nodular liver contour and fatty infiltration. Question early cirrhosis. Minimal ascites. Small right pleural effusion. Postcholecystectomy. Dilated common bile duct 14.6 mm. Infected Stage 3 sacral decubitus ulcer and due to ESBL Escherichia coli, present on admission: -DC IV vancomycin and Zosyn -Started on Meropenem Day 0 today secondary to ESBL Escherichia coli -Blood cultureno growth thus far -Patient was seen by Dr. Johnson from Gen. surgeryhad bedside debridement done yesterday. Appreciate input -Appreciate input by ID - MRI pelvis to rule out underlying ostomy mellituspatient refused the testing yesterdayplan is for testing to done this afternoon -Midline was placed in LUE 10/19/18 -prn Percocet for pain control Diabetes mellitus type 2 complicated by diabetic foot infections requiring previous toe amputations with necrotic areas over left third and right first toe: -Ct Sliding-scale insulin -Fingersticks are controlled -Pt was seen by Dr. Coe from podiatryappreciate input -Patient refuses to comply with carbohydrate controlled dietcurrently on low- sodium diet HIV: -Continue home medications once friend/family brings medicine COPD/asthma in setting of history of nicotine dependence, not in exacerbation: -Counseled previously regarding quitting smoking Bilateral lower extremity edema: -Continued torsemide as BP allowsholding parameter - hold torsemide if SBP <90 -Hypoalbuminemia also likely contributing to same -Echocardiogram - EF 65% -Case was also discussed with Dr. Cruz from cardiology -Dietitian consultation also requested in setting of significant h ypoalbuminemia. As also noted above, patient is quite noncompliant with dietary restrictions -Liver ultrasound shows possible early cirrhosis Hypokalemia: -Resolved Worsening Anemia: -Hemoglobin 7.2 -FOBT was ordered - patient hasn't been able to provide a stool sample GERD. -Given that patient also has hypotension with systolic blood pressure in 70s to 80s, I will transfuse her 1 unit of packed RBC today. -Blood transfusion consent has been obtained and is in chart if patient requires blood transfusion Hypomagnesemia: -Replete and recheck DVT prophylaxis: -Enoxaparin Plan/VTE VTE Prophylaxis Ordered?: Yes VS, I&O, 24H, Fishbone Vital Signs/I&O Vital Signs Date Time Temp Pulse Resp B/P (MAP) Pulse Ox O2 Delivery O2 Flow Rate FiO2 10/20/18 17:04 98.0 90 18 80/49 94 I&O- Last 24 Hours up to 6 AM 10/20/18 06:00 Intake Total 950 ml Output Total 550 ml Balance 400 ml Laboratory Data 24H LABS Laboratory Tests 2 10/19/18 22:25: Bedside Glucose (Misc Panel) 113H 10/20/18 04:31: Immature Granulocyte % (Auto) 1.4, White Blood Count 4.9, Red Blood Count 2.69L, Hemoglobin 7.2L, Hematocrit 23.2L, Mean Corpuscular Volume 86.2, Mean Corpuscular Hemoglobin 26.8L, Mean Corpuscular Hemoglobin Concent 31.0L, Red Cell Distribution Width 18.6H, Platelet Count 111L, Neutrophils (%) (Auto) 62.9, Lymphocytes (%) (Auto) 27.2, Monocytes (%) (Auto) 7.5H, Eosinophils (%) (Auto) 0.8, Basophils (%) (Auto) 0.2, Neutrophils # (Auto) 3.1, Lymphocytes # (Auto) 1.3L, Monocytes # (Auto) 0.4, Eosinophils # (Auto) 0.0, Basophils # (Auto) 0.0, Nucleated Red Blood Cells % (auto) 0.0, Erythrocyte Sedimentation Rate 40H, Anion Gap 5L, Glomerular Filtration Rate > 60.0, Blood Urea Nitrogen 18, C reatinine 0.41L, Sodium Level 141, Potassium Level 3.5, Chloride Level 108H, Carbon Dioxide Level 28, Calcium Level 7.0L, Phosphorus Level 3.0, Magnesium Level 1.7L, C-Reactive Protein, Quantitative 2.27H, Tumor Marker Alpha Fetoprotein 2.3 10/20/18 12:57: Bedside Glucose (Misc Panel) 100 10/20/18 17:11: Bedside Glucose (Misc Panel) 97 CBC/BMP Laboratory Tests 10/20/18 04:31 Red Blood Count 2.69 L, Mean Corpuscular Volume 86.2, Mean Corpuscular Hemoglobin 26.8 L, Mean Corpuscular Hemoglobin Concent 31.0 L, Red Cell Distribution Width 18.6 H, Neutrophils (%) (Auto) 62.9, Lymphocytes (%) (Auto) 27.2, Monocytes (%) (Auto) 7.5 H, Eosinophils (%) (Auto) 0.8, Basophils (%) (Auto) 0.2, Neutrophils # (Auto) 3.1, Lymphocytes # (Auto) 1.3 L, Monocytes # (Auto) 0.4, Eosinophils # (Auto) 0.0, Basophils # (Auto) 0.0, Calcium Level 7.0 L Microbiology Microbiology 10/17/18 Blood Culture - Preliminary, Resulted No Growth after 72 hours. All specime... 10/18/18 Gram Stain - Final, Resulted 10/18/18 Wound Culture - Preliminary, Resulted E.coli Esbl KAELA HERNÁNDEZ MD October 20, 2018 17:50
--- NOTE | 2018-10-20 18:03 | IPN ---
DATE: 10/20/2018 The patient has an infected decubitus ulcer on the sacral area. The major portion of the necrotic skin and subcutaneous tissue was removed last night with excellent drainage. She is continuing to have a large amount of purulent-appearing drainage from the wound, according to the nurse. She has been afebrile and her vital signs are stable. Blood pressure is somewhat low, but she says this is her norm. Her culture is now growing Escherichia (E) coli with extended-spectrum beta lactamase. The hospitalist has adjusted her medications as necessary. Her hematocrit has been dropping slowly with a level of 23 today, and blood has been ordered. Physical exam of her wound shows that there is still some watery, turbid, yellowish drainage. The wound does extend perhaps 5-6 cm superiorly beneath the skin and several centimeters on all sides of the wound. I had her sign a consent form for further debridement today and removed some additional necrotic fatty tissue as well as a small amount of necrotic fascia. Exposure at the bedside is somewhat difficult. There does not appear to be a lot of necrotic tissue left. She tolerated the procedure well. IMPRESSION: Infected sacral decubitus. PLAN: The patient will be continued on dressing changes over the weekend. We can consider further debridement as necessary. A wound vacuum-assisted closure (VAC) may be appropriate, although there is such extensive undermining through a small wound that this may be somewhat more difficult to utilize. DEE
[2018-10-20 18:37] LABS: HEMATOCRIT 30.7 % (36.0-47.0); HEMOGLOBIN 9.5 g/dl (12.0-15.5)
[2018-10-20] MEDS ORDERED: FENT12DI8 TD (20:12)
[2018-10-20] MEDS: ENOXAPARIN 40 MG/0.4 ML SYRINGE (J1650) SC SCH (21:29)
[2018-10-21] MEDS: PERCOCET 5MG/325MG TAB PO PRN ×5 (01:28→21:13)
[2018-10-21 03:43] LABS: BASO % 0.4 % (0.0-1.0); EOS % 0.6 % (0.0-3.0); HEMOGLOBIN 8.5 g/dl (12.0-15.5); LYMPH # 1.5 10^3/uL (1.5-4.5); LYMPH % 28.5 % (24.0-44.0); MEAN CORPUSCULAR HEMOGLOBIN 27.8 pg (27.0-33.0); MEAN CORPUSCULAR HGB CONC 31.5 g/dl (32.0-36.5); MEAN CORPUSCULAR VOLUME 88.2 fl (80.0-96.0); MONO # 0.4 10^3/uL (0.0-0.8); MONO % 7.6 % (0.0-5.0); NEUTROPHILS # 3.3 10^3/uL (1.8-7.7); NEUTROPHILS % 60.7 % (36.0-66.0); PLATELET COUNT, AUTOMATED 114 10^3/uL (150-450); RED BLOOD COUNT 3.06 10^6/uL (4.00-5.40); WHITE BLOOD COUNT 5.4 10^3/uL (4.0-10.0)
[2018-10-21 04:00] VITALS: BP 84/52
[2018-10-21 04:06] LABS: BLOOD UREA NITROGEN 18 MG/DL (7-18); CARBON DIOXIDE LEVEL 29 MEQ/L (21-32); CHLORIDE LEVEL 109 MEQ/L (98-107); CREATININE FOR GFR 0.38 MG/DL (0.55-1.30); GLOMERULAR FILTRATION RATE > 60.0 (>51); GLUCOSE, FASTING 97 MG/DL (70-100); MAGNESIUM LEVEL 2.1 MG/DL (1.8-2.4); PHOSPHORUS LEVEL 2.7 MG/DL (2.5-4.9); POTASSIUM SERUM 3.5 MEQ/L (3.5-5.1); SODIUM LEVEL 142 MEQ/L (136-145)
[2018-10-21] MEDS: MEROPENEM INJ 1 GM in APPROPRIATE DILUENT 1 EA IV SCH ×3 (04:53→21:11)
[2018-10-21] MEDS: SODIUM CHLORIDE 0.9% INJ 10 ML SYR IV SCH ×2 (04:54→18:06)
[2018-10-21] MEDS: SLF 3 ML SYR IV SCH ×3 (04:54→21:13)
[2018-10-21] MEDS: HumaLOG INSULIN (NovoLOG) PER UNIT SC SCH ×4 (07:30→20:53)
[2018-10-21 08:00] VITALS: BP 83/57
[2018-10-21] MEDS: SUCRALFATE SUSP 1GM/10ML UD PO SCH ×4 (10:07→21:12)
[2018-10-21] MEDS: PANTOPRAZOLE 40MG TAB (PROTONIX) PO SCH (10:08)
[2018-10-21] MEDS: ASPIRIN 81 MG ENTERIC TAB PO SCH (10:08)
[2018-10-21] MEDS: PREGABALIN 100 MG CAP (LYRICA) PO SCH ×2 (10:08→21:12)
[2018-10-21] MEDS: POTASSIUM CHLORIDE 10 MEQ SR TABLET PO SCH (10:09)
[2018-10-21] MEDS: VITAMIN D 1,000 INTERNATIONAL UNITS TABLET PO SCH (10:09)
[2018-10-21] MEDS: CLOPIDOGREL 75 MG TAB PO SCH (10:09)
[2018-10-21] MEDS: TORSEMIDE 20 MG TAB PO SCH ×2 (10:10→21:00)
[2018-10-21] MEDS: POTASSIUM CHLORIDE 10% LIQ 20 MEQ/15 ML UDC PO SCH (10:10)
[2018-10-21] MEDS: MAGNESIUM OXIDE 400 MG TAB (MAG-OX) PO SCH (10:11)
[2018-10-21] MEDS: SANTYL OINT 30GM TOP SCH (10:38)
--- NOTE | 2018-10-21 11:58 | CR ---
DATE: 10/21/2018 REFERRING PHYSICIAN: Dr. Arroyo INDICATION: Hypotension. Peripheral edema. HISTORY OF PRESENT ILLNESS: I was asked by Dr. Arroyo to see Mrs. Dhillon. I met with her on several occasion and examined her and reviewed her hospital records and records from [facility] in [place]. She is pleasant but somewhat unfortunate 53-year-old female who has multitude of medical problems. She was admitted to this facility for treatment of infected decubital ulcer on her buttocks. She also had gangrene of her toes and was diffusely edematous. It was noted that her blood pressure has been running very low. She frequently has systolic reading in 70s, even though most of the time it is in 80s and 90s. She claims that this has been an issue for many years after her bariatric surgery, but since her recent myocardial infarction in August 2018, she also developed peripheral edema. She claims that prior to her myocardial infarction (HI), the edema was not an issue. Reviewing the records from [place], her heart attack of occurred on August 24. It was a inferior wall HI, and she received stent to right coronary artery. Unfortunately, even though we received records, they do not contain the actual cardiac catheterization report so I do not know what stent was deployed and whether she has some additional disease, and based on her understanding, she did not. She was discharged home from hospital fairly quickly, but then she returned back about a week later complained about ongoing chest pain and was found to have pericardial effusion. She was treated with colchicine and the pain resolved. She had a followup echocardiogram approximately 1 week later that reports still small to moderate-size pericardial effusion that was actually improving. The date of the second echocardiogram was on September 04. At bedside, patient has numerous complaints, though denies any dyspnea or chest discomfort. She does complain about pain in her buttocks, and she also complains about peripheral edema. She denies any gastrointestinal discomfort currently, but she does admit that she not too long ago had trouble with swallowing, and the further endoscopy revealed evidence for mehdi esophagitis and she also had anastomotic ulcers in her stomach. She claims that she has been eating well, has been trying to incorporate a lot of protein which mostly means eating a lot of meat. She also claims that she has been eating vitamins, but talking to her it seems the amount of fruit and vegetables in her diet is actually very low. PAST MEDICAL HISTORY: 1. Chronic HIV infection followed by Dr. Arroyo. She has normal CD-4 count. 2. Myocardial infarction, inferior wall on 08/24/2018 treated with stent. I do not have any details of the procedure available. 3. Post HI pericardial effusion, treated with colchicine. 4. History of bariatric surgery with fairly dramatic weight loss (patient reports over 200 pounds). 5. History of anastomotic ulcers in her stomach. 6. Peripheral neuropathy. 7. Peripheral vascular disease. 8. History of amputation of toes. 9. Right adrenal mass. 10. Peripheral neuropathy. 11. Type 2 diabetes. 12. Chronic obstructive pulmonary disease (COPD). 13. Orthostatic hypotension. SURGICAL HISTORY: 1. Bariatric surgery. 2. Cholecystectomy. 3. Appendectomy. 4. (C) section and tubal ligation. 5. Left shoulder replacement. 6. Bilateral retinal surgery. 7. Right cataract surgery. 8. Tonsillectomy. SOCIAL HISTORY: Patient is an active smoker about pack a day. She denies any history of alcohol use. She is the mother of four children and lives with her friends. FAMILY HISTORY: Is positive coronary artery disease (CAD). Father had myocardial infarction. OUTPATIENT MEDICATIONS: - aspirin 81 mg a day - vitamin D3 1000 units - Plavix 75 mg a day - Prezista 800 mg a day - Lomotil - Genvoya one tablet a day - Nexium 40 mg a day - fentanyl - magnesium 400 mg a day - nitroglycerin as needed - ondansetron one three times a day as needed for nausea - oxycodone with acetaminophen 10/325 four times a day as needed for pain - Lyrica 300 twice a day - sucralfate 1 gram four times a day - torsemide 20 mg twice a day - trazodone 50 mg at bedtime CURRENT MEDICATIONS IN THE HOSPITAL: - heparin with flushes - vitamin D 1000 a day - Protonix 40 mg a day by mouth - magnesium oxide 400 a day - potassium 40 mEq a day - Prezista 800 mg a day - Genvoya one tablet a day - Lovenox 40 mg a day - Lyrica 300 twice a day - torsemide 20 mg twice a day - Tessalon Perles - Humalog insulin - sucralfate 1 gram four times a day - sodium chloride flushes - glucagon as needed as a part of hypoglycemia protocol - Zofran 8 mg three times a day as needed - trazodone 50 mg at bedtime - nitroglycerin as needed - aspirin 81 mg a day - Plavix 75 mg day On the physical examination, Mrs. Dhillon is a middle-aged woman who appears much older than her calendar age. She does not appear to be in any distress. She is alert and oriented and appropriate. She does appear chronically ill. Blood pressure 83/57, heart rate has been mostly in 80s. She is afebrile. Saturation is 99-100% on room air. Her weight is documented 87.8 kg as of yesterday. Fluid balance has been mostly positive every day since she has been here. Her JVP does not appear grossly elevated in sitting position. I do not see pulsation above her clavicle. Lungs are reasonably clear with only mildly diminished breath sounds over bases. Heart exam reveals somewhat muffled heart sounds, but I do not appreciate gallop, rub, or murmur. Precordial impulse is not displaced. Abdomen has numerous scars. I do not appreciate any distinct shifting, dullness, or hepatosplenomegaly. There is a decubitus ulcer on her buttocks that I did not examine. There is 4+ edema to the level of her groin. There are missing toes on both feet. Peripheral pulses are difficult to palpate due to her gross edema. LABORATORY-CLEANING: Hemoglobin 8.5, hematocrit 27, platelet count 114,000, WBC count 5.4. Basic metabolic panel has been normal. Albumin is only 1.3. No ECG was performed. Chest x-ray Is indicative of small pleural effusion but not of congestive heart failure. She had an echocardiogram on 10/18/[address] Osborne, and I reviewed it personally. It reveals normal systolic and diastolic function and no significant valvular disease. The only abnormality is increased size of her inferior vena cava (IVC) indicative of elevated central venous pressure. I did not appreciate any pericardial effusion either. ASSESSMENT/PLAN: Mrs. Dhillon is a rather complicated patient. She does have numerous problems as outlined above. As far as her peripheral edema is concerned, I do believe that it is principally nutritional problem. She has severe hypoalbuminemia. I am very skeptical about her nutrition at home. I do believe that she needs a lot of supplements, but on the positive side, she claims that she does not have any diarrhea, so her absorption should be intact. She is currently being supplemented with Ensure was 20 grams of protein content, and I would hope that there will be gradual improvement. As far as her hypotension is concerned, I do think that it is a consequence of her dramatic weight loss after bariatric surgery. She claims that she lost over 200 pounds which would indicate more than half of her size was a loss after the surgery. I suspect that there is also contribution of her pain medications. Her diuretics are currently being held which I think it is appropriate, but if her blood pressure should improve with improved nutrition and control of infection, hopefully, will be able to reintroduce torsemide. That would be my choice over furosemide because it is unlikely that it would be reliably absorbed. Unfortunately, I do not believe there is much that I can contribute from this perspective. I do not think that we should give her any medications trying to increase her blood pressure due to her coronary artery disease. As far as the coronary artery disease is concerned, she has no anginal symptoms. She is on aspirin and Plavix, which should be continued. I do not think that she can tolerate beta-blockers or any other medications due to her low blood pressure. I think that we should give her statin. She was taking atorvastatin on outpatient basis, and I think we can reintroduce that. Her overall prognosis is certainly guarded.
[2018-10-21 12:00] VITALS: BP 88/52
--- NOTE | 2018-10-21 13:55 | IPNPDOC ---
Subjective Date Seen The patient was seen on 10/21/18. Subjective Chief Complaint/HPI Infected decubitus ulcer Events since last encounter Patient reports pain over her sacral areaunchanged. She underwent debridement at bedside yesterday by . No fevers. Denies any problems with chest pain or shortness of breath. No nausea vomitingtolerating oral intake well. Denies any abdominal pain. Worsening bilateral lower extremity edema/swelling. Urinating okay. Hasn't had a bowel movement yetreports this is normal for her and thinks she may have a bowel movement within the next couple of daysshe re fuses to try any laxatives or stool softeners at this time. Patient did not have the Coban wraps on this morning. Upon asking her about the same, but the patient reports that it is her "pet peeve" to not have her legs wrapped at nighttime -she is agreeable to using wraps during the daytime. Objective Physical Examination General Exam: Positive: No Acute Distress, Other (sitting up at edge of bed) Eye Exam: Positive: PERRLA ENT Exam: Positive: Mucous membr. moist/pink Chest Exam: Positive: Clear to auscultation, Normal air movement; Negative: Rales, Rhonchi, Wheezing Heart Exam: Positive: Rate Normal, Regular Rhythm, Normal S1, Normal S2 Abdomen Exam: Positive: Soft; Negative: Tenderness Extremity Exam: Positive: Edema, Other (bilateral lower extra beat 3+ edemaseems a little more prominent compared to yesterday. It seems to extend up to her thighs.) Skin Exam: Positive: Other skin issue (sacral decubitus ulcercurrently has packing in placethis was not taken off. Surrounding slight erythemaunchanged from yesterday.) Neuro Exam: Positive: Other (awake, alert, oriented 3. Moving all 4 extremities.) Assessment /Plan Assessment Infected Stage 3 sacral decubitus ulcer and due to ESBL Escherichia coli, present on admission: -Patient was initially treated with IV vancomycin and Zosyn - changed to meropenem after cultures grew ESBL Escherichia coli -Ct Meropenem Day 1 -Blood cultureno growth thus far -Patient was seen by Dr. Johnson from Gen. surgeryhad bedside debridement done 10/19 and 10/20. Appreciate input. May eventually require a wound VAC -Appreciate input by ID - MRI pelvis to rule out underlying osteomye litispatient refused the testing 10/19 currently awaiting the MRI to perform. -Midline was placed in LUE 10/19/18 -prn Percocet for pain control Diabetes mellitus type 2 complicated by diabetic foot infections requiring previous toe amputations with necrotic areas over left third and right first to e: -Ct Sliding-scale insulin -Fingersticks are controlled -Pt was seen by Dr. Coe from podiatryappreciate input. Outpatient follow-up with podiatry on discharge. -Patient refuses to comply with carbohydrate controlled dietcurrently on low- sodium diet HIV: -Continue home medications once friend/family brings medicine COPD/asthma in setting of history of nicotine dependence, not in exacerbation: -Counseled previously regarding quitting smoking Bilateral lower extremity edema in setting of severe protein malnutrition, present on admission -Hypotension limits use of torsemide at this time. -Hypoalbuminemia / malnutrition likely contributing to the lower extremity edema. -Albumin was 1.3 and prealbumin 8 -Echocardiogram - EF 65% -Case was also discussed with Dr. Cruz from cardiology - appreciate input. -Avoid any blood pressure elevating agents in setting of recent MIthis would limit use of dobutamine/midodrine to attempt diuresis. -Dietitian was consulted in setting of significant hypoalbuminemia - patient is currently on an show shakes. Patient is also quite noncompliant with any dietary restrictions -Liver ultrasound shows possible early cirrhosis Hypokalemia: -Resolved Worsening Anemia: -Hemoglobin 8.5 -Status post 1 unit packed RBC 10/20/18 -FOBT was ordered - patient hasn't been able to provide a stool sample Hypomagnesemia: -Resolved DVT prophylaxis: -Enoxaparin Plan/VTE VTE Prophylaxis Ordered?: Yes VS, I&O, 24H, Fishbone Vital Signs/I&O Vital Signs Date Time Temp Pulse Resp B/P (MAP) Pulse Ox O2 Delivery O2 Flow Rate FiO2 10/21/18 12:00 98.2 83 18 88/52 (64) 100 I&O- Last 24 Hours up to 6 AM 10/21/18 06:00 Intake Total 2010 ml Output Total 700 ml Balance 1310 ml Laboratory Data 24H LABS Laboratory Tests 2 10/20/18 17:11: Bedside Glucose (Misc Panel) 97 10/20/18 20:31: Bedside Glucose (Misc Panel) 108H 10/21/18 03:23: Immature Granulocyte % (Auto) 2.2, White Blood Count 5.4, Red Blood Count 3.06L, Hemoglobin 8.5L, Hematocrit 27.0L, Mean Corpuscular Volume 88.2, Mean Corpuscular Hemoglobin 27.8, Mean Corpuscular Hemoglobin Concent 31.5L, Red Cell Distribution Width 18.3H, Platelet Count 114L, Neutrophils (%) (Auto) 60.7, Lymphocytes (%) (Auto) 28.5, Monocytes (%) (Auto) 7.6H, Eosinophils (%) (Auto) 0.6, Basophils (%) (Auto) 0.4, Neutrophils # (Auto) 3.3, Lymphocytes # (Auto) 1.5, Monocytes # (Auto) 0.4, Eosinophils # (Auto) 0.0, Basophils # (Auto) 0.0, Nucleated Red Blood Cells % (auto) 0.0, Anion Gap 4L, Glomerular Filtration Rate > 60.0, Blood Urea Nitrogen 18, Creatinine 0.38L, Sodium Level 142, Potassium Level 3.5, Chloride Level 109H, Carbon Dioxide Level 29, Calcium Level 7.0L, Phosphorus Level 2.7, Magnesium Level 2.1 10/21/18 12:52: Bedside Glucose (Misc Panel) 93 CBC/BMP Laboratory Tests 10/20/18 18:20 10/21/18 03:23 Red Blood Count 3.06 L, Mean Corpuscular Volume 88.2, Mean Corpuscular Hemoglobin 27.8, Mean Corpuscular Hemoglobin Concent 31.5 L, Red Cell Distribution Width 18.3 H, Neutrophils (%) (Auto) 60.7, Lymphocytes (%) (Auto) 28.5, Monocytes (%) (Auto) 7.6 H, Eosinophils (%) (Auto) 0.6, Basophils (%) (Auto) 0.4, Neutrophils # (Auto) 3.3, Lymphocytes # (Auto) 1.5, Monocytes # (Auto) 0.4, Eosinophils # (Auto) 0.0, Basophils # (Auto) 0.0, Calcium Level 7.0 L Microbiology Microbiology 10/17/18 Blood Culture - Preliminary, Resulted No Growth after 72 hours. All specime... 10/18/18 Gram Stain - Final, Complete 10/18/18 Wound Culture - Final, Complete E.coli Esbl Enterococcus Faecalis Streptococcus Anginosus Grp KAELA HERNÁNDEZ MD Oct 21, 2018 13:55
[2018-10-21 16:00] VITALS: BP 82/52
[2018-10-21 19:08] LABS: APPEARANCE, URINE HAZY (CLEAR); BACTERIA, URINE AUTO NEGATIVE (NEGATIVE); BILIRUBIN, URINE AUTO NEGATIVE (NEGATIVE); BLOOD, URINE BLOOD NEGATIVE (NEGATIVE); COLOR, URINE YELLOW (YELLOW); GLUCOSE, URINE (UA) AUTO NEGATIVE (NEGATIVE); KETONE, URINE AUTO TRACE mg/dL (NEGATIVE); LEUKOCYTE ESTERASE, URINE AUTO 2+ (NEGATIVE); MUCUS, URINE SMALL (NEGATIVE); NITRITE, URINE AUTO NEGATIVE (NEGATIVE); PROTEIN, URINE AUTO 1+ mg/dL (NEGATIVE); RBC, URINE AUTO 6 /HPF (0-3); SPECIFIC GRAVITY URINE AUTO 1.036 (1.002-1.035); SQUAMOUS EPITHELIAL CELL UR AU 9 /HPF (0-6); WBC, URINE AUTO 27 /HPF (0-3)
[2018-10-21 20:00] VITALS: BP 94/61
[2018-10-21] MEDS: ENOXAPARIN 40 MG/0.4 ML SYRINGE (J1650) SC SCH (21:12)
[2018-10-21] MEDS: ATORVASTATIN 10 MG TAB PO SCH (21:13)
[2018-10-21 23:59] VITALS: BP 84/42
[2018-10-22] MEDS: PERCOCET 5MG/325MG TAB PO PRN ×6 (01:16→22:34)
[2018-10-22 04:00] VITALS: BP 82/44
[2018-10-22 04:15] LABS: BASO % 0.4 % (0.0-1.0); EOS % 0.9 % (0.0-3.0); HEMATOCRIT 26.9 % (36.0-47.0); HEMOGLOBIN 8.2 g/dl (12.0-15.5); LYMPH # 1.3 10^3/uL (1.5-4.5); LYMPH % 29.8 % (24.0-44.0); MEAN CORPUSCULAR HEMOGLOBIN 27.4 pg (27.0-33.0); MEAN CORPUSCULAR HGB CONC 30.5 g/dl (32.0-36.5); MONO # 0.4 10^3/uL (0.0-0.8); MONO % 9.4 % (0.0-5.0); NEUTROPHILS # 2.6 10^3/uL (1.8-7.7); NEUTROPHILS % 57.3 % (36.0-66.0); PLATELET COUNT, AUTOMATED 121 10^3/uL (150-450); RED BLOOD COUNT 2.99 10^6/uL (4.00-5.40); WHITE BLOOD COUNT 4.5 10^3/uL (4.0-10.0)
[2018-10-22 04:35] LABS: BLOOD UREA NITROGEN 16 MG/DL (7-18); CALCIUM LEVEL 7.2 MG/DL (8.5-10.1); CARBON DIOXIDE LEVEL 28 MEQ/L (21-32); CHLORIDE LEVEL 112 MEQ/L (98-107); CREATININE FOR GFR 0.38 MG/DL (0.55-1.30); GLOMERULAR FILTRATION RATE > 60.0 (>51); GLUCOSE, FASTING 74 MG/DL (70-100); MAGNESIUM LEVEL 1.9 MG/DL (1.8-2.4); PHOSPHORUS LEVEL 3.1 MG/DL (2.5-4.9); POTASSIUM SERUM 3.9 MEQ/L (3.5-5.1); SODIUM LEVEL 145 MEQ/L (136-145)
[2018-10-22] MEDS: MEROPENEM INJ 1 GM in APPROPRIATE DILUENT 1 EA IV SCH ×3 (05:50→20:35)
[2018-10-22] MEDS: SODIUM CHLORIDE 0.9% INJ 10 ML SYR IV SCH ×2 (05:50→18:32)
[2018-10-22] MEDS: SLF 3 ML SYR IV SCH ×3 (05:50→20:35)
[2018-10-22] MEDS: HumaLOG INSULIN (NovoLOG) PER UNIT SC SCH ×4 (07:24→20:28)
[2018-10-22 08:00] VITALS: BP 87/57
[2018-10-22] MEDS: VITAMIN D 1,000 INTERNATIONAL UNITS TABLET PO SCH (08:42)
[2018-10-22] MEDS: SUCRALFATE SUSP 1GM/10ML UD PO SCH ×4 (08:42→20:35)
[2018-10-22] MEDS: PANTOPRAZOLE 40MG TAB (PROTONIX) PO SCH (08:43)
[2018-10-22] MEDS: PREGABALIN 100 MG CAP (LYRICA) PO SCH ×2 (08:43→20:35)
[2018-10-22] MEDS: MAGNESIUM OXIDE 400 MG TAB (MAG-OX) PO SCH (08:43)
[2018-10-22] MEDS: ASPIRIN 81 MG ENTERIC TAB PO SCH (08:43)
[2018-10-22] MEDS: CLOPIDOGREL 75 MG TAB PO SCH (08:43)
[2018-10-22] MEDS: POTASSIUM CHLORIDE 10 MEQ SR TABLET PO SCH (08:43)
[2018-10-22] MEDS: TORSEMIDE 20 MG TAB PO SCH ×2 (08:44→20:27)
[2018-10-22] MEDS: POTASSIUM CHLORIDE 10% LIQ 20 MEQ/15 ML UDC PO SCH (08:45)
--- NOTE | 2018-10-22 09:28 | ECGEPIP ---
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
[2018-10-22 12:00] VITALS: BP 89/57
--- NOTE | 2018-10-22 13:19 | IPNPDOC ---
Subjective Date Seen The patient was seen on 10/22/18. Subjective Chief Complaint/HPI Infected decubitus ulcer. The patient is a 52-year-old female who was sent over as a direct admission from Dr. Arroyo's office for concerns regarding infected sacral decubitus ulcer. The patient reports having a fall in May and landing on her buttocks. She reports ever since, she has had a wound on her sacrum that has not healed. She reports she has been to the wound clinic previously but does not want to go there anymore. She reports she is also had increasing pain involving the sacral area. Denies any associated fevers or chills or sweats. She also reports a slight dry cough. She also has been dealing with a tellez ulcer since July of this year. She was seen in follow-up at Dr. Arroyo's office where, given concerns regarding possible infection involving the sacral decubitus ulcer, she was referred to the hospital for possible debridement.. Events since last encounter The patient reports she still has soreness involving her sacral area. Denies any associated fevers/chills or sweats. No nausea or vomiting. Tolerating oral intake. No chest pain or shortness of breath. Denies any abdominal pain. Hasn't had a bowel movement yetreports she does not feel constipatedreports she will likely have a bowel movement within the next couple of days and does not want to take anything for her stools. Urinating okay. Still has significant swelling involving bilateral lower extremitiesunchanged. Objective Physical Examination General Exam: Positive: No Acute Distress, Other (sitting up at edge of bed) Eye Exam: Positive: PERRLA ENT Exam: Positive: Mucous membr. moist/pink Chest Exam: Positive: Clear to auscultation, Normal air movement; Negative: Rales, Rhonchi, Wheezing Heart Exam: Positive: Rate Normal, Regular Rhythm, Normal S1, Normal S2 Abdomen Exam: Positive: Soft; Negative: Tenderness Extremity Exam: Positive: Edema (BLE 3+ pitting edema extending up to thighs) Skin Exam: Positive: Other skin issue (Sacral decubitus ulcer with packing in place- surrounding slight erythema. Packing was not taken off) Neuro Exam: Positive: Other (awake, alert, oriented 3. Moving all 4 extremities.) Assessment /Plan Assessment Infected Stage 3 sacral decubitus ulcer and due to ESBL Escherichia coli, enterococcus fealis, strep anginosus present on admission: -Patient was initially treated with IV vancomycin and Zosyn - changed to meropenem after cultures grew ESBL Escherichia coli -Ct Meropenem Day 2 -Blood cultureno growth at 72 hours -Patient was seen by Dr. Johnson from Gen. surgeryhad bedside debridement done 10/19 and 10/20. Appreciate input. May eventually require a wound VAC -Appreciate input by ID - MRI pelvis to rule out underlying osteomyelitispatient refused the testing 10/19 currently awaiting the MRI to be performed. -Midline was placed in LUE 10/19/18 -prn Percocet for pain control Persistent hypotension: -EF was 65% -No sepsis -A.m. cortisol pending for today -Patient certainly has significant third spacing related to her severe hypoalbuminemia -D/w Dr Cruz - does not want patient to receive any dobutamine/pressor s/Midodrine in setting of her recent MT. Diabetes mellitus type 2 complicated by diabetic foot infections requiring previous toe amputations with necrotic areas over left third and right first toe: -Ct Sliding-scale insulin -Fingersticks are controlled -Pt was seen by Dr. Coe from podiatryappreciate input. Outpatient follow-up with podiatry on discharge. -Patient refused to comply with carbohydrate controlled dietcurrently on low- sodium diet HIV: -Continue home medications once friend/family brings medicine COPD/asthma in setting of history of nicotine dependence, not in exacerbation: -Counseled previously regarding quitting smoking Bilateral lower extremity edema in setting of severe protein malnutrition, present on admission -Hypotension limits use of torsemide at this time. -Hypoalbuminemia / malnutrition likely contributing to the lower extremity edema. -Albumin was 1.3 and prealbumin 8 -Echocardiogram - EF 65% -Case was also discussed with Dr. Cruz from cardiology - appreciate input. -Avoid any blood pressure elevating agents in setting of recent MIthis would limit use of dobutamine/midodrine to attempt diuresis. -Dietitian was consulted in setting of significant hypoalbuminemia - patient is currently on Ensure shakes. Patient is also quite noncompliant with any dietary restrictions -Liver ultrasound shows possible early cirrhosis -Discussed with Dr. Cruz regarding perhaps trying IV albumin with LasixDoes not think IV albumin would help as much. He thinks this is nutritional related to her gastric bypass surgery and malabsorption from the same. Recommends outpatient referral to bariatric clinic for further evaluation. Hypokalemia: -Resolved Worsening Anemia: -Hemoglobin 8.2 -Status post 1 unit packed RBC 10/20/18 -FOBT was ordered - patient hasn't been able to provide a stool sample Hypomagnesemia: -Resolved DVT prophylaxis: -Enoxaparin Disposition: Awaiting MRI of the pelvis to be performed. Also, we will await input from Dr. Johnson as regards need for additional debridement versus wound VAC. We will also await final input from ID regarding antibiotic recommendations and duration - this will also determine if the midline is adequate or if patient may need a PICC line instead. Plan/VTE VTE Prophylaxis Ordered?: Yes VS, I&O, 24H, Fishbone Vital Signs/I&O Vital Signs Date Time Temp Pulse Resp B/P (MAP) Pulse Ox O2 Delivery O2 Flow Rate FiO2 10/22/18 11:00 18 10/22/18 08:00 97.3 89 87/57 (67) 97 I&O- Last 24 Hours up to 6 AM 10/22/18 06:00 Intake Total 1170 ml Output Total 650 ml Balance 520 ml Laboratory Data 24H LABS Laboratory Tests 2 10/21/18 12:52: Bedside Glucose (Misc Panel) 93 10/21/18 17:50: Bedside Glucose (Misc Panel) 147H 10/21/18 18:48: Urine Appearance HAZY, Urine Color YELLOW, Urine pH 5.0, Urine Specific [place] 1.036, Urine Protein 1+H, Urine Glucose (UA) NEGATIVE, Urine Ketones TRACEH, Urine Urobilinogen 2.0H, Urine Bilirubin NEGATIVE, Urine Leukocyte Esterase 2+H, Urine Blood NEGATIVE, Urine Nitrite NEGATIVE, Urine WBC (Auto) 27H, Urine RBC (Auto) 6H, Urine Hyaline Casts (Auto) 3, Urine Bacteria (Auto) NEGATIVE, Urine Squamous Epithelial Cells 9, Urine Mucus (Auto) SMALL, Urine Sperm (Auto) 10/21/18 20:17: Bedside Glucose (Misc Panel) 124H 10/22/18 03:48: Immature Granulocyte % (Auto) 2.2, White Blood Count 4.5, Red Blood Count 2.99L, Hemoglobin 8.2L, Hematocrit 26.9L, Mean Corpuscular Volume 90.0, Mean Corpuscular Hemoglobin 27.4, Mean Corpuscular Hemoglobin Concent 30.5L, Red Cell Distribution Width 18.6H, Platelet Count 121L, Neutrophils (%) (Auto) 57.3, Lymphocytes (%) (Auto) 29.8, Monocytes (%) (Auto) 9.4H, Eosinophils (%) (Auto) 0.9, Basophils (%) (Auto) 0.4, Neutrophils # (Auto) 2.6, Lymphocytes # (Auto) 1 .3L, Monocytes # (Auto) 0.4, Eosinophils # (Auto) 0.0, Basophils # (Auto) 0.0, Nucleated Red Blood Cells % (auto) 0.0, Anion Gap 5L, Glomerular Filtration Rate > 60.0, Blood Urea Nitrogen 16, Creatinine 0.38L, Sodium Level 145, Potassium Level 3.9, Chloride Level 112H, Carbon Dioxide Level 28, Calcium Level 7.2L, Phosphorus Level 3.1, Magnesium Level 1.9 10/22/18 12:00: Bedside Glucose (Misc Panel) 92 CBC/BMP Laboratory Tests 10/22/18 03:48 Red Blood Count 2.99 L, Mean Corpuscular Volume 90.0, Mean Corpuscular Hemoglobin 27.4, Mean Corpuscular Hemoglobin Concent 30.5 L, Red Cell Distribution Width 18.6 H, Neutrophils (%) (Auto) 57.3, Lymphocytes (%) (Auto) 29.8, Monocytes (%) (Auto) 9.4 H, Eosinophils (%) (Auto) 0.9, Basophils (%) (Auto) 0.4, Neutrophils # (Auto) 2.6, Lymphocytes # (Auto) 1.3 L, Monocytes # (Auto) 0.4, Eosinophils # (Auto) 0.0, Basophils # (Auto) 0.0, Calcium Level 7.2 L Microbiology Microbiology 10/17/18 Blood Culture - Preliminary, Resulted No Growth after 72 hours. All specime... 10/18/18 Gram Stain - Final, Complete 10/18/18 Wound Culture - Final, Complete E.coli Esbl Enterococcus Faecalis Streptococcus Anginosus Grp KAELA HERNÁNDEZ MD Oct 22, 2018 12:43
[2018-10-22] MEDS: SODIUM CHLORIDE 0.9% INJ 10 ML SYR IV PRN ×2 (13:23→14:37)
[2018-10-22 16:00] VITALS: BP 86/54
[2018-10-22 20:00] VITALS: BP 80/48
[2018-10-22] MEDS: ATORVASTATIN 10 MG TAB PO SCH (20:35)
[2018-10-22] MEDS: ENOXAPARIN 40 MG/0.4 ML SYRINGE (J1650) SC SCH (20:35)
[2018-10-22 23:59] VITALS: BP 82/50
[2018-10-23] MEDS: MEROPENEM INJ 1 GM in APPROPRIATE DILUENT 1 EA IV SCH ×3 (04:01→21:37)
[2018-10-23] MEDS: PERCOCET 5MG/325MG TAB PO PRN ×4 (04:02→21:35)
[2018-10-23] MEDS: SODIUM CHLORIDE 0.9% INJ 10 ML SYR IV SCH ×2 (04:49→16:40)
[2018-10-23] MEDS: SLF 3 ML SYR IV SCH ×3 (04:49→22:11)
[2018-10-23 05:37] LABS: BASO % 0.2 % (0.0-1.0); EOS % 0.6 % (0.0-3.0); HEMATOCRIT 26.9 % (36.0-47.0); HEMOGLOBIN 8.1 g/dl (12.0-15.5); LYMPH # 1.6 10^3/uL (1.5-4.5); LYMPH % 33.4 % (24.0-44.0); MEAN CORPUSCULAR HEMOGLOBIN 27.1 pg (27.0-33.0); MEAN CORPUSCULAR HGB CONC 30.1 g/dl (32.0-36.5); MONO # 0.6 10^3/uL (0.0-0.8); MONO % 11.9 % (0.0-5.0); NEUTROPHILS # 2.5 10^3/uL (1.8-7.7); NEUTROPHILS % 52.4 % (36.0-66.0); PLATELET COUNT, AUTOMATED 129 10^3/uL (150-450); RED BLOOD COUNT 2.99 10^6/uL (4.00-5.40); WHITE BLOOD COUNT 4.7 10^3/uL (4.0-10.0)
[2018-10-23 05:59] LABS: BLOOD UREA NITROGEN 16 MG/DL (7-18); CALCIUM LEVEL 7.8 MG/DL (8.5-10.1); CARBON DIOXIDE LEVEL 28 MEQ/L (21-32); CHLORIDE LEVEL 112 MEQ/L (98-107); CREATININE FOR GFR 0.37 MG/DL (0.55-1.30); GLOMERULAR FILTRATION RATE > 60.0 (>51); GLUCOSE, FASTING 73 MG/DL (70-100); PHOSPHORUS LEVEL 3.5 MG/DL (2.5-4.9); POTASSIUM SERUM 4.2 MEQ/L (3.5-5.1); SODIUM LEVEL 145 MEQ/L (136-145)
[2018-10-23] MEDS: HumaLOG INSULIN (NovoLOG) PER UNIT SC SCH ×4 (07:30→21:00)
[2018-10-23 08:00] VITALS: BP 93/52
[2018-10-23] MEDS: TORSEMIDE 20 MG TAB PO SCH ×2 (09:00→21:36)
[2018-10-23] MEDS: SANTYL OINT 30GM TOP SCH ×2 (09:00→09:27)
[2018-10-23] MEDS: POTASSIUM CHLORIDE 10% LIQ 20 MEQ/15 ML UDC PO SCH (09:00)
[2018-10-23] MEDS: CLOPIDOGREL 75 MG TAB PO SCH (09:25)
[2018-10-23] MEDS: PREGABALIN 100 MG CAP (LYRICA) PO SCH ×2 (09:25→21:36)
[2018-10-23] MEDS: MAGNESIUM OXIDE 400 MG TAB (MAG-OX) PO SCH (09:25)
[2018-10-23] MEDS: VITAMIN D 1,000 INTERNATIONAL UNITS TABLET PO SCH (09:25)
[2018-10-23] MEDS: SUCRALFATE SUSP 1GM/10ML UD PO SCH ×4 (09:25→21:36)
[2018-10-23] MEDS: POTASSIUM CHLORIDE 10 MEQ SR TABLET PO SCH (09:26)
[2018-10-23] MEDS: PANTOPRAZOLE 40MG TAB (PROTONIX) PO SCH (09:27)
[2018-10-23] MEDS: ASPIRIN 81 MG ENTERIC TAB PO SCH (09:27)
[2018-10-23 09:36] VITALS: BP 88/52
[2018-10-23 12:02] VITALS: BP 88/53
[2018-10-23] MEDS ORDERED: ASPIRIN 81 MG ENTERIC TAB PO SCH (14:32)
--- NOTE | 2018-10-23 15:40 | IPNPDOC ---
Text Note Date of Service The patient was seen on 10/23/18. NOTE Ms. Dhillon is seen on bedside rounds this morning, she is complaining about pain in her low back area where her ulcer is and about swelling in her legs preventing her from ambulating well. Other than that she has no complaints, she wants to go home. Otherwise patient denies chest pain, shortness breath, nausea, vomiting, fevers, chills. SUBJECTIVE: Patient is a 53 year old female appearing older than her stated age, sitting on bed, eating breakfast. OBJECTIVE PHYSICAL EXAMINATION: VITAL SIGNS: Please see below. GENERAL: Pleasant 53 yo female sitting up in bed awake alert oriented speaking in complete sentences no acute distress HEENT: Moist mucous membranes, no JVD, EOMI CARDIOVASCULAR: S1 S2 regular no additional heart sounds appreciated RESPIRATORY: Clear to auscultation bilaterally, but rather diminished throughout, no rales, rhonchi or wheezing ABDOMINAL: Bowel sounds present abdomen soft and nontender, no distension, no hepatosplenomegaly, no masses appreciated, no rebound ridgity or guarding EXTREMITIES: No clubbing cyanosis, but at least +1 pitting edema in LE., b/l LE wrapped with DAFNE/Compression socks placed, stage 3 sacral decub., without pus or blood exudation NEUROLOGICAL: Spontaneously moves all 4 extremities, no deficits appreciated PSYCHOLOGICAL: Appropriate affect LABORATORY DATA, MICROBIOLOGY: Please see below. ASSESSMENT AND PLAN: This is a 33-year-old female who presented to the hospital for infected sacral decubitus ulcer. PROBLEMS: 1. Infected Stage 3 sacral decubitus ulcer -positive wound cx for ESBL Escherichia coli, enterococcus fealis, strep anginosus -present on admission to hospital -S/p IV vancomycin and Zosyn - changed to meropenem after cultures grew ESBL Escherichia coli, c/w Meropenem -Blood cultureno growth at 5 days -s/p bedside debridement x2 10/19 and 10/[address] Johnson from Gen. surgery. Appreciate input. May eventually require a wound VAC -Appreciate input by ID - MRI pelvis to rule out underlying osteomyelitispatient refused the testing 10/19 currently awaiting the MRI to be performed in AM, patient refused to have it done today -Midline was placed in LUE 10/19/18 -prn Percocet for pain control 2.Persistent hypotension: -88/53 today -EF was 65% with elevated CVP -No sepsis -A.m. cortisol appears relatively low; will get cosyntropin stimulation test -Third spacing related to her severe hypoalbuminemia -Hold on dobutamine/pressors/Midodrine in setting of her recent PA 3. Bilateral lower extremity edema -likely secondary to severe protein malnutrition/hypoalbuminemia which was present on admission -Hypotension limits use of torsemide at this time unfortunately -Echocardiogram - EF 65% -Case was also discussed with Dr. Cruz from cardiology - appreciate input. -Dietitian was consulted in setting of significant hypoalbuminemia - patient is currently on Ensure shakes. Patient is also quite noncompliant with any dietary restrictions -Liver ultrasound shows possible early cirrhosis -Discussed with Dr. Cruz regarding perhaps trying IV albumin with LasixDoes not think IV albumin would help as much. He thinks this is nutritional related to her gastric bypass surgery and malabsorption from the same - Recommend outpatient referral to bariatric clinic for further evaluation. 4.Diabetes mellitus type 2 - complicated by diabetic foot infections requiring previous toe amputations with necrotic areas over left third and right first toe: -c/w SSI -Fingersticks are controlled -Pt was seen by Dr. Coe from podiatryappreciate input. Outpatient follow-up with podiatry on discharge. -Patient refused to comply with carbohydrate controlled dietcurrently on low- sodium diet -U/A suspicious for UTI., however pt is not complaining of dysuria 5. History of ACS -in light of recent PA., changing Atorvastatin from 10 mg to 40 mg daily, high intensity -no chest pain on physical examination -cardiology input appreciated 6. HIV: -Continue home medications, patient has not had home meds for a week., strongly encouraged to bring them in from home via family members, we have checked w pharmacy, they cannot order them -Viral count and CD4 show adherence to medications 6. COPD/asthma in setting of history of nicotine dependence - not in exacerbation: -Counseled previously regarding quitting smoking 7. Hypokalemia: -Resolved 4.2 today 8. Worsening Anemia: -Hemoglobin 8.1, stable at this time -s/p 1 u pRBC 10/20/18 -FOBT was ordered - patient hasn't been able to provide a stool sample 9. Hypomagnesemia: -Resolved 10. DVT prophylaxis: -Enoxaparin DISPOSITION: Pending MRI in AM to r.o Osteo. VS,Fishbone, I+O VS, Fishbone, I+O Laboratory Tests 10/23/18 04:56 Red Blood Count 2.99 L, Mean Corpuscular Volume 90.0, Mean Corpuscular Hemoglobin 27.1, Mean Corpuscular Hemoglobin Concent 30.1 L, Red Cell Distribution Width 18.8 H, Neutrophils (%) (Auto) 52.4, Lymphocytes (%) (Auto) 33.4, Monocytes (%) (Auto) 11.9 H, Eosinophils (%) (Auto) 0.6, Basophils (%) (Auto) 0.2, Neutrophils # (Auto) 2.5, Lymphocytes # (Auto) 1.6, Monocytes # (Auto) 0.6, Eosinophils # (Auto) 0.0, Basophils # (Auto) 0.0, Calcium Level 7.8 L Vital Signs Date Time Temp Pulse Resp B/P (MAP) Pulse Ox O2 Delivery O2 Flow Rate FiO2 10/23/18 12:02 97.7 85 20 88/53 (65) 100 I&O- Last 24 Hours up to 6 AM 10/23/18 05:59 Intake Total 1420 ml Output Total 400 ml Balance 1020 ml GME ATTESTATION GME ATTESTATION My faculty preceptor for this patient encounter was physically present during the encounter and was fully available. All aspects of the patient interview, examination, medical decision making process, and medical care plan development were reviewed and approved by the faculty preceptor. The faculty preceptor is aware and concurs with the plan as stated in the body of this note and will attest to such by his/her cosignature. ATTENDING NOTE I, Lorene Hernandez, have both independently examined this patient as well as revi ewed the documentation. I have discussed in detail with the resident the findings and plan of treatment as documented in the residents documentation and agree with what is stated. I will continue to follow the patient and offer further guidance to the patients care as necessary during this hospital stay. CAYEDN LAROSE DO Oct 23, 2018 15:39 LORENE HERNANDEZ MD Oct 23, 2018 17:23
[2018-10-23 16:15] VITALS: BP 97/65
--- NOTE | 2018-10-23 18:35 | IPN ---
DATE: 10/23/2018 Carol Ann is doing slightly better. Her lower extremity edema has slightly improved with compression. She remains afebrile. She still has soreness in her buttocks. LABORATORY DATA: White count is 4.7, hemoglobin 8.1, hematocrit 26.9, platelets 129, 52% neutrophils, 33% lymphocytes, 12% monocytes. Sodium 145, potassium 4.2, chloride 112, bicarbonate 28, BUN 16, creatinine 0.37, glucose 73, calcium 7.8, phosphorus 3.5, magnesium 2. Liver hyaluronic acid and Alpha2 macroglobulin are pending. Alpha-fetoprotein is 2.3. Wound culture from the decubitus has extended-spectrum beta-lactamases (ESBL), Escherichia (E)coli, Enterococcus (E) faecalis and Streptococcus anginosus, all sensitive to meropenem. PHYSICAL EXAMINATION: HEART: Normal S1, S2. No murmurs. LUNGS: Clear. No wheezes or rhonchi. ABDOMEN: Soft, nontender. BACK: Large decubitus ulcer measuring about 4 x 3 cm with necrotic tissue and purulent smelling discharge. She still has surrounding erythema. EXTREMITIES: +2 pitting edema. She has [place] cold flex dressings on both lower extremities that I did not remove. VITAL SIGNS: Temperature is 98.6, pulse 102, respirations 18, blood pressure 97/65, oxygen saturation 98% on room air. IMPRESSION: 1. Sacral decubitus ulcer. I am concerned she might have underlying osteomyelitis, polymicrobial infection with extended-spectrum beta-lactamases (ESBL), Escherichia (E)coli, Enterococcus (E) faecalis and Streptococcus anginosus on intravenous (IV) meropenem. The patient needs surgical debridement in the operating room and a wound VAC. This would be ideally the situation. She will have an MRI to rule out osteomyelitis tomorrow. 2. HIV AIDS. The patient has not been on her medication, but her daughter, Izabela, will be providing them tonight. 3. Hypotension. Probably related to severe weight loss and hypoalbuminemia. Dr. Cruz does not feel this is cardiac related. 4. Bilateral lower extremity edema due to protein calorie malnutrition, hypoalbuminemia. I am concerned that she may have cryptogenic cirrhosis, as the patient does not have a history of alcohol abuse or hepatitis C. PLAN: Obtain MRI of the pelvis tomorrow to rule out osteomyelitis. I suggest surgical debridement intraoperatively and placement of a wound VAC. Patient ideally should have acute rehabilitation, if she is a candidate for mobility. Also, consult Starla, nurse non destructive testing specialist, for lower extremity ulcers and decubitus ulcer.
[2018-10-23] MEDS: ATORVASTATIN 20 MG TAB PO SCH (21:36)
[2018-10-23] MEDS: ENOXAPARIN 40 MG/0.4 ML SYRINGE (J1650) SC SCH (21:37)
[2018-10-23 22:00] VITALS: BP 96/65
[2018-10-24] MEDS: PERCOCET 5MG/325MG TAB PO PRN ×2 (03:50→09:42)
[2018-10-24] MEDS: MEROPENEM INJ 1 GM in APPROPRIATE DILUENT 1 EA IV SCH ×4 (05:23→22:45)
[2018-10-24 06:00] VITALS: BP 92/63
[2018-10-24] MEDS: SLF 3 ML SYR IV SCH ×3 (06:00→22:46)
[2018-10-24] MEDS ORDERED: COSYNTROPIN 0.25 MG/ML VIAL (J0834 PER 0.25MG) IV ONE (06:00)
[2018-10-24] MEDS: HumaLOG INSULIN (NovoLOG) PER UNIT SC SCH ×4 (07:30→21:00)
[2018-10-24 07:40] LABS: BASO % 0.4 % (0.0-1.0); EOS % 0.6 % (0.0-3.0); HEMATOCRIT 28.3 % (36.0-47.0); HEMOGLOBIN 8.7 g/dl (12.0-15.5); LYMPH # 1.4 10^3/uL (1.5-4.5); LYMPH % 29.5 % (24.0-44.0); MEAN CORPUSCULAR HEMOGLOBIN 28.2 pg (27.0-33.0); MEAN CORPUSCULAR HGB CONC 30.7 g/dl (32.0-36.5); MEAN CORPUSCULAR VOLUME 91.6 fl (80.0-96.0); MONO # 0.4 10^3/uL (0.0-0.8); MONO % 8.9 % (0.0-5.0); NEUTROPHILS # 2.7 10^3/uL (1.8-7.7); NEUTROPHILS % 58.3 % (36.0-66.0); PLATELET COUNT, AUTOMATED 131 10^3/uL (150-450); RED BLOOD COUNT 3.09 10^6/uL (4.00-5.40); WHITE BLOOD COUNT 4.7 10^3/uL (4.0-10.0)
[2018-10-24] MEDS: SUCRALFATE SUSP 1GM/10ML UD PO SCH ×4 (07:43→22:43)
[2018-10-24] MEDS: SODIUM CHLORIDE 0.9% INJ 10 ML SYR IV SCH ×2 (07:44→18:07)
[2018-10-24] MEDS: VITAMIN D 1,000 INTERNATIONAL UNITS TABLET PO SCH (08:03)
[2018-10-24] MEDS: MAGNESIUM OXIDE 400 MG TAB (MAG-OX) PO SCH (08:03)
[2018-10-24] MEDS: TORSEMIDE 20 MG TAB PO SCH ×2 (08:03→22:44)
[2018-10-24] MEDS: CLOPIDOGREL 75 MG TAB PO SCH (08:04)
[2018-10-24] MEDS: PANTOPRAZOLE 40MG TAB (PROTONIX) PO SCH (08:04)
[2018-10-24] MEDS: ASPIRIN 81 MG ENTERIC TAB PO SCH (08:04)
[2018-10-24] MEDS: POTASSIUM CHLORIDE 10 MEQ SR TABLET PO SCH (08:04)
[2018-10-24] MEDS: PREGABALIN 100 MG CAP (LYRICA) PO SCH ×2 (08:05→22:43)
[2018-10-24] MEDS: POTASSIUM CHLORIDE 10% LIQ 20 MEQ/15 ML UDC PO SCH (08:05)
[2018-10-24] MEDS ORDERED: SANTYL OINT 30GM TOP SCH (09:00)
[2018-10-24 09:13] LABS: MAGNESIUM LEVEL 1.9 MG/DL (1.8-2.4)
[2018-10-24] MEDS ORDERED: MORPHINE 4 MG/ML 1ML VIAL/SYRINGE (J2270) IV ONE (11:00)
--- NOTE | 2018-10-24 11:15 | IPNPDOC ---
Text Note Date of Service The patient was seen on 10/24/18. NOTE Ms. Dhillon is seen on bedside rounds this morning, she is resting comfortably in bed, she is complaining of back pain where her ulcer is in the low back area. She states she didn't want an MRI yesterday because she was too tired, shes willing to try this morning though. Otherwise patient denies chest pain, shortness breath, nausea, vomiting, fevers, chills. SUBJECTIVE: Patient is a 53 year old female appearing older than her stated age, laying in bed watching TV OBJECTIVE PHYSICAL EXAMINATION: VITAL SIGNS: Please see below. GENERAL: Pleasant 53 yo female sitting up in bed awake alert oriented speaking in complete sentences no acute distress HEENT: Moist mucous membranes, no JVD, EOMI CARDIOVASCULAR: S1 S2 regular no additional heart sounds appreciated RESPIRATORY: Clear to auscultation bilaterally, but rather diminished throughout, no rales, rhonchi or wheezing ABDOMINAL: Bowel sounds present abdomen soft and nontender, no distension, no hepatosplenomegaly, no masses appreciated, no rebound ridgity or guarding EXTREMITIES: No clubbing cyanosis, but at least +1 pitting edema in LE., b/l LE wrapped with DAFNE/Compression socks placed, stage 3 covered sacral decub., without pus or blood exudation, dressing is clean ,dry & intact NEUROLOGICAL: Spontaneously moves all 4 extremities, no deficits appreciated PSYCHOLOGICAL: Appropriate affect LABORATORY DATA, MICROBIOLOGY: Please see below. ASSESSMENT AND PLAN: This is a 33-year-old female who presented to the hospital for infected sacral decubitus ulcer. PROBLEMS: 1. Infected Stage 3 sacral decubitus ulcer -positive wound cx for ESBL Escherichia coli, enterococcus fealis, strep anginosus -present on admission to hospital -S/p IV vancomycin and Zosyn - c/w meropenem after cultures grew ESBL Escherichia coli, c/w Meropenem -Blood cultureno growth at 5 days -s/p bedside debridement x2 10/19 and 10/[address] Johnson from Gen. surgery. Appreciate input. May eventually require a wound VAC and surgical debridement in OR., have reached back out to Dr Johnson and he is aware -Appreciate input by ID - MRI pelvis to rule out underlying osteomyelitis this AM pendingpatient refused the testing 10/19 -Midline was placed in LUE 10/19/18 -prn Percocet for pain control 2.Persistent hypotension: -97/65 today -EF was 65% with elevated CVP -A.m. cortisol appears relatively low; cosyntropin stimulation test shows appropriate increase in cortisol levels -Third spacing related to her severe hypoalbuminemia -Hold on dobutamine/pressors/Midodrine in setting of her recent ME 3. Bilateral lower extremity edema -likely secondary to severe protein malnutrition/hypoalbuminemia which was present on admission -Hypotension limits use of torsemide at this time unfortunately -Echocardiogram - EF 65% -Case was also discussed with Dr. Cruz from cardiology - appreciate input. -Dietitian was consulted in setting of significant hypoalbuminemia - patient is currently on Ensure shakes. Patient is also quite noncompliant with any dietary restrictions -Liver ultrasound shows possible early cirrhosis -Discussed with Dr. Cruz regarding perhaps trying IV albumin with LasixDoes not think IV albumin would help as much. He thinks this is nutritional related to her gastric bypass surgery and malabsorption from the same - Recommend outpatient referral to bariatric clinic for further evaluation. 4.Diabetes mellitus type 2 - complicated by diabetic foot infections requiring previous toe amputations with necrotic areas over left third and right first toe: -c/w SSI -Fingersticks are controlled -Pt was seen by Dr. Coe from podiatryappreciate input. Outpatient follow-up with podiatry on discharge. -Patient refused to comply with carbohydrate controlled dietcurrently on low- sodium diet -U/A suspicious for UTI., however pt is not complaining of dysuria 5. History of ACS -in light of recent ME., c/w Atorvastatin 40 mg daily, high intensity -no chest pain on physical examination -cardiology input appreciated 6. HIV: -Continue home medications, patient states her daughter is bringing them this AM- patient has not had home meds for a week., strongly encouraged to bring them in from home via family members, we have checked w pharmacy, they cannot order them -Viral count and CD4 show adherence to medications 6. COPD/asthma in setting of history of nicotine dependence - not in exacerbation: -Counseled previously regarding quitting smoking 7. Hypokalemia: -3.4 today, will supplement with 40 mEQ 8. Anemia: -Hemoglobin 8.1, stable at this time 8.7/28.3 -s/p 1 u pRBC 10/20/18 -FOBT was ordered - patient hasn't been able to provide a stool sample 9. Hypomagnesemia: -Resolved 10. DVT prophylaxis: -Enoxaparin DISPOSITION: Pending MRI today to ro Osteo., she may require surgical OR debridement and wound vac VS,Fishbone, I+O VS, Fishbone, I+O Laboratory Tests 10/24/18 06:34 Red Blood Count 3.09 L, Mean Corpuscular Volume 91.6, Mean Corpuscular Hemoglobin 28.2, Mean Corpuscular Hemoglobin Concent 30.7 L, Red Cell Distribution Width 18.8 H, Neutrophils (%) (Auto) 58.3, Lymphocytes (%) (Auto) 29.5, Monocytes (%) (Auto) 8.9 H, Eosinophils (%) (Auto) 0.6, Basophils (%) (Auto) 0.4, Neutrophils # (Auto) 2.7, Lymphocytes # (Auto) 1.4 L, Monocytes # (Auto) 0.4, Eosinophils # (Auto) 0.0, Basophils # (Auto) 0.0 Vital Signs Date Time Temp Pulse Resp B/P (MAP) Pulse Ox O2 Delivery O2 Flow Rate FiO2 10/24/18 09:42 16 10/24/18 06:00 97.3 92 92/63 (73) 99 I&O- Last 24 Hours up to 6 AM 10/24/18 06:00 Intake Total 2440 ml Output Total 0 ml Balance 2440 ml GME ATTESTATION GME ATTESTATION My faculty preceptor for this patient encounter was physically present during the encounter and was fully available. All aspects of the patient interview, examination, medical decision making process, and medical care plan development were reviewed and approved by the faculty preceptor. The faculty preceptor is aware and concurs with the plan as stated in the body of this note and will attest to such by his/her cosignature. ATTENDING NOTE I, Lorene Hernandez, have both independently examined this patient as well as reviewed the documentation. I have discussed in detail with the resident the findings and plan of treatment as documented by the resident. I agree with their findings and treatment plan. I will continue to follow the patient and offer further guidance to the patients care as necessary during this hospital stay. CAYDEN LAROSE DO Oct 24, 2018 11:15 LORENE HERNANDEZ MD Oct 24, 2018 14:10
[2018-10-24] MEDS ORDERED: POTASSIUM CHLORIDE 10 MEQ SR TABLET PO ONE (12:00)
[2018-10-24] MEDS ORDERED: LORazepam 2 MG/ML VIAL (J2060) IV ONE (12:00)
--- NOTE | 2018-10-24 16:48 | REP ---
MR SACRUM WITHOUT AND WITH CONTRAST: HISTORY: Decubitus ulcer. CONTRAST: ProHance 12 mL The examination is very limited secondary to motion. There is no disc bulge or herniation at the L5-L1 level. 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 Slight increased signal intensity on STIR images is present in the endplates of the S4 and S5 vertebral bodies. Anterior osteophytes are present. There is minimal enhancement with contrast. This likely represents degenerative change. Normal signal intensity is present in the remaining visualized vertebral bodies. There is no subluxation. There is no definite soft tissue abnormality. IMPRESSION: Very limited examination demonstrating minimal degenerative change. CT of the pelvis is recommended for further evaluation. Electronically Signed by Souleymane Berumen MD 10/24/2018 04:52 P
[2018-10-24] MEDS: oxyCODONE 5MG TAB PO PRN ×3 (18:34→23:51)
[2018-10-24 22:00] VITALS: BP 95/58
[2018-10-24] MEDS: ATORVASTATIN 20 MG TAB PO SCH (22:43)
[2018-10-24] MEDS: ENOXAPARIN 40 MG/0.4 ML SYRINGE (J1650) SC SCH (22:45)
[2018-10-24] MEDS: MORPHINE 15 MG SA TAB PO SCH (22:45)
[2018-10-24] MEDS: EUCERIN 120GM CREAM TOP SCH (22:46)
[2018-10-24] MEDS: NYSTATIN 100,000 UNITS/GM TOPICAL PWD 15 GM TOP SCH (22:46)
[2018-10-25] MEDS: SODIUM CHLORIDE 0.9% INJ 10 ML SYR IV SCH ×2 (05:24→17:07)
[2018-10-25] MEDS: SLF 3 ML SYR IV SCH ×3 (05:24→22:10)
[2018-10-25] MEDS: MEROPENEM INJ 1 GM in APPROPRIATE DILUENT 1 EA IV SCH ×3 (05:24→21:14)
[2018-10-25] MEDS: oxyCODONE 5MG TAB PO PRN (05:25)
[2018-10-25 06:00] VITALS: BP 119/69
[2018-10-25 06:01] LABS: BASO % 0.8 % (0.0-1.0); EOS % 0.8 % (0.0-3.0); HEMATOCRIT 29.8 % (36.0-47.0); HEMOGLOBIN 9.1 g/dl (12.0-15.5); LYMPH # 1.9 10^3/uL (1.5-4.5); LYMPH % 35.3 % (24.0-44.0); MEAN CORPUSCULAR HEMOGLOBIN 27.9 pg (27.0-33.0); MEAN CORPUSCULAR HGB CONC 30.5 g/dl (32.0-36.5); MEAN CORPUSCULAR VOLUME 91.4 fl (80.0-96.0); MONO # 0.6 10^3/uL (0.0-0.8); MONO % 10.5 % (0.0-5.0); NEUTROPHILS # 2.6 10^3/uL (1.8-7.7); NEUTROPHILS % 49.4 % (36.0-66.0); PLATELET COUNT, AUTOMATED 142 10^3/uL (150-450); RED BLOOD COUNT 3.26 10^6/uL (4.00-5.40); WHITE BLOOD COUNT 5.3 10^3/uL (4.0-10.0)
[2018-10-25 06:46] LABS: ALBUMIN 1.4 GM/DL (3.2-5.2); ALT/SGPT 19 U/L (12-78); BILIRUBIN,TOTAL 0.3 MG/DL (0.2-1.0); BLOOD UREA NITROGEN 17 MG/DL (7-18); CALCIUM LEVEL 7.5 MG/DL (8.5-10.1); CARBON DIOXIDE LEVEL 28 MEQ/L (21-32); CHLORIDE LEVEL 112 MEQ/L (98-107); CREATININE FOR GFR 0.42 MG/DL (0.55-1.30); GLOMERULAR FILTRATION RATE > 60.0 (>51); GLUCOSE, FASTING 74 MG/DL (70-100); MAGNESIUM LEVEL 1.9 MG/DL (1.8-2.4); SODIUM LEVEL 146 MEQ/L (136-145); TOTAL PROTEIN 5.2 GM/DL (6.4-8.2)
[2018-10-25] MEDS: HumaLOG INSULIN (NovoLOG) PER UNIT SC SCH ×4 (07:30→21:00)
[2018-10-25] MEDS: CLOPIDOGREL 75 MG TAB PO SCH (09:41)
[2018-10-25] MEDS: MAGNESIUM OXIDE 400 MG TAB (MAG-OX) PO SCH (09:42)
[2018-10-25] MEDS: PREGABALIN 100 MG CAP (LYRICA) PO SCH ×2 (09:42→21:12)
[2018-10-25] MEDS: VITAMIN D 1,000 INTERNATIONAL UNITS TABLET PO SCH (09:42)
[2018-10-25] MEDS: POTASSIUM CHLORIDE 10 MEQ SR TABLET PO SCH (09:42)
[2018-10-25] MEDS: PANTOPRAZOLE 40MG TAB (PROTONIX) PO SCH (09:42)
[2018-10-25] MEDS: ASPIRIN 81 MG ENTERIC TAB PO SCH (09:43)
[2018-10-25] MEDS: TORSEMIDE 20 MG TAB PO SCH ×2 (09:43→21:00)
[2018-10-25] MEDS: SPIRONOLACTONE 12.5MG PER 1/2 TABLET PO SCH (09:43)
[2018-10-25] MEDS: NYSTATIN 100,000 UNITS/GM TOPICAL PWD 15 GM TOP SCH ×2 (09:44→21:15)
[2018-10-25] MEDS: MORPHINE 15 MG SA TAB PO SCH ×3 (09:44→22:09)
[2018-10-25] MEDS: EUCERIN 120GM CREAM TOP SCH ×2 (09:45→21:15)
[2018-10-25] MEDS: SUCRALFATE SUSP 1GM/10ML UD PO SCH ×3 (12:00→21:10)
[2018-10-25] MEDS: PERCOCET 5MG/325MG TAB PO PRN ×3 (12:01→21:12)
--- NOTE | 2018-10-25 12:19 | IPNPDOC ---
Text Note Date of Service The patient was seen on 10/25/18. NOTE Ms. Dhillon is seen on bedside rounds this morning, she is resting comfortably in bed, she doesn't like that her percocet was stopped and oxycodone and MS Contin were started. She says she doesn't care if the tylenol hurts her liver or blood pressure, she is in too much pain without percocet and wants it back, she says she didnt sleep all night because of the pain. She is complaining of back pain where her ulcer is in the low back area, b/l leg pain and chronic low back pain. Otherwise patient denies chest pain, shortness breath, nausea, vomiting, fevers, chills. SUBJECTIVE: Patient is a 53 year old female appearing older than her stated age, laying in bed watching TV OBJECTIVE PHYSICAL EXAMINATION: VITAL SIGNS: Please see below. GENERAL: Pleasant 53 yo female sitting up in bed awake alert oriented speaking in complete sentences no acute distress HEENT: Moist mucous membranes, no JVD, EOMI CARDIOVASCULAR: S1 S2 regular no additional heart sounds appreciated RESPIRATORY: Clear to auscultation bilaterally, no rales, rhonchi or wheezing ABDOMINAL: Bowel sounds present abdomen soft and nontender, no distension, no hepatosplenomegaly, no masses appreciated, no rebound ridgity or guarding EXTREMITIES: No clubbing cyanosis, but at least +1 pitting edema in LE., b/l LE wrapped with DAFNE/Compression socks placed, stage 3 covered sacral decub., without pus or blood exudation, dressing is clean ,dry & intact, appears the same size today NEUROLOGICAL: Spontaneously moves all 4 extremities, no deficits appreciated PSYCHOLOGICAL: Appropriate affect LABORATORY DATA, MICROBIOLOGY: Please see below. ASSESSMENT AND PLAN: This is a 33-year-old female who presented to the hospital for infected sacral decubitus ulcer. PROBLEMS: 1. Infected Stage 3 sacral decubitus ulcer -wound care nurse cx -positive wound cx for ESBL Escherichia coli, enterococcus fealis, strep an ginosus -present on admission to hospital -S/p IV vancomycin and Zosyn - c/w meropenem after cultures grew ESBL Escherichia coli, c/w Meropenem -Blood cultureno growth at 5 days -s/p bedside debridement x2 10/19 and 10/[address] Johnson from Gen. surgery. Appreciate input-she is going to OR for surgical wound debridement, she likely requires wound vac. -Appreciate input by ID - MRI pelvis to rule out underlying osteomyelitis this AM showed very limited examination demonstrating minimal degenerative change. CT of the pelvis is recommended for further evaluation.patient refused the MRI testing 10/[address] ab/pelvis 6.09.08, we will re-attempt ct ab/pelvis today as pt agreed to it today -Midline was placed in LUE 10/19/18 -prn Percocet for pain control is being added back on, d/c oxycodone, c/w mscontin, pt states she is miserable without percocet and cant even sleep due to pain, even though it was explained thoroughly that she was still continued on oxycodone and MScontin was even added, she is adamant about receiving her Percocet, will continue as such 2.Persistent hypotension: -improved, 119/69 today -EF was 65% with elevated CVP -A.m. cortisol appears relatively low; cosyntropin stimulation test shows appropriate increase in cortisol levels -Third spacing related to her severe hypoalbuminemia -Hold on dobutamine/pressors/Midodrine in setting of her recent AK -low albumin could be due to liver etiology, AFP WNL, her ast/alt and coags are without abnormality -CT ab/pelvis pending for today if patient actually agrees to have it done when the time comes--Liver ultrasound shows possible early cirrhosis 3. Bilateral lower extremity edema -likely secondary to severe protein malnutrition/hypoalbuminemia which was present on admission - possibly 2/2 cirrhosis -Hypotension limits use of torsemide at this time unfortunately -Echocardiogram - EF 65% -Case was also discussed with Dr. Cruz from cardiology - appreciate input. -Dietitian was consulted in setting of significant hypoalbuminemia - patient is currently on Ensure shakes. Patient is also quite noncompliant with any dietary restrictions -Discussed with Dr. Cruz regarding perhaps trying IV albumin with LasixDoes not think IV albumin would help as much. He thinks this is nutritional related to her gastric bypass surgery and malabsorption from the same - Recommend outpatient referral to bariatric clinic for further evaluation. - c/w Torsemide; Will add Spironolactone 4.Diabetes mellitus type 2 - complicated by diabetic foot infections requiring previous toe amputations with necrotic areas over left third and right first toe: -c/w SSI -Fingersticks are controlled -Pt was seen by Dr. Coe from podiatryappreciate input. Outpatient follow-up with podiatry on discharge. -Patient refused to comply with carbohydrate controlled dietcurrently on low- sodium diet -U/A suspicious for UTI., however pt has not complained of dysuria 5. History of ACS -in light of recent AK., c/w Atorvastatin 40 mg daily, high intensity -no chest pain on physical examination -cardiology input appreciated 6. HIV: -Continue home medications -Viral count and CD4 show adherence to medications 6. COPD/asthma in setting of history of nicotine dependence - not in exacerbation: -Counseled previously regarding quitting smoking 7. Hypokalemia: -4.0 today 8. Anemia: -Hemoglobin 9.1/29.8, stable at this time -s/p 1 u pRBC 10/20/18 -FOBT was ordered - patient hasn't been able to provide a stool sample 9. Hypomagnesemia: -Resolved 10. DVT prophylaxis: -Enoxaparin DISPOSITION: Pending CT ab/pelvis today to ro Osteo., hopefully this can give us some information on her liver architecture as well, she has plans for OR for sacral decub debridement and wound vac VS,Fishbone, I+O VS, Fishbone, I+O Laboratory Tests 10/25/18 05:45 Red Blood Count 3.26 L, Mean Corpuscular Volume 91.4, Mean Corpuscular Hemoglobin 27.9, Mean Corpuscular Hemoglobin Concent 30.5 L, Red Cell Distribution Width 18.9 H, Neutrophils (%) (Auto) 49.4, Lymphocytes (%) (Auto) 35.3, Monocytes (%) (Auto) 10.5 H, Eosinophils (%) (Auto) 0.8, Basophils (%) (Auto) 0.8, Neutrophils # (Auto) 2.6, Lymphocytes # (Auto) 1.9, Monocytes # (Auto) 0.6, Eosinophils # (Auto) 0.0, Basophils # (Auto) 0.0, Calcium Level 7.5 L, Aspartate Amino Transf (AST/SGOT) 26, Alanine Aminotransferase (ALT/SGPT) 19, Alkaline Phosphatase 73, Total Bilirubin 0.3, Total Protein 5.2 L, Albumin 1.4 L Vital Signs Date Time Temp Pulse Resp B/P (MAP) Pulse Ox O2 Delivery O2 Flow Rate FiO2 10/25/18 12:01 16 10/25/18 06:00 98.0 86 119/69 (86) 100 I&O- Last 24 Hours up to 6 AM 10/25/18 06:00 Intake Total 2400 ml Balance 2400 ml GME ATTESTATION GME ATTESTATION My faculty preceptor for this patient encounter was physically present during the encounter and was fully available. All aspects of the patient interview, examination, medical decision making process, and medical care plan development were reviewed and approved by the faculty preceptor. The faculty preceptor is aware and concurs with the plan as stated in the body of this note and will attest to such by his/her cosignature. ATTENDING NOTE I, Lorene Hernandez, have both independently examined this patient as well as rev iewed the documentation. I have discussed in detail with the resident the findings and plan of treatment as documented by the resident. I agree with their findings and treatment plan. I will continue to follow the patient and offer further guidance to the patients care as necessary during this hospital stay. CAYDEN LAROSE DO Oct 25, 2018 12:19 LORENE HERNANDEZ MD Oct 25, 2018 13:45
[2018-10-25] MEDS ORDERED: ISOVUE-370 76% 100ML VIAL (Q9967) As Ordered ONE (13:21)
--- NOTE | 2018-10-25 14:53 | IPN ---
DATE: 10/24/2018 Carol Ann is doing better. She went for her MRI today of the pelvis, but it was limited and therefore, recommendation was to get a CT of the pelvis. She denies any chest pain or shortness of breath. No nausea, vomiting, fever or chills. She is eating well. No diarrhea. She complains of back pain and lower extremity weakness. She is not able to move her legs. She is not able to get out of bed without assistance with physical therapy. On physical exam, temperature is 97.3, pulse 92, respirations 18, blood pressure 92/63, oxygen saturation 99% on room air. HEART: Normal. S1, S2. No murmurs. LUNGS: Clear. No wheezes or rhonchi. ABDOMEN: Obese, soft, nontender. She has erythema around her belly button consistent with candidiasis. Sacral area has a decubitus ulcer measuring about 4 cm x the tunnel 6 cm in all directions. There is less foul-smelling. There is mild surrounding erythema. EXTREMITIES: +2 pitting edema bilaterally have improved. She has a blister on the left heel with erythema of the left heel. Dry gangrene of the third toe on the left foot. Distal amputation of first and second toe. LABORATORY DATA: White count 4.7, hemoglobin 8.7, hematocrit 28.3, platelets 131, 58% neutrophils, 29% lymphocytes, 9% monocytes. Sodium 145, potassium 4.2, chloride 112, bicarbonate 28, BUN 16, creatinine 0.37, glucose 73, calcium 7.8, phosphorus 3.5, magnesium 2. Cortisol baseline of 14.5 and 30-minute 29.1. Wound culture positive for extended-spectrum beta-lactamases (ESBL), Enterococcus (E) faecalis, Streptococcus anginosus. MEDICATIONS: - meropenem 1 gram intravenous (IV) every 8 hours - pregabalin 300 mg by mouth twice a day - torsemide 20 mg by mouth twice a day has been restarted on 10/23/2018; patient tolerating well - Percocet two tablets every 6 hours IMPRESSION: 1. Infected stage III sacral decubitus ulcer. Patient had an MRI of the pelvis, which was nondiagnostic for osteomyelitis. Recommendation was to obtain a CT. Culture positive for extended-spectrum beta-lactamases (ESBL), Enterococcus (E) faecalis, Streptococcus anginosus, on IV meropenem. Continue IV antibiotics. Obtain CT abdomen and pelvis. 2. Hypotension. Improved. Patient has tolerated torsemide in the past 24 hours. Edema has improved. 3. Lower extremity edema with hypoalbuminemia and no evidence of congestive heart failure. I am concerned that the patient may have liver cirrhosis. What is consistent with cirrhosis is her low albumin, mild thrombocytopenia and finding on ultrasound. Consider consultation with gastroenterology. 4. Acute coronary syndrome status post angioplasty. On atorvastatin. 5. Degenerative disk disease with radiculopathy and severe HIV neuropathy. Patient probably should be off Tylenol, as she has evidence of cirrhosis and should be switched to OxyContin or oxycodone. PLAN: Case has been discussed with Dr. Andersen. Continue IV meropenem. Obtain a CT abdomen and pelvis. Consider obtaining a GI consultation. She needs more debridement of the decubitus ulcer so we can place a wound VAC. Case has been discussed with Starla, who has done dressing changes and orders all the wound dressing orders.
--- NOTE | 2018-10-25 16:24 | REP ---
CT PELVIS WITH IV CONTRAST: TECHNIQUE: Axial contrast enhanced images of the pelvis using 100 mL Isovue 370 intravenous contrast material with multiplanar reformations. There is diffuse severe superficial soft tissue edema. Decubitus ulcers are seen overlying the sacrum. No definite fluid collection is seen in this region. The underling sacrum and coccyx appear intact with no definite osseous destruction or fracture. There is no definite evidence for osteomyelitis. Moderate degenerative changes are seen at the sacroiliac joints, right greater than left. Mild free fluid is seen in the pelvis. Urinary bladder is moderately distended and grossly unremarkable. No other significant abnormality is seen within the pelvis itself. There are atherosclerotic calcifications of the distal abdominal aorta and iliac arteries. IMPRESSION: Significant diffuse superficial soft tissue edema. Mild free fluid in the pelvis. Sacral decubitus ulcers with no definite abscess collection in that region. No definite underlying osteomyelitis of the sacrum or coccyx. Electronically Signed by Golden Cesar MD 10/26/2018 09:20 A
[2018-10-25] MEDS: ENOXAPARIN 40 MG/0.4 ML SYRINGE (J1650) SC SCH (21:11)
[2018-10-25] MEDS: ATORVASTATIN 20 MG TAB PO SCH (21:11)
[2018-10-25 22:00] VITALS: BP 75/48
--- NOTE | 2018-10-25 23:16 | IPN ---
DATE: 10/25/2018 HISTORY The patient has a sacral decubitus which had become infected. This was debrided toward the end of the last week with removal of large amount of necrotic skin and fatty tissue. The skin opening remains fairly small, though there is significant undermining beneath the skin, particularly superiorly. She has done acceptably over the weekend. Her appetite seems to have improved somewhat and she seems more comfortable. Vital signs: Shows that she has been afebrile over the past 24 hours. Her pulse is generally in the 80s and 90s. Blood pressure is acceptable. Intake and output shows that yesterday she had 2800 in and she has a number of voids and bowel movements recorded but no volumes were measured. PHYSICAL EXAMINATION The patient has an occlusive dressing on her sacral decubitus. She is sitting upright on the edge of the bed for breakfast. LABORATORY FINDINGS CBC shows a white count of 5, hemoglobin 9, hematocrit of 30 and a platelet count of 142,000. Her chemistry profile shows a sodium of 146, potassium 4.0, chloride 112, CO2 of 28, BUN of 17, creatinine 0.4 and a glucose of 74. Liver function tests are normal. Total protein is 5.2 with an albumin of 1.4. IMPRESSION The patient has an infected sacral decubitus. This was grossly debrided toward the end of last week, but there remains a small amount of necrotic debris in the subcutaneous tissues. Also the hole remains quite small relative to the amount of undermining and she will probably do better if this is opened more widely so that a wound vac could be utilized to promote healing. PLAN The patient was counseled for debridement in the operating room. I will try to get this scheduled for tomorrow. She is in agreement with this plan. DEE
[2018-10-26] MEDS: PERCOCET 5MG/325MG TAB PO PRN ×2 (02:21→12:12)
[2018-10-26] MEDS: MEROPENEM INJ 1 GM in APPROPRIATE DILUENT 1 EA IV SCH ×3 (05:15→21:19)
[2018-10-26 06:00] VITALS: BP 78/49
[2018-10-26] MEDS: SODIUM CHLORIDE 0.9% INJ 10 ML SYR IV SCH ×2 (06:00→18:13)
[2018-10-26] MEDS: SLF 3 ML SYR IV SCH ×3 (06:00→22:00)
[2018-10-26 06:20] LABS: BASO % 0.8 % (0.0-1.0); EOS # 0.1 10^3/uL (0.0-0.50); EOS % 1.3 % (0.0-3.0); HEMATOCRIT 29.8 % (36.0-47.0); HEMOGLOBIN 8.9 g/dl (12.0-15.5); LYMPH # 1.4 10^3/uL (1.5-4.5); LYMPH % 35.5 % (24.0-44.0); MEAN CORPUSCULAR HEMOGLOBIN 27.5 pg (27.0-33.0); MEAN CORPUSCULAR HGB CONC 29.9 g/dl (32.0-36.5); MONO # 0.4 10^3/uL (0.0-0.8); MONO % 9.8 % (0.0-5.0); NEUTROPHILS % 48.6 % (36.0-66.0); PLATELET COUNT, AUTOMATED 149 10^3/uL (150-450); RED BLOOD COUNT 3.24 10^6/uL (4.00-5.40)
[2018-10-26 06:49] LABS: ALBUMIN 1.4 GM/DL (3.2-5.2); ALT/SGPT 20 U/L (12-78); BILIRUBIN,TOTAL 0.2 MG/DL (0.2-1.0); BLOOD UREA NITROGEN 19 MG/DL (7-18); CALCIUM LEVEL 7.6 MG/DL (8.5-10.1); CARBON DIOXIDE LEVEL 29 MEQ/L (21-32); CHLORIDE LEVEL 111 MEQ/L (98-107); CREATININE FOR GFR 0.45 MG/DL (0.55-1.30); GLOMERULAR FILTRATION RATE > 60.0 (>51); GLUCOSE, FASTING 76 MG/DL (70-100); MAGNESIUM LEVEL 1.9 MG/DL (1.8-2.4); POTASSIUM SERUM 4.3 MEQ/L (3.5-5.1); SODIUM LEVEL 146 MEQ/L (136-145)
[2018-10-26] MEDS: HumaLOG INSULIN (NovoLOG) PER UNIT SC SCH ×4 (07:30→21:00)
[2018-10-26] MEDS: SUCRALFATE SUSP 1GM/10ML UD PO SCH ×4 (07:30→21:18)
[2018-10-26] MEDS: PREZISTA 800 MG PO SCH (08:00)
[2018-10-26] MEDS: GENVOYA PO SCH (08:00)
[2018-10-26] MEDS: EUCERIN 120GM CREAM TOP SCH ×2 (09:00→21:20)
[2018-10-26] MEDS: SPIRONOLACTONE 12.5MG PER 1/2 TABLET PO SCH (09:00)
[2018-10-26] MEDS: NYSTATIN 100,000 UNITS/GM TOPICAL PWD 15 GM TOP SCH ×2 (09:00→21:20)
[2018-10-26] MEDS: MORPHINE 15 MG SA TAB PO SCH ×2 (09:00→21:18)
[2018-10-26] MEDS: ASPIRIN 81 MG ENTERIC TAB PO SCH (09:00)
[2018-10-26] MEDS: PANTOPRAZOLE 40MG TAB (PROTONIX) PO SCH (09:00)
[2018-10-26] MEDS: CLOPIDOGREL 75 MG TAB PO SCH (09:00)
[2018-10-26] MEDS: VITAMIN D 1,000 INTERNATIONAL UNITS TABLET PO SCH (09:00)
[2018-10-26] MEDS: TORSEMIDE 20 MG TAB PO SCH (09:00)
[2018-10-26] MEDS: POTASSIUM CHLORIDE 10 MEQ SR TABLET PO SCH (09:00)
[2018-10-26] MEDS: MAGNESIUM OXIDE 400 MG TAB (MAG-OX) PO SCH (09:00)
[2018-10-26] MEDS: PREGABALIN 100 MG CAP (LYRICA) PO SCH ×2 (09:00→21:19)
[2018-10-26] MEDS ORDERED: PREZISTA 800 MG PO SCH (09:00)
[2018-10-26] MEDS ORDERED: LIDOCAINE 2% INJ 100 MG/5 ML SDV (FOR ANES.) As Ordered ONE (09:28)
[2018-10-26] MEDS ORDERED: PROPOFOL 500 MG/50 ML VIAL As Ordered ONE (09:28)
[2018-10-26] MEDS ORDERED: MIDAZOLAM INJ 2 MG/2 ML VIAL (J2250) As Ordered ONE (09:29)
[2018-10-26] MEDS ORDERED: fentaNYL 100 MCG/2 ML INJECTION (J3010) As Ordered ONE (09:29)
[2018-10-26] MEDS ORDERED: BUPIVACAINE HCL 0.25% 10 ML VIAL As Ordered ONE (10:16)
[2018-10-26] MEDS ORDERED: BUPIVACAINE LIPOSOME/PF 1.3% 20ML VIAL (13.3MG/ML)(EXPAREL)(C9290 PER1MG) As Ordered ONE (10:17)
[2018-10-26] MEDS ORDERED: PHENYLephrine HCL 500 MCG/5 ML (100MCG/ML) SYRINGE (J2370) As Ordered ONE (10:43)
[2018-10-26] MEDS ORDERED: HYDROMORPHONE HCL 0.5 MG/ 0.5 ML SYRINGE (J1170 PER 1) As Ordered ONE ×2 (11:26→11:42)
[2018-10-26] MEDS: HYDROMORPHONE HCL 0.5 MG/ 0.5 ML SYRINGE (J1170 PER 1) IV PRN ×2 (11:35→11:43)
[2018-10-26] MEDS ORDERED: ONDANSETRON 4MG/2ML VIAL (J2405) IV PRN ×2 (11:45→13:30)
[2018-10-26] MEDS ORDERED: LR 1,000 ML IV SCH ×2 (11:45→13:30)
[2018-10-26] MEDS ORDERED: PERCOCET 5MG/325MG TAB PO PRN ×2 (11:45→13:30)
[2018-10-26] MEDS ORDERED: fentaNYL 100 MCG/2 ML INJECTION (J3010) IV PRN ×2 (11:45→13:30)
[2018-10-26] MEDS ORDERED: PERCOCET 5MG/325MG TAB As Ordered ONE ×2 (12:09→12:11)
[2018-10-26] MEDS ORDERED: HYDROMORPHONE HCL 0.5 MG/ 0.5 ML SYRINGE (J1170 PER 1) IV PRN (13:30)
[2018-10-26 14:00] VITALS: BP 80/50
--- NOTE | 2018-10-26 14:05 | IPNPDOC ---
Text Note Date of Service The patient was seen on 10/26/18. NOTE Ms. Dhillon is seen on bedside rounds, she had surgery this morning with Dr Butt all for her sacral decub. She feels well but admits to pain in the area. She still has chronic b/l leg pain and chronic low back pain. Otherwise patient denies chest pain, shortness breath, nausea, vomiting, fevers, chills. SUBJECTIVE: Patient is a 53 year old female appearing older than her stated age, laying in bed watching TV OBJECTIVE PHYSICAL EXAMINATION: VITAL SIGNS: Please see below. GENERAL: Pleasant 53 yo female sitting up in bed awake alert oriented speaking in complete sentences no acute distress, she just came back from surgery with wound vac HEENT: Moist mucous membranes, no JVD, EOMI CARDIOVASCULAR: S1 S2 regular no additional heart sounds appreciated RESPIRATORY: Clear to auscultation bilaterally, no rales, rhonchi or wheezing ABDOMINAL: Bowel sounds present abdomen soft and nontender, no distension, no hepatosplenomegaly, no masses appreciated, no rebound ridgity or guarding EXTREMITIES: No clubbing cyanosis, but at least +1 pitting edema in LE., b/l LE wrapped with DAFNE/Compression socks placed, stage 3 sacral decub. w/ wound vac in place NEUROLOGICAL: Spontaneously moves all 4 extremities, no deficits appreciated PSYCHOLOGICAL: Appropriate affect LABORATORY DATA, MICROBIOLOGY: Please see below. ASSESSMENT AND PLAN: This is a 33-year-old female who presented to the hospital for infected sacral decubitus ulcer. PROBLEMS: 1. Infected Stage 3 sacral decubitus ulcer -wound care nurse cx -positive wound cx for ESBL Escherichia coli, enterococcus fealis, strep anginosus -present on admission to hospital -S/p IV vancomycin and Zosyn - c/w meropenem after cultures grew ESBL Escherichia coli, c/w Meropenem -Blood cultureno growth at 5 days -s/p bedside debridement x2 10/19 and 10/[address] Johnson from Gen. surgery. Appreciate input-s/p OR for surgical wound debridement today with wound vac -Appreciate input by ID - MRI pelvis to rule out underlying osteomyelitis this AM showed very limited examination demonstrating minimal degenerative change. CT of the pelvis was recommended for further evaluation.patient refused the MRI testing 10/[address] ab/pelvis 10.24.18, when she agreed to have imaging, results showed Significant diffuse superficial soft tissue edema. Mild free fluid in the pelvis. Sacral decubitus ulcers with no definite abscess collection in that region. No definite underlying osteomyelitis of the sacrum or coccyx performed 10.25.18 -Midline was placed in LUE 10/19/18 -prn Percocet for pain control -pt stated she was miserable without percocet and couldn't even sleep due to pain, she did not tolerate oxycodone 2.Persistent hypotension: -improved, 84/51 today -EF was 65% with elevated CVP -A.m. cortisol appears relatively low; cosyntropin stimulation test showed appropriate increase in cortisol levels -Third spacing related to her severe hypoalbuminemia -Hold on dobutamine/pressors/Midodrine in setting of her recent [place] -low albumin could be due to liver etiology, AFP WNL, her ast/alt and coags are without abnormality -CT ab/pelvis with results as outlined above -Liver ultrasound shows possible early cirrhosis - Will discuss with GI about any other possible recommendations 3. Bilateral lower extremity edema -likely secondary to severe protein malnutrition/hypoalbuminemia which was present on admission - possibly 2/2 cirrhosis -Hypotension limits use of torsemide at this time unfortunately -Echocardiogram - EF 65% -Case was also discussed with Dr. Cruz from cardiology - appreciate input. -Dietitian was consulted in setting of significant hypoalbuminemia - patient is currently on Ensure shakes. Patient is also quite noncompliant with any dietary restrictions -Discussed with Dr. Cruz regarding perhaps trying IV albumin with LasixDoes not think IV albumin would help as much. He thinks this is nutritional related to her gastric bypass surgery and malabsorption from the same - Recommend outpatient referral to bariatric clinic for further evaluation. - c/w Torsemide for now, tolerating it well; c/w Spironolactone; all with hold parameters 4.Diabetes mellitus type 2 - complicated by diabetic foot infections requiring previous toe amputations with necrotic areas over left third and right first toe: -c/w SSI -Fingersticks are controlled -Pt was seen by Dr. Coe from podiatryappreciate input. Outpatient follow-up with podiatry on discharge. -Patient refused to comply with carbohydrate controlled dietcurrently on low- sodium diet -U/A suspicious for UTI., however pt has not complained of dysuria 5. History of ACS -in light of recent SC., c/w Atorvastatin 40 mg daily, high intensity -no chest pain on physical examination -cardiology input appreciated 6. HIV: -Continue home medications -Viral count and CD4 show adherence to medications 6. COPD/asthma in setting of history of nicotine dependence - not in exacerbation: -Counseled previously regarding quitting smoking 7. Hypokalemia: -4.3 today 8. Anemia: -Hemoglobin 8.9/29.8, stable at this time -s/p 1 u pRBC 10/20/18 -FOBT was ordered - patient hasn't been able to provide a stool sample 9. Hypomagnesemia: -Resolved 10. DVT prophylaxis: -Enoxaparin DISPOSITION: CT ab/pelvis did not demonstrate Osteo., she is s/p wound debridement with Dr Johnson, and wound vac placement today. Will follow up with ID for further recommendations regarding abx therapy. VS,Fishbone, I+O VS, Fishbone, I+O Laboratory Tests 10/26/18 05:49 Red Blood Count 3.24 L, Mean Corpuscular Volume 92.0, Mean Corpuscular Hemoglobin 27.5, Mean Corpuscular Hemoglobin Concent 29.9 L, Red Cell Dis tribution Width 19.1 H, Neutrophils (%) (Auto) 48.6, Lymphocytes (%) (Auto) 35.5, Monocytes (%) (Auto) 9.8 H, Eosinophils (%) (Auto) 1.3, Basophils (%) (Auto) 0.8, Neutrophils # (Auto) 2.0, Lymphocytes # (Auto) 1.4 L, Monocytes # (Auto) 0.4, Eosinophils # (Auto) 0.1, Basophils # (Auto) 0.0, Calcium Level 7.6 L, Aspartate Amino Transf (AST/SGOT) 22, Alanine Aminotransferase (ALT/SGPT) 20, Alkaline Phosphatase 70, Total Bilirubin 0.2, Total Protein 5.0 L, Albumin 1.4 L Vital Signs Date Time Temp Pulse Resp B/P (MAP) Pulse Ox O2 Delivery O2 Flow Rate FiO2 10/26/18 12:13 83 16 84/51 (62) 99 10/26/18 12:08 98.4 I&O- Last 24 Hours up to 6 AM0 10/26/18 06:00 Intake Total 1620 ml Output Total 1900 ml Balance -280 ml GME ATTESTATION GME ATTESTATION My faculty preceptor for this patient encounter was physically present during the encounter and was fully available. All aspects of the patient interview, examination, medical decision making process, and medical care plan development were reviewed and approved by the faculty preceptor. The faculty preceptor is aware and concurs with the plan as stated in the body of this note and will attest to such by his/her cosignature. ATTENDING NOTE I, Lorene Hernandez, have both independently examined this patient as well as reviewed the documentation. I have discussed in detail with the resident the findings and plan of treatment as documented by the resident. I agree with their findings and treatment plan. I will continue to follow the patient and offer further guidance to the patients care as necessary during this hospital stay. CAYDEN LAROSE DO Oct 26, 2018 14:05 LORENE HERNANDEZ MD Oct 26, 2018 15:02
--- NOTE | 2018-10-26 17:52 | IPN ---
DATE: 10/26/2018 Carol Ann went to the operating room (OR) today for debridement of the sacral decubitus ulcer and a wound VAC was placed. Pelvic CT did not show any evidence of abscess or osteomyelitis. She continues with chronic lower extremity edema although that has improved. She has chronic low back pain unchanged. She [place], [place]. VITAL SIGNS: Temperature is 98, pulse 88, respirations 18, blood pressure 80/50, oxygen saturation 100% on room air. HEART: Normal. S1, S2. No murmurs, rubs or gallops. LUNGS: Clear. No wheezes or rhonchi. ABDOMEN: Obese, soft, nontender. EXTREMITIES: +2 pitting edema bilaterally with sacral edema. SKIN: Multiple ecchymosis on arms. LABORATORY DATA: White count is 4, hemoglobin 8.9, hematocrit 29.8, platelets 149, 48% neutrophils, 35% lymphocytes, 10% monocytes. Sodium 146, potassium 4.3, chloride 111, bicarbonate 29, BUN 19, creatinine 0.45, glucose 76, calcium 7.6, total protein 5, albumin 1.4. IMPRESSION: 1. Infected sacral decubitus ulcer with extended-spectrum beta-lactamases (ESBL), Enterococcus (E) faecalis and Streptococcus on intravenous (IV) meropenem doing well. No evidence of osteomyelitis. Wound debridement was done today. Wound VAC was placed. The patient will need rehabilitation or care home for rehabilitation and wound VAC change. 2. Lower extremity edema/hypoalbuminemia. All consistent with a liver cirrhosis. This will need to be further worked up as an outpatient. 3. Hypotension. I do not think patient could tolerate torsemide 20 mg twice a day. Her blood pressure systolic has remained about 80. Will discontinue torsemide and keep her on just Aldactone, especially that her sodium has increased to 146, consistent with dehydration. Her sodium was 140 on admission. PLAN: Continue IV meropenem. Once patient is stable for discharge, could switch her to oral antibiotics since there is no evidence of osteomyelitis. Continue wound VAC. Discontinue Percocet. Patient should not be on Tylenol with suspicion of liver cirrhosis.
[2018-10-26] MEDS: oxyCODONE 5MG TAB PO PRN (18:13)
[2018-10-26] MEDS: ATORVASTATIN 20 MG TAB PO SCH (21:18)
[2018-10-26] MEDS: ENOXAPARIN 40 MG/0.4 ML SYRINGE (J1650) SC SCH (21:19)
[2018-10-27] MEDS: oxyCODONE 5MG TAB PO PRN ×3 (00:37→15:11)
[2018-10-27] MEDS: MEROPENEM INJ 1 GM in APPROPRIATE DILUENT 1 EA IV SCH ×3 (05:01→20:50)
[2018-10-27] MEDS: SODIUM CHLORIDE 0.9% INJ 10 ML SYR IV SCH ×2 (05:51→17:37)
[2018-10-27 06:00] VITALS: BP 85/52
[2018-10-27] MEDS: SLF 3 ML SYR IV SCH ×3 (06:00→20:52)
[2018-10-27 06:41] LABS: BASO % 0.8 % (0.0-1.0); EOS # 0.1 10^3/uL (0.0-0.50); HEMATOCRIT 30.6 % (36.0-47.0); HEMOGLOBIN 9.2 g/dl (12.0-15.5); LYMPH # 1.2 10^3/uL (1.5-4.5); LYMPH % 25.4 % (24.0-44.0); MEAN CORPUSCULAR HEMOGLOBIN 27.9 pg (27.0-33.0); MEAN CORPUSCULAR HGB CONC 30.1 g/dl (32.0-36.5); MEAN CORPUSCULAR VOLUME 92.7 fl (80.0-96.0); MONO # 0.4 10^3/uL (0.0-0.8); MONO % 9.2 % (0.0-5.0); NEUTROPHILS # 2.9 10^3/uL (1.8-7.7); NEUTROPHILS % 61.3 % (36.0-66.0); PLATELET COUNT, AUTOMATED 167 10^3/uL (150-450); WHITE BLOOD COUNT 4.8 10^3/uL (4.0-10.0)
[2018-10-27 07:07] LABS: ALBUMIN 1.6 GM/DL (3.2-5.2); ALT/SGPT 21 U/L (12-78); BILIRUBIN,TOTAL 0.2 MG/DL (0.2-1.0); BLOOD UREA NITROGEN 18 MG/DL (7-18); C REACTIVE PROTEIN QUANTITATIV 1.12 MG/DL (0.00-0.30); CALCIUM LEVEL 8.3 MG/DL (8.5-10.1); CARBON DIOXIDE LEVEL 30 MEQ/L (21-32); CHLORIDE LEVEL 108 MEQ/L (98-107); CREATININE FOR GFR 0.38 MG/DL (0.55-1.30); GLOMERULAR FILTRATION RATE > 60.0 (>51); GLUCOSE, FASTING 96 MG/DL (70-100); IMMUNOGLOBULIN G 1270 MG/DL (681-1648); MAGNESIUM LEVEL 1.8 MG/DL (1.8-2.4); POTASSIUM SERUM 4.1 MEQ/L (3.5-5.1); SODIUM LEVEL 143 MEQ/L (136-145); TOTAL PROTEIN 5.5 GM/DL (6.4-8.2)
[2018-10-27] MEDS: HumaLOG INSULIN (NovoLOG) PER UNIT SC SCH ×5 (07:30→20:30)
[2018-10-27] MEDS: PREZISTA 800 MG PO SCH (09:28)
[2018-10-27] MEDS: SUCRALFATE SUSP 1GM/10ML UD PO SCH ×4 (09:28→20:51)
[2018-10-27] MEDS: GENVOYA PO SCH (09:29)
[2018-10-27] MEDS: SPIRONOLACTONE 12.5MG PER 1/2 TABLET PO SCH (09:30)
[2018-10-27] MEDS: PANTOPRAZOLE 40MG TAB (PROTONIX) PO SCH (09:30)
[2018-10-27] MEDS: VITAMIN D 1,000 INTERNATIONAL UNITS TABLET PO SCH (09:30)
[2018-10-27] MEDS: POTASSIUM CHLORIDE 10 MEQ SR TABLET PO SCH (09:30)
[2018-10-27] MEDS: CLOPIDOGREL 75 MG TAB PO SCH (09:30)
[2018-10-27] MEDS: PREGABALIN 100 MG CAP (LYRICA) PO SCH ×2 (09:30→20:50)
[2018-10-27] MEDS: ASPIRIN 81 MG ENTERIC TAB PO SCH (09:31)
[2018-10-27] MEDS: MORPHINE 15 MG SA TAB PO SCH ×2 (09:31→20:51)
[2018-10-27] MEDS: MAGNESIUM OXIDE 400 MG TAB (MAG-OX) PO SCH (09:31)
[2018-10-27] MEDS: EUCERIN 120GM CREAM TOP SCH ×2 (09:32→20:52)
[2018-10-27] MEDS: NYSTATIN 100,000 UNITS/GM TOPICAL PWD 15 GM TOP SCH ×2 (09:32→20:52)
[2018-10-27 10:00] VITALS: BP 85/53
--- NOTE | 2018-10-27 11:43 | IPNPDOC ---
Text Note Date of Service The patient was seen on 10/27/18. NOTE Ms. Dhillon is seen on bedside rounds, her daughter is bedside, she is s/p surgery one day ago Dr Johnson for her sacral decub. She feels well but admits to intense pain in the area, she is upset her percocet was stopped again. Her daughter is bedside and is wanting additional pain medication for her since she will be taking care of her mostly at home and she wants her comfortable. She understands why Tylenol was stopped in light of potential liver cirrhosis, but she wants something additional for her mother. The daughter states the pt was given fentanyl outpt and it "doped her up" and she will absolutely not allow this for her mother again. The patient herself also understands why perocet was stopped again, but insists she is in a lot of pain and needs something else to help. She continues with chronic b/l leg pain and her chronic low back pain as well in addition to acute problem of sacral decub pain. Otherwise patient denies chest pain, shortness breath, nausea, vomiting, fevers, chills. SUBJECTIVE: Patient is a 53 year old female appearing older than her stated age, laying in bed watching TV OBJECTIVE PHYSICAL EXAMINATION: VITAL SIGNS: Please see below. GENERAL: Irritable 53 yo female sitting up in bed awake alert oriented speaking in complete sentences no acute distress, she is upset her percocet was stopped HEENT: Moist mucous membranes, no JVD, EOMI CARDIOVASCULAR: S1 S2 regular no additional heart sounds appreciated RESPIRATORY: Clear to auscultation bilaterally, no rales, rhonchi or wheezing ABDOMINAL: Bowel sounds present abdomen soft and nontender, no distension, no hepatosplenomegaly, no masses appreciated, no rebound ridgity or guarding EXTREMITIES: No clubbing, cyanosis, but at least +1 pitting edema in b/l LE., b/l LE wrapped with DAFNE/Compression socks placed, stage 3 sacral decub. w/ wound vac in place NEUROLOGICAL: Spontaneously moves all 4 extremities, no deficits appreciated PSYCHOLOGICAL: Appropriate affect LABORATORY DATA, MICROBIOLOGY: Please see below. ASSESSMENT AND PLAN: This is a 33-year-old female who presented to the hospital for infected sacral decubitus ulcer. PROBLEMS: 1. Infected Stage 3 sacral decubitus ulcer - -currently with wound vac., s/p debridement with surgery -positive wound cx for ESBL Escherichia coli, enterococcus fealis, strep anginosus -present on admission to hospital -S/p IV vancomycin and Zosyn - c/w meropenem after cultures grew ESBL Escherichia coli, c/w Meropenem -Blood cultureno growth at 5 days -s/p bedside debridement x2 10/19 and 10/[address] Johnson from Gen. surgery. Ap preciate input-s/p OR for surgical wound debridement today with wound vac -c/w wound care nurse cx for b/l LE breakdown -CT r/o Osteo., according to ID, appreciate their help, she can be transitioned to PO abx possibly next week -Appreciate input by ID - MRI pelvis to rule out underlying osteomyelitis this AM showed very limited examination demonstrating minimal degenerative change. CT of the pelvis was recommended for further evaluation.patient refused the MRI testing 10/[address] ab/pelvis 6.09.08, when she agreed to have imaging, results showed Significant diffuse superficial soft tissue edema. Mild free fluid in the pelvis. Sacral decubitus ulcers with no definite abscess collection in that region. No definite underlying osteomyelitis of the sacrum or coccyx performed 10.25.18 -Midline was placed in LUE 10/19/18 -prn [facility] for pain control -pt stated she was miserable without percocet as discussed above 2.Persistent hypotension: -85/52 today -EF was 65% with elevated CVP -A.m. cortisol appears relatively low; cosyntropin stimulation test showed appropriate increase in cortisol levels -Third spacing related to her severe hypoalbuminemia -Hold on dobutamine/pressors/Midodrine in setting of her recent KS -low albumin could be due to liver etiology, AFP WNL, her ast/alt and coags are without abnormality -CT ab/pelvis with results as outlined above -Liver ultrasound shows possible early cirrhosis - Have started workup for autoimmune cirrhosis, discussed w patient and daughter these results wont be available for quite a few days, they will likely have to be followed up outpt -torsemide being held, c/w aldactone, Na now 143, she was eating a big breakfast on exam today 3. Bilateral lower extremity edema -likely secondary to severe protein malnutrition/hypoalbuminemia which was present on admission - possibly 2/2 cirrhosis -wound care nurse cx -Hypotension limits use of torsemide at this time unfortunately -Echocardiogram - EF 65% -Case was also discussed with Dr. Cruz from cardiology - appreciate input. -Dietitian was consulted in setting of significant hypoalbuminemia - patient is currently on Ensure shakes. Patient is also quite noncompliant with any dietary restrictions -Discussed with Dr. Cruz regarding perhaps trying IV albumin with LasixDoes not think IV albumin would help as much. He thinks this is nutritional related to her gastric bypass surgery and malabsorption from the same - Recommend outpatient referral to bariatric clinic for further evaluation. - c/w Torsemide for now, tolerating it well; c/w Spironolactone; all with hold parameters 4.Diabetes mellitus type 2 - complicated by diabetic foot infections requiring previous toe amputations with necrotic areas over left third and right first toe: -c/w SSI -Fingersticks are controlled -Pt was seen by Dr. Coe from podiatryappreciate input. Outpatient follow-up with podiatry on discharge. -Patient refused to comply with carbohydrate controlled dietcurrently on low-so dium diet -U/A was suspicious for UTI., however pt has not ever complained of dysuria 5. History of ACS -in light of recent KS., c/w Atorvastatin 40 mg daily, high intensity -no chest pain on physical examination -cardiology input appreciated 6. HIV: -Continue home medications -Viral count and CD4 show adherence to medications -ID consulted, appreciate their help 6. COPD/asthma in setting of history of nicotine dependence - not in exacerbation: -Counseled previously regarding quitting smoking 7. Hypokalemia: -4.1 today 8. Anemia: -Hemoglobin 9.2/30.6, stable at this time -s/p 1 u pRBC 10/20/18 -FOBT was ordered - patient hasn't been able to provide a stool sample -will follow up this 9. Hypomagnesemia: -Resolved, 1.8 today, she will likely needs supplementation on dc 10. DVT prophylaxis: -Enoxaparin DISPOSITION: CT ab/pelvis did not demonstrate Osteo., she is s/p wound debridem ent with Dr Johnson, and wound vac placement, she can begin PO abx., we will leave her Roxycodone, it was extensively discussed with patient need to stop use of tylenol products in light of liver dysfunction, unfortunately she was not very receptive to this. We will leave the medications for pain as is., can consider tramadol but the patient states she's had it in the past and it never worked for her. There is a high suspected element of pain medication dependence at this point, rather unfortunately. We are awaiting a rehab bed opening up, she would like to be in [facility] closer to family. VS,Fishbone, I+O VS, Fishbone, I+O Laboratory Tests 10/27/18 06:10 Red Blood Count 3.30 L, Mean Corpuscular Volume 92.7, Mean Corpuscular Hemoglobin 27.9, Mean Corpuscular Hemoglobin Concent 30.1 L, Red Cell Distribution Width 18.8 H, Neutrophils (%) (Auto) 61.3, Lymphocytes (%) (Auto) 25.4, Monocytes (%) (Auto) 9.2 H, Eosinophils (%) (Auto) 1.0, Basophils (%) (Auto) 0.8, Neutrophils # (Auto) 2.9, Lymphocytes # (Auto) 1.2 L, Monocytes # (Auto) 0.4, Eosinophils # (Auto) 0.1, Basophils # (Auto) 0.0, Calcium Level 8.3 L, Aspartate Amino Transf (AST/SGOT) 24, Alanine Aminotransferase (ALT/SGPT) 21, Alkaline Phosphatase 70, Total Bilirubin 0.2, Total Protein 5.5 L, Albumin 1.6 L Vital Signs Date Time Temp Pulse Resp B/P (MAP) Pulse Ox O2 Delivery O2 Flow Rate FiO2 10/27/18 09:31 18 10/27/18 06:00 95.0 72 85/52 (63) 95 I&O- Last 24 Hours up to 6 AM 10/27/18 06:00 Intake Total 2820 ml Output Total 0 ml Balance 2820 ml GME ATTESTATION GME ATTESTATION My faculty preceptor for this patient encounter was physically present during the encounter and was fully available. All aspects of the patient interview, examination, medical decision making process, and medical care plan development were reviewed and approved by the faculty preceptor. The faculty preceptor is aware and concurs with the plan as stated in the body of this note and will attest to such by his/her cosignature. ATTENDING NOTE I, Lorene Hernandez, have both independently examined this patient as well as reviewed the documentation. I have discussed in detail with the resident the findings and plan of treatment as documented by the resident. I agree with their findings and treatment plan. I will continue to follow the patient and offer further guidance to the patients care as necessary during this hospital stay. CAYDEN LAROSE DO Oct 27, 2018 11:43 LORENE HERNANDEZ MD Oct 27, 2018 14:04
--- NOTE | 2018-10-27 12:41 | RO ---
DATE OF PROCEDURE: 10/26/2018 PREOPERATIVE DIAGNOSIS: Infected sacral decubitus. POSTOPERATIVE DIAGNOSIS: Infected sacral decubitus. PROCEDURE PERFORMED: Debridement of sacral decubitus with placement of a vacuum assisted closure dressing. SURGEON: Dr. Get Johnson CONTROLLER MECHANIC: ANESTHESIA: Monitored anesthesia care. INDICATIONS FOR PROCEDURE: The patient is a 53-year-old woman who presented to the hospital with evidence for infection of a decubitus ulcer of the sacral area. Her wound was opened up and some necrotic skin was removed at the end of last week. She has had persistent drainage from the wound. She is now for debridement and placement of a wound Vac. OPERATIVE PROCEDURE: The patient was brought to the operating room and placed supine on the operating table. She received sedation from anesthesia. The patient's lower back and upper buttocks were prepped and draped in a sterile fashion. Examination showed an approximately 3-3.5 cm maximally oval open wound over the sacral area along the midline. Inspection showed that there was some small amount of necrotic fascia deep to the open portion of the wound. By palpation, it was clear that the open wound beneath the skin extended approximately 5 cm to the right, 6 cm superiorly and at least 2 cm on all sides. In order to do better expose the tissue for debridement and simplify wound care, excision of the lateral and superior wound edges was performed using the regular cautery. This opened the skin opening to approximately 7-1/2 cm in length x 5-1/2 cm in width. This significantly reduced the overhang on all sides. Some nonviable fascia in the central portion of the wound was excised sharply with scissors. Much of the periphery of the wound was lined by what appeared to be muscle tissue that was viable. There was still an open area that extended approximately 4 cm beneath the skin to the right. A second area that did not extend quite so far beneath was in the right anterior position. Hemostasis was ensured with electrocautery. The wound was then dressed with a wound Vac. First two small portions of black foam were inserted into the two most distantly undermined sections of the wound. A central piece of foam was then cut and placed within the wound. A large occlusive dressing was placed over this after preparing the skin was some Mastisol. An opening was created into the foam within the wound. A bridge of foam was then placed to carry this across the first layer of the occlusive dressing to place the suction port slightly over or above the left posterior superior iliac spine. This bridge was placed and the second occlusive dressing was placed on top. A small opening was made at the end of the bridge and the suction port was attached. The dressing was connected to the suction canister and suction was applied. There was excellent compression of the dressing with minimal air leak. The patient tolerated the procedure well without apparent complication. She was allowed to awaken and was transported to the recovery room in stable condition.
[2018-10-27 14:00] VITALS: BP 99/68
[2018-10-27] MEDS ORDERED: MORPHINE 4 MG/ML 1ML VIAL/SYRINGE (J2270) IV ONE ×2 (14:30)
--- NOTE | 2018-10-27 18:11 | IPN ---
DATE: 10/27/2018 INFECTIOUS DISEASE PROGRESS NOTE SUBJECTIVE: Patient examined at bedside. Continues to complain of pain around the site of her sacral decubitus ulcer. Wound VAC is in place with drainage of a good amount of blood. Wound VAC was changed today. No fevers, chills, nausea, vomiting. She continues on intravenous (IV) meropenem. C-reactive protein (CRP) is trending down. Overall, seems to be doing well after wound was debrided in the operating room (OR) two days ago. PHYSICAL EXAMINATION: VITAL SIGNS: Temperature 98.0, pulse 87, blood pressure 85/52, mean arterial pressure (MAP) of 64, respirations 18, pulse oximetry 91% on room air. GENERAL: Resting comfortably in bed in no acute distress. Alert and oriented times three. Fully conversant. HEENT: Normocephalic, atraumatic. Moist mucous membranes. Poor dentition. HEART: Regular rate and rhythm. Normal S1, S2 without appreciable murmurs. LUNGS: Clear bilaterally. No adventitious sounds. ABDOMEN: Soft, obese, nontender, nondistended. EXTREMITIES: 2-3+ pitting edema in all limbs. Anasarcic throughout. SKIN: Multiple ecchymosis bilateral arms. Wounds on bilateral lower extremities appear to be well-granulated, healing well, without any active purulent drainage. Two wounds on the right lower extremity, one wound on the left lower extremity. Sacral decubitus ulcer wound VAC was changed today, approximately 1 cm deep wound that is 6 x 5 cm circular. Also has good granulation tissue without any purulent drainage. LABORATORY STUDIES: WBC 4.8, hemoglobin and hematocrit (H and H) 9.2 and 30.6, platelets 167. Sodium and potassium 143 and 4.1, BUN and creatinine 18 and 0.38. CRP 1.12. Albumin 1.6. IMPRESSION AND PLAN: 1. For her infected sacral decubitus ulcer that has grown extended-spectrum beta-lactamases (ESBL) Escherichia (E) coli, Enterococcus faecalis and Streptococcus anginosus, continue on IV meropenem. Tolerating well without any adverse reactions. Meropenem was started on 10/20/2018. Currently on day #8. Given that she just had her wound debrided in the OR 2 days ago, continue IV antibiotics throughout the weekend. On Tuesday, will consider switching to oral antibiotics. Given her sensitivities, Bactrim DS twice a day, along with amoxicillin 875 mg twice a day will suffice. Continue wound dressing changes per her regular schedule, being Tuesday, Tuesday and Tuesday. She is currently in the process of planning for skilled nursing rehabilitation. CRP trending down. Clinically doing well. 2. Liver cirrhosis. This appears to be a new finding during this admission, given her anasarcic appearance and hypoalbuminemia and hypotension. A FIBROSpect testing revealed F3-F4 fibrosis. This is reviewed with the patient and explained regarding her current clinical condition. She denies any alcohol or drug usage. Suspicion is high for her underlying etiology being nonalcoholic steatohepatitis (LUGO). Although currently, her transaminases are within normal, prior to her gastric bypass in 2013, she had persistently elevated transaminases. And patient does endorse 40 pound weight gain since her recent myocardial infarction (DC) as well. Currently, labs are ordered to further workup underlying cause of cirrhosis. She will require outpatient gastroenterology (GI) followup and close monitoring. Plan of care relayed to pt and Primary team. DEE
[2018-10-27] MEDS: ENOXAPARIN 40 MG/0.4 ML SYRINGE (J1650) SC SCH (20:50)
[2018-10-27] MEDS: ATORVASTATIN 20 MG TAB PO SCH (20:51)
[2018-10-27 22:00] VITALS: BP 109/72
[2018-10-28] MEDS: oxyCODONE 5MG TAB PO PRN ×3 (04:30→19:49)
[2018-10-28] MEDS: MEROPENEM INJ 1 GM in APPROPRIATE DILUENT 1 EA IV SCH ×3 (04:30→22:08)
[2018-10-28] MEDS: SODIUM CHLORIDE 0.9% INJ 10 ML SYR IV SCH ×2 (05:15→19:02)
[2018-10-28 06:00] VITALS: BP 102/58
[2018-10-28] MEDS: HumaLOG INSULIN (NovoLOG) PER UNIT SC SCH ×4 (07:30→21:00)
[2018-10-28 07:31] LABS: BASO # 0.1 10^3/uL (0.0-0.2); BASO % 1.1 % (0.0-1.0); EOS # 0.1 10^3/uL (0.0-0.50); EOS % 1.1 % (0.0-3.0); HEMATOCRIT 28.5 % (36.0-47.0); HEMOGLOBIN 8.5 g/dl (12.0-15.5); LYMPH # 1.3 10^3/uL (1.5-4.5); LYMPH % 28.7 % (24.0-44.0); MEAN CORPUSCULAR HEMOGLOBIN 27.7 pg (27.0-33.0); MEAN CORPUSCULAR HGB CONC 29.8 g/dl (32.0-36.5); MEAN CORPUSCULAR VOLUME 92.8 fl (80.0-96.0); MONO # 0.5 10^3/uL (0.0-0.8); MONO % 9.9 % (0.0-5.0); NEUTROPHILS # 2.6 10^3/uL (1.8-7.7); NEUTROPHILS % 56.3 % (36.0-66.0); PLATELET COUNT, AUTOMATED 154 10^3/uL (150-450); RED BLOOD COUNT 3.07 10^6/uL (4.00-5.40); WHITE BLOOD COUNT 4.5 10^3/uL (4.0-10.0)
[2018-10-28 07:53] LABS: ALBUMIN 1.6 GM/DL (3.2-5.2); ALT/SGPT 23 U/L (12-78); BILIRUBIN,TOTAL 0.2 MG/DL (0.2-1.0); BLOOD UREA NITROGEN 18 MG/DL (7-18); CALCIUM LEVEL 7.8 MG/DL (8.5-10.1); CARBON DIOXIDE LEVEL 30 MEQ/L (21-32); CHLORIDE LEVEL 110 MEQ/L (98-107); CREATININE FOR GFR 0.39 MG/DL (0.55-1.30); GLOMERULAR FILTRATION RATE > 60.0 (>51); GLUCOSE, FASTING 83 MG/DL (70-100); POTASSIUM SERUM 4.6 MEQ/L (3.5-5.1); SODIUM LEVEL 143 MEQ/L (136-145); TOTAL PROTEIN 5.6 GM/DL (6.4-8.2)
[2018-10-28] MEDS ORDERED: MORPHINE 4 MG/ML 1ML VIAL/SYRINGE (J2270) IV ONE (08:00)
[2018-10-28] MEDS ORDERED: MORPHINE 4 MG/ML 1ML VIAL/SYRINGE (J2270) IV STA (08:07)
[2018-10-28] MEDS: PREZISTA 800 MG PO SCH (09:05)
[2018-10-28] MEDS: SUCRALFATE SUSP 1GM/10ML UD PO SCH ×4 (09:05→22:11)
[2018-10-28] MEDS: GENVOYA PO SCH (09:05)
[2018-10-28] MEDS: PREGABALIN 100 MG CAP (LYRICA) PO SCH ×2 (09:06→22:11)
[2018-10-28] MEDS: POTASSIUM CHLORIDE 10 MEQ SR TABLET PO SCH (09:06)
[2018-10-28] MEDS: CLOPIDOGREL 75 MG TAB PO SCH (09:06)
[2018-10-28] MEDS: ASPIRIN 81 MG ENTERIC TAB PO SCH (09:06)
[2018-10-28] MEDS: MAGNESIUM OXIDE 400 MG TAB (MAG-OX) PO SCH (09:06)
[2018-10-28] MEDS: SPIRONOLACTONE 12.5MG PER 1/2 TABLET PO SCH (09:06)
[2018-10-28] MEDS: PANTOPRAZOLE 40MG TAB (PROTONIX) PO SCH (09:07)
[2018-10-28] MEDS: VITAMIN D 1,000 INTERNATIONAL UNITS TABLET PO SCH (09:07)
[2018-10-28] MEDS: MORPHINE 15 MG SA TAB PO SCH ×2 (09:07→22:10)
[2018-10-28] MEDS: NYSTATIN 100,000 UNITS/GM TOPICAL PWD 15 GM TOP SCH ×2 (09:08→22:09)
[2018-10-28] MEDS: EUCERIN 120GM CREAM TOP SCH ×2 (09:08→22:09)
[2018-10-28 09:17] VITALS: BP 111/61
--- NOTE | 2018-10-28 13:58 | IPNPDOC ---
Text Note Date of Service The patient was seen on 10/28/18. NOTE Ms. Dhillon is seen on bedside rounds, she is having her sacral decub. dressing changed by nursing staff, apparently she has blood clots coming from he sacral decub, general surgeon was just in and cauterized the base to stop this bleeding, wound vac dressing is being changed. She is in discomfort from this in that area. She is s/p surgery two days ago Dr Johnson for her sacral decub. She feels well but admits to continued pain in the area, although she seems more comfortable one exam. Otherwise patient denies chest pain, shortness breath, nausea, vomiting, fevers, chills. SUBJECTIVE: Patient is a 53 year old female appearing older than her stated age, laying in bed watching TV OBJECTIVE PHYSICAL EXAMINATION: VITAL SIGNS: Please see below. GENERAL: 53 yo female sitting up in bed awake alert oriented speaking in complete sentences no acute distress HEENT: Moist mucous membranes, no JVD, EOMI CARDIOVASCULAR: S1 S2 regular no additional heart sounds appreciated RESPIRATORY: Clear to auscultation bilaterally, no rales, rhonchi or wheezing ABDOMINAL: Bowel sounds present abdomen soft and nontender, no distension, no hepatosplenomegaly, no masses appreciated, no rebound ridgity or guarding EXTREMITIES: No clubbing, cyanosis, but at least +1 pitting edema in b/l LE., b/l LE wrapped with DAFNE/Compression socks placed, stage 3 sacral decub. recently s/p debridement and enlargement for wound vac placement, clean, area of shallow cauterization at inferior lateral left edge, no longer bleeding, bed demonstrates healthy granulation tissue NEUROLOGICAL: Spontaneously moves all 4 extremities, no deficits appreciated PSYCHOLOGICAL: Appropriate affect LABORATORY DATA, MICROBIOLOGY: Please see below. ASSESSMENT AND PLAN: This is a 33-year-old female who presented to the hospital for infected sacral decubitus ulcer. PROBLEMS: 1. Infected Stage 3 sacral decubitus ulcer - -currently with wound vac., s/p debridement with surgery -positive wound cx for ESBL Escherichia coli, enterococcus fealis, strep anginosus -present on admission to hospital -S/p IV vancomycin and Zosyn - c/w meropenem after cultures grew ESBL Escherichia coli, c/w Meropenem day #9 -Blood cultureno growth at 5 days -s/p bedside debridement x2 10/19 and 10/[address] Johnson from Gen. surgery. Appreciate input-s/p OR for surgical wound debridement -c/w wound care nurse cx for b/l LE breakdown -CT without any evidence of Osteo., according to ID, appreciate their help, she can be transitioned to PO abx according to ID., will leave mgmt to them -Appreciate input by ID - MRI pelvis to rule out underlying osteomyelitis this AM showed very limited examination demonstrating minimal degenerative change. CT of the pelvis was recommended for further evaluation.patient refused the MRI testing 10/[address] ab/pelvis 10.24.18, when she agreed to have imaging, results showed Significant diffuse superficial soft tissue edema. Mild free fluid in the pelvis. Sacral decubitus ulcers with no definite abscess collection in that region. No definite underlying osteomyelitis of the sacrum or coccyx performed 10.25.18 -Midline was placed in LUE 10/19/18 -prn [place] for pain control 2.Persistent hypotension: -111/61 improved today -EF was 65% with elevated CVP -A.m. cortisol appears relatively low; cosyntropin stimulation test showed appropriate increase in cortisol levels -Third spacing related to her severe hypoalbuminemia -Hold on dobutamine/pressors/Midodrine in setting of her recent CT -low albumin could be due to liver etiology, AFP WNL, her ast/alt and coags are without abnormality -CT ab/pelvis with results as outlined above -Liver ultrasound shows possible early cirrhosis - Have started workup for autoimmune cirrhosis, discussed w patient and daughter these results wont be available for quite a few days, they will likely have to be followed up outpt -torsemide being held, c/w aldactone, Na now 143, tolerating oral intake 3. Bilateral lower extremity edema -likely secondary to severe protein malnutrition/hypoalbuminemia which was present on admission - possibly 2/2 cirrhosis -wound care nurse cx -Echocardiogram - EF 65% -Case was also discussed with Dr. Cruz from cardiology - appreciate input. -Dietitian was consulted in setting of significant hypoalbuminemia - patient is currently on Ensure shakes. Patient is also quite noncompliant with any dietary restrictions -Discussed with Dr. Cruz regarding perhaps trying IV albumin with LasixDoes not think IV albumin would help as much. He thinks this is nutritional related to her gastric bypass surgery and malabsorption from the same - Recommend outpatient referral to bariatric clinic for further evaluation. - Torsemide on hold now for soft BP, can consider restarting if BP stabilizes longer 4.Diabetes mellitus type 2 - complicated by diabetic foot infections requiring previous toe amputations with necrotic areas over left third and right first toe: -c/w SSI -Fingersticks are controlled -Pt was seen by Dr. Coe from podiatryappreciate input. Outpatient follow-up with podiatry on discharge. -Patient refused to comply with carbohydrate controlled dietcurrently on low- sodium diet -U/A was suspicious for UTI., however pt has not ever complained of dysuria 5. History of ACS -in light of recent CT., c/w Atorvastatin 40 mg daily, high intensity -no chest pain on physical examination -cardiology input appreciated 6. HIV: -Continue home medications -Viral count and CD4 show adherence to medications -ID consulted, appreciate their help 6. COPD/asthma in setting of history of nicotine dependence - not in exacerbation: -Counseled previously regarding quitting smoking 7. Hypokalemia: -4.6 today, resolved 8. Anemia: -Hemoglobin 8.5/28.5, stable at this time -s/p 1 u pRBC 10/20/18 -iron studies pending, FOBT pending 9. Hypomagnesemia: -Resolved 10. DVT prophylaxis: -Enoxaparin DISPOSITION: CT ab/pelvis did not demonstrate Osteo., she is s/p wound debridement with Dr Johnson, and wound vac placement, she can begin PO abx. according to ID. We are awaiting a rehab bed opening up, she would like to be in [facility] closer to family. Iron studies and FOBT pending for her anemia. VS,Fishbone, I+O VS, Fishbone, I+O Laboratory Tests 10/28/18 07:14 Red Blood Count 3.07 L, Mean Corpuscular Volume 92.8, Mean Corpuscular Hemoglobin 27.7, Mean Corpuscular Hemoglobin Concent 29.8 L, Red Cell Distribution Width 18.8 H, Neutrophils (%) (Auto) 56.3, Lymphocytes (%) (Auto) 28.7, Monocytes (%) (Auto) 9.9 H, Eosinophils (%) (Auto) 1.1, Basophils (%) (Auto) 1.1 H, Neutrophils # (Auto) 2.6, Lymphocytes # (Auto) 1.3 L, Monocytes # (Auto) 0.5, Eosinophils # (Auto) 0.1, Basophils # (Auto) 0.1, Calcium Level 7.8 L, Aspartate Amino Transf (AST/SGOT) 27, Alanine Aminotransferase (ALT/SGPT) 23, Alkaline Phosphatase 71, Total Bilirubin 0.2, Total Protein 5.6 L, Albumin 1.6 L Vital Signs Date Time Temp Pulse Resp B/P (MAP) Pulse Ox O2 Delivery O2 Flow Rate FiO2 10/28/18 13:17 20 10/28/18 09:17 111/61 (78) 10/28/18 06:00 97.1 83 97 I&O- Last 24 Hours up to 6 AM 10/28/18 06:00 Intake Total 1500 ml Output Total 250 ml Balance 1250 ml GME ATTESTATION GME ATTESTATION My faculty preceptor for this patient encounter was physically present during the encounter and was fully available. All aspects of the patient interview, examination, medical decision making process, and medical care plan development were reviewed and approved by the faculty preceptor. The faculty preceptor is aware and concurs with the plan as stated in the body of this note and will attest to such by his/her cosignature. ATTENDING NOTE I, Lorene Hernandez, have both independently examined this patient as well as reviewed the documentation. I have discussed in detail with the resident the findings and plan of treatment as documented by the resident. I agree with their findings and treatment plan. I will continue to follow the patient and offer further guidance to the patients care as necessary during this hospital stay. CAYDEN LAROSE DO Oct 28, 2018 13:57 LORENE HERNANDEZ MD Oct 28, 2018 14:49
[2018-10-28 14:00] VITALS: BP 106/62
[2018-10-28 14:58] LABS: FERRITIN 130 NG/ML (8-252); IRON (FE) 44 UG/DL (50-170); PERCENT SATURATION 20.6 % (13.2-45.0); TOTAL IRON BINDING CAPACITY 214 UG/DL (250-450)
[2018-10-28 22:00] VITALS: BP 101/62
[2018-10-28] MEDS: ENOXAPARIN 40 MG/0.4 ML SYRINGE (J1650) SC SCH (22:08)
[2018-10-28] MEDS: ATORVASTATIN 20 MG TAB PO SCH (22:11)
[2018-10-29 00:06] LABS: ANTI DOUBLE STRAND-DNA AB <1 IU/mL (0-9); ANTI-MITOCHONDRIAL ANTIBODY <20.0 Units (0.0-20.0); ANTI-SMOOTH MUSCLE ANTIBODY 2 Units (0-19); ANTINUCLEAR ANTIBODIES DIRECT Positive (Negative); LIVER-KIDNEY MICROSOMAL ABY <20.1 Units (0.0-20.0); RNP ANTIBODIES 1.2 AI (0.0-0.9); SJOGREN'S ANTI SS-A <0.2 AI (0.0-0.9); SJOGREN'S ANTI SS-B <0.2 AI (0.0-0.9); SMITH ANTIBODIES <0.2 AI (0.0-0.9)
[2018-10-29] MEDS: oxyCODONE 5MG TAB PO PRN ×3 (03:41→23:03)
[2018-10-29 06:00] VITALS: BP 100/60
[2018-10-29] MEDS: MEROPENEM INJ 1 GM in APPROPRIATE DILUENT 1 EA IV SCH ×3 (06:20→21:11)
[2018-10-29] MEDS: SODIUM CHLORIDE 0.9% INJ 10 ML SYR IV SCH ×2 (06:20→17:47)
[2018-10-29 06:35] LABS: BASO % 0.9 % (0.0-1.0); EOS # 0.1 10^3/uL (0.0-0.50); EOS % 1.6 % (0.0-3.0); HEMATOCRIT 22.9 % (36.0-47.0); LYMPH # 1.3 10^3/uL (1.5-4.5); LYMPH % 39.7 % (24.0-44.0); MEAN CORPUSCULAR HEMOGLOBIN 27.2 pg (27.0-33.0); MEAN CORPUSCULAR HGB CONC 30.1 g/dl (32.0-36.5); MEAN CORPUSCULAR VOLUME 90.2 fl (80.0-96.0); MONO # 0.3 10^3/uL (0.0-0.8); MONO % 9.4 % (0.0-5.0); NEUTROPHILS # 1.5 10^3/uL (1.8-7.7); NEUTROPHILS % 46.2 % (36.0-66.0); PLATELET COUNT, AUTOMATED 131 10^3/uL (150-450); RED BLOOD COUNT 2.54 10^6/uL (4.00-5.40); WHITE BLOOD COUNT 3.2 10^3/uL (4.0-10.0)
[2018-10-29 06:37] LABS: HEMOGLOBIN 6.9 g/dl (12.0-15.5)
[2018-10-29 07:02] LABS: ALBUMIN 1.4 GM/DL (3.2-5.2); ALT/SGPT 27 U/L (12-78); BILIRUBIN,TOTAL 0.2 MG/DL (0.2-1.0); BLOOD UREA NITROGEN 16 MG/DL (7-18); CALCIUM LEVEL 7.7 MG/DL (8.5-10.1); CARBON DIOXIDE LEVEL 30 MEQ/L (21-32); CHLORIDE LEVEL 110 MEQ/L (98-107); CREATININE FOR GFR 0.36 MG/DL (0.55-1.30); GLOMERULAR FILTRATION RATE > 60.0 (>51); GLUCOSE, FASTING 76 MG/DL (70-100); MAGNESIUM LEVEL 1.8 MG/DL (1.8-2.4); POTASSIUM SERUM 4.5 MEQ/L (3.5-5.1); SODIUM LEVEL 143 MEQ/L (136-145); TOTAL PROTEIN 4.7 GM/DL (6.4-8.2)
[2018-10-29] MEDS: HumaLOG INSULIN (NovoLOG) PER UNIT SC SCH ×4 (07:30→21:00)
[2018-10-29] MEDS: VITAMIN D 1,000 INTERNATIONAL UNITS TABLET PO SCH (08:01)
[2018-10-29] MEDS: PREGABALIN 100 MG CAP (LYRICA) PO SCH ×2 (08:01→21:11)
[2018-10-29] MEDS: SUCRALFATE SUSP 1GM/10ML UD PO SCH ×4 (08:01→21:11)
[2018-10-29] MEDS: PREZISTA 800 MG PO SCH (08:01)
[2018-10-29] MEDS: GENVOYA PO SCH (08:01)
[2018-10-29] MEDS: POTASSIUM CHLORIDE 10 MEQ SR TABLET PO SCH (08:02)
[2018-10-29] MEDS: ASPIRIN 81 MG ENTERIC TAB PO SCH (08:02)
[2018-10-29] MEDS: SPIRONOLACTONE 12.5MG PER 1/2 TABLET PO SCH (08:02)
[2018-10-29] MEDS: MAGNESIUM OXIDE 400 MG TAB (MAG-OX) PO SCH (08:02)
[2018-10-29] MEDS: MORPHINE 15 MG SA TAB PO SCH ×2 (08:04→21:12)
[2018-10-29] MEDS: CLOPIDOGREL 75 MG TAB PO SCH (08:04)
[2018-10-29] MEDS: PANTOPRAZOLE 40MG TAB (PROTONIX) PO SCH (08:04)
[2018-10-29] MEDS: EUCERIN 120GM CREAM TOP SCH ×2 (08:06→21:00)
[2018-10-29] MEDS: NYSTATIN 100,000 UNITS/GM TOPICAL PWD 15 GM TOP SCH ×2 (08:06→21:13)
--- NOTE | 2018-10-29 14:03 | IPNPDOC ---
Text Note Date of Service The patient was seen on 10/29/18. NOTE Subjective: Patient was seen and examined at the bedside. Patient was seen sitting up on the side of her bed. She denies chest pain, shortness breath or palpitations. She reports her back is feeling slightly better but reports pain with dressing changes. Denies abdominal pain. Denies nausea, vomiting, constipation, diarrhea. Patient still reports lower extremity swelling. Objective: Vitals (See below) General: Lying in bed, no acute distress, comfortable, AAOx3 HEENT: NC, AT CVS: RRR, +S1S2 Lungs: Fair air entry b/l, -w/r/r Abdomen: Soft, ND, NT Back: Sacral decubitus ulcer with dressing / packing in place, s/p Wound vac Extremities: 2+ pitting edema, bilateral legs in dressing, - Calf tenderness Assessment and plan: Infection of Stage 3 Decubitus Ulcer - s/p Debridement and Wound Vac placement with Dr. Johnson on 10/26 - Wound vac discontinued on 10/28 secondary to bleeding - Wound culture 10/18: E. Coli ESBL / Enterococcus Faecalis / Strep Anginosis - Imaging without evidence of osteomyelitis - c/w Meropenem; s/p Vancomycin and Zosyn - ID and General surgery on consult - c/w Wound care; will likely need wound vac placed again - c/w Pain control Chronic hypotension / Bilateral LE edema - possibly 2/2 cirrhosis, unlikely 2/2 cardiac etiology - Clinically has had improvement in blood pressure - Remains asymptomatic - Physical with signs of gross fluid overload - Autoimmune hepatitis workup pending - Patient has recently had a fibroscan that has revealed evidence of Cirrhosis - Avoid Midodrine in the setting of a recent [place] - c/w Torsemide and Spironolactone with holding parameters Bilateral LE Edema -likely secondary to severe protein malnutrition/hypoalbuminemia which was p resent on admission - possibly 2/2 cirrhosis -wound care nurse cx -Echocardiogram - EF 65% -Case was also discussed with Dr. Cruz from cardiology - appreciate input. -Dietitian was consulted in setting of significant hypoalbuminemia - patient is currently on Ensure shakes. Patient is also quite noncompliant with any dietary restrictions -Discussed with Dr. Cruz regarding perhaps trying IV albumin with LasixDoes not think IV albumin would help as much. He thinks this is nutritional related t o her gastric bypass surgery and malabsorption from the same - Recommend outpatient referral to bariatric clinic for further evaluation. - Torsemide on hold now for soft BP, can consider restarting if BP stabilizes longer NIDDM2 - c/w ISS Hx of [place] - Currently has no symptoms; denies any CP, SOB or palpitations - ECHO 10/18: EF of 65%, Normal diastolic function, mild AV sclerosis, mild AR, no pericardial effusion - c/w Atorvastatin, ASA 81, Plavix - c/w Nitroglycerin PRN - Cardiology was consulted initially Hx of PVD - c/w Atorvastatin, ASA 81, Plavix HIV - Viral count / CD4 followed by Dr. Arroyo - c/w current antiretroviral therapy as per infectious disease COPD / Asthma - No evidence of exacerbation - c/w Inhaled therapy as ordered Nicotine dependence - Advised smoking cessation Acute blood loss anemia - likely 2/2 bleeding from decubitus ulcer - Iron panel consistent with anemia / AOCD - s/p Cauterization - s/p 1 unit PRBC on 10/20; Will get 2 units PRBC today s/p Hypokalemia s/p Hypomagnesemia GERD - c/w Protonix / Sucralfate DVT prophylaxis - c/w Lovenox VS,Fishbone, I+O VS, Fishbone, I+O Laboratory Tests 10/29/18 06:03 Red Blood Count 2.54 L, Mean Corpuscular Volume 90.2, Mean Corpuscular Hemoglobin 27.2, Mean Corpuscular Hemoglobin Concent 30.1 L, Red Cell Distribution Width 19.0 H, Neutrophils (%) (Auto) 46.2, Lymphocytes (%) (Auto) 39.7, Monocytes (%) (Auto) 9.4 H, Eosinophils (%) (Auto) 1.6, Basophils (%) (Auto) 0.9, Neutrophils # (Auto) 1.5 L, Lymphocytes # (Auto) 1.3 L, Monocytes # (Auto) 0.3, Eosinophils # (Auto) 0.1, Basophils # (Auto) 0.0, Calcium Level 7.7 L, Aspartate Amino Transf (AST/SGOT) 40 H, Alanine Aminotransferase (ALT/SGPT) 27, Alkaline Phosphatase 56, Total Bilirubin 0.2, Total Protein 4.7 L, Albumin 1.4 L Vital Signs Date Time Temp Pulse Resp B/P (MAP) Pulse Ox O2 Delivery O2 Flow Rate FiO2 10/29/18 12:15 18 10/29/18 06:00 97.6 79 100/60 (73) 100 I&O- Last 24 Hours up to 6 AM 10/29/18 06:00 Intake Total 1650 ml Output Total 600 ml Balance 1050 ml MIRANDA ANTON MD Oct 29, 2018 14:03
[2018-10-29] MEDS ORDERED: MORPHINE 4 MG/ML 1ML VIAL/SYRINGE (J2270) IV ONE (15:30)
[2018-10-29] MEDS: ATORVASTATIN 20 MG TAB PO SCH (21:11)
[2018-10-29] MEDS: ENOXAPARIN 40 MG/0.4 ML SYRINGE (J1650) SC SCH (21:11)
[2018-10-29 22:00] VITALS: BP 95/57
[2018-10-30] MEDS: oxyCODONE 5MG TAB PO PRN ×3 (05:14→17:59)
[2018-10-30] MEDS: MEROPENEM INJ 1 GM in APPROPRIATE DILUENT 1 EA IV SCH ×2 (05:15→12:15)
[2018-10-30] MEDS: SODIUM CHLORIDE 0.9% INJ 10 ML SYR IV SCH ×2 (05:15→17:58)
[2018-10-30 06:00] VITALS: BP 105/78
[2018-10-30 06:16] LABS: BASO # 0.1 10^3/uL (0.0-0.2); BASO % 1.4 % (0.0-1.0); EOS # 0.1 10^3/uL (0.0-0.50); EOS % 2.8 % (0.0-3.0); HEMATOCRIT 28.6 % (36.0-47.0); LYMPH # 1.4 10^3/uL (1.5-4.5); LYMPH % 38.7 % (24.0-44.0); MEAN CORPUSCULAR HEMOGLOBIN 28.7 pg (27.0-33.0); MEAN CORPUSCULAR HGB CONC 31.5 g/dl (32.0-36.5); MEAN CORPUSCULAR VOLUME 91.1 fl (80.0-96.0); MONO # 0.3 10^3/uL (0.0-0.8); MONO % 9.1 % (0.0-5.0); NEUTROPHILS # 1.6 10^3/uL (1.8-7.7); NEUTROPHILS % 44.9 % (36.0-66.0); PLATELET COUNT, AUTOMATED 135 10^3/uL (150-450); RED BLOOD COUNT 3.14 10^6/uL (4.00-5.40); WHITE BLOOD COUNT 3.5 10^3/uL (4.0-10.0)
[2018-10-30 06:47] LABS: ALBUMIN 1.5 GM/DL (3.2-5.2); ALT/SGPT 27 U/L (12-78); BILIRUBIN,TOTAL 0.3 MG/DL (0.2-1.0); BLOOD UREA NITROGEN 15 MG/DL (7-18); CALCIUM LEVEL 7.7 MG/DL (8.5-10.1); CARBON DIOXIDE LEVEL 28 MEQ/L (21-32); CHLORIDE LEVEL 109 MEQ/L (98-107); CREATININE FOR GFR 0.29 MG/DL (0.55-1.30); GLOMERULAR FILTRATION RATE > 60.0 (>51); GLUCOSE, FASTING 72 MG/DL (70-100); MAGNESIUM LEVEL 1.9 MG/DL (1.8-2.4); POTASSIUM SERUM 4.5 MEQ/L (3.5-5.1); SODIUM LEVEL 141 MEQ/L (136-145); TOTAL PROTEIN 4.7 GM/DL (6.4-8.2)
[2018-10-30] MEDS: HumaLOG INSULIN (NovoLOG) PER UNIT SC SCH (07:30)
[2018-10-30] MEDS: SUCRALFATE SUSP 1GM/10ML UD PO SCH ×4 (08:34→20:10)
[2018-10-30] MEDS: ASPIRIN 81 MG ENTERIC TAB PO SCH (08:35)
[2018-10-30] MEDS: CLOPIDOGREL 75 MG TAB PO SCH (08:35)
[2018-10-30] MEDS: PREGABALIN 100 MG CAP (LYRICA) PO SCH ×2 (08:35→20:10)
[2018-10-30] MEDS: POTASSIUM CHLORIDE 10 MEQ SR TABLET PO SCH (08:35)
[2018-10-30] MEDS: SPIRONOLACTONE 12.5MG PER 1/2 TABLET PO SCH (08:35)
[2018-10-30] MEDS: VITAMIN D 1,000 INTERNATIONAL UNITS TABLET PO SCH (08:35)
[2018-10-30] MEDS: PANTOPRAZOLE 40MG TAB (PROTONIX) PO SCH (08:35)
[2018-10-30] MEDS: MORPHINE 15 MG SA TAB PO SCH ×2 (08:36→20:11)
[2018-10-30] MEDS: PREZISTA 800 MG PO SCH (08:37)
[2018-10-30] MEDS: GENVOYA PO SCH (08:37)
[2018-10-30] MEDS: MAGNESIUM OXIDE 400 MG TAB (MAG-OX) PO SCH (08:37)
[2018-10-30] MEDS: EUCERIN 120GM CREAM TOP SCH ×2 (08:38→20:11)
[2018-10-30] MEDS: NYSTATIN 100,000 UNITS/GM TOPICAL PWD 15 GM TOP SCH ×2 (08:38→20:11)
--- NOTE | 2018-10-30 11:34 | IPNPDOC ---
Date Seen The patient was seen on 10/30/18. Progress Note SUBJECTIVE: The patient is a 52-year-old female who was sent over as a direct admission from Dr. Arroyo's office for concerns regarding infected sacral decubitus ulcer. Patient is seen on bedside rounds this morning reporting no change in the sharp pain over her sacrum and lower back where she is s/p debridement of sacral decub and wound vac placement. She states that she is unable to lay flat on her back due to the pain and reports that this has made sleeping difficult. Patient requests more pain medication. Patient otherwise denies cp, sob, fever, chills, nausea, and vomiting. OBJECTIVE PHYSICAL EXAMINATION: VITAL SIGNS: Please see below. GENERAL: Patient is laying in bed and reports pain over her sacrum and lower back that prohibits her from laying flat on her back. She states that she is in pain and requests pain medication. Otherwise patient denies chest pain, shortness of breath, nausea, vomiting, fever, chills. She is awake, alert, oriented speaking in complete sentences in no acute distress. HEENT: Moist mucous membranes, EOMI CARDIOVASCULAR: S1 S2 regular no additional heart sounds appreciated RESPIRATORY: Clear to auscultation bilaterally, no wheezing, rales or rhonchi appreciated ABDOMINAL: Bowel sounds present x4 abdomen soft and nontender to light or deep palpation, no rebound, rigidity, or guarding, no hepatosplenomegaly or masses appreciated EXTREMITIES: No clubbing cyanosis, b/l le are wrapped, they both exhibit +2 pitting edema to level of th eknees NEUROLOGICAL: Spontaneously moves all 4 extremities, no focal deficits. PSYCHOLOGICAL: Appropriate affect Extremity: Site of sacral decub is currently covered, dressing is clean and intact, wound vac is not on on examination LABORATORY DATA, IMAGING STUDIES, MICROBIOLOGY: Please see below. DVT prophylaxis ordered?: Lovenox ASSESSMENT AND PLAN: This is a 52-year-old female who was sent over as a direct admission from Dr. Arroyo's office for concerns regarding infected sacral decubitus ulcer. PROBLEMS: Infection of Stage 3 Decubitus Ulcer - s/p Debridement and Wound Vac placement with Dr. Johnson on 10/26 - Wound vac discontinued on 10/28 secondary to bleeding - Wound culture 10/18: E. Coli ESBL / Enterococcus Faecalis / Strep Anginosis - Imaging without evidence of osteomyelitis - c/w Meropenem; s/p Vancomycin and Zosyn - ID and General surgery on consult - c/w Wound care; will have Wound vac re-placement today (10.30.18) - c/w Pain control Chronic hypotension / Bilateral LE edema - possibly 2/2 cirrhosis, unlikely 2/2 cardiac etiology - Clinically has had improvement in blood pressure - Remains asymptomatic - Physical with signs of gross fluid overload - Autoimmune hepatitis workup pending - Patient has recently had a fibroscan that has revealed evidence of Cirrhosis - Avoid Midodrine in the setting of a recent [place] - c/w Torsemide and Spironolactone with holding parameters -will increase torsemide today for bl LE edema, interestingly she has high BP measurements on b/l forearms vs - Will c/w b/l brachial placement of BP cuffs; likely an accurate reflection of BP NIDDM2 - c/w ISS Hx of [place] - Currently has no symptoms; denies any CP, SOB or palpitations - ECHO 10/18: EF of 65%, Normal diastolic function, mild AV sclerosis, mild AR, no pericardial effusion - c/w Atorvastatin, ASA 81, Plavix - c/w Nitroglycerin PRN - Cardiology was consulted initially Hx of PVD - c/w Atorvastatin, ASA 81, Plavix HIV - Viral count / CD4 followed by Dr. Arroyo - c/w current antiretroviral therapy as per infectious disease COPD / Asthma - No evidence of exacerbation - c/w Inhaled therapy as ordered Nicotine dependence - Advised smoking cessation Acute blood loss anemia - likely 2/2 bleeding from decubitus ulcer - Iron panel consistent with low iron - s/p Cauterization of sacral decub., bedside with general surgery - s/p 1 unit PRBC on 10/20; Will get 2 units PRBC today s/p Hypokalemia s/p Hypomagnesemia GERD - c/w Protonix / Sucralfate DVT prophylaxis - c/w Lovenox DISPOSITION: Patient has continued sacrum and lower back pain 2/2 to acute sacral decubitus ulcer. Patient is requesting medication to manage the pain. Consider wound vac placement today. CT ab/pelvis did not demonstrate Osteo., she is s/p wound debridement with Dr Johnson, and wound vac placement which was discontinued 6.8. We are awaiting a rehab bed opening up, she would like to be in [facility] closer to family. VS, I&O, 24H, [facility] Vital Signs/I&O Vital Signs Date Time Temp Pulse Resp B/P (MAP) Pulse Ox O2 Delivery O2 Flow Rate FiO2 10/30/18 08:36 18 10/30/18 06:00 97.2 76 105/78 (87) 99 I&O- Last 24 Hours up to 6 AM 10/30/18 06:00 Intake Total 3770 ml Output Total 1700 ml Balance 2070 ml Laboratory Data 24H LABS Laboratory Tests 2 10/29/18 12:46: Bedside Glucose (Misc Panel) 96 10/29/18 16:43: Bedside Glucose (Misc Panel) 83 10/29/18 20:50: Bedside Glucose (Misc Panel) 100 10/30/18 05:36: Immature Granulocyte % (Auto) 3.1H, White Blood Count 3.5L, Red Blood Count 3.14L, Hemoglobin 9.0#L, Hematocrit 28.6L, Mean Corpuscular Volume 91.1, Mean C orpuscular Hemoglobin 28.7, Mean Corpuscular Hemoglobin Concent 31.5L, Red Cell Distribution Width 18.7H, Platelet Count 135L, Neutrophils (%) (Auto) 44.9, Lymphocytes (%) (Auto) 38.7, Monocytes (%) (Auto) 9.1H, Eosinophils (%) (Auto) 2.8, Basophils (%) (Auto) 1.4H, Neutrophils # (Auto) 1.6L, Lymphocytes # (Auto) 1.4L, Monocytes # (Auto) 0.3, Eosinophils # (Auto) 0.1, Basophils # (Auto) 0.1, Nucleated Red Blood Cells % (auto) 0.0, Anion Gap 4L, Glomerular Filtration Rate > 60.0, Blood Urea Nitrogen 15, Creatinine 0.29L, Sodium Level 141, Potassium Level 4.5, Chloride Level 109H, Carbon Dioxide Level 28, Calcium Level 7.7L, Aspartate Amino Transf (AST/SGOT) 32, Alanine Aminotransferase (ALT/SGPT) 27, Alkaline Phosphatase 58, Total Bilirubin 0.3, Total Protein 4.7L, Albumin 1.5L, Magnesium Level 1.9, Albumin/Globulin Ratio 0.47L CBC/BMP Laboratory Tests 10/30/18 05:36 Red Blood Count 3.14 L, Mean Corpuscular Volume 91.1, Mean Corpuscular Hemoglobin 28.7, Mean Corpuscular Hemoglobin Concent 31.5 L, Red Cell Distribution Width 18.7 H, Neutrophils (%) (Auto) 44.9, Lymphocytes (%) (Auto) 38.7, Monocytes (%) (Auto) 9.1 H, Eosinophils (%) (Auto) 2.8, Basophils (%) (Au to) 1.4 H, Neutrophils # (Auto) 1.6 L, Lymphocytes # (Auto) 1.4 L, Monocytes # (Auto) 0.3, Eosinophils # (Auto) 0.1, Basophils # (Auto) 0.1, Calcium Level 7.7 L, Aspartate Amino Transf (AST/SGOT) 32, Alanine Aminotransferase (ALT/SGPT) 27, Alkaline Phosphatase 58, Total Bilirubin 0.3, Total Protein 4.7 L, Albumin 1.5 L GME ATTESTATION GME ATTESTATION My faculty preceptor for this patient encounter was physically present during the encounter and was fully available. All aspects of the patient interview, examination, medical decision making process, and medical care plan development were reviewed and approved by the faculty preceptor. The faculty preceptor is aware and concurs with the plan as stated in the body of this note and will attest to such by his/her cosignature. ATTENDING NOTE I, Lorene Hernandez, have both independently examined this patient, including my own physical exam, as well as reviewed the documentation and edited where necessary. I have discussed in detail with the resident the findings and plan of treatment as documented by the resident and edited their note. I agree with their findings and treatment plan and have edited their documentation. I will continue to follow the patient during this hospital stay. ANU OSBORNE OMS-3 Oct 30, 2018 11:34 CAYDEN LAROSE DO Oct 30, 2018 13:12 LORENE HERNANDEZ MD Oct 30, 2018 14:03
[2018-10-30 13:26] LABS: FOLATE 8.4 NG/ML; HEPATITIS B SURFACE ANTIBODY NEGATIVE (POSITIVE); HEPATITIS B SURFACE ANTIGEN NEGATIVE (NEGATIVE); HEPATITIS C VIRUS ABY INDEX < 0.0 INDEX (<0.8); VITAMIN B12 LEVEL 563 PG/ML
[2018-10-30 14:00] VITALS: BP 108/74
[2018-10-30] MEDS ORDERED: MORPHINE 4 MG/ML 1ML VIAL/SYRINGE (J2270) IV ONE (15:00)
--- NOTE | 2018-10-30 17:54 | IPN ---
DATE: 10/30/2018 INFECTIOUS DISEASE PROGRESS NOTE SUBJECTIVE: Patient examined at bedside. Her pain is better controlled today around the site of her sacral decubitus ulcer. Over the weekend, she reportedly had significant bleeding from her wound VAC, which was temporarily removed, status post two additional units of packed red blood cells & surgical intervention. Today, wound was examined while wound VAC was now being reinstituted. No fevers, chills, nausea, vomiting. Tolerating intravenous (IV) meropenem well. Overall appears to be doing better. Working with physical therapy. PHYSICAL EXAMINATION: VITAL SIGNS: Temperature 96, pulse 90, respirations 17, blood pressure 108/74, mean arterial pressure (MAP) of 85, pulse oximetry 99% on room air. GENERAL: Resting comfortably in bed in no acute distress. Alert and oriented times three, fully conversant. HEENT: Normocephalic, atraumatic. Moist mucous membranes. Poor dentition. HEART: Regular rate and rhythm. Normal S1, S2, without appreciable murmurs. LUNGS: Clear bilaterally, without adventitious sounds. ABDOMEN: Soft, obese, nontender, nondistended. EXTREMITIES: 2-3+ pitting edema in all limbs. Anasarca throughout. SKIN: Multiple ecchymosis on bilateral arms. Wounds on bilateral lower extremities are currently under dressing. Two wounds on the right lower extremity, one on the left lower extremity and dressing on her right forearm as well. Sacral decubitus ulcer appears to have granulation tissue, approximately 1 cm deep wound that is 6 x 5 cm circular, without any active purulent drainage. LABORATORY STUDIES: WBC 3.5, hemoglobin and hematocrit (H and H) 9 and 28.6, platelets 135. Sodium 141, potassium 4.5, BUN 15, creatinine 0.29. AST 32, AST 27, alkaline phosphatase 58, albumin 1.5. IMPRESSION AND PLAN: 1. For the infected sacral decubitus ulcer, positive for extended-spectrum beta-lactamases (ESBL) Escherichia (E) coli, Enterococcus faecalis, Streptococcus anginous, she has been on IV meropenem started on 10/20/2018, tolerated well throughout. Her wound was debrided in the operating room (OR) multiple times. We will transition her to oral antibiotics today: Bactrim DS twice a day and amoxicillin twice a day, given that she is clinically improving. Wound VAC is being restarted today as there is no longer any current active bleeding from her wound site. Continue dressing changes per her regular schedule, Tuesday, Tuesday, Tuesday. 2. For her deconditioning, continue physical therapy. 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 Given her recent bouts of hospitalizations and health scares, she has declined, requiring assistance out of bed. Encourage ambulation. Currently in the process of setting her up with possible penitentiary. 3. Liver cirrhosis. Patient has been made up to date regarding her prognosis and new diagnosis. Her hypotension is better today. Consider increasing her diuretics as tolerated, given her anasarcic appearance. She will require outpatient followup with gastroenterology (GI). Currently, her transaminases are within normal. She will require hepatitis A and B vaccinations, as well as every six month monitoring. 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 MTDD
[2018-10-30] MEDS: BACTRIM 160MG/800MG DS TAB PO SCH (20:10)
[2018-10-30] MEDS: ATORVASTATIN 20 MG TAB PO SCH (20:10)
[2018-10-30] MEDS: AMOXICILLIN 875 MG TAB PO SCH (20:10)
[2018-10-30] MEDS: ENOXAPARIN 40 MG/0.4 ML SYRINGE (J1650) SC SCH (20:11)
[2018-10-30 22:00] VITALS: BP 112/69
[2018-10-31] MEDS: oxyCODONE 5MG TAB PO PRN ×4 (00:03→20:38)
[2018-10-31] MEDS: SODIUM CHLORIDE 0.9% INJ 10 ML SYR IV SCH ×2 (06:14→17:28)
[2018-10-31 06:20] LABS: EOS # 0.1 10^3/uL (0.0-0.50); EOS % 3.3 % (0.0-3.0); HEMATOCRIT 31.9 % (36.0-47.0); HEMOGLOBIN 9.8 g/dl (12.0-15.5); LYMPH # 1.4 10^3/uL (1.5-4.5); LYMPH % 35.1 % (24.0-44.0); MEAN CORPUSCULAR HEMOGLOBIN 27.8 pg (27.0-33.0); MEAN CORPUSCULAR HGB CONC 30.7 g/dl (32.0-36.5); MEAN CORPUSCULAR VOLUME 90.6 fl (80.0-96.0); MONO # 0.4 10^3/uL (0.0-0.8); MONO % 10.1 % (0.0-5.0); NEUTROPHILS # 1.9 10^3/uL (1.8-7.7); NEUTROPHILS % 46.7 % (36.0-66.0); PLATELET COUNT, AUTOMATED 148 10^3/uL (150-450); RED BLOOD COUNT 3.52 10^6/uL (4.00-5.40)
[2018-10-31 06:48] LABS: ALBUMIN 1.6 GM/DL (3.2-5.2); ALT/SGPT 28 U/L (12-78); BILIRUBIN,TOTAL 0.2 MG/DL (0.2-1.0); BLOOD UREA NITROGEN 15 MG/DL (7-18); CALCIUM LEVEL 7.6 MG/DL (8.5-10.1); CARBON DIOXIDE LEVEL 29 MEQ/L (21-32); CHLORIDE LEVEL 108 MEQ/L (98-107); CREATININE FOR GFR 0.45 MG/DL (0.55-1.30); GLOMERULAR FILTRATION RATE > 60.0 (>51); GLUCOSE, FASTING 82 MG/DL (70-100); MAGNESIUM LEVEL 1.9 MG/DL (1.8-2.4); POTASSIUM SERUM 4.8 MEQ/L (3.5-5.1); SODIUM LEVEL 142 MEQ/L (136-145); TOTAL PROTEIN 5.5 GM/DL (6.4-8.2)
[2018-10-31] MEDS: POTASSIUM CHLORIDE 10 MEQ SR TABLET PO SCH (08:09)
[2018-10-31] MEDS: SUCRALFATE SUSP 1GM/10ML UD PO SCH ×4 (08:09→20:37)
[2018-10-31] MEDS: VITAMIN D 1,000 INTERNATIONAL UNITS TABLET PO SCH (08:09)
[2018-10-31] MEDS: BACTRIM 160MG/800MG DS TAB PO SCH ×2 (08:09→20:37)
[2018-10-31] MEDS: PREGABALIN 100 MG CAP (LYRICA) PO SCH ×2 (08:10→20:38)
[2018-10-31] MEDS: CLOPIDOGREL 75 MG TAB PO SCH (08:10)
[2018-10-31] MEDS: MAGNESIUM OXIDE 400 MG TAB (MAG-OX) PO SCH (08:10)
[2018-10-31] MEDS: PANTOPRAZOLE 40MG TAB (PROTONIX) PO SCH (08:10)
[2018-10-31] MEDS: MORPHINE 15 MG SA TAB PO SCH ×2 (08:11→20:39)
[2018-10-31] MEDS: ASPIRIN 81 MG ENTERIC TAB PO SCH (08:11)
[2018-10-31] MEDS: TORSEMIDE 20 MG TAB PO SCH ×2 (08:18→16:19)
[2018-10-31] MEDS: SPIRONOLACTONE 12.5MG PER 1/2 TABLET PO SCH (08:18)
[2018-10-31] MEDS: EUCERIN 120GM CREAM TOP SCH ×2 (08:19→20:37)
[2018-10-31] MEDS: NYSTATIN 100,000 UNITS/GM TOPICAL PWD 15 GM TOP SCH ×2 (08:19→20:37)
[2018-10-31] MEDS: AMOXICILLIN 875 MG TAB PO SCH ×2 (08:20→20:38)
[2018-10-31] MEDS: GENVOYA PO SCH (08:20)
[2018-10-31] MEDS: PREZISTA 800 MG PO SCH (08:20)
[2018-10-31 08:21] VITALS: BP 96/52
--- NOTE | 2018-10-31 10:50 | IPNPDOC ---
Date Seen The patient was seen on 10/31/18. Progress Note SUBJECTIVE: Patient is seen on bedside rounds this morning reporting some improvement of pain over her sacrum which she rated as 7/10 where she is s/p debridement of sacral decub and wound vac placement. Would vac was replaced yesterday (10.30.18). She reports that she was able to get better sleep last night and is improving from yesterday. She states Eucerin cream is helping and requested it to be sent home with her when she is discharged. Patient otherwise denies cp, sob, fever, chills, nausea, and vomiting. OBJECTIVE PHYSICAL EXAMINATION: VITAL SIGNS: Please see below. GENERAL: Patient is laying in bed and reports pain over her sacrum and lower back that prohibits her from laying flat on her back. She states that her pain is improved from yesterday after wound vac placement. Otherwise patient denies chest pain, shortness of breath, nausea, vomiting, fever, chills. She is awake, alert, oriented speaking in complete sentences in no acute distress. HEENT: Moist mucous membranes, EOMI CARDIOVASCULAR: S1 S2 regular no additional heart sounds appreciated RESPIRATORY: Clear to auscultation bilaterally, no wheezing, rales or rhonchi appreciated ABDOMINAL: Bowel sounds present x4 abdomen soft and nontender to light or deep palpation, no rebound, rigidity, or guarding, no hepatosplenomegaly or masses appreciated EXTREMITIES: No clubbing cyanosis, b/l le are wrapped, they both exhibit +2 pitting edema to level of the knees. Site of sacral decub has wound vac placement. NEUROLOGICAL: Spontaneously moves all 4 extremities, no focal deficits. PSYCHOLOGICAL: Appropriate affect LABORATORY DATA, IMAGING STUDIES, MICROBIOLOGY: Please see below. DVT prophylaxis ordered?: Lovenox ASSESSMENT AND PLAN: This is a 52-year-old female who was sent over as a direct admission from Dr. Arroyo's office for concerns regarding infected sacral decubitus ulcer. PROBLEMS: Infection of Stage 3 Decubitus Ulcer - s/p Debridement and Wound Vac placement with Dr. Johnson on 10/26 - Wound vac discontinued on 10/28 secondary to bleeding - Wound vac re-placement on 10/30 - Wound culture 10/18: E. Coli ESBL / Enterococcus Faecalis / Strep Anginosis - Imaging without evidence of osteomyelitis - c/w Bactrim and amoxicillin, s/p Meropenem; s/p Vancomycin and Zosyn - ID and General surgery on consult - c/w Pain control - Plan to work with physical therapy Chronic hypotension / Bilateral LE edema - possibly 2/2 cirrhosis, unlikely 2/2 cardiac etiology - Clinically has had improvement in blood pressure - Remains asymptomatic - Physical with signs of gross fluid overload-especially in b/l LE - Autoimmune hepatitis workup pending - Patient has recently had a fibroscan that has revealed evidence of Cirrhosis - She will require hepatitis A and B vaccinations, as well as every six month monitoring. - Avoid Midodrine in the setting of a recent [place] - c/w Torsemide and Spironolactone BID with holding parameters - Will c/w b/l brachial placement of BP cuffs; likely an accurate reflection of BP NIDDM2 - c/w ISS Hx of [place] - Currently has no symptoms; denies any CP, SOB or palpitations - ECHO 10/18: EF of 65%, Normal diastolic function, mild AV sclerosis, mild AR, no pericardial effusion - c/w Atorvastatin, ASA 81, Plavix - c/w Nitroglycerin PRN - Cardiology was consulted initially Hx of PVD - c/w Atorvastatin, ASA 81, Plavix HIV - Viral count / CD4 followed by Dr. Arroyo - c/w current antiretroviral therapy as per infectious disease COPD / Asthma - No evidence of exacerbation - c/w Inhaled therapy as ordered Nicotine dependence - Advised smoking cessation Acute blood loss anemia - likely 2/2 bleeding from decubitus ulcer - Iron panel consistent with low iron - s/p Cauterization of sacral decub., bedside with general surgery - s/p 1 unit PRBC on 10/20; 2 units PRBCs on 10/29 s/p Hypokalemia s/p Hypomagnesemia GERD - c/w Protonix / Sucralfate DVT prophylaxis - c/w Lovenox DISPOSITION: Patient reports improvement in pain over her sacrum and lower back pain 2/2 to acute sacral decubitus ulcer. Wound vac replacement yesterday (10.30.18) after initial discontinuation on 10.28.18. CT ab/pelvis did not demonstrate Osteo., she is s/p wound debridement with Dr Johnson. We are awaiting a rehab bed opening up, she would like to be in [facility] closer to family. C/w Bactrim and amoxicillin. Plan to work with physical therapy today. Patient is eager to get home. VS, I&O, 24H, [place] Vital Signs/I&O Vital Signs Date Time Temp Pulse Resp B/P (MAP) Pulse Ox O2 Delivery O2 Flow Rate FiO2 10/31/18 08:21 96/52 (67) 10/31/18 08:11 18 10/30/18 22:00 97.4 84 99 I&O- Last 24 Hours up to 6 AM 10/31/18 06:00 Intake Total 2000 ml Output Total 1650 ml Balance 350 ml Laboratory Data 24H LABS Laboratory Tests 2 10/31/18 05:56: Immature Granulocyte % (Auto) 3.8H, White Blood Count 4.0, Red Blood Count 3.52L, Hemoglobin 9.8L, Hematocrit 31.9L, Mean Corpuscular Volume 90.6, Mean Corpuscular Hemoglobin 27.8, Mean Corpuscular Hemoglobin Concent 30.7L, Red Cell Distribution Width 18.8H, Platelet Count 148L, Neutrophils (%) (Auto) 46.7, Lymphocytes (%) (Auto) 35.1, Monocytes (%) (Auto) 10.1H, Eosinophils (%) (Auto) 3.3H, Basophils (%) (Auto) 1.0, Neutrophils # (Auto) 1.9, Lymphocytes # (Auto) 1.4L, Monocytes # (Auto) 0.4, Eosinophils # (Auto) 0.1, Basophils # (Auto) 0.0, Nucleated Red Blood Cells % (auto) 0.0, Anion Gap 5L, Glomerular Filtration Rate > 60.0, Blood Urea Nitrogen 15, Creatinine 0.45#L, Sodium Level 142, Potassium Level 4.8, Chloride Level 108H, Carbon Dioxide Level 29, Calcium Level 7.6L, Aspartate Amino Transf (AST/SGOT) 31, Alanine Aminotransferase (ALT/SGPT) 28, Alkaline Phosphatase 65, Total Bilirubin 0.2, Total Protein 5.5L, Albumin 1.6L, Magnesium Level 1.9, Albumin/Globulin Ratio 0.41L CBC/BMP Laboratory Tests 10/31/18 05:56 Red Blood Count 3.52 L, Mean Corpuscular Volume 90.6, Mean Corpuscular Hemoglobin 27.8, Mean Corpuscular Hemoglobin Concent 30.7 L, Red Cell Distribution Width 18.8 H, Neutrophils (%) (Auto) 46.7, Lymphocytes (%) (Auto) 35.1, Monocytes (%) (Auto) 10.1 H, Eosinophils (%) (Auto) 3.3 H, Basophils (%) (Auto) 1.0, Neutrophils # (Auto) 1.9, Lymphocytes # (Auto) 1.4 L, Monocytes # (Auto) 0.4, Eosinophils # (Auto) 0.1, Basophils # (Auto) 0.0, Calcium Level 7.6 L, Aspartate Amino Transf (AST/SGOT) 31, Alanine Aminotransferase (ALT/SGPT) 28, Alkaline Phosphatase 65, Total Bilirubin 0.2, Total Protein 5.5 L, Albumin 1.6 L GME ATTESTATION GME ATTESTATION My faculty preceptor for this patient encounter was physically present during the encounter and was fully available. All aspects of the patient interview, examination, medical decision making process, and medical care plan development were reviewed and approved by the faculty preceptor. The faculty preceptor is aw are and concurs with the plan as stated in the body of this note and will attest to such by his/her cosignature. ATTENDING NOTE I, Lorene Hernandez, have both independently examined this patient, including my own physical exam, as well as reviewed the documentation and edited where necessary. I have discussed in detail with the resident the findings and plan of treatment as documented by the resident and edited their note. I agree with their findings and treatment plan and have edited their documentation. I will continue to follow the patient during this hospital stay. ANU OSBORNE OMS-3 Oct 31, 2018 10:50 CAYDEN LAROSE DO Oct 31, 2018 11:17 LORENE HERNANDEZ MD Oct 31, 2018 15:24
[2018-10-31 14:00] VITALS: BP 102/60
--- NOTE | 2018-10-31 16:45 | IPN ---
DATE: 10/31/2018 Patient seen and examined. Denies new complaints in her feet. States she seemed to be moving a little bit better. Vital signs are reviewed. She is afebrile. Labs are reviewed. White blood cell count is 4.0. Lower Extremity Examination: Edema has improved to the lower extremities. The distal toe ulcerations are further demarcated. No signs of infection. ASSESSMENT: A 53-year-old diabetic female with toe ulcerations. PLAN: Continue to allow limbs to demarcate. At this time, no urgent need for amputation. Will continue to follow.
--- NOTE | 2018-10-31 18:17 | IPN ---
DATE: 10/31/2018 INFECTIOUS DISEASE PROGRESS NOTE SUBJECTIVE: The patient is examined at bedside and has no new complaints today. No events overnight. Continues to participate with physical therapy. Awaiting placement rehabilitation versus fpc. Wound vacuum-assisted closure (VAC) in place. No fevers, chills, nausea, vomiting, abdominal pain, diarrhea, or any skin rashes. Was transitioned to oral antibiotics yesterday on by mouth amoxicillin and Bactrim and tolerating well. PHYSICAL EXAMINATION: VITAL SIGNS: Temperature 98.3, pulse 81, respiratory rate 17, blood pressure 102/60 with mean arterial pressure (MAP) of 74, pulse oximetry 95% on room air. GENERAL: Resting comfortably in bed, in no acute distress, alert and oriented times three. HEENT: Normocephalic, atraumatic. Moist mucous membranes. Poor dentition. HEART: Regular rate and rhythm. Normal S1, S2. No appreciable murmurs. LUNGS: Clear bilaterally. Equal chest rise. No adventitious sounds. ABDOMEN: Soft, obese, nontender, nondistended. EXTREMITIES: 3+ pitting edema in all limbs, anasarca throughout. SKIN: Wounds on bilateral lower extremities examined and appear to be healing well with good granulation tissue, one wound on the right dorsal foot and another on the left tellez. Wound vacuum-assisted closure (VAC) in place for a sacral decubitus ulcer. CURRENT INPATIENT MEDICATIONS: Plavix, aspirin, milk of magnesia, Nitrostat, trazodone, Zofran, Lomotil, Glucagon glucose, D5, Tessalon Perles, Lyrica, Lovenox, potassium chloride, magnesium oxide, Protonix, vitamin D, Robitussin, Lipitor, MS Contin, Eucerin, nystatin, spironolactone, Carafate, Prezista, Genvoya, Roxicodone, amoxicillin 875 mg by mouth twice a day started 10/30/2018, Bactrim DS one tablet by mouth twice a day started 10/30/2018, and torsemide. LABORATORY DATA: WBC 4, hemoglobin and hematocrit 9.8/31.9, platelets 148. Sodium and potassium 142 and 4.8, BUN and creatinine 15 and 0.45, AST/ALT 31 and 28, alkaline phosphatase 65. IMPRESSION AND PLAN: 1. Infected sacral decubitus ulcer with extended-spectrum beta-lactamase (ESBL) Escherichia (E) coli, Enterococcus faecalis, Streptococcus anginosus. Has been transitioned from IV meropenem to oral amoxicillin and Bactrim as of 10/30/2018. Plan to continue this for an additional two weeks since her debridement, which was on 10/26/2018. Thus her end date of these antibiotics should be 11/09/2018. Wound vacuum-assisted closure (VAC) in place and continue per her regular dressing changes. 2. HIV. Continue her regular home medications Genvoya and Prezista and regular outpatient followup with infectious disease. 3. Deconditioning. Continue physical therapy. Has deviated quite a long way from her baseline given her recent bouts of hospitalizations. She was fully ambulatory and independent at baseline, however, currently requiring assistance. Encourage ambulation. In the process of setting up with fpc versus rehabilitation. 4. Liver cirrhosis. The patient is asymptomatic, appears to well-compensated. Will require outpatient followup with gastroenterology. Transaminases within normal limits. Will require hepatitis A and B vaccinations. FIBROSpect testing shows F3 to F4 fibrosis as well as confirmed on imaging. The patient is aware of diagnosis and requiring further workup. Consider increasing her diuretics and lowering hold parameters, likely to hold systolic blood pressure below 90. MTDD
[2018-10-31 20:00] VITALS: BP 106/66
[2018-10-31] MEDS: ATORVASTATIN 20 MG TAB PO SCH (20:37)
[2018-10-31] MEDS: ENOXAPARIN 40 MG/0.4 ML SYRINGE (J1650) SC SCH (20:39)
[2018-11-01] MEDS: oxyCODONE 5MG TAB PO PRN ×3 (02:42→18:00)
[2018-11-01 05:26] VITALS: BP 119/70
[2018-11-01] MEDS: SODIUM CHLORIDE 0.9% INJ 10 ML SYR IV SCH ×2 (06:23→17:18)
[2018-11-01] MEDS: GENVOYA PO SCH (08:00)
[2018-11-01] MEDS: PREZISTA 800 MG PO SCH (08:00)
[2018-11-01] MEDS: SUCRALFATE SUSP 1GM/10ML UD PO SCH ×4 (08:13→20:06)
[2018-11-01] MEDS: PANTOPRAZOLE 40MG TAB (PROTONIX) PO SCH (08:14)
[2018-11-01] MEDS: TORSEMIDE 20 MG TAB PO SCH ×2 (08:14→17:18)
[2018-11-01] MEDS: BACTRIM 160MG/800MG DS TAB PO SCH ×2 (08:14→20:06)
[2018-11-01] MEDS: CLOPIDOGREL 75 MG TAB PO SCH (08:14)
[2018-11-01] MEDS: ASPIRIN 81 MG ENTERIC TAB PO SCH (08:14)
[2018-11-01] MEDS: POTASSIUM CHLORIDE 10 MEQ SR TABLET PO SCH (08:14)
[2018-11-01] MEDS: PREGABALIN 100 MG CAP (LYRICA) PO SCH ×2 (08:14→20:06)
[2018-11-01] MEDS: VITAMIN D 1,000 INTERNATIONAL UNITS TABLET PO SCH (08:15)
[2018-11-01] MEDS: AMOXICILLIN 875 MG TAB PO SCH ×2 (08:15→20:06)
[2018-11-01] MEDS: SPIRONOLACTONE 12.5MG PER 1/2 TABLET PO SCH (08:15)
[2018-11-01] MEDS: MAGNESIUM OXIDE 400 MG TAB (MAG-OX) PO SCH (08:15)
[2018-11-01] MEDS: NYSTATIN 100,000 UNITS/GM TOPICAL PWD 15 GM TOP SCH ×2 (08:16→20:07)
[2018-11-01] MEDS: EUCERIN 120GM CREAM TOP SCH ×2 (08:16→20:07)
[2018-11-01] MEDS: MORPHINE 15 MG SA TAB PO SCH ×2 (08:17→20:08)
--- NOTE | 2018-11-01 09:18 | IPNPDOC ---
Date Seen The patient was seen on 11/01/18. Progress Note SUBJECTIVE: Patient is seen on bedside rounds this morning reporting some improvement of pain over her sacrum which she rated as 6/10 where she is s/p d ebridement of sacral decub and wound vac placement. She reports that she was able to get better sleep last night and is improving from yesterday. She is now able to sit up in bed due to improvement in pain. Patient reports that her lower extremity edema below the knees is improving. Patient otherwise denies cp, sob, fever, chills, nausea, and vomiting, dizziness. OBJECTIVE PHYSICAL EXAMINATION: VITAL SIGNS: Please see below. GENERAL: Patient is sitting bed comfortably. She states that her pain is improve d from yesterday and is allowing her to sit up in bed. Otherwise patient denies chest pain, shortness of breath, nausea, vomiting, fever, and chills. She is awake, alert, oriented speaking in complete sentences in no acute distress. HEENT: Moist mucous membranes, EOMI CARDIOVASCULAR: S1 S2 regular no additional heart sounds appreciated RESPIRATORY: Clear to auscultation bilaterally, no wheezing, rales or rhonchi appreciated ABDOMINAL: Bowel sounds present x4 abdomen soft and nontender to light or deep palpation, no rebound, rigidity, or guarding, no hepatosplenomegaly or masses appreciated EXTREMITIES: No clubbing cyanosis, b/l le are wrapped, they both exhibit +1 pitting edema to level of the knees, this is improved from yesterday. Site of sacral decub has wound vac placement. NEUROLOGICAL: Spontaneously moves all 4 extremities, no focal deficits. PSYCHOLOGICAL: Appropriate affect LABORATORY DATA, IMAGING STUDIES, MICROBIOLOGY: Please see below. DVT prophylaxis ordered?: Lovenox ASSESSMENT AND PLAN: This is a 52-year-old female who was sent over as a direct admission from Dr. Arroyo's office for concerns regarding infected sacral decubitus ulcer. PROBLEMS: Infection of Stage 3 Decubitus Ulcer - s/p Debridement and Wound Vac placement with Dr. Johnson on 10/26 - Wound culture 10/18: E. Coli ESBL / Enterococcus Faecalis / Strep Anginosis - Imaging without evidence of osteomyelitis - c/w Bactrim and amoxicillin, s/p Meropenem; s/p Vancomycin and Zosyn - ID and General surgery on consult - c/w Pain control - Plan to work with physical therapy again today-PFS is trying to Arrange home health services with her, wound vac is being ordered and should be here tomorrow Chronic hypotension / Bilateral LE edema - possibly 2/2 cirrhosis, unlikely 2/2 cardiac etiology - improvement in blood pressure - Remains asymptomatic - Physical with signs of fluid overload-especially in b/l LE but this is improving with increased torsemide dosing - Autoimmune hepatitis workup positive for BERTHA and IgG elevation-requires furth er workup with Rheumatology outpt - Patient has recently had a fibroscan that has revealed evidence of Cirrhosis - She will require hepatitis A and B vaccinations, as well as every six month monitoring. - Avoid Midodrine in the setting of a recent [place] - c/w Torsemide (will increase dose from 20 to 40 BID) and Spironolactone with holding parameters NIDDM2 - c/w ISS Hx of [place] - Currently has no symptoms; denies any CP, SOB or palpitations - ECHO 10/18: EF of 65%, Normal diastolic function, mild AV sclerosis, mild AR, no pericardial effusion - c/w Atorvastatin, ASA 81, Plavix - c/w Nitroglycerin PRN - Cardiology was consulted initially Hx of PVD - c/w Atorvastatin, ASA 81, Plavix HIV - Viral count / CD4 followed by Dr. Arroyo - c/w current antiretroviral therapy as per infectious disease COPD / Asthma - No evidence of exacerbation - c/w Inhaled therapy as ordered Nicotine dependence - Advised smoking cessation Acute blood loss anemia - likely 2/2 bleeding from decubitus ulcer - Iron panel consistent with low iron - s/p Cauterization of sacral decub., bedside with general surgery - s/p 1 unit PRBC on 10/20; 2 units PRBCs on 10/29 -h/h stable s/p Hypokalemia s/p Hypomagnesemia GERD - c/w Protonix / Sucralfate DVT prophylaxis - c/w Lovenox DISPOSITION: Patient reports improvement in pain over her sacrum and lower back pain 2/2 to acute sacral decubitus ulcer. Wound vac replacement on 10/30. CT ab/pelvis did not demonstrate Osteo., she is s/p wound debridement with Dr Johnson. She is still having edema of the proximal lower extremities bilaterally but this is improving since increasing torsemide. . C/w Bactrim and amoxicillin. Plan to work with physical therapy today. Patient is eager to go home, PFS is helping pt to obtain home health aid, wound vac is being ordered and pre nursing should be here tomorrow. VS, I&O, 24H, Fishbone Vital Signs/I&O Vital Signs Date Time Temp Pulse Resp B/P (MAP) Pulse Ox O2 Delivery O2 Flow Rate FiO2 11/01/18 08:17 16 11/01/18 05:26 97.9 79 119/70 (86) 100 I&O- Last 24 Hours up to 6 AM 11/01/18 05:59 Intake Total 1880 ml Output Total 1600 ml Balance 280 ml GME ATTESTATION GME ATTESTATION My faculty preceptor for this patient encounter was physically present during the encounter and was fully available. All aspects of the patient interview, examination, medical decision making process, and medical care plan development were reviewed and approved by the faculty preceptor. The faculty preceptor is aware and concurs with the plan as stated in the body of this note and will attest to such by his/her cosignature. ATTENDING NOTE I, Lorene Hernandez, have both independently examined this patient, including my own physical exam, as well as reviewed the documentation and edited where necessary. I have discussed in detail with the resident the findings and plan of treatment as documented by the resident and edited their note. I agree with their findings and treatment plan and have edited their documentation. I will continue to follow the patient during this hospital stay. ANU OSBORNE OMS-3 Nov 01, 2018 09:18 CAYDEN LAROSE DO Nov 01, 2018 11:55 LORENE HERNANDEZ MD Nov 01, 2018 14:05
[2018-11-01] MEDS ORDERED: MORPHINE 4 MG/ML 1ML VIAL/SYRINGE (J2270) IV SCH (12:15)
[2018-11-01] MEDS: ATORVASTATIN 20 MG TAB PO SCH (20:06)
[2018-11-01] MEDS: ENOXAPARIN 40 MG/0.4 ML SYRINGE (J1650) SC SCH (20:07)
[2018-11-01 20:15] VITALS: BP 116/70
[2018-11-01 22:00] VITALS: BP 116/70
[2018-11-02] MEDS: oxyCODONE 5MG TAB PO PRN ×4 (00:02→19:21)
[2018-11-02 05:01] VITALS: BP 97/63
[2018-11-02] MEDS: SODIUM CHLORIDE 0.9% INJ 10 ML SYR IV SCH ×2 (05:50→17:22)
[2018-11-02 06:00] VITALS: BP 97/63
[2018-11-02 06:56] LABS: BASO % 0.7 % (0.0-1.0); EOS # 0.2 10^3/uL (0.0-0.50); EOS % 4.7 % (0.0-3.0); HEMATOCRIT 30.9 % (36.0-47.0); HEMOGLOBIN 9.5 g/dl (12.0-15.5); LYMPH # 1.3 10^3/uL (1.5-4.5); LYMPH % 32.8 % (24.0-44.0); MEAN CORPUSCULAR HEMOGLOBIN 28.3 pg (27.0-33.0); MEAN CORPUSCULAR HGB CONC 30.7 g/dl (32.0-36.5); MONO # 0.4 10^3/uL (0.0-0.8); MONO % 9.6 % (0.0-5.0); NEUTROPHILS % 49.5 % (36.0-66.0); PLATELET COUNT, AUTOMATED 147 10^3/uL (150-450); RED BLOOD COUNT 3.36 10^6/uL (4.00-5.40); WHITE BLOOD COUNT 4.1 10^3/uL (4.0-10.0)
[2018-11-02 07:30] LABS: BLOOD UREA NITROGEN 18 MG/DL (7-18); CALCIUM LEVEL 8.1 MG/DL (8.5-10.1); CARBON DIOXIDE LEVEL 31 MEQ/L (21-32); CHLORIDE LEVEL 106 MEQ/L (98-107); CREATININE FOR GFR 0.74 MG/DL (0.55-1.30); GLOMERULAR FILTRATION RATE > 60.0 (>51); GLUCOSE, FASTING 128 MG/DL (70-100); POTASSIUM SERUM 4.1 MEQ/L (3.5-5.1); SODIUM LEVEL 142 MEQ/L (136-145)
[2018-11-02] MEDS: GENVOYA PO SCH (08:00)
[2018-11-02] MEDS: PREZISTA 800 MG PO SCH (08:00)
[2018-11-02] MEDS: AMOXICILLIN 875 MG TAB PO SCH ×2 (08:11→20:11)
[2018-11-02] MEDS: SUCRALFATE SUSP 1GM/10ML UD PO SCH ×4 (08:11→20:11)
[2018-11-02] MEDS: CLOPIDOGREL 75 MG TAB PO SCH (08:12)
[2018-11-02] MEDS: PREGABALIN 100 MG CAP (LYRICA) PO SCH ×2 (08:13→20:11)
[2018-11-02] MEDS: BACTRIM 160MG/800MG DS TAB PO SCH ×2 (08:13→20:11)
[2018-11-02] MEDS: SPIRONOLACTONE 25 MG TAB PO SCH (08:13)
[2018-11-02] MEDS: TORSEMIDE 20 MG TAB PO SCH ×2 (08:13→17:21)
[2018-11-02] MEDS: VITAMIN D 1,000 INTERNATIONAL UNITS TABLET PO SCH (08:13)
[2018-11-02] MEDS: MORPHINE 15 MG SA TAB PO SCH ×2 (08:14→20:12)
[2018-11-02] MEDS: ASPIRIN 81 MG ENTERIC TAB PO SCH (08:14)
[2018-11-02] MEDS: PANTOPRAZOLE 40MG TAB (PROTONIX) PO SCH (08:14)
[2018-11-02] MEDS: MAGNESIUM OXIDE 400 MG TAB (MAG-OX) PO SCH (08:14)
[2018-11-02] MEDS: EUCERIN 120GM CREAM TOP SCH ×2 (08:15→20:12)
[2018-11-02] MEDS: NYSTATIN 100,000 UNITS/GM TOPICAL PWD 15 GM TOP SCH ×2 (08:15→20:12)
[2018-11-02] MEDS: POTASSIUM CHLORIDE 10 MEQ SR TABLET PO SCH (08:15)
--- NOTE | 2018-11-02 10:20 | IPNPDOC ---
Date Seen The patient was seen on 11/02/18. Progress Note SUBJECTIVE: Patient is seen sitting on her bed during rounds this morning. She is reporting more improvement of pain over her sacrum where she is s/p debridement of sacral decub and wound vac placement. Patient reports that her lower extremity edema below the knees is improving however the proximal lower extremities above the knee b/l are still edematous but have improved from yesterday. Patient states that she has discussed with her family options after discharge and that her family will be here this afternoon to demonstrate ability to care for her at home. Worked with physical therapy yesterday. Patient otherwise denies cp, sob, fever, chills, nausea, and vomiting, or dizziness. OBJECTIVE PHYSICAL EXAMINATION: VITAL SIGNS: Please see below. GENERAL: Patient is sitting on her bed comfortably. She states that her pain is improved from yesterday and is allowing her to sit up in bed. Otherwise patient denies chest pain, shortness of breath, nausea, vomiting, fever, and chills. She is awake, alert, oriented speaking in complete sentences in no acute distress. HEENT: Moist mucous membranes, EOMI CARDIOVASCULAR: S1 S2 regular no additional heart sounds appreciated RESPIRATORY: Clear to auscultation bilaterally, no wheezing, rales or rhonchi appreciated ABDOMINAL: Bowel sounds present x4 abdomen soft and nontender to light or deep palpation, no rebound, rigidity, or guarding, no hepatosplenomegaly or masses appreciated EXTREMITIES: No clubbing cyanosis, b/l le are wrapped, they both exhibit +2 pitting edema to level of the knees. Site of sacral decub has wound vac place ment. NEUROLOGICAL: Spontaneously moves all 4 extremities, no focal deficits. PSYCHOLOGICAL: Appropriate affect LABORATORY DATA, IMAGING STUDIES, MICROBIOLOGY: Please see below. DVT prophylaxis ordered?: Lovenox ASSESSMENT AND PLAN: This is a 52-year-old female who was sent over as a direct admission from Dr. Arroyo's office for concerns regarding infected sacral decubitus ulcer. Infected Stage 3 Decubitus Ulcer - s/p Debridement and Wound Vac placement with Dr. Johnson on 10/26 - Wound vac discontinued on 10/28 secondary to bleeding - Wound vac re-placement on 10/30 - Wound culture 10/18: E. Coli ESBL / Enterococcus Faecalis / Strep Anginosis - Imaging without evidence of osteomyelitis - c/w Bactrim and amoxicillin, s/p Meropenem; s/p Vancomycin and Zosyn - ID and General surgery on consult - c/w Pain control - Worked with physical therapy yesterday - Ordering wound vac that will not be here until tomorrow morning Cirrhosis of liver with decompensation as evidenced by ascites possibly due LUGO as h/o to morbid obesity in the past , DM so has Chronic hypotension Autoimmune hepatitis workup positive for BERTHA and IgG elevation-requires further workup with Rheumatology outpt Patient has recently had a fibroscan that has revealed evidence of Cirrhosis She will require hepatitis A and B vaccinations, as well as every six month monitoring. Avoid Midodrine in the setting of a recent [place] torsemide and spironolactone fluid restriction 1.5 to 1.8 liters, 2 gram sodium diet. referral to GI as outpatient. NIDDM2 - c/w ISS Hx of STEMI complicated by pericardial effusion/pericarditis in August 2018 - Currently has no symptoms; denies any CP, SOB or palpitations - ECHO 10/18: EF of 65%, Normal diastolic function, mild AV sclerosis, mild AR, no pericardial effusion - c/w Atorvastatin, ASA 81, Plavix - c/w Nitroglycerin PRN - Cardiology was consulted initially Hx of PVD - c/w Atorvastatin, ASA 81, Plavix HIV - Viral count / CD4 followed by Dr. Arroyo - c/w current antiretroviral therapy as per infectious disease COPD / Asthma - No evidence of exacerbation - c/w Inhaled therapy as ordered Nicotine dependence - Advised smoking cessation Acute blood loss anemia - likely 2/2 bleeding from decubitus ulcer - Iron panel consistent with low iron - s/p Cauterization of sacral decub., bedside with general surgery - s/p 1 unit PRBC on 10/20; 2 units PRBCs on 10/29 s/p Hypokalemia s/p Hypomagnesemia GERD - c/w Protonix / Sucralfate H/o morbid obesity s/p gastric bypass. DVT prophylaxis - c/w Lovenox DISPOSITION: Patient reports improvement in pain over her sacrum and lower back pain 2/2 to acute sacral decubitus ulcer. Wound vac replacement on 10/30 after initial discontinuation on 10.28.18. CT ab/pelvis did not demonstrate Osteo., she is s/p wound debridement with Dr Johnson. She is still having significant edema of the proximal lower extremities bilaterally. Increased dosage of Torsemide yesterday for edema w/ holding parameters. We are awaiting a rehab bed opening up, she would like to be in [facility] closer to family. C/w Bactrim and amoxicillin. Ordered wound vac that will not be here until tomorrow morning. Patient states that she has discussed with her family options after discharge and that her family will be here this afternoon to demonstrate ability to care for her at home. She states that physical therapy assisted her with exercises ye sterday. Patient is eager to go home. VS, I&O, 24H, Fishbone Vital Signs/I&O Vital Signs Date Time Temp Pulse Resp B/P (MAP) Pulse Ox O2 Delivery O2 Flow Rate FiO2 11/02/18 08:14 18 11/02/18 06:00 97.9 88 97/63 (74) 99 I&O- Last 24 Hours up to 6 AM 11/02/18 06:00 Intake Total 1360 ml Output Total 3800 ml Balance -2440 ml Laboratory Data 24H LABS Laboratory Tests 2 11/02/18 06:45: Immature Granulocyte % (Auto) 2.7, White Blood Count 4.1, Red Blood Count 3.36L, Hemoglobin 9.5L, Hematocrit 30.9L, Mean Corpuscular Volume 92.0, Mean Corpuscular Hemoglobin 28.3, Mean Corpuscular Hemoglobin Concent 30.7L, Red Cell Distribution Width 19.0H, Platelet Count 147L, Neutrophils (%) (Auto) 49.5, Lymphocytes (%) (Auto) 32.8, Monocytes (%) (Auto) 9.6H, Eosinophils (%) (Auto) 4.7H, Basophils (%) (Auto) 0.7, Neutrophils # (Auto) 2.0, Lymphocytes # (Auto) 1.3L, Monocytes # (Auto) 0.4, Eosinophils # (Auto) 0.2, Basophils # (Auto) 0.0, Nucleated Red Blood Cells % (auto) 0.0, Anion Gap 5L, Glomerular Filtration Rate > 60.0, Blood Urea Nitrogen 18, Creatinine 0.74#, Sodium Level 142, Potassium Level 4.1, Chloride Level 106, Carbon Dioxide Level 31, Calcium Level 8.1L CBC/BMP Laboratory Tests 11/02/18 06:45 Red Blood Count 3.36 L, Mean Corpuscular Volume 92.0, Mean Corpuscular Hemoglobin 28.3, Mean Corpuscular Hemoglobin Concent 30.7 L, Red Cell Distribution Width 19.0 H, Neutrophils (%) (Auto) 49.5, Lymphocytes (%) (Auto) 32.8, Monocytes (%) (Auto) 9.6 H, Eosinophils (%) (Auto) 4.7 H, Basophils (%) (Auto) 0.7, Neutrophils # (Auto) 2.0, Lymphocytes # (Auto) 1.3 L, Monocytes # (Auto) 0.4, Eosinophils # (Auto) 0.2, Basophils # (Auto) 0.0, Calcium Level 8.1 L GME ATTESTATION GME ATTESTATION My faculty preceptor for this patient encounter was physically present during t he encounter and was fully available. All aspects of the patient interview, examination, medical decision making process, and medical care plan development were reviewed and approved by the faculty preceptor. The faculty preceptor is aware and concurs with the plan as stated in the body of this note and will attest to such by his/her cosignature. ATTENDING NOTE I have examined the patient at bedside and discussed the assessment and plan with the resident. I agree with the above documentation by the resident with the following addendum. Patient has chronic hypotension from cirrhosis of liver without any organ dysfunction . So will continue diuretics till sbp< 90 then only will hold them. ANU OSBORNE OMS-3 Nov 02, 2018 10:20 LINO DOUGLAS MD Nov 02, 2018 17:07
[2018-11-02 14:00] VITALS: BP 98/63
[2018-11-02 16:51] VITALS: BP 95/60
[2018-11-02] MEDS: ATORVASTATIN 20 MG TAB PO SCH (20:11)
[2018-11-02] MEDS: ENOXAPARIN 40 MG/0.4 ML SYRINGE (J1650) SC SCH (20:11)
[2018-11-02 22:00] VITALS: BP 95/60
[2018-11-03] MEDS: oxyCODONE 5MG TAB PO PRN ×2 (02:28→08:54)
[2018-11-03] MEDS: SODIUM CHLORIDE 0.9% INJ 10 ML SYR IV SCH (05:33)
[2018-11-03 06:00] VITALS: BP 92/58
[2018-11-03 06:41] LABS: BASO % 0.7 % (0.0-1.0); EOS # 0.2 10^3/uL (0.0-0.50); EOS % 4.4 % (0.0-3.0); HEMATOCRIT 31.5 % (36.0-47.0); HEMOGLOBIN 9.6 g/dl (12.0-15.5); LYMPH # 1.5 10^3/uL (1.5-4.5); LYMPH % 36.1 % (24.0-44.0); MEAN CORPUSCULAR HEMOGLOBIN 28.2 pg (27.0-33.0); MEAN CORPUSCULAR HGB CONC 30.5 g/dl (32.0-36.5); MEAN CORPUSCULAR VOLUME 92.4 fl (80.0-96.0); MONO # 0.4 10^3/uL (0.0-0.8); MONO % 8.2 % (0.0-5.0); NEUTROPHILS # 2.1 10^3/uL (1.8-7.7); NEUTROPHILS % 48.5 % (36.0-66.0); PLATELET COUNT, AUTOMATED 135 10^3/uL (150-450); RED BLOOD COUNT 3.41 10^6/uL (4.00-5.40); WHITE BLOOD COUNT 4.3 10^3/uL (4.0-10.0)
[2018-11-03 07:04] LABS: BLOOD UREA NITROGEN 20 MG/DL (7-18); CARBON DIOXIDE LEVEL 32 MEQ/L (21-32); CHLORIDE LEVEL 105 MEQ/L (98-107); CREATININE FOR GFR 0.69 MG/DL (0.55-1.30); GLOMERULAR FILTRATION RATE > 60.0 (>51); GLUCOSE, FASTING 86 MG/DL (70-100); POTASSIUM SERUM 4.5 MEQ/L (3.5-5.1); SODIUM LEVEL 140 MEQ/L (136-145)
[2018-11-03] MEDS: SUCRALFATE SUSP 1GM/10ML UD PO SCH (08:11)
[2018-11-03] MEDS: CLOPIDOGREL 75 MG TAB PO SCH (08:12)
[2018-11-03] MEDS: MORPHINE 15 MG SA TAB PO SCH (08:12)
[2018-11-03] MEDS: SPIRONOLACTONE 25 MG TAB PO SCH ×2 (08:13→08:21)
[2018-11-03] MEDS: VITAMIN D 1,000 INTERNATIONAL UNITS TABLET PO SCH (08:13)
[2018-11-03] MEDS: PANTOPRAZOLE 40MG TAB (PROTONIX) PO SCH (08:14)
[2018-11-03] MEDS: MAGNESIUM OXIDE 400 MG TAB (MAG-OX) PO SCH (08:14)
[2018-11-03] MEDS: PREGABALIN 100 MG CAP (LYRICA) PO SCH (08:15)
[2018-11-03] MEDS: ASPIRIN 81 MG ENTERIC TAB PO SCH (08:15)
[2018-11-03] MEDS: POTASSIUM CHLORIDE 10 MEQ SR TABLET PO SCH (08:17)
[2018-11-03] MEDS: TORSEMIDE 20 MG TAB PO SCH (08:17)
[2018-11-03] MEDS: BACTRIM 160MG/800MG DS TAB PO SCH (08:18)
[2018-11-03] MEDS: AMOXICILLIN 875 MG TAB PO SCH (08:19)
[2018-11-03] MEDS: EUCERIN 120GM CREAM TOP SCH (08:20)
[2018-11-03] MEDS: NYSTATIN 100,000 UNITS/GM TOPICAL PWD 15 GM TOP SCH (08:20)
--- NOTE | 2018-11-03 09:31 | DS.PDOC ---
Discharge Summary General Date of Admission October 17, 2018 at 12:20 Date of Discharge November 03, 2018 Discharge Summary DISCHARGE DIAGNOSIS: 1. Infected Stage 3 Decubitus Ulcer SECONDARY DIAGNOSIS: 1. Cirrhosis of liver with decompensation as evidenced by ascites 2. NIDDM2 -complicated by diabetic foot infections requiring previous toe amputations with necrotic areas over left third and right first toe 3. Hx of STEMI complicated by pericardial effusion/pericarditis in August 2018, post 1 stent/angioplasty 4. Hx of PVD 5. HIV 6. COPD/Asthma 7. Nicotine Dependence 8. Acute blood loss anemia - likely 2/2 bleeding from decubitus ulcer 9. s/p Hypokalemia 10. s/p Hypomagnesemia 11. GERD 12: Hx of morbid obesity, s/p gastric bypass PROCEDURES PERFORMED DURING STAY: 1. Midline Insertion with Ultrasound Guidance on 10/19 2. Wound debridement by Dr. Johnson 10/19 and 10/20 3. Debridement and Wound Vac placement with Dr. Johnson on 10/26 4. Wound Vac discontinued on 10/28 secondary to bleeding 5. s/p 1 unit PRBC on 10/20; 2 units PRBCs on 10/29 6. Wound Vac re-placement on 10/30 7. Wound Vac will be re-placed today (11/03) before discharge CONSULTANTS: Infectious Disease, Cardiology, Podiatry, and General Surgery HOSPITAL COURSE: Ms. Dhillon is a 52-year-old female who was sent over as a direct admission from Dr. Arroyo's office for concerns regarding infected sacral decubitus ulcer with possible debridement. The patient reports having a fall in May and landing on her buttocks. She reports ever since, she has had a wound on her sacrum that has not healed. She reports she had been to the wound [facility] previously but does not want to go there anymore. She reported an increasing pain involving the sacral area-described as sharp/achy in nature, 10/10 intensity, that is alleviated with Percocet and Lyrica. She also has been dealing with a tellez ulcer since July of this year. Upon admission, patient was started on IV vancomycin and Zosyn. Infectious Disease and General Surgery were consulted for debridement. Midline was placed on 10/19 as peripheral IV could not be obtained. Percocet was used for pain control. Podiatry was consulted and determined that toes which had gangrenous portions were not needed to be amputated at this time. PAT wraps were applied below the knee b/l for gentle compression. Santyl was applied to the left leg wound. Torsemide and Spironolactone were administered throughout hospitalization for her b/l LE edema when her persistent hypotension resolved. HIV medication was continued after family brought medications to the hospital. Echocardiogram was performed on 10/18; EF 65%. Wound culture on 10/18 demonstrated many gram-positive cocci in pairs on Gram stain, E. Coli ESBL / Enterococcus Faecalis / Strep Anginosis. Wound debridement took place on 10/19 and 10/[address] Johnson. Liver ultrasound was performed on 10/20 which suggested early cirrhosis. IV Vancomycin and Zosyn was d/c on 10/20 and patient was started on Meropenem secondary to ESBL Escherichia coli. 3 units of PRBCs were transfused during admission due to worsening anemia likely 2/2 to bleeding sacral decub ulcer. Dietitian was consulted due to significant hypoalbuminemia and patient was started on Ensure shakes. Episodes of hypokalemia and hypomagnesemia were resolved with supplementation. Pelvis MRI on 10/[address] on 10/25 showed no definite underlying osteomyelitis of the sacrum or coccyx. Wound vac was placed with Dr. Johnson on 10/26 and it was discontinued on 10/28 secondary to bleeding. Wound vac was re-placed on 10/30 and patient was transitioned to Bactrim and Amoxicillin PO after Meropenem was d/c. Wound vac planned for re-placement this morning 11/03. Discharge on PO Bactrim and Amoxicillin for 1 week duration. DISCHARGE MEDICATIONS: Please see below. ALLERGIES: Please see below. SUBJECTIVE: Patient is seen sitting on her bed during rounds this morning. She reports improvement of pain over her sacrum over the course of her stay where she is s/p debridement of sacral decub and wound vac placement. She states that her LE edema above and below the knee b/l are much improved from yesterday. Wound vac placement prior to discharge is planned for this morning. Patient otherwise denies cp, sob, fever, chills, nausea, vomiting, or dizziness. OBJECTIVE: PHYSICAL EXAMINATION: VITAL SIGNS: Please see below. GENERAL: Patient is sitting in bed comfortably, AAO x3, reporting improvements in pain over sacral decub and reduction in b/l LE edema. Otherwise patient de nies chest pain, shortness of breath, nausea, vomiting, fever, and chills. No acute distress. HEENT: Moist mucous membranes, EOMI CARDIOVASCULAR: Normal S1 S2, RRR, no additional heart sounds appreciated, no murmurs/rubs/gallops appreciated RESPIRATORY: Clear to auscultation bilaterally, no wheezing, rales or rhonchi appreciated ABDOMINAL: Bowel sounds present x4, abdomen soft and nontender to light or deep palpation, no rebound, rigidity, or guarding, no hepatosplenomegaly or masses appreciated EXTREMITIES: No clubbing cyanosis, b/l LE are wrapped, they both exhibit +2 pitting edema to the level of the knees which has improved from yesterday. Site of sacral decub has wound vac placement. NEUROLOGICAL: Spontaneously moves all 4 extremities, no focal deficits PSYCHOLOGICAL: Appropriate affect LABORATORY DATA, MICROBIOLOGY: Please see below. ECHOCARDIOGRAM: - ECHO 10/18: 1. Dilated inferior vena cava with marked reduction of respiratory variation. Suggestive of elevated central venous pressure of at least 20 mmHg. 2. Suggestive of mild elevation of pulmonary artery systolic pressure. Normal right ventricle size and systolic function. 3. Normal left ventricle internal dimensions and wall thickness. Normal regional LV wall motion and wall thickening. Normal LV systolic function. LVEF 65% by visual estimate. Normal LV diastolic function. 4. Mild aortic valve sclerosis of a 3-cuspid aortic valve. Mild aortic regurgitation. 5. No pericardial effusion. IMAGING STUDIES: - CXR 10/20: Small amount of left pleural fluid. Otherwise no acute disease. - RUQ Ultrasound 10/20: Somewhat nodular liver contour and fatty infiltration. Question early cirrhosis. Minimal ascites. Small right pleural effusion. Postcholecystectomy. Dilated common bile duct 14.6 mm. - Pelvis MRI with contrast 10/24: Very limited examination demonstrating minimal degenerative change. CT of the pelvis is recommended for further evaluation. - Pelvis CT with contrast 10/25: Significant diffuse superficial soft tissue edema. Mild free fluid in the pelvis. Sacral decubitus ulcers with no definite abscess collection in that region. No definite underlying osteomyelitis of the sacrum or coccyx. MICROBIOLOGY: - Wound culture 10/18: E. Coli ESBL / Enterococcus Faecalis / Strep Anginosis DVT prophylaxis ordered: Lovenox ASSESSMENT AND PLAN: This is a 52-year-old female who was sent over as a direct admission from Dr. Arroyo's office for concerns regarding infected sacral decubitus ulcer. PROBLEMS: 1. Infected Stage 3 Decubitus Ulcer 2. Cirrhosis of liver with decompensation as evidenced by ascites. Autoimmune hepatitis workup positive for BERTHA and IgG elevation. 3. NIDDM2 - complicated by diabetic foot infections requiring previous toe amputations with necrotic areas over left third and right first toe 4. Hx of STEMI complicated by pericardial effusion/pericarditis in August 2018 5. Hx of PVD 6. HIV 7. COPD/Asthma 8. Nicotine dependence 9. Acute blood loss anemia - likely 2/2 bleeding from decubitus ulcer 10. s/p Hypokalemia 11. s/p Hypomagnesemia 12. GERD 13. Hx of morbid obesity, s/p gastric bypass 14. Orthostatic hypotension 15. Hypercholesteremia DISPOSITION: Patient has reported improvements in pain and b/l LE edema. Wound vac is planned for replacement this morning before discharge. C/w PO Bactrim and Amoxicillin for 1 week. Patient is eager to go home. - The beneficiary has a medical condition which requires positioning of the body in ways not feasible with an ordinary bed. The beneficiary requires frequent changes in body position and/or has an immediate need for a change in body position. DISCHARGE CONDITION: Improved and Stable PROGNOSIS: Guarded FOLLOW UP: - Podiatry for evaluation of diabetic foot infections and gangrenous toes - GI for evidence of cirrhosis, - Infectious Disease f/u for monitoring of infected sacral decub ulcer - Bariatric Clinic due to protein malnutrition likely 2/2 to gastric bypass surgery ACTIVITY: As prior to admission. DIET: Low-sodium diet TIME SPENT ON DISCHARGE: 45 minutes Vital Signs/I&Os Vital Signs Date Time Temp Pulse Resp B/P (MAP) Pulse Ox O2 Delivery O2 Flow Rate FiO2 11/03/18 06:00 97.6 85 18 92/58 (69) 100 I&O- Last 24 Hours up to 6 AM 11/03/18 05:59 Intake Total 1700 ml Output Total 8300 ml Balance -6600 ml Laboratory Data Labs 24H Laboratory Tests 2 11/02/18 20:45: Bedside Glucose (Misc Panel) 113H 11/03/18 06:19: Immature Granulocyte % (Auto) 2.1, White Blood Count 4.3, Red Blood Count 3.41L, Hemoglobin 9.6L, Hematocrit 31.5L, Mean Corpuscular Volume 92.4, Mean Corpuscular Hemoglobin 28.2, Mean Corpuscular Hemoglobin Concent 30.5L, Red Cell Distribution Width 18.9H, Platelet Count 135L, Neutrophils (%) (Auto) 48.5, Lymphocytes (%) (Auto) 36.1, Monocytes (%) (Auto) 8.2H, Eosinophils (%) (Auto) 4.4H, Basophils (%) (Auto) 0.7, Neutrophils # (Auto) 2.1, Lymphocytes # (Auto) 1.5, Monocytes # (Auto) 0.4, Eosinophils # (Auto) 0.2, Basophils # (Auto) 0.0, Nucleated Red Blood Cells % (auto) 0.0, Anion Gap 3L, Glomerular Filtration Rate > 60.0, Blood Urea Nitrogen 20H, Creatinine 0.69, Sodium Level 140, Potassium Le geena 4.5, Chloride Level 105, Carbon Dioxide Level 32, Calcium Level 8.0L CBC/BMP Laboratory Tests 11/03/18 06:19 Red Blood Count 3.41 L, Mean Corpuscular Volume 92.4, Mean Corpuscular Hemoglobin 28.2, Mean Corpuscular Hemoglobin Concent 30.5 L, Red Cell Distribution Width 18.9 H, Neutrophils (%) (Auto) 48.5, Lymphocytes (%) (Auto) 36.1, Monocytes (%) (Auto) 8.2 H, Eosinophils (%) (Auto) 4.4 H, Basophils (%) (Auto) 0.7, Neutrophils # (Auto) 2.1, Lymphocytes # (Auto) 1.5, Monocytes # (Auto) 0.4, Eosinophils # (Auto) 0.2, Basophils # (Auto) 0.0, Calcium Level 8.0 L FSBS Laboratory Tests Test 11/02/18 20:45 Range/Units Bedside Glucose (Misc Panel) 113 70-105 MG/DL Discharge Medications Scheduled Amoxicillin (Amoxicillin) 875 Mg Tablet, 875 MG PO BID Aspirin (Aspirin EC) 81 Mg Tablet.dr, 81 MG PO DAILY Atorvastatin Calcium (Atorvastatin Calcium) 20 Mg Tablet, 40 MG PO QHS Cholecalciferol (Vitamin D3) (Vitamin D3) 1,000 Unit Tab, 1,000 UNIT PO DAILY, (Reported) Clopidogrel Bisulfate (Clopidogrel) 75 Mg Tablet, 75 MG PO DAILY Darunavir Ethanolate (Prezista) 800 Mg Tab, 800 MG PO DAILY, (Reported) Elviteg/Cob/Emtri/Tenof Alafen (Genvoya Tablet) 1 Tab Tab, 1 TAB PO DAILY, (Reported) Esomeprazole Magnesium (Nexium) 40 Mg Capsule.dr, 40 MG PO DAILY, (Reported) Magnesium Oxide (Magnesium Oxide) 400 Mg Tablet, 400 MG PO DAILY Potassium Chloride (Klor-Con M10) 10 Meq Tab.er.prt, 20 MEQ PO DAILY Pregabalin (Lyrica) 300 Mg Cap, 300 MG PO BID, (Reported) Spironolactone (Aldactone) 25 Mg Tablet, 25 MG PO DAILY Sucralfate (Carafate) 1 Gm/10 Ml Kristi, 10 ML PO QID, (Reported) Sulfamethoxazole/Trimethoprim (Sulfamethoxazole-Tmp Ds Tablet) 1 Each Tablet, 1 TAB PO BID Torsemide (Torsemide) 20 Mg Tablet, 40 MG PO BID@,17 Scheduled PRN Magnesium Hydroxide (Milk of Magnesia) 400 Mg/5 Ml Oral.susp, 30 ML PO DAILY PRN for CONSTIPATION Nitroglycerin (Nitroglycerin) 0.4 Mg Tab.subl, 0.4 MG SL NITRO PRN for CHEST PAIN, (Reported) Ondansetron HCl (Ondansetron HCl) 8 Mg Tab, 8 MG PO TID PRN for NAUSEA, (Reported) Oxycodone HCl/Acetaminophen (Oxycodone-Acetaminophen 10-325) 1 Tab Tab, 1 TAB PO QID PRN for PAIN Trazodone HCl (Trazodone HCl) 50 Mg Tab, 50 MG PO QHS PRN for SLEEP, (Reported) Allergies Coded Allergies: No Known Allergies (Unverified , 10/17/18) GME ATTESTATION GME ATTESTATION My faculty preceptor for this patient encounter was physically present during the encounter and was fully available. All aspects of the patient interview, examination, medical decision making process, and medical care plan development were reviewed and approved by the faculty preceptor. The faculty preceptor is aware and concurs with the plan as stated in the body of this note and will attest to such by his/her cosignature. ATTENDING NOTE I have examined the patient at bedside today. I have reviewed the physical examination performed by the resident/medical student as documented above. I hav e reviewed the resident's discharge summary and agree with the documentation. I personally spent 35 minutes in counselling the patient and coordinating her discharge. ANU OSBORNE OMS-3 Nov 03, 2018 09:31 CAYDEN LAROSE DO Nov 03, 2018 11:39 LINO DOUGLAS MD Nov 05, 2018 16:31
[2018-11-03] MEDS ORDERED: ASPI81TAEC PO (11:08)
[2018-11-03] MEDS ORDERED: MOM30SS2 PO (11:08)
[2018-11-03] MEDS ORDERED: AMOX875T PO (11:08)
[2018-11-03] MEDS ORDERED: KLOR10TA76 PO (11:08)
[2018-11-03] MEDS ORDERED: MAG400TA PO (11:08)
[2018-11-03] MEDS ORDERED: TORS20TA2 PO (11:08)
[2018-11-03] MEDS ORDERED: ALDA25TA2 PO (11:08)
[2018-11-03] MEDS ORDERED: PREG100CA PO (11:08)
[2018-11-03] MEDS ORDERED: ATOR1TAB21 PO (11:08)
[2018-11-03] MEDS ORDERED: CLOP75TA2 PO (11:08)
[2018-11-03] MEDS ORDERED: SULF1TAB93 PO (11:08)
[2018-11-03] MEDS: GENVOYA PO SCH (11:48)
[2018-11-03] MEDS: PREZISTA 800 MG PO SCH (11:48)
[2018-11-03] MEDS ORDERED: OXYC10TA3 PO (13:34)
--- NOTE | 2018-11-03 15:59 | IPN ---
DATE: 11/03/2018 INFECTIOUS DISEASE PROGRESS NOTE SUBJECTIVE: The patient is examined at bedside and is doing well, in better spirits and has more mobility in her extremities. She continues to work with physical therapy (PT) and is eager to go home. No fevers. No chills. Continues to have a wound Vac in place. She is tolerating oral amoxicillin and Bactrim. PHYSICAL EXAMINATION : VITAL SIGNS: Temperature is 97.6, pulse 85, respirations 18, blood pressure 92/58, MAP of 69, pulse oximetry 100% on room air. GENERAL: Resting comfortably in bed. No acute distress. Alert and oriented times three. HEENT: Normocephalic, atraumatic. Moist mucous membranes. Poor dentition. HEART: Regular rate and rhythm. Normal S1, S2 without any appreciable murmurs. LUNGS: Clear bilaterally without any abnormal sounds. ABDOMEN: Obese, soft, nontender. EXTREMITIES: 2+ pitting edema in bilateral lower extremities. No appreciable edema in upper extremities. Improved from prior days. SKIN: Wounds are healing well compared to the prior days. Coban dressing removed from lower extremities. She has a well healed wound on the right tellez, as well as the left foot without any drainage. Sacral wound has good granulation tissue with yellow fibrinous tissue in the middle. LABORATORIES: WBC 4.3, hemoglobin and hematocrit 9.6 and 31.5, platelets 135 with elevated monocytes and eosinophils. Sodium and potassium were 40 and 4.5. BUN and creatinine 20 and 0.69. IMPRESSION AND PLAN: 1. Infected sacral decubitus ulcer with extended-Spectrum beta-Lactamases (ESBL), Enterococcus faecalis and Streptococcus anginous. The patient is status post IV meropenem and is switched to oral amoxicillin and Bactrim on 10/30/2018. This should be continued for an additional 2 weeks with an end date being 11/09/2018. Wound Vac in place, which the patient is to continue with in the outpatient setting. She has home healthcare nursing to assist with this and her other dressing changes as well. F/u wound care for further debridement. 2. HIV. Continue regular medications of Genvoya and Prezista and regular outpatient clinic followup with Dr. Arroyo. 3. Deconditioning. The patient is improving in her mobility and strength with physical therapy (PT). There are plans to send her home with possible outpatient physical therapy (PT) vs rehab. She is more independent today and appears to be nearing her baseline functionality. 4. Liver cirrhosis. New condition found during this hospitalization with S3 to S4 fibrosis on fibro SPECT testing. She is to establish with gastroenterology once discharged to have additional workup and close monitoring for this. The patient is safe for discharge from infectious disease standpoint. Plan to followup with Dr. Arroyo in the clinic in 1 to 2 weeks. DEE
== END 2018-11-03 12:28 | disposition home or self-care (01) | DRG 570 ==
LOC: M PCU 12:20 → EEVIPCON 12:20 → M PCU 10-19 15:30 → M MS5PR 10-23 15:55
PROVIDERS: ADMIT Internal Medicine; ATTEND Internal Medicine Nephrology
PROC: 02HV33Z Insertion of Infusion Device into Superior Vena Cava, Percutaneous Approach (ICD-10-PCS; 2018-10-19)
PROC: 30233N1 Transfusion of Nonautologous Red Blood Cells into Peripheral Vein, Percutaneous Approach (ICD-10-PCS; 2018-10-20)
PROC: 0JB90ZZ Excision of Buttock Subcutaneous Tissue and Fascia, Open Approach (ICD-10-PCS; principal; 2018-10-26 08:30)
DX: L89.153 Pressure ulcer of sacral region, stage 3 (principal); E43 Unspecified severe protein-calorie malnutrition; E11.52 Type 2 diabetes mellitus with diabetic peripheral angiopathy with gangrene; B20 Human immunodeficiency virus [HIV] disease; D62 Acute posthemorrhagic anemia; R18.8 Other ascites; E11.621 Type 2 diabetes mellitus with foot ulcer; J44.9 Chronic obstructive pulmonary disease, unspecified; E87.6 Hypokalemia; K74.60 Unspecified cirrhosis of liver; I95.1 Orthostatic hypotension; I25.2 Old myocardial infarction; Z95.2 Presence of prosthetic heart valve; F17.200 Nicotine dependence, unspecified, uncomplicated; E83.42 Hypomagnesemia; K21.9 Gastro-esophageal reflux disease without esophagitis; E78.00 Pure hypercholesterolemia, unspecified; Z79.82 Long term (current) use of aspirin; Z79.899 Other long term (current) drug therapy; M17.11 Unilateral primary osteoarthritis, right knee; Z96.612 Presence of left artificial shoulder joint; B96.29 Other Escherichia coli [E. coli] as the cause of diseases classified elsewhere

== ENCOUNTER → 2018-11-14 | Outpatient (REF) | payer MEDICARE, MEDICAID ==
[~2018-11-14] MED LIST changes: +ALDA25TA2 PO; +AMOX875T PO; +ASPI81TAEC PO; +ATOR1TAB21 PO; +ECOT81TA5 PO; +FENT12DI8 TD; +MAGN400C PO; +MOM30SS2 PO; +NEXI40CA PO; +NITR0.4S14 SL; +PLAV1TAB2 PO; +POTA10TA17 PO; +PREG100CA PO; +SULF1TAB93 PO; +TORS20TA2 PO
== END ==
LOC: M LAB REF 17:18
PROVIDERS: ATTEND Podiatrist Foot & Ankle Surgery
DX: M86.18 Other acute osteomyelitis, other site (principal)

== ENCOUNTER → 2018-11-16 | Outpatient (REF) | payer MEDICARE, MEDICAID | LOC: M SFHCPLAZ 12:42 | PROVIDERS: ATTEND Internal Medicine Infectious Disease | DX: R60.0 Localized edema (principal) ==

== ENCOUNTER → 2018-12-12 | Outpatient (REF) | payer MEDICARE, MEDICAID ==
[~2018-12-12] MED LIST changes: +OMEP-218 PO; +ONDA8TAB10 PO; -ONDA8TAB7 PO; +OXYC10TA12 PO
[2018-12-12 13:45] LABS: INR 1.12; PROTHROMBIN TIME 14.1 SECONDS (11.8-14.0)
[2018-12-12 13:52] LABS: ALBUMIN 2.6 GM/DL (3.2-5.2); ALT/SGPT 17 U/L (12-78); BILIRUBIN,TOTAL 0.5 MG/DL (0.2-1.0); BLOOD UREA NITROGEN 39 MG/DL (7-18); CALCIUM LEVEL 8.4 MG/DL (8.5-10.1); CARBON DIOXIDE LEVEL 29 MEQ/L (21-32); CHLORIDE LEVEL 107 MEQ/L (98-107); CHOLESTEROL LEVEL 81 MG/DL (<200); CHOLESTEROL RISK RATIO 2.025 (<5); CREATININE FOR GFR 0.87 MG/DL (0.55-1.30); GLOMERULAR FILTRATION RATE > 60.0 (>51); GLUCOSE, FASTING 84 MG/DL (70-100); HDL CHOLESTEROL 40 MG/DL (>40); LDL CHOLESTEROL 20 MG/DL (<100); NON-HDL-C 41 MG/DL; SODIUM LEVEL 140 MEQ/L (136-145); TOTAL PROTEIN 6.5 GM/DL (6.4-8.2); TRIGLYCERIDES LEVEL 103 MG/DL (<150)
[2018-12-12 13:56] LABS: HEMOGLOBIN A1c 5.1 %
[2018-12-15 00:08] LABS: % CD8 Pos Lymph 49.6 % (12.0-35.5); %CD4 Pos Lymphs 39.4 % (30.8-58.5); ABS Eosinophils 0.1 x10E3/uL (0.0-0.4); ABS Lymphs 1.6 x10E3/uL (0.7-3.1); ABS Monocytes 0.6 x10E3/uL (0.1-0.9); Abs CD4 Helper 630 /uL (359-1519); Abs CD8 Suppres 794 /uL (109-897); CD4/CD8 Ratio 0.79 (0.92-3.72); Eosinophils 1 % (Not Estab.); HCT 30.7 % (34.0-46.6); HGB 10.2 g/dL (11.1-15.9); HIV-1 RNA PCR QUANT 2 LC550285 <20 copies/mL (.); Imm ABS Grans 0.1 x10E3/uL (0.0-0.1); Immature Grans 2 % (Not Estab.); Lymphocytes 24 % (Not Estab.); MCH 27.4 pg (26.6-33.0); MCHC 33.2 g/dL (31.5-35.7); MCV 83 fL (79-97); Monocytes 9 % (Not Estab.); Neutrophils 63 % (Not Estab.); Platelets 137 x10E3/uL (150-450); RBC 3.72 x10E6/uL (3.77-5.28); RDW 15.4 % (12.3-15.4); WBC 6.4 x10E3/uL (3.4-10.8)
== END ==
LOC: M SFHCPLAZ 11:38
PROVIDERS: ATTEND Internal Medicine Infectious Disease
DX: B20 Human immunodeficiency virus [HIV] disease (principal); K74.60 Unspecified cirrhosis of liver; E11.40 Type 2 diabetes mellitus with diabetic neuropathy, unspecified; I25.118 Atherosclerotic heart disease of native coronary artery with other forms of angina pectoris
CPT/HCPCS: 36415; 80053; 80061; 83036; 85610; 86360; 87536; G0463

== ENCOUNTER → 2018-12-18 | Outpatient (REF) | payer MEDICARE, MEDICAID ==
[~2018-12-18] MED LIST changes: -ONDA8TAB10 PO; +ONDA8TAB7 PO; -OXYC10TA12 PO
== END ==
LOC: M LAB REF 11:40
PROVIDERS: ATTEND Surgery
DX: L89.154 Pressure ulcer of sacral region, stage 4 (principal)

== ENCOUNTER 2019-02-28 11:31 | Inpatient (IN) | payer MEDICARE, MEDICAID ==
[~2019-02-28] VITALS: Ht 172.7 cm; Wt 72.9 kg
[2019-02-28] MEDS ORDERED: GLUCAGON FOR INJ 1 MG VIAL (J1610) SC PRN (13:15)
[2019-02-28] MEDS ORDERED: DEXTROSE 50% 50 ML SYRINGE IV PRN (13:15)
[2019-02-28] MEDS ORDERED: GLUCOSE 4 GM CHEW TABLET PO PRN (13:15)
[2019-02-28 14:32] VITALS: BP 115/74
[2019-02-28 14:34] LABS: ALBUMIN 2.3 GM/DL (3.2-5.2); ALT/SGPT 9 U/L (12-78); BILIRUBIN,TOTAL 0.5 MG/DL (0.2-1.0); BLOOD UREA NITROGEN 11 MG/DL (7-18); CALCIUM LEVEL 8.5 MG/DL (8.5-10.1); CARBON DIOXIDE LEVEL 30 MEQ/L (21-32); CHLORIDE LEVEL 99 MEQ/L (98-107); CREATININE FOR GFR 0.57 MG/DL (0.55-1.30); GLOMERULAR FILTRATION RATE > 60.0 (>51); GLUCOSE, FASTING 82 MG/DL (70-100); POTASSIUM SERUM 4.2 MEQ/L (3.5-5.1); SODIUM LEVEL 135 MEQ/L (136-145); TOTAL PROTEIN 6.3 GM/DL (6.4-8.2)
--- NOTE | 2019-02-28 15:43 | HPEPDOC ---
General Date of Admission Feb 28, 2019 at 13:27 Date of Service: Feb 28, 2019 Primary Care Physician: Gena Arroyo MD Attending Physician: LUCILA PLUMMER DO Chief Complaint The patient is a 53-year-old female admitted with a reason for visit of Diabetic Foot Ulcer,Osteomyelitis. Source: Patient Exam Limitations: No limitations Timing/Duration: Week(s) Severity: Mild Associated Symptoms: Denies Symptoms History of Present Illness Patient is 53 years old female with past medical history of HIV, diabetes mellitus type 2, diabetes neuropathy, hypertension, cirrhosis, chronic osteomyelitis of 4 and 5 th toe of left foot presented hospital for planned left metatarsal 4 and 5 th toes amputation. Patient stated that 2 months ago she had partial amputation of left 4th toe and distal phalanx amputation of left fifth toe. He radio tester is Dr. Alonso. I talked to Dr. Alonso by phone, he planned metatarsal amputation on this week. Patient denies fever, chills, nausea, vomiting, shortness of breath, diarrhea or dysuria Home Medications Scheduled Aspirin (Aspirin EC) 81 Mg Tablet.dr, 81 MG PO DAILY Darunavir Ethanolate (Prezista) 800 Mg Tab, 800 MG PO QPM, (Reported) Elviteg/Cob/Emtri/Tenof Alafen (Genvoya Tablet) 1 Tab Tab, 1 TAB PO QPM, (Reported) Oxycodone HCl (Oxycodone HCl) 10 Mg Tablet, 10 MG PO Q6H, (Reported) Pregabalin (Lyrica) 300 Mg Cap, 300 MG PO BID, (Reported) Sucralfate (Carafate) 1 Gm/10 Ml Kristi, 1 GM PO QID, (Reported) Scheduled PRN Furosemide (Furosemide) 20 Mg Tablet, 20 MG PO DAILY PRN for EDEMA, (Reported) Nitroglycerin (Nitroglycerin) 0.4 Mg Tab.subl, 0.4 MG SL NITRO PRN for CHEST PAIN, (Reported) Trazodone HCl (Trazodone HCl) 50 Mg Tab, 50 MG PO QHS PRN for SLEEP, (Reported) Allergies Coded Allergies: No Known Allergies (Unverified , 12/27/18) Past Medical History Medical History 1. Chronic HIV infection followed by Dr. Arroyo. She has normal CD-4 count. 2. Myocardial infarction, inferior wall on 08/24/2018 treated with stent. I do not have any details of the procedure available. 3. Post AK pericardial effusion, treated with colchicine. 4. History of bariatric surgery with fairly dramatic weight loss (patient reports over 200 pounds). 5. History of anastomotic ulcers in her stomach. 6. Peripheral neuropathy. 7. Peripheral vascular disease. 8. History of amputation of toes. 9. Right adrenal mass. 10. Peripheral neuropathy. 11. Type 2 diabetes. 12. Chronic obstructive pulmonary disease (COPD). 13. Orthostatic hypotension. Surgical History SURGICAL HISTORY: 1. Bariatric surgery. 2. Cholecystectomy. 3. Appendectomy. 4. (C) section and tubal ligation. 5. Left shoulder replacement. 6. Bilateral retinal surgery. 7. Right cataract surgery. 8. Tonsillectomy. Family History Father had myocardial infarction. Mother had diabetes Social History * Smoker: Denies, current smoker Alcohol: Denies Drugs: denies A-FIB/CHADSVASC A-FIB History Current/History of A-Fib/PAF?: No Current PO Anticoag Therapy: No Review of Systems Constitutional: Denies: Chills, Fever Eyes: Denies: Pain, Vision change ENT: Denies: Head Aches, Ear Pain Skin: Denies: Rash, Lesions Pulmonary: Denies: Dyspnea, Cough Cardiovascular: Denies: Chest Pain, Palpitations Gastrointestinal: Denies: Nausea, Vomiting Genitourinary: Denies: Dysuria, Frequency Hematologic: Denies: Bruising, Bleeding Excessively Endocrine: Denies: Polydipsia, Polyphagia Musculoskeletal: Denies: Neck Pain, Back Pain Neurological: Denies: Weakness, Numbness Psych: Reports: Mood Normal Physical Examination General Exam: Positive: Alert, Cooperative Eye Exam: Positive: PERRLA, Conjunctiva & lids normal, EOMI ENT Exam: Positive: Atraumatic Neck Exam: Positive: Supple; Negative: JVD Chest Exam: Positive: Clear to auscultation Heart Exam: Positive: Rate Normal Telemetry: Positive: No significant arrhythmia Abdomen Exam: Positive: Normal bowel sounds Extremity Exam: Negative: Clubbing, Cyanosis Skin Exam: Positive: Nl turgor and temperature, Other skin issue (stage IV sacral decubitus ulcer size 5-6 cm, looks noninfected) Neuro Exam: Positive: Normal Gait Psych Exam: Positive: Mental status NL Vital Signs Vital Signs Date Time Temp Pulse Resp B/P (MAP) Pulse Ox O2 Delivery O2 Flow Rate FiO2 02/28/19 14:32 97.9 83 18 115/74 (88) 100 Laboratory Data Labs 24H Laboratory Tests 2 02/28/19 13:48: Anion Gap 6L, Glomerular Filtration Rate > 60.0, Lactic Acid Level 1.1, Blood Urea Nitrogen 11, Creatinine 0.57, Sodium Level 135L, Potassium Level 4.2, Chloride Level 99, Carbon Dioxide Level 30, Calcium Level 8.5, Aspartate Amino Transf (AST/SGOT) 14, Alanine Aminotransferase (ALT/SGPT) 9L, Alkaline Phosphatase 91, Total Bilirubin 0.5, Total Protein 6.3L, Albumin 2.3L, Albumin/Globulin Ratio 0.58L CBC/BMP Laboratory Tests 02/28/19 13:48 Calcium Level 8.5, Aspartate Amino Transf (AST/SGOT) 14, Alanine Aminotransferase (ALT/SGPT) 9 L, Alkaline Phosphatase 91, Total Bilirubin 0.5, Total Protein 6.3 L, Albumin 2.3 L Microbiology Microbiology 02/28/19 MRSA Screen, Received Pending 02/28/19 Blood Culture, Received Pending Assessment/Plan Patient is 53 years old female with past medical history of HIV, diabetes mellitus type 2, diabetes neuropathy, hypertension, cirrhosis, chronic osteomyelitis of 4 and 5 th toe of left foot presented hospital for planned left metatarsal 4 and 5 th toes amputation. Problems (1) Osteomyelitis of left foot Problem Text: I discussed with plan for surgery, most likely on this week Wound culture, blood culture Pain management Ceftaroline IV EKG, chest xr (2) Diabetic ulcer of foot associated with diabetes mellitus due to underlying condition, with necrosis of bone Problem Text: See above (3) Decubitus ulcer Problem Text: Noninfected for now Wound care consult [employer] for now (4) Physical deconditioning Problem Text: PT/OT evaluation Plan / VTE VTE Prophylaxis Ordered?: Yes LUCILA PLUMMER DO Feb 28, 2019 15:43
--- NOTE | 2019-02-28 16:07 | REP ---
CHEST, SINGLE VIEW: There is no evidence of acute infiltrate. No pleural effusion is seen. The heart is normal in size. The mediastinal silhouette is unremarkable. The visualized osseous structures are intact. Metallic prosthesis is noted at the left shoulder. IMPRESSION: No acute pulmonary disease. Electronically Signed by Golden Cesar MD 02/28/2019 06:43 P
[2019-02-28] MEDS ORDERED: OXYC10TA12 PO (16:14)
[2019-02-28] MEDS ORDERED: FURO20TA2 PO (16:15)
[2019-02-28] MEDS: CEFTAROLINE FOSAMIL 600 MG in D5W MINI-BAG PLUS 50 ML IV SCH (16:41)
[2019-02-28] MEDS ORDERED: FUROSEMIDE 20 MG TAB PO PRN (17:15)
[2019-02-28] MEDS ORDERED: traZODone 50 MG TAB PO PRN (17:15)
[2019-02-28] MEDS ORDERED: NITROGLYCERIN 0.4 MG SUBL TABLET SL PRN (17:15)
[2019-02-28] MEDS: MORPHINE 4 MG/ML 1ML VIAL/SYRINGE (J2270) IV PRN ×2 (17:16→20:51)
[2019-02-28] MEDS: NS 1,000 ML IV SCH (17:19)
[2019-02-28] MEDS: HumaLOG INSULIN (NovoLOG) PER UNIT SC SCH (17:30)
[2019-02-28] MEDS: oxyCODONE 5MG TAB PO SCH (18:03)
[2019-02-28 20:00] VITALS: BP 103/56
[2019-02-28] MEDS: PREGABALIN 100 MG CAP (LYRICA) PO SCH (20:53)
[2019-02-28] MEDS: SUCRALFATE SUSP 1GM/10ML UD PO SCH (20:53)
[2019-02-28] MEDS: HEPARIN SOD (PORCINE) 5000 UNITS/ML VIAL SC SCH (20:53)
[2019-03-01] MEDS: oxyCODONE 5MG TAB PO SCH ×4 (00:08→17:55)
[2019-03-01] MEDS: MORPHINE 4 MG/ML 1ML VIAL/SYRINGE (J2270) IV PRN ×6 (00:23→18:48)
[2019-03-01] MEDS: NS 1,000 ML IV SCH ×2 (03:07→15:00)
[2019-03-01] MEDS: CEFTAROLINE FOSAMIL 600 MG in D5W MINI-BAG PLUS 50 ML IV SCH ×2 (05:31→16:15)
[2019-03-01 06:00] VITALS: BP 100/59
[2019-03-01 06:49] LABS: HEMATOCRIT 31.5 % (36.0-47.0); MEAN CORPUSCULAR HGB CONC 31.7 g/dl (32.0-36.5); MEAN CORPUSCULAR VOLUME 85.1 fl (80.0-96.0); PLATELET COUNT, AUTOMATED 185 10^3/uL (150-450); WHITE BLOOD COUNT 6.3 10^3/uL (4.0-10.0)
[2019-03-01 07:08] LABS: BLOOD UREA NITROGEN 11 MG/DL (7-18); CALCIUM LEVEL 7.8 MG/DL (8.5-10.1); CARBON DIOXIDE LEVEL 28 MEQ/L (21-32); CHLORIDE LEVEL 103 MEQ/L (98-107); CREATININE FOR GFR 0.45 MG/DL (0.55-1.30); GLOMERULAR FILTRATION RATE > 60.0 (>51); GLUCOSE, FASTING 82 MG/DL (70-100); MAGNESIUM LEVEL 1.5 MG/DL (1.8-2.4); POTASSIUM SERUM 3.6 MEQ/L (3.5-5.1); SODIUM LEVEL 137 MEQ/L (136-145)
[2019-03-01] MEDS: HumaLOG INSULIN (NovoLOG) PER UNIT SC SCH ×3 (07:30→17:30)
[2019-03-01] MEDS: SUCRALFATE SUSP 1GM/10ML UD PO SCH ×4 (07:31→20:24)
[2019-03-01] MEDS ORDERED: POTASSIUM CHLORIDE 10 MEQ SR TABLET PO ONE (08:00)
[2019-03-01] MEDS: HEPARIN SOD (PORCINE) 5000 UNITS/ML VIAL SC SCH ×2 (08:57→20:24)
[2019-03-01] MEDS: PREGABALIN 100 MG CAP (LYRICA) PO SCH ×2 (08:58→20:24)
[2019-03-01] MEDS: ASPIRIN 81 MG ENTERIC TAB PO SCH (08:58)
[2019-03-01] MEDS: MAGNESIUM CHLORIDE 64 MG TABCR (SLO MAG) PO SCH (11:25)
--- NOTE | 2019-03-01 12:33 | IPNPDOC ---
Text Note Date of Service The patient was seen on 03/01/19. NOTE Subjective: No any acute events overnight. Patient complains of sacral pain 4 out of 10. Patient denies fever, chills, nausea, vomiting, shortness of breath, palpitations, diarrhea or dysuria Objective: General Exam: Positive: Alert, Cooperative Eye Exam: Positive: PERRLA, Conjunctiva & lids normal, EOMI ENT Exam: Positive: Atraumatic Neck Exam: Positive: Supple; Negative: JVD Chest Exam: Positive: Clear to auscultation Heart Exam: Positive: Rate Normal Telemetry: Positive: No significant arrhythmia Abdomen Exam: Positive: Normal bowel sounds Extremity Exam: Negative: Clubbing, Cyanosis Skin Exam: Positive: Nl turgor and temperature, Other skin issue (stage IV sacral decubitus ulcer size 5-6 cm, looks noninfected Assessment/Plan Patient is 53 years old female with past medical history of HIV, diabetes mellitus type 2, diabetes neuropathy, hypertension, cirrhosis, chronic osteomyelitis of 4 and 5 th toe of left foot presented hospital for planned left metatarsal 4 and 5 th toes amputation. Problems (1) Osteomyelitis of left foot Problem Text: I discussed with plan for surgery, most likely on this week Wound culture, blood culture Pain management Ceftaroline IV EKG, chest xr (2) Diabetic ulcer of foot associated with diabetes mellitus due to underlying condition, with necrosis of bone Problem Text: See above (3) Decubitus ulcer Problem Text: Noninfected for now Wound care consult [employer] for now Pain management (4) Physical deconditioning Problem Text: PT/OT evaluation Coronary artery diseases Angioplasty with stent placement in August 2018 Patient was not on the clopidogrel for unknown reason I added Plavix today Cardiology consult for surgery clearance requested by anesthesiology team Plan / VTE VTE Prophylaxis Ordered?: Yes VS,Fishbone, I+O VS, Fishbone, I+O Laboratory Tests 02/28/19 13:48 Calcium Level 8.5, Aspartate Amino Transf (AST/SGOT) 14, Alanine Aminotr ansferase (ALT/SGPT) 9 L, Alkaline Phosphatase 91, Total Bilirubin 0.5, Total Protein 6.3 L, Albumin 2.3 L 03/01/19 06:32 Calcium Level 7.8 L, Red Blood Count 3.70 L, Mean Corpuscular Volume 85.1, Mean Corpuscular Hemoglobin 27.0, Mean Corpuscular Hemoglobin Concent 31.7 L, Red Cell Distribution Width 15.4 H Vital Signs Date Time Temp Pulse Resp B/P (MAP) Pulse Ox O2 Delivery O2 Flow Rate FiO2 03/01/19 12:23 73 17 03/01/19 06:00 99.0 100/59 (73) 98 I&O- Last 24 Hours up to 6 AM 03/01/19 06:00 Intake Total 1700 ml Output Total 1000 ml Balance 700 ml LUCILA PLUMMER DO Mar 01, 2019 12:33
[2019-03-01 14:00] VITALS: BP 110/60
--- NOTE | 2019-03-01 14:53 | CR ---
DATE OF CONSULTATION: 03/01/2019 REASON FOR CONSULTATION: Left foot ulceration and osteomyelitis. Carol Ann Dhillon is a 53-year-old female who was seen in my office yesterday and admitted to [facility] with left foot infection. She has chronic ulcerations to her left toe. She has an ulceration which is probing bone under left hallux stump She has been started on ceftaroline. PAST MEDICAL HISTORY: Significant for: Diabetes. History of HIV. Hypertension. Cirrhosis. Peripheral vascular disease. Peripheral neuropathy. Right adrenal mass. Chronic obstructive pulmonary disease (COPD). SURGICAL HISTORY: Includes: Bariatric surgery. Cholecystectomy. Appendectomy. Shoulder replacement. Tonsillectomy. Cataracts. Amputation of right and left second toes and left distal hallux. ALLERGIES: None. SOCIAL HISTORY: Current smoker. Labs are reviewed. White blood cell count 6.3, hemoglobin 10, GFR is greater than 60. Chest x-ray is unremarkable for acute pathology. LOWER EXTREMITY EXAMINATION: Left foot there is moderate edema. There is an ulceration of the left hallux with some necrotic tissue and positive probe to bone. The left second toe has been amputated. There has been bone resection of the third toe. ASSESSMENT: Diabetic foot ulcerations and osteomyelitis. PLAN: Continue antibiotics. Patient has plans for toe amputations. Will discuss with anesthesia to see if any further testing is required. The patient does have a history of recent myocardial infarction less than six months ago, which does increase her risk for anesthesia complications. Tentatively she is scheduled for next Tuesday, although she may be scheduled earlier if clearance is possible. Will follow. DEE
[2019-03-01] MEDS: CLOPIDOGREL 75 MG TAB PO SCH (15:12)
[2019-03-01 22:00] VITALS: BP 93/63
[2019-03-02] MEDS: oxyCODONE 5MG TAB PO SCH ×4 (00:06→17:58)
[2019-03-02] MEDS: NS 1,000 ML IV SCH ×2 (02:16→09:15)
[2019-03-02] MEDS: MORPHINE 4 MG/ML 1ML VIAL/SYRINGE (J2270) IV PRN ×6 (02:17→21:25)
[2019-03-02 02:49] VITALS: BP 97/58
[2019-03-02] MEDS: CEFTAROLINE FOSAMIL 600 MG in D5W MINI-BAG PLUS 50 ML IV SCH ×2 (05:46→16:59)
[2019-03-02 06:00] VITALS: BP 115/72
[2019-03-02 06:13] LABS: HEMATOCRIT 26.2 % (36.0-47.0); HEMOGLOBIN 8.5 g/dl (12.0-15.5); MEAN CORPUSCULAR HGB CONC 32.4 g/dl (32.0-36.5); MEAN CORPUSCULAR VOLUME 86.2 fl (80.0-96.0); PLATELET COUNT, AUTOMATED 149 10^3/uL (150-450); RED BLOOD COUNT 3.04 10^6/uL (4.00-5.40); WHITE BLOOD COUNT 4.3 10^3/uL (4.0-10.0)
[2019-03-02 06:34] LABS: ERYTHROCYTE SEDIMENTATION RATE 39 mm/hr (0-30)
[2019-03-02 06:36] LABS: BLOOD UREA NITROGEN 11 MG/DL (7-18); C REACTIVE PROTEIN QUANTITATIV 2.45 MG/DL (0.00-0.30); CALCIUM LEVEL 7.3 MG/DL (8.5-10.1); CARBON DIOXIDE LEVEL 27 MEQ/L (21-32); CHLORIDE LEVEL 106 MEQ/L (98-107); CREATININE FOR GFR 0.35 MG/DL (0.55-1.30); GLOMERULAR FILTRATION RATE > 60.0 (>51); GLUCOSE, FASTING 76 MG/DL (70-100); MAGNESIUM LEVEL 1.5 MG/DL (1.8-2.4); POTASSIUM SERUM 3.7 MEQ/L (3.5-5.1); SODIUM LEVEL 138 MEQ/L (136-145)
[2019-03-02] MEDS: HumaLOG INSULIN (NovoLOG) PER UNIT SC SCH ×3 (07:30→17:26)
[2019-03-02] MEDS: SUCRALFATE SUSP 1GM/10ML UD PO SCH ×4 (07:33→21:25)
[2019-03-02] MEDS: PREGABALIN 100 MG CAP (LYRICA) PO SCH ×2 (08:07→21:25)
[2019-03-02] MEDS: CLOPIDOGREL 75 MG TAB PO SCH (08:07)
[2019-03-02] MEDS: ASPIRIN 81 MG ENTERIC TAB PO SCH (08:07)
[2019-03-02] MEDS: HEPARIN SOD (PORCINE) 5000 UNITS/ML VIAL SC SCH ×2 (08:08→21:00)
[2019-03-02] MEDS: MAGNESIUM CHLORIDE 64 MG TABCR (SLO MAG) PO SCH (08:17)
--- NOTE | 2019-03-02 13:36 | HPE ---
DATE: 03/02/2019 The patient is seen at bedside. Denies overnight complaints. States she wants to have her surgery performed. Lower extremity examination with persisting necrosis to the left hallux with some edema and erythema surrounding. ASSESSMENT: 53-year-old female with left foot osteomyelitis and diabetic ulcerations. PLAN: The patient is scheduled for tomorrow for toe removals. The hospitalist spoke with the transmission specialist, Dr. Wilson, who did not feel that further cardiology assessment was required prior to her planned surgery. He did state that if anesthesia requires it they can speak with him prior to the operation. She is to be nothing by mouth after midnight. Will follow.
[2019-03-02] MEDS: ONDANSETRON 4MG/2ML VIAL (J2405) IV PRN ×2 (13:38→18:27)
--- NOTE | 2019-03-02 13:53 | IPNPDOC ---
Text Note Date of Service The patient was seen on 03/02/19. NOTE Subjective: No any acute events overnight. Patient continues to complains of sacral pain 4 out of 10. Patient c/o nausea Objective: General Exam: Positive: Alert, Cooperative Eye Exam: Positive: PERRLA, Conjunctiva & lids normal, EOMI ENT Exam: Positive: Atraumatic Neck Exam: Positive: Supple; Negative: JVD Chest Exam: Positive: Clear to auscultation Heart Exam: Positive: Rate Normal Telemetry: Positive: No significant arrhythmia Abdomen Exam: Positive: Normal bowel sounds Extremity Exam: Negative: Clubbing, Cyanosis Skin Exam: Positive: Nl turgor and temperature, Other skin issue (stage IV sacral decubitus ulcer size 5-6 cm, looks noninfected) Assessment/Plan Patient is 53 years old female with past medical history of HIV, diabetes mellitus type 2, diabetes neuropathy, hypertension, cirrhosis, chronic osteomyelitis of 4 and 5 th toe of left foot presented hospital for planned left metatarsal 4 and 5 th toes amputation. Problems (1) Osteomyelitis of left foot Problem Text: I discussed with plan for surgery, most likely on this week Wound culture, blood culture Pain management Ceftaroline IV EKG, chest xr (2) Diabetic ulcer of foot associated with diabetes mellitus due to underlying condition, with necrosis of bone Problem Text: See above (3) Decubitus ulcer Problem Text: Noninfected for now Wound care consult [employer] for now Pain management (4) Physical deconditioning Problem Text: PT/OT evaluation Coronary artery diseases Angioplasty with stent placement in August 2018 Patient was not on the clopidogrel for unknown reason I added Plavix Pt does not have any chest pain, no orthopnea, palpitations HIV I discussed with the patient HIV medication which our pharmacy does not have Patient told me that her son is going to bring her HIV medication on Tuesday Plan / VTE VTE Prophylaxis Ordered?: Yes VS,Fishbone, I+O VS, Fishbone, I+O Laboratory Tests 03/02/19 05:55 Red Blood Count 3.04 L, Mean Corpuscular Volume 86.2, Mean Corpuscular Hemoglobin 28.0, Mean Corpuscular Hemoglobin Concent 32.4, Red Cell Distribution Width 15.4 H, Calcium Level 7.3 L Vital Signs Date Time Temp Pulse Resp B/P (MAP) Pulse Ox O2 Delivery O2 Flow Rate FiO2 03/02/19 11:50 76 17 03/02/19 06:00 97.5 115/72 (69) 97 I&O- Last 24 Hours up to 6 AM 03/02/19 05:59 Intake Total 1976 ml Output Total 1500 ml Balance 476 ml LUCILA PLUMMER DO Mar 02, 2019 13:53
[2019-03-02 22:00] VITALS: BP 97/56
[2019-03-03] VITALS (8 sets, daily range): BP systolic 90–118; BP diastolic 56–72
[2019-03-03] MEDS: NS 1,000 ML IV SCH ×4 (00:27→16:33)
[2019-03-03] MEDS: MORPHINE 4 MG/ML 1ML VIAL/SYRINGE (J2270) IV PRN ×6 (00:28→20:47)
[2019-03-03] MEDS: oxyCODONE 5MG TAB PO SCH ×5 (00:28→23:11)
[2019-03-03] MEDS: CEFTAROLINE FOSAMIL 600 MG in D5W MINI-BAG PLUS 50 ML IV SCH ×2 (05:18→17:24)
[2019-03-03 06:23] LABS: HEMATOCRIT 30.6 % (36.0-47.0); HEMOGLOBIN 9.6 g/dl (12.0-15.5); MEAN CORPUSCULAR HEMOGLOBIN 27.4 pg (27.0-33.0); MEAN CORPUSCULAR HGB CONC 31.4 g/dl (32.0-36.5); MEAN CORPUSCULAR VOLUME 87.4 fl (80.0-96.0); PLATELET COUNT, AUTOMATED 163 10^3/uL (150-450); WHITE BLOOD COUNT 4.3 10^3/uL (4.0-10.0)
[2019-03-03 06:53] LABS: BLOOD UREA NITROGEN 11 MG/DL (7-18); CALCIUM LEVEL 7.6 MG/DL (8.5-10.1); CARBON DIOXIDE LEVEL 28 MEQ/L (21-32); CHLORIDE LEVEL 106 MEQ/L (98-107); CREATININE FOR GFR 0.35 MG/DL (0.55-1.30); GLOMERULAR FILTRATION RATE > 60.0 (>51); GLUCOSE, FASTING 75 MG/DL (70-100); MAGNESIUM LEVEL 1.5 MG/DL (1.8-2.4); POTASSIUM SERUM 3.6 MEQ/L (3.5-5.1); SODIUM LEVEL 137 MEQ/L (136-145)
[2019-03-03] MEDS: HumaLOG INSULIN (NovoLOG) PER UNIT SC SCH ×3 (07:30→17:30)
[2019-03-03] MEDS ORDERED: BUPIVACAINE HCL 0.5% 10 ML VIAL As Ordered ONE (08:10)
[2019-03-03] MEDS ORDERED: LIDOCAINE 1% MDV 20ML VIAL As Ordered ONE (08:10)
[2019-03-03] MEDS ORDERED: MIDAZOLAM INJ 2 MG/2 ML VIAL (J2250) As Ordered ONE (08:42)
[2019-03-03] MEDS ORDERED: fentaNYL 100 MCG/2 ML INJECTION (J3010) As Ordered ONE (08:43)
[2019-03-03] MEDS ORDERED: LIDOCAINE 2% INJ 100 MG/5 ML SDV (FOR ANES.) As Ordered ONE (08:45)
[2019-03-03] MEDS ORDERED: PROPOFOL 200 MG/20 ML VIAL As Ordered ONE ×2 (08:45→09:57)
[2019-03-03] MEDS ORDERED: ONDANSETRON 4MG/2ML VIAL (J2405) As Ordered ONE (08:45)
[2019-03-03] MEDS ORDERED: POTASSIUM CHLORIDE 10 MEQ SR TABLET PO ONE (08:45)
[2019-03-03] MEDS: SUCRALFATE SUSP 1GM/10ML UD PO SCH ×4 (09:00→20:46)
[2019-03-03] MEDS ORDERED: ePHEDrine SULFATE 25 MG/5 ML(5MG/ML) SYRINGE As Ordered ONE (09:43)
--- NOTE | 2019-03-03 09:45 | ECGEPIP ---
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
[2019-03-03] MEDS ORDERED: LR 1,000 ML IV SCH (11:00)
[2019-03-03] MEDS ORDERED: oxyCODONE 5MG TAB PO PRN (11:00)
[2019-03-03] MEDS ORDERED: ONDANSETRON 4MG/2ML VIAL (J2405) IV PRN (11:00)
[2019-03-03] MEDS ORDERED: fentaNYL 100 MCG/2 ML INJECTION (J3010) IV PRN (11:00)
[2019-03-03] MEDS: MAGNESIUM CHLORIDE 64 MG TABCR (SLO MAG) PO SCH ×2 (11:27→20:46)
[2019-03-03] MEDS: PREGABALIN 100 MG CAP (LYRICA) PO SCH ×2 (11:28→20:46)
[2019-03-03] MEDS: ASPIRIN 81 MG ENTERIC TAB PO SCH (11:28)
[2019-03-03] MEDS ORDERED: SODIUM CHLORIDE 0.9% 1000ML IV ONE (12:00)
[2019-03-03] MEDS: HEPARIN SOD (PORCINE) 5000 UNITS/ML VIAL SC SCH ×2 (14:21→20:46)
[2019-03-03] MEDS: CLOPIDOGREL 75 MG TAB PO SCH (14:21)
[2019-03-03] MEDS ORDERED: NS 1,000 ML IV ONE (15:00)
--- NOTE | 2019-03-03 16:33 | IPNPDOC ---
Text Note Date of Service The patient was seen on 03/03/19. NOTE Subjective: Patient had left metatarsal foot amputation in the morning. Patient tolerates surgery well. She complains of left foot pain and sacral ulcer pain Objective: General Exam: Positive: Alert, Cooperative Eye Exam: Positive: PERRLA, Conjunctiva & lids normal, EOMI ENT Exam: Positive: Atraumatic Neck Exam: Positive: Supple; Negative: JVD Chest Exam: Positive: Clear to auscultation Heart Exam: Positive: Rate Normal Telemetry: Positive: No significant arrhythmia Abdomen Exam: Positive: Normal bowel sounds Extremity Exam: Negative: Clubbing, Cyanosis Skin Exam: Positive: Nl turgor and temperature, Other skin issue (stage IV sacral decubitus ulcer size 5-6 cm, looks noninfected) Assessment/Plan Patient is 53 years old female with past medical history of HIV, diabetes mellitus type 2, diabetes neuropathy, hypertension, cirrhosis, chronic osteomyelitis of 4 and 5 th toe of left foot presented hospital for planned left metatarsal 4 and 5 th toes amputation. Left metatarsal amputation was done on 03/03/19 Problems (1) Osteomyelitis of left foot Problem Text: surgery was done today Previous one culture was positive for Proteus Pennery, Streptococcus group G Appreciate/agree with ID consult Await bone culture blood culture negative for 72 hours Pain management Ceftaroline IV (2) Diabetic ulcer of foot associated with diabetes mellitus due to underlying condition, with necrosis of bone Problem Text: See above (3) Decubitus ulcer Problem Text: Noninfected for now Wound care consult [employer] for now Pain management (4) Physical deconditioning Problem Text: PT/OT evaluation Coronary artery diseases Angioplasty with stent placement in August 2018 Patient was not on the clopidogrel for unknown reason I added Plavix Pt does not have any chest pain, no orthopnea, palpitations HIV I discussed with the patient HIV medication which our pharmacy does not have Family member brought HIV medication today VS,Fishbone, I+O VS, Fishbone, I+O Laboratory Tests 03/03/19 06:04 Red Blood Count 3.50 L, Mean Corpuscular Volume 87.4, Mean Corpuscular Hemoglobin 27.4, Mean Corpuscular Hemoglobin Concent 31.4 L, Red Cell Distribution Width 15.4 H, Calcium Level 7.6 L Vital Signs Date Time Temp Pulse Resp B/P (MAP) Pulse Ox O2 Delivery O2 Flow Rate FiO2 03/03/19 16:18 16 03/03/19 14:00 98.6 85 95/68 (17) 95 I&O- Last 24 Hours up to 6 AM 03/03/19 06:00 Intake Total 2740 ml Output Total 950 ml Balance 1790 ml LUCILA PLUMMER DO Mar 03, 2019 16:33
[2019-03-03] MEDS: GENVOYA PO SCH (23:10)
[2019-03-04] MEDS: MORPHINE 4 MG/ML 1ML VIAL/SYRINGE (J2270) IV PRN ×5 (02:16→21:37)
[2019-03-04] MEDS: NS 1,000 ML IV SCH ×3 (05:47→21:37)
[2019-03-04] MEDS: CEFTAROLINE FOSAMIL 600 MG in D5W MINI-BAG PLUS 50 ML IV SCH (05:47)
[2019-03-04] MEDS: oxyCODONE 5MG TAB PO SCH ×3 (05:48→18:26)
[2019-03-04 05:51] LABS: HEMATOCRIT 26.3 % (36.0-47.0); HEMOGLOBIN 8.3 g/dl (12.0-15.5); MEAN CORPUSCULAR HEMOGLOBIN 27.2 pg (27.0-33.0); MEAN CORPUSCULAR HGB CONC 31.6 g/dl (32.0-36.5); MEAN CORPUSCULAR VOLUME 86.2 fl (80.0-96.0); PLATELET COUNT, AUTOMATED 146 10^3/uL (150-450); RED BLOOD COUNT 3.05 10^6/uL (4.00-5.40); WHITE BLOOD COUNT 4.6 10^3/uL (4.0-10.0)
[2019-03-04 06:00] VITALS: BP 113/66
[2019-03-04 06:10] LABS: BLOOD UREA NITROGEN 8 MG/DL (7-18); CALCIUM LEVEL 7.3 MG/DL (8.5-10.1); CARBON DIOXIDE LEVEL 28 MEQ/L (21-32); CHLORIDE LEVEL 108 MEQ/L (98-107); CREATININE FOR GFR 0.41 MG/DL (0.55-1.30); GLOMERULAR FILTRATION RATE > 60.0 (>51); GLUCOSE, FASTING 78 MG/DL (70-100); MAGNESIUM LEVEL 1.5 MG/DL (1.8-2.4); POTASSIUM SERUM 3.7 MEQ/L (3.5-5.1); SODIUM LEVEL 138 MEQ/L (136-145)
[2019-03-04] MEDS ORDERED: MAG SULF 1GM/100ML (MAG RUN) 1 GM in IV 1 EA IV ONE (07:00)
[2019-03-04] MEDS: HumaLOG INSULIN (NovoLOG) PER UNIT SC SCH ×3 (07:30→17:27)
[2019-03-04] MEDS: MAGNESIUM CHLORIDE 64 MG TABCR (SLO MAG) PO SCH ×2 (08:28→21:36)
[2019-03-04] MEDS: SUCRALFATE SUSP 1GM/10ML UD PO SCH ×4 (08:28→21:35)
[2019-03-04] MEDS: ASPIRIN 81 MG ENTERIC TAB PO SCH (08:28)
[2019-03-04] MEDS: HEPARIN SOD (PORCINE) 5000 UNITS/ML VIAL SC SCH ×2 (08:29→21:36)
[2019-03-04] MEDS: CLOPIDOGREL 75 MG TAB PO SCH (08:29)
[2019-03-04] MEDS: PREGABALIN 100 MG CAP (LYRICA) PO SCH ×2 (08:29→21:35)
[2019-03-04 12:25] VITALS: BP 115/71
[2019-03-04 14:00] VITALS: BP 95/59
--- NOTE | 2019-03-04 15:36 | IPNPDOC ---
Text Note Date of Service The patient was seen on 03/04/19. NOTE Subjective: No any acute events overnight. Patient had left metatarsal foot amputation in the morning. Patient tolerates surgery well. She complains of left foot pain and sacral ulcer pain Objective: General Exam: Positive: Alert, Cooperative Eye Exam: Positive: PERRLA, Conjunctiva & lids normal, EOMI ENT Exam: Positive: Atraumatic Neck Exam: Positive: Supple; Negative: JVD Chest Exam: Positive: Clear to auscultation Heart Exam: Positive: Rate Normal Telemetry: Positive: No significant arrhythmia Abdomen Exam: Positive: Normal bowel sounds Extremity Exam: Negative: Clubbing, Cyanosis Skin Exam: Positive: Nl turgor and temperature, Other skin issue (stage IV sacral decubitus ulcer size 5-6 cm, looks noninfected) Assessment/Plan Patient is 53 years old female with past medical history of HIV, diabetes mellitus type 2, diabetes neuropathy, hypertension, cirrhosis, chronic osteomyelitis of 4 and 5 th toe of left foot presented hospital for planned left metatarsal 4 and 5 th toes amputation. Left metatarsal amputation was done on 03/03/19 Problems (1) Osteomyelitis of left foot Problem Text: surgery was done today Previous one culture was positive for Proteus Pennery, Streptococcus group G, MRSA, Strep mitis Appreciate/agree with ID consult Await bone culture blood culture negative Pain management I changed her antibiotics to vancomycin and cefepime according to sensitivity (2) Diabetic ulcer of foot associated with diabetes mellitus due to underlying condition, with necrosis of bone Problem Text: See above (3) Decubitus ulcer Problem Text: Noninfected for now Wound care consult [employer] for now Pain management (4) Physical deconditioning Problem Text: PT/OT evaluation Coronary artery diseases Angioplasty with stent placement in August 2018 Patient was not on the clopidogrel for unknown reason I added Plavix Pt does not have any chest pain, no orthopnea, palpitations HIV I discussed with the patient HIV medication which our pharmacy does not have Family member brought HIV medication VS,Milagro, I+O VS, Milagro, I+O Laboratory Tests 03/04/19 05:30 Red Blood Count 3.05 L, Mean Corpuscular Volume 86.2, Mean Corpuscular Hemoglobin 27.2, Mean Corpuscular Hemoglobin Concent 31.6 L, Red Cell Distribution Width 15.6 H, Calcium Level 7.3 L Vital Signs Date Time Temp Pulse Resp B/P (MAP) Pulse Ox O2 Delivery O2 Flow Rate FiO2 03/04/19 14:33 16 03/04/19 14:00 98.7 83 95/59 (71) 96 I&O- Last 24 Hours up to 6 AM0 03/04/19 05:59 Intake Total 3350 ml Output Total 1250 ml Balance 2100 ml LUCILA PLUMMER DO Mar 04, 2019 15:36
--- NOTE | 2019-03-04 16:54 | PHACANCOPD ---
PHARMACY VANCOMYCIN DOSING Pt Demographics Demographics Patient Age:53 , Weight:72.900 , Gender: female Adjusted Body Weight Date: 03/04/19, Adjusted Body Weight: Kg Events Past 24 Hours Events Past 24 Hours: NO: Dialysis, Diuretic Therapy, Change in CrCl, Fever, Elevation in WBC, Pending Diagnostics, Pending Procedures, Other Vancomycin Vancomycin indication: OSTEOMYELITIS Vancomycin Target Ranges: 15-20 mcg/ml Vancomycin Load Y/N: Yes Load Dose Date Time Vancomycin Load Dose: 1.5G Date:03/04/19 Time:18:00 Vancomycin Dose Date: 03/04/19. Current Vancomycin Dose: [1G IV Q12H] Intermittent Dosing?: No Labs Labs Item Value Date Time White Blood Count 4.3 10^3/uL 03/03/19 0604 White Blood Count 4.6 10^3/uL 03/04/19 0530 Creatinine 0.35 MG/DL L 03/02/19 0555 Creatinine 0.35 MG/DL L 03/03/19 0604 Creatinine 0.41 MG/DL L 03/04/19 0530 Micro Microbiology 03/03/19 Gram Stain - Final, Resulted 03/03/19 Abscess Culture, Resulted Pending 03/01/19 Gram Stain - Final, Complete 03/01/19 Wound Culture - Final, Complete Proteus Penneri Staph.aureus Methicillin Resis Streptococcus Group G Streptococcus Mitis 02/28/19 MRSA Screen - Final, Complete Staph.aureus Methicillin Resis 02/28/19 Blood Culture - Preliminary, Resulted No Growth after 72 hours. All specime... Creatinine Clearance Date:03/04/19. Creatinine Clearance: [166ML/MIN]. Assessment and Plan Maintaining Current Dose?: Yes Reason for dose change: No Dose Change Pharmacist Note Pharmacist Note Date: 03/04/19. Pharmacist note:PT is a 53 year old female being treated for osteomyelitis goal trough 15-20mcg/ml. Pt was previously treated with Vancomycin here at [facility] in september 2018. To achieve goal a 1.5g loading dose will start 03/04/19 @18:00. Maintenance therapy will consist of 1g IV every 12 hours. We will continue to monitor and adjust the dose as needed. ROHAN RAY PHARMACY Mar 04, 2019 16:53
[2019-03-04] MEDS: CEFEPIME HCL 1 GM in D5W MINI-BAG PLUS 50 ML IV SCH (17:09)
[2019-03-04] MEDS: VANCOMYCIN HCL 1,000 MG, VIAL MATE ADAPTER 1 EACH in D5W 250 ML IV SCH (18:26)
[2019-03-04] MEDS ORDERED: VANCOMYCIN HCL 500 MG in D5W MINI-BAG PLUS 100 ML IV ONE (19:00)
[2019-03-04] MEDS: GENVOYA PO SCH (21:35)
[2019-03-04 22:00] VITALS: BP 108/66
[2019-03-05] MEDS: oxyCODONE 5MG TAB PO SCH ×4 (01:15→17:06)
[2019-03-05] MEDS: CEFEPIME HCL 1 GM in D5W MINI-BAG PLUS 50 ML IV SCH ×2 (05:08→17:05)
[2019-03-05 06:00] VITALS: BP 101/62
[2019-03-05] MEDS: VANCOMYCIN HCL 1,000 MG, VIAL MATE ADAPTER 1 EACH in D5W 250 ML IV SCH ×2 (06:26→18:49)
[2019-03-05 06:32] LABS: HEMATOCRIT 26.5 % (36.0-47.0); HEMOGLOBIN 8.5 g/dl (12.0-15.5); MEAN CORPUSCULAR HEMOGLOBIN 27.5 pg (27.0-33.0); MEAN CORPUSCULAR HGB CONC 32.1 g/dl (32.0-36.5); MEAN CORPUSCULAR VOLUME 85.8 fl (80.0-96.0); PLATELET COUNT, AUTOMATED 140 10^3/uL (150-450); RED BLOOD COUNT 3.09 10^6/uL (4.00-5.40); WHITE BLOOD COUNT 3.9 10^3/uL (4.0-10.0)
[2019-03-05 06:58] LABS: BLOOD UREA NITROGEN 10 MG/DL (7-18); CALCIUM LEVEL 7.2 MG/DL (8.5-10.1); CARBON DIOXIDE LEVEL 27 MEQ/L (21-32); CHLORIDE LEVEL 106 MEQ/L (98-107); CREATININE FOR GFR 0.39 MG/DL (0.55-1.30); GLOMERULAR FILTRATION RATE > 60.0 (>51); GLUCOSE, FASTING 72 MG/DL (70-100); MAGNESIUM LEVEL 1.5 MG/DL (1.8-2.4); POTASSIUM SERUM 3.5 MEQ/L (3.5-5.1); SODIUM LEVEL 137 MEQ/L (136-145)
[2019-03-05] MEDS: HumaLOG INSULIN (NovoLOG) PER UNIT SC SCH ×3 (07:30→17:12)
--- NOTE | 2019-03-05 07:32 | RO ---
DATE OF SURGERY: 03/03/2019 PREOPERATIVE DIAGNOSIS: Left foot chronic diabetic ulcerations, osteomyelitis. POSTOPERATIVE DIAGNOSIS: Left foot chronic diabetic ulcerations, osteomyelitis. PROCEDURE: Left foot toe amputation of toes 1, 3, 4, 5. SURGEON: Geovanni Coe DPM PLASTER HELPER: None. ANESTHESIA: Monitored anesthesia care (MAC). Preop injection of 20 mL of 1:1 mixture of 1% lidocaine plain and 0.50% Marcaine plain. ESTIMATED BLOOD LOSS: 10 mL. SPECIMENS: Left hallux and toes. COMPLICATIONS: None. CONDITION: Stable. Carol Ann Dhillon is a 53-year-old female who has chronic ulcerations to her left feet. She was admitted to the hospital for IV antibiotics with planned surgery. The patient's site and side were identified and marked in preop holding area. Consent was reviewed and obtained. All the risks, complications and alternatives to the procedure were explained to the patient in detail, and all questions were answered. PROCEDURE: The patient was brought to the operating room and placed on the operating room table in supine position. Monitored anesthesia care was delivered by the anesthesia team. Preop injection of 20 mL of 1:1 mixture of 1% lidocaine plain and 0.5% Marcaine plain were injected into the left foot. The left foot was prepped and draped in a normal sterile fashion. No tourniquet was used during the procedure. Around each remaining toe 1, 3, 4 and 5, an elliptical incision was created and carried through with a #15 blade. Each toe was disarticulated at the metatarsal phalangeal joint and each toe was sent for pathology. The sites were all irrigated with normal saline. Each metatarsal head was inspected and noted to be free of infection or bony erosion. Incisions were closed with #3-0 nylon and sterile dressings were applied. The patient was brought to the postanesthesia care unit (PACU) with vital signs stable and neurovascular status intact. She will be readmitted to the floor for continued antibiotics and monitoring.
[2019-03-05] MEDS: SUCRALFATE SUSP 1GM/10ML UD PO SCH ×4 (07:33→21:46)
[2019-03-05] MEDS: ASPIRIN 81 MG ENTERIC TAB PO SCH (08:28)
[2019-03-05] MEDS: CLOPIDOGREL 75 MG TAB PO SCH (08:29)
[2019-03-05] MEDS: PREGABALIN 100 MG CAP (LYRICA) PO SCH ×2 (08:29→21:47)
[2019-03-05] MEDS: HEPARIN SOD (PORCINE) 5000 UNITS/ML VIAL SC SCH ×2 (08:30→21:46)
[2019-03-05] MEDS: MORPHINE 4 MG/ML 1ML VIAL/SYRINGE (J2270) IV PRN ×4 (08:31→21:51)
[2019-03-05] MEDS: MAGNESIUM CHLORIDE 64 MG TABCR (SLO MAG) PO SCH (09:00)
[2019-03-05] MEDS ORDERED: MAG SULF 1GM/100ML (MAG RUN) 1 GM in IV 1 EA IV ONE (09:00)
--- NOTE | 2019-03-05 10:03 | IPN ---
DATE: 03/05/2019 The patient was seen and examined, denies overnight complaints. States some mild soreness in her foot. Vitals are reviewed. T-max was 99. Labs are reviewed. White blood cell count is 3.9, hemoglobin is 8.5. Lower extremity examination: Toe amputation sites incisions are fully coapted with good capillary refill time. Edema is somewhat improved from previous exams. ASSESSMENT: 53-year-old diabetic female status post toe amputations. PLAN: Okay to work with therapy. She can be heel down weightbearing. Change dressings every other day with Telfa, gauze, Kerlix. Would discharge her with two weeks of soft tissue coverage. All bone was removed surgically during operation that had osteomyelitis.
[2019-03-05] MEDS: NS 1,000 ML IV SCH (13:43)
[2019-03-05 14:00] VITALS: BP 99/57
--- NOTE | 2019-03-05 14:47 | IPNPDOC ---
Text Note Date of Service The patient was seen on 03/05/19. NOTE Subjective: No any acute events overnight. She complains of left foot pain and sacral ulcer pain 8 out of 10. Patient denies fever, chills, nausea, vomiting, palpitations, shortness of breath, diarrhea or dysuria Objective: General Exam: Positive: Alert, Cooperative Eye Exam: Positive: PERRLA, Conjunctiva & lids normal, EOMI ENT Exam: Positive: Atraumatic Neck Exam: Positive: Supple; Negative: JVD Chest Exam: Positive: Clear to auscultation Heart Exam: Positive: Rate Normal Telemetry: Positive: No significant arrhythmia Abdomen Exam: Positive: Normal bowel sounds Extremity Exam: Negative: Clubbing, Cyanosis Skin Exam: Positive: Nl turgor and temperature, Other skin issue (stage IV sacral decubitus ulcer size 5-6 cm, looks noninfected) Assessment/Plan Patient is 53 years old female with past medical history of HIV, diabetes mellitus type 2, diabetes neuropathy, hypertension, cirrhosis, chronic osteomyelitis of 4 and 5 th toe of left foot presented hospital for planned left metatarsal 4 and 5 th toes amputation. Left metatarsal amputation was done on 03/03/19. Wound culture was positive for Proteus Pennery, Streptococcus group G, MRSA, Strep mitis. I changed Ceftaroline to vancomycin and cefepime according to sensitivity. Dr Arroyo will see her Problems (1) Osteomyelitis of left foot wound culture was positive for Proteus Pennery, Streptococcus group G, MRSA, Strep mitis Appreciate/agree with ID consult Await bone culture blood culture negative Pain clinic consult placed I changed Ceftaroline to vancomycin and cefepime according to sensitivity PT/OT Human Resources Services Specialist recommended heel down weightbearing. Change dressings every other day with Telfa, gauze, Kerlix (2) Diabetic ulcer of foot associated with diabetes mellitus due to underlying condition, with necrosis of bone Problem Text: See above (3) Decubitus ulcer Problem Text: Noninfected for now Wound care recommended wound vac Pain management (4) Physical deconditioning Problem Text: PT/OT evaluation Coronary artery diseases Angioplasty with stent placement in August 2018 Patient was not on the clopidogrel for unknown reason I added Plavix Pt does not have any chest pain, no orthopnea, palpitations HIV I discussed with the patient HIV medication which our pharmacy does not have Family member brought HIV medication VS,Steph Humphrey+O VS, Milagro, I+O Laboratory Tests 03/05/19 06:13 Red Blood Count 3.09 L, Mean Corpuscular Volume 85.8, Mean Corpuscular Hemoglobin 27.5, Mean Corpuscular Hemoglobin Concent 32.1, Red Cell Distribution Width 15.7 H, Calcium Level 7.2 L Vital Signs Date Time Temp Pulse Resp B/P (MAP) Pulse Ox O2 Delivery O2 Flow Rate FiO2 03/05/19 13:55 18 03/05/19 06:00 99.0 72 101/62 (75) 99 I&O- Last 24 Hours up to 6 AM 03/05/19 06:00 Intake Total 3082 ml Output Total 2425 ml Balance 657 ml LUCILA PLUMMER DO Mar 05, 2019 14:47
--- NOTE | 2019-03-05 15:39 | IPNPDOC ---
General Date of Service/Time The patient was seen on 03/05/19 at 15:34. Chief complaint The patient is a 53-year-old female admitted with a reason for visit of Diabetic Foot Ulcer,Osteomyelitis. Pain management is asked to see in regards to jani wolfe's pressure ulcer. Progress Note Patient is a 53 year old female who required pain consult related to pressure ulcer located on her coccyx. When this filing writer asked patient about her pain she stated she felt the medications she was receiving currently were beneficial in treating her pain. Patient is a chronic pain patient and states she likes to keep her pain around a 5/10 and feels the medications have gotten her down to a 4/10 at times. At this time my recommendation would be to continue with current medication regimen. Should you have any further questions or concerns please feel free to contact us at the pain center. Allergies Allergies: Coded Allergies: No Known Allergies (Unverified , 12/27/18) VS,Fishbone, I+O VS, Fishbone, I+O Laboratory Tests 03/05/19 06:13 Red Blood Count 3.09 L, Mean Corpuscular Volume 85.8, Mean Corpuscular Hemoglobin 27.5, Mean Corpuscular Hemoglobin Concent 32.1, Red Cell Distribution Width 15.7 H, Calcium Level 7.2 L Vital Signs Date Time Temp Pulse Resp B/P (MAP) Pulse Ox O2 Delivery O2 Flow Rate FiO2 03/05/19 14:00 99.0 89 15 99/57 (30) 97 I&O- Last 24 Hours up to 6 AM 03/05/19 05:59 Intake Total 2742 ml Output Total 1725 ml Balance 1017 ml GLORIA GAONA Mar 05, 2019 15:39
--- NOTE | 2019-03-05 17:52 | PHACANCOPD ---
PHARMACY VANCOMYCIN DOSING Pt Demographics Demographics Patient Age:53 , Weight:72.900 , Gender: female Adjusted Body Weight Date: 03/04/19, Adjusted Body Weight: Kg Vancomycin Vancomycin indication: OSTEOMYELITIS Vancomycin Target Ranges: 15-20 mcg/ml Vancomycin Load Y/N: Yes Load Dose Date Time Vancomycin Load Dose: 1.5G Date:03/04/19 Time:18:00 Vancomycin Dose Date: 03/05/19. Current Vancomycin Dose: [750MG IV Q8H 03/06/19 @02:00] Date: 03/04/19. Current Vancomycin Dose: [1G IV Q12H] Intermittent Dosing?: No Labs Labs Item Value Date Time White Blood Count 4.3 10^3/uL 03/03/19 0604 White Blood Count 4.6 10^3/uL 03/04/19 0530 White Blood Count 3.9 10^3/uL L 03/05/19 0613 Creatinine 0.35 MG/DL L 03/03/19 0604 Creatinine 0.41 MG/DL L 03/04/19 0530 Creatinine 0.39 MG/DL L 03/05/19 0613 Vancomycin Level Trough 10.0 UG/ML 03/05/19 1655 Micro Microbiology 03/03/19 Gram Stain - Final, Resulted 03/03/19 Abscess Culture - Preliminary, Resulted Staphylococcus Aureus Corynebacterium Species 03/01/19 Gram Stain - Final, Complete 03/01/19 Wound Culture - Final, Complete Proteus Penneri Staph.aureus Methicillin Resis Streptococcus Group G Streptococcus Mitis 02/28/19 MRSA Screen - Final, Complete Staph.aureus Methicillin Resis 02/28/19 Blood Culture - Final, Complete NO GROWTH AFTER 5 DAYS Creatinine Clearance Date:03/04/19. Creatinine Clearance: [166ML/MIN]. Pending Labs VANCOMYCIN TROUGH 03/06/19 @1700 Assessment and Plan Maintaining Current Dose?: No Reason for dose change: Trough too low Pharmacist Note Pharmacist Note Date: 03/05/19. Pharmacist note: PT trough came back at 10mcg/ml @16:55 prior to the third dose. The pt will receive 1g IV @18:00 03/05/19 then dosing will be changed to 750mg iv every 8 hours starting 03/06/19 @02:00. Another trough is scheduled for 03/06/19 @17:00. We will continue to monitor and adjust the dose as needed. Date: 03/04/19. Pharmacist note:PT is a 53 year old female being treated for osteomyelitis goal trough 15-20mcg/ml. Pt was previously treated with Vancomycin here at [facility] in september 2018. To achieve goal a 1.5g loading dose will start 03/04/19 @18:00. Maintenance therapy will consist of 1g IV every 12 hours. We will continue to monitor and adjust the dose as needed. ROHAN RAY PHARMACY Mar 05, 2019 17:52
[2019-03-05] MEDS: GENVOYA PO SCH (21:46)
[2019-03-05 22:00] VITALS: BP 103/63
[2019-03-06] MEDS: oxyCODONE 5MG TAB PO SCH ×5 (00:23→23:52)
[2019-03-06] MEDS: VANCOMYCIN HCL 750 MG, VIAL MATE ADAPTER 1 EACH in D5W 250 ML IV SCH ×2 (01:31→09:52)
[2019-03-06] MEDS: MORPHINE 4 MG/ML 1ML VIAL/SYRINGE (J2270) IV PRN ×3 (03:14→13:42)
[2019-03-06] MEDS: CEFEPIME HCL 1 GM in D5W MINI-BAG PLUS 50 ML IV SCH (04:22)
[2019-03-06] MEDS: NS 1,000 ML IV SCH ×2 (05:21→20:54)
[2019-03-06 05:55] LABS: HEMATOCRIT 25.6 % (36.0-47.0); HEMOGLOBIN 8.1 g/dl (12.0-15.5); MEAN CORPUSCULAR HEMOGLOBIN 27.6 pg (27.0-33.0); MEAN CORPUSCULAR HGB CONC 31.6 g/dl (32.0-36.5); MEAN CORPUSCULAR VOLUME 87.1 fl (80.0-96.0); PLATELET COUNT, AUTOMATED 135 10^3/uL (150-450); RED BLOOD COUNT 2.94 10^6/uL (4.00-5.40); WHITE BLOOD COUNT 3.5 10^3/uL (4.0-10.0)
[2019-03-06 06:00] VITALS: BP 103/62
[2019-03-06 06:17] LABS: BLOOD UREA NITROGEN 11 MG/DL (7-18); CALCIUM LEVEL 7.2 MG/DL (8.5-10.1); CARBON DIOXIDE LEVEL 26 MEQ/L (21-32); CHLORIDE LEVEL 107 MEQ/L (98-107); CREATININE FOR GFR 0.45 MG/DL (0.55-1.30); GLOMERULAR FILTRATION RATE > 60.0 (>51); GLUCOSE, FASTING 102 MG/DL (70-100); MAGNESIUM LEVEL 1.4 MG/DL (1.8-2.4); POTASSIUM SERUM 3.1 MEQ/L (3.5-5.1); SODIUM LEVEL 139 MEQ/L (136-145)
[2019-03-06] MEDS: SUCRALFATE SUSP 1GM/10ML UD PO SCH ×4 (06:56→20:54)
[2019-03-06] MEDS: HumaLOG INSULIN (NovoLOG) PER UNIT SC SCH ×3 (07:30→16:33)
[2019-03-06] MEDS: ASPIRIN 81 MG ENTERIC TAB PO SCH (08:03)
[2019-03-06] MEDS: HEPARIN SOD (PORCINE) 5000 UNITS/ML VIAL SC SCH ×2 (08:03→20:55)
[2019-03-06] MEDS: CLOPIDOGREL 75 MG TAB PO SCH (08:03)
[2019-03-06] MEDS: PREGABALIN 100 MG CAP (LYRICA) PO SCH ×2 (08:03→20:55)
[2019-03-06] MEDS ORDERED: POTASSIUM CHLORIDE 10 MEQ SR TABLET PO ONE (11:00)
[2019-03-06] MEDS: MAG SULF 1GM/100ML (MAG RUN) 1 GM in IV 1 EA IV SCH ×2 (11:20→12:21)
[2019-03-06 14:00] VITALS: BP 119/73
[2019-03-06] MEDS: CEFTAROLINE FOSAMIL 600 MG in D5W MINI-BAG PLUS 50 ML IV SCH (15:32)
[2019-03-06 15:34] LABS: C REACTIVE PROTEIN QUANTITATIV 2.37 MG/DL (0.00-0.30)
--- NOTE | 2019-03-06 20:04 | IPNPDOC ---
Date Seen The patient was seen on 03/06/19. Progress Note SUBJECTIVE: Patient reported discomfort in the L. foot but otherwise has no complaints. Afebrile overnight. Potassium and magnesium repleted. OBJECTIVE PHYSICAL EXAMINATION: VITAL SIGNS: Please see below. General: No acute distress, Alert Eyes: Normal sclera, EOMI, YSABEL HENT: Atraumatic Cardiovascular: Normal rate, normal rhythm. Pulmonary: Clear to auscultation b/l, no wheezing GI: Soft, nontender, nondistended MSK: LLE with overlying bandage clean and dry. Skin: Warm and dry Neuro: CN grossly intact. No focal deficits. Psych: oriented x 3 LABORATORY DATA, IMAGING STUDIES, MICROBIOLOGY: Please see below. DVT prophylaxis ordered?: HSQ ASSESSMENT AND PLAN: 1. L. foot osteomyelitis - s/p L. foot toes 1,3,4,5 amputation. - Wound culture + Proteus, Strep gorup G, MRSA and Strep mitis. - Blood cultures negative. - c/w wound dressing changes. - ID following. c/w Ceftaroline. 2. Decubitus ulcer - Wound care consult? Place if not already seen. 3. Decondition - PT/OT. 4. CAD - c/w home meds. 5. HIV - Resume home meds. VS, I&O, 24H, Fishbone Vital Signs/I&O Vital Signs Date Time Temp Pulse Resp B/P (MAP) Pulse Ox O2 Delivery O2 Flow Rate FiO2 03/06/19 18:14 20 03/06/19 14:00 98.1 81 119/73 (88) 99 I&O- Last 24 Hours up to 6 AM 03/06/19 06:00 Intake Total 4720 ml Output Total 2800 ml Balance 1920 ml Laboratory Data 24H LABS Laboratory Tests 2 03/05/19 20:47: Bedside Glucose (Misc Panel) 105 03/06/19 05:33: Nucleated Red Blood Cells % (auto) 0.0, Anion Gap 6L, Glomerular Filtration Rate > 60.0, Calcium Level 7.2L, Magnesium Level 1.4L, C-Reactive Protein, Quant itative 2.37H 03/06/19 11:31: Bedside Glucose (Misc Panel) 90 03/06/19 16:29: Bedside Glucose (Misc Panel) 95 CBC/BMP Laboratory Tests 03/06/19 05:33 Red Blood Count 2.94 L, Mean Corpuscular Volume 87.1, Mean Corpuscular Hemoglobin 27.6, Mean Corpuscular Hemoglobin Concent 31.6 L, Red Cell Distribution Width 15.7 H Microbiology Microbiology 03/03/19 Gram Stain - Final, Complete 03/03/19 Abscess Culture - Final, Complete Staph.aureus Methicillin Resis Corynebacterium Species 03/01/19 Gram Stain - Final, Complete 03/01/19 Wound Culture - Final, Complete Proteus Penneri Staph.aureus Methicillin Resis Streptococcus Group G Streptococcus Mitis 02/28/19 MRSA Screen - Final, Complete Staph.aureus Methicillin Resis 02/28/19 Blood Culture - Final, Complete NO GROWTH AFTER 5 DAYS LAVELLE CALDERON MD Mar 06, 2019 20:04
[2019-03-06] MEDS: GENVOYA PO SCH (20:55)
[2019-03-06] MEDS: MAGNESIUM CHLORIDE 64 MG TABCR (SLO MAG) PO SCH (21:33)
[2019-03-06 22:00] VITALS: BP 125/73
[2019-03-07] MEDS: CEFTAROLINE FOSAMIL 600 MG in D5W MINI-BAG PLUS 50 ML IV SCH ×2 (03:31→15:47)
[2019-03-07] MEDS: oxyCODONE 5MG TAB PO SCH ×4 (05:04→23:15)
[2019-03-07 06:00] VITALS: BP 85/57
[2019-03-07] MEDS: SUCRALFATE SUSP 1GM/10ML UD PO SCH ×4 (06:08→21:12)
[2019-03-07 06:20] VITALS: BP 80/50
[2019-03-07] MEDS ORDERED: NS 500 ML IV ONE (06:30)
[2019-03-07 06:33] LABS: HEMATOCRIT 27.4 % (36.0-47.0); HEMOGLOBIN 8.5 g/dl (12.0-15.5); MEAN CORPUSCULAR HEMOGLOBIN 27.1 pg (27.0-33.0); MEAN CORPUSCULAR VOLUME 87.3 fl (80.0-96.0); PLATELET COUNT, AUTOMATED 125 10^3/uL (150-450); RED BLOOD COUNT 3.14 10^6/uL (4.00-5.40); WHITE BLOOD COUNT 3.2 10^3/uL (4.0-10.0)
[2019-03-07 06:55] LABS: BLOOD UREA NITROGEN 12 MG/DL (7-18); CALCIUM LEVEL 7.4 MG/DL (8.5-10.1); CARBON DIOXIDE LEVEL 28 MEQ/L (21-32); CHLORIDE LEVEL 108 MEQ/L (98-107); GLOMERULAR FILTRATION RATE > 60.0 (>51); GLUCOSE, FASTING 83 MG/DL (70-100); MAGNESIUM LEVEL 1.6 MG/DL (1.8-2.4); POTASSIUM SERUM 3.4 MEQ/L (3.5-5.1); SODIUM LEVEL 140 MEQ/L (136-145)
[2019-03-07 07:12] VITALS: BP 109/62
--- NOTE | 2019-03-07 07:15 | CR ---
DATE OF CONSULTATION: 03/06/2019 REASON FOR CONSULTATION: I was asked to consult by the hospitalist for followup on diabetic foot ulcers and chronic osteomyelitis. HISTORY OF PRESENT ILLNESS: Carol Ann is a 53-year-old female patient of mine who has a history of HIV/AIDS, type 2 diabetes with diabetic neuropathy and multiple diabetic foot ulcers with osteomyelitis. The patient has had this chronic wound on the left foot involving the third toe and fourth toe for a month. The patient follows up with Dr. Coe. She also has a history of a sacral decubitus ulcer for which she follows up with Dr. Ayala, but has not been using her wound VAC after it was discontinued by the wound clinic due to noncompliance. She was seen in followup with Dr. Gomez who admitted her to the hospital for amputation. She had amputation of the first, third, fourth and fifth toes during this admission and has done well. She denies any fever or chills. No nausea, vomiting or diarrhea. No abdominal pain. Her sacral decubitus ulcer has decreased in size. There is no foul-smelling discharge. She has been on IV vancomycin and cefepime since admission. PAST MEDICAL HISTORY: Significant for: HIV/AIDS with compliance with medication, CD-4 count over 500, viral load undetected. Recent inferior wall ND 08/24/2018 status post stenting at [facility]. Post myocardial infarction pericardial effusion treated with colchicine. History of anastomotic ulcers. Status post gastric bypass. Peripheral neuropathy. Peripheral vascular disease. Right adrenal mass. Type 2 diabetes. Chronic obstructive pulmonary disease (COPD). Orthostatic hypotension. Liver cirrhosis recently diagnosed idiopathic. PAST SURGICAL HISTORY: Bariatric surgery. Cholecystectomy. Appendectomy. . Tubal ligation. Left shoulder replacement. Carpal tunnel surgery. Right cataract. Tonsillectomy. Amputation of the left second toe and now amputation of the rest of all the toes. FAMILY HISTORY: Father with ND. Mother had diabetes. SOCIAL HISTORY: She denies smoking currently. No alcohol or drug use. She has chronic narcotic dependence. She lives with her daughter Izabela and her grandson Damian in an apartment in [place]. She has public health nursing through [facility] but has been discharged from [facility] because of noncompliance. REVIEW OF SYSTEMS: She had no fever or chills. No nausea, vomiting or diarrhea. No cough or shortness of breath. No dysuria, hematuria. She has sacral pain at the decub site, chronic back pain unchanged, neuropathy bilaterally severe. PHYSICAL EXAMINATION: On physical exam she is a pleasant healthy looking female in no acute distress. Temperature is 98.1. She has remained afebrile throughout this admission, pulse 81, respirations 18, blood pressure 190/73, O2 sat 97% on room air. Heart: Normal S1-S2, no murmurs, rubs or gallops. Lungs are clear. No wheezes, rales or rhonchi. Abdomen: Soft, nontender. No hepatosplenomegaly. Back: No CVA or lumbosacral tenderness. Sacral decubitus ulcer 5 x 4 cm with a depth of 1-1/2 cm. Good granulation tissue with no purulence. No tenderness. Extremities: No edema amputation of all five toes with sutures in place of the left foot. Left anterior tellez has a scar well healed from previous ulcer. right foot has a small ulcer on the tip of the toe measuring about 2 cm, pretty superficial, with no purulence. Decreased absent sensation both feet in a stocking distribution. No edema, clubbing or cyanosis. LABORATORY DATA: White count is 3.5, hemoglobin 8.1, hematocrit 25.6, platelets 135. Sodium 139, potassium 3.1, chloride 107, bicarb 26, BUN 11, creatinine 0.45, glucose 102, calcium 7.2, magnesium 1.4, CRP 2.37 down from 2.4. Microbiology: Blood cultures negative. Methicillin-resistant Staphylococcus aureus (MRSA) screen both nostrils positive. Left big toe culture has Proteus MRSA, group G Streptococcus, Streptococcus mitis and 03/01 and 03/03 foot culture was positive for MRSA. IMPRESSION This is a 53-year-old female with a history of HIV/AIDS, diabetes with peripheral neuropathy, multiple diabetic foot ulcers and osteomyelitis status post amputation of all toes of the left foot due to chronic osteomyelitis. Cultures intraoperatively only had MRSA, the one preoperatively had MRSA and some Streptococcus. The patient is clinically much improved on IV vancomycin and cefepime. MEDICATIONS: - vancomycin 750 mg q.8 h - cefepime 1 gram IV every 12 hours - Carafate 1 gram by mouth before meals and at bedtime - furosemide 20 mg by mouth daily - Genvoya one tablet by mouth daily - Prezista 800 mg by mouth daily - aspirin 81 mg by mouth daily - oxycodone 10 mg by mouth every 6 hours - Lyrica 300 mg by mouth twice a day - Carafate 1 gram by mouth four times a day - Nitroglycerin as needed - trazodone 50 mg by mouth at bedtime as needed for sleep PLAN: Discontinue IV vancomycin to decrease risk of toxicity and cefepime 1 gram IV every 12 hours switched to ceftaroline 600 mg IV every 12 hours. That should cover MRSA and Streptococcus. I do not see any need for long-term IV antibiotics. She probably could be switched to oral antibiotics on discharge when she is ready from a podiatry standpoint. From my standpoint she could be switched to Zyvox 600 mg by mouth twice a day for 10 days post discharge. Continue to followup with Dr. Ayala for decubitus ulcer and with Dr. Coe for podiatry. At this point, I anticipate discharge in the next 24-48 hours with a wound VAC with [facility] for nursing staff. DEE
[2019-03-07] MEDS: HumaLOG INSULIN (NovoLOG) PER UNIT SC SCH ×3 (07:30→17:20)
[2019-03-07] MEDS ORDERED: POTASSIUM CHLORIDE 10 MEQ SR TABLET PO ONE (09:00)
[2019-03-07] MEDS: FUROSEMIDE 20 MG TAB PO SCH (09:10)
[2019-03-07] MEDS: ASPIRIN 81 MG ENTERIC TAB PO SCH (09:10)
[2019-03-07] MEDS: CLOPIDOGREL 75 MG TAB PO SCH (09:10)
[2019-03-07] MEDS: PREGABALIN 100 MG CAP (LYRICA) PO SCH ×2 (09:10→21:12)
[2019-03-07] MEDS: ONDANSETRON 4MG/2ML VIAL (J2405) IV PRN ×3 (09:11→17:24)
[2019-03-07] MEDS: HEPARIN SOD (PORCINE) 5000 UNITS/ML VIAL SC SCH ×2 (09:11→21:14)
[2019-03-07] MEDS: MAGNESIUM CHLORIDE 64 MG TABCR (SLO MAG) PO SCH ×2 (10:15→21:12)
[2019-03-07] MEDS: NS 1,000 ML IV SCH ×2 (13:32→23:16)
[2019-03-07 14:00] VITALS: BP 108/61
--- NOTE | 2019-03-07 16:11 | IPNPDOC ---
Date Seen The patient was seen on 03/07/19. Progress Note SUBJECTIVE: Patient reported has no new complaints, still discomfort in sacral region and foot. Only complained about not getting her HIV meds but she has been. Noted to be hypotensive this morning with BP in low 80s systolic, now had improved. OBJECTIVE PHYSICAL EXAMINATION: VITAL SIGNS: Please see below. General: No acute distress, Alert Eyes: Normal sclera, EOMI, YSABEL HENT: Atraumatic Cardiovascular: Normal rate, normal rhythm. Pulmonary: Clear to auscultation b/l, no wheezing GI: Soft, nontender, nondistended MSK: LLE with overlying bandage clean and dry. Skin: Warm and dry. Sacral wound with overlying bandage and wound vac. Wound appear clean and dry. Neuro: CN grossly intact. No focal deficits. Psych: oriented x 3 LABORATORY DATA, IMAGING STUDIES, MICROBIOLOGY: Please see below. DVT prophylaxis ordered?: HSQ ASSESSMENT AND PLAN: 1. L. foot osteomyelitis - s/p L. foot toes 1,3,4,5 amputation. - Wound culture + Proteus, Strep group G, MRSA and Strep mitis. - Blood cultures negative. - c/w wound dressing changes. - ID following. c/w Ceftaroline. Switch to Zyvox 600 mg PO BID for 10 days post discharge. - If PB stable overnight, will see if can get clearance from Podiatry and PT for discharge home for follow up and PO antibiotics. 2. Decubitus ulcer - c/w wound care. Wound vac in place. 3. Decondition - PT/OT. 4. CAD - c/w home meds. 5. HIV - c/w home meds. VS, I&O, 24H, Aldobone Vital Signs/I&O Vital Signs Date Time Temp Pulse Resp B/P (MAP) Pulse Ox O2 Delivery O2 Flow Rate FiO2 03/07/19 14:00 98.7 82 20 108/61 (77) 95 I&O- Last 24 Hours up to 6 AM 03/07/19 05:59 Intake Total 3295 ml Output Total 2300 ml Balance 995 ml Laboratory Data 24H LABS Laboratory Tests 2 03/06/19 16:29: Bedside Glucose (Misc Panel) 95 03/06/19 19:51: Bedside Glucose (Misc Panel) 102 03/07/19 06:02: Nucleated Red Blood Cells % (auto) 0.0, Anion Gap 4L, Glomerular Filtration Rate > 60.0, Calcium Level 7.4L, Magnesium Level 1.6L CBC/BMP Laboratory Tests 03/07/19 06:02 Microbiology Microbiology 03/03/19 Gram Stain - Final, Complete 03/03/19 Abscess Culture - Final, Complete Staph.aureus Methicillin Resis Corynebacterium Species 03/01/19 Gram Stain - Final, Complete 03/01/19 Wound Culture - Final, Complete Proteus Penneri Staph.aureus Methicillin Resis Streptococcus Group G Streptococcus Mitis 02/28/19 MRSA Screen - Final, Complete Staph.aureus Methicillin Resis 02/28/19 Blood Culture - Final, Complete NO GROWTH AFTER 5 DAYS LAVELLE CALDERON MD Mar 07, 2019 16:11
[2019-03-07] MEDS: GENVOYA PO SCH (21:13)
[2019-03-07 22:00] VITALS: BP 101/65
[2019-03-08] MEDS: CEFTAROLINE FOSAMIL 600 MG in D5W MINI-BAG PLUS 50 ML IV SCH ×2 (03:13→15:55)
[2019-03-08] MEDS: oxyCODONE 5MG TAB PO SCH ×4 (05:11→23:28)
[2019-03-08 06:00] VITALS: BP 106/62
[2019-03-08] MEDS: SUCRALFATE SUSP 1GM/10ML UD PO SCH ×4 (06:13→20:32)
[2019-03-08 06:42] LABS: HEMATOCRIT 28.7 % (36.0-47.0); MEAN CORPUSCULAR HEMOGLOBIN 27.6 pg (27.0-33.0); MEAN CORPUSCULAR HGB CONC 31.4 g/dl (32.0-36.5); PLATELET COUNT, AUTOMATED 130 10^3/uL (150-450); RED BLOOD COUNT 3.26 10^6/uL (4.00-5.40); WHITE BLOOD COUNT 3.7 10^3/uL (4.0-10.0)
[2019-03-08 06:54] LABS: BLOOD UREA NITROGEN 11 MG/DL (7-18); CALCIUM LEVEL 7.8 MG/DL (8.5-10.1); CARBON DIOXIDE LEVEL 25 MEQ/L (21-32); CHLORIDE LEVEL 110 MEQ/L (98-107); GLOMERULAR FILTRATION RATE > 60.0 (>51); GLUCOSE, FASTING 77 MG/DL (70-100); MAGNESIUM LEVEL 1.5 MG/DL (1.8-2.4); POTASSIUM SERUM 3.8 MEQ/L (3.5-5.1); SODIUM LEVEL 141 MEQ/L (136-145)
[2019-03-08] MEDS: HumaLOG INSULIN (NovoLOG) PER UNIT SC SCH ×2 (07:25→11:37)
[2019-03-08] MEDS: MAGNESIUM CHLORIDE 64 MG TABCR (SLO MAG) PO SCH ×2 (08:24→20:32)
[2019-03-08] MEDS: ASPIRIN 81 MG ENTERIC TAB PO SCH (08:24)
[2019-03-08] MEDS: FUROSEMIDE 20 MG TAB PO SCH (08:25)
[2019-03-08] MEDS: PREGABALIN 100 MG CAP (LYRICA) PO SCH ×2 (08:25→20:33)
[2019-03-08] MEDS: CLOPIDOGREL 75 MG TAB PO SCH (08:25)
[2019-03-08] MEDS: HEPARIN SOD (PORCINE) 5000 UNITS/ML VIAL SC SCH ×2 (08:25→20:34)
[2019-03-08] MEDS: MAG SULF 1GM/100ML (MAG RUN) 1 GM in IV 1 EA IV SCH ×2 (08:54→09:53)
[2019-03-08 14:00] VITALS: BP 104/60
--- NOTE | 2019-03-08 18:01 | IPN ---
DATE: 03/08/2019 Carol Ann is doing well. She is anxious to go home. She has no new complaints today. She is back to baseline. No nausea, vomiting or diarrhea. No fever or chills. She is sitting at her bedside eating her dinner. Her only complaint is a skin tear that is bleeding. Case discussed with Dr. Coe who agrees on her going home with oral antibiotics. LABORATORY DATA White count 3.7, hemoglobin 9, hematocrit 28.7, platelets 130. Sodium 141, potassium 3.8, chloride 110, bicarb 25, BUN 11, creatinine 0.4, glucose 77, calcium 7.8, magnesium 1.5, CRP 2.37. Left foot culture had MRSA intraoperatively and big toe had MRSA Proteus Strep group G and Streptococcus mitis. IMPRESSION: MRSA osteomyelitis with intraoperative culture had only MRSA. Status post amputation on the March 03. The patient has been on postoperative antibiotics for the past 5 days, doing well. Will discontinue IV antibiotic and switch her to Bactrim 1 tablet by mouth twice a day. I do not think it is necessary to use linezolid. PLAN Discharge the patient home on by mouth Bactrim 1 tablet by mouth twice a day for 7-10 days. Only to cover for the MRSA that was in the intraoperative culture.
--- NOTE | 2019-03-08 18:47 | IPNPDOC ---
Date Seen The patient was seen on 03/08/19. Progress Note SUBJECTIVE: Patient said she feels fine, same discomfort in foot and sacrum. Afebrile overnight. WBC 3.7 PT ongoing, difficulty in performing task required to avoid wound contact. BP more stable today. OBJECTIVE PHYSICAL EXAMINATION: VITAL SIGNS: Please see below. General: No acute distress, Alert Eyes: Normal sclera, EOMI, YSABEL HENT: Atraumatic Cardiovascular: Normal rate, normal rhythm. Pulmonary: Clear to auscultation b/l, no wheezing GI: Soft, nontender, nondistended MSK: LLE with overlying bandage clean and dry. Skin: Warm and dry. Sacral wound with overlying bandage and wound vac. Wound appear clean and dry. Neuro: CN grossly intact. No focal deficits. Psych: oriented x 3 LABORATORY DATA, IMAGING STUDIES, MICROBIOLOGY: Please see below. DVT prophylaxis ordered?: HSQ ASSESSMENT AND PLAN: 1. L. foot osteomyelitis - s/p L. foot toes 1,3,4,5 amputation. - Wound culture + Proteus, Strep group G, MRSA and Strep mitis. - Blood cultures negative. - c/w wound dressing changes. - ID following. c/w Ceftaroline. Bactrim PO BID for 7-10 days post discharge. - Unable to get cleared by PT at this time as patient cannot perform appropriate gait work. - Discussed with Podiatry, will see if patient can at least take flat steps to avoid arch with direct pressure to forefoot tomorrow with PT. - Patient may be able to be discharged as soon as tomorrow. 2. Decubitus ulcer - c/w wound care. Wound vac in place. 3. Decondition - PT/OT. 4. CAD - c/w home meds. 5. HIV - c/w home meds. VS, I&O, 24H, Fishbone Vital Signs/I&O Vital Signs Date Time Temp Pulse Resp B/P (MAP) Pulse Ox O2 Delivery O2 Flow Rate FiO2 03/08/19 16:58 16 03/08/19 14:00 97.4 76 104/60 (75) 94 Room Air I&O- Last 24 Hours up to 6 AM 03/08/19 06:00 Intake Total 3080 ml Output Total 2050 ml Balance 1030 ml Laboratory Data 24H LABS Laboratory Tests 2 03/07/19 20:21: Bedside Glucose (Misc Panel) 107H 03/08/19 06:24: Nucleated Red Blood Cells % (auto) 0.0, Anion Gap 6L, Glomerular Filtration Rate > 60.0, Calcium Level 7.8L, Magnesium Level 1.5L 03/08/19 11:23: Bedside Glucose (Misc Panel) 87 CBC/BMP Laboratory Tests 03/08/19 06:24 Microbiology Microbiology 03/03/19 Gram Stain - Final, Complete 03/03/19 Abscess Culture - Final, Complete Staph.aureus Methicillin Resis Corynebacterium Species 03/01/19 Gram Stain - Final, Complete 03/01/19 Wound Culture - Final, Complete Proteus Penneri Staph.aureus Methicillin Resis Streptococcus Group G Streptococcus Mitis 02/28/19 MRSA Screen - Final, Complete Staph.aureus Methicillin Resis 02/28/19 Blood Culture - Final, Complete NO GROWTH AFTER 5 DAYS LAVELLE CALDERON MD Mar 08, 2019 18:47
[2019-03-08] MEDS: BACTRIM 160MG/800MG DS TAB PO SCH (20:33)
[2019-03-08] MEDS: GENVOYA PO SCH (20:33)
[2019-03-08] MEDS ORDERED: AUGMENTIN 875 MG TAB PO SCH (21:00)
[2019-03-08 22:00] VITALS: BP 105/63
[2019-03-09] MEDS: oxyCODONE 5MG TAB PO SCH ×3 (05:26→18:03)
[2019-03-09 06:00] VITALS: BP 105/64
[2019-03-09] MEDS: SUCRALFATE SUSP 1GM/10ML UD PO SCH ×4 (06:58→21:09)
[2019-03-09 07:07] LABS: HEMATOCRIT 28.9 % (36.0-47.0); MEAN CORPUSCULAR HEMOGLOBIN 26.8 pg (27.0-33.0); MEAN CORPUSCULAR HGB CONC 31.1 g/dl (32.0-36.5); PLATELET COUNT, AUTOMATED 139 10^3/uL (150-450); RED BLOOD COUNT 3.36 10^6/uL (4.00-5.40); WHITE BLOOD COUNT 3.9 10^3/uL (4.0-10.0)
[2019-03-09 07:22] LABS: BLOOD UREA NITROGEN 11 MG/DL (7-18); CALCIUM LEVEL 8.1 MG/DL (8.5-10.1); CARBON DIOXIDE LEVEL 24 MEQ/L (21-32); CHLORIDE LEVEL 108 MEQ/L (98-107); CREATININE FOR GFR 0.44 MG/DL (0.55-1.30); GLOMERULAR FILTRATION RATE > 60.0 (>51); GLUCOSE, FASTING 76 MG/DL (70-100); POTASSIUM SERUM 3.6 MEQ/L (3.5-5.1); SODIUM LEVEL 138 MEQ/L (136-145)
[2019-03-09] MEDS: CLOPIDOGREL 75 MG TAB PO SCH (08:25)
[2019-03-09] MEDS: HEPARIN SOD (PORCINE) 5000 UNITS/ML VIAL SC SCH ×2 (08:25→21:09)
[2019-03-09] MEDS: FUROSEMIDE 20 MG TAB PO SCH (08:25)
[2019-03-09] MEDS: BACTRIM 160MG/800MG DS TAB PO SCH ×2 (08:25→21:10)
[2019-03-09] MEDS: ASPIRIN 81 MG ENTERIC TAB PO SCH (08:25)
[2019-03-09] MEDS: MAGNESIUM CHLORIDE 64 MG TABCR (SLO MAG) PO SCH ×2 (08:25→21:10)
[2019-03-09] MEDS: PREGABALIN 100 MG CAP (LYRICA) PO SCH ×2 (08:25→21:10)
[2019-03-09 14:00] VITALS: BP 100/63
--- NOTE | 2019-03-09 15:37 | IPN ---
DATE: 03/09/2019 Carol Ann is doing well. She would like to go home but there are concerns about her safe discharge home with the nursing staff. She has [employer] that used to come and visit her but she is not compliant with her visits because she is never home. She does answer her calls, but this will be reinstated. She has her wound vac at home. The wound vac was changed today. LABORATORY DATA White count 3.9, hemoglobin 9, hematocrit 28.9, platelets 139. Sodium 138, potassium 3.6, chloride 108, bicarb 24, BUN 11, creatinine 0.44, glucose 76, calcium 8.1. Heart: Normal S1, S2. No murmurs, rubs or gallops. Lungs are clear. No wheezes or rhonchi. Abdomen: Soft, nontender. No hepatosplenomegaly. Extremities: +1 pitting edema bilaterally. Dry skin, hyperpigmented venous stasis changes. Left foot has amputation of all toes, sutures in place with some bloody discharge. No evidence of infection in the left foot. Sacral decubital wound vac was changed. Per nursing staff, the decubitus looks great. IMPRESSION: 1. Osteomyelitis of the left foot status post amputation of toes 1, 3, 4, and 5 with one culture positive for methicillin resistant Staphylococcus aureus (MRSA) The patient received a total of 9 days of IV antibiotic combination of ceftaroline and vancomycin, currently on Bactrim to finish 10-day course. 2. MRSA colonization. 3. Sacral decubitus ulcer not infected with a wound vac in place. The patient has been very noncompliant with her wound vac. PLAN: Hopefully, the patient could be discharged home with [facility] nursing to change her wound vac three times a week, but most recently she was having dressing changes done Tuesday, Tuesday, Tuesday without a vac because of a history of noncompliance. The patient is to follow up in my office in 1-2 weeks.
--- NOTE | 2019-03-09 15:42 | IPNPDOC ---
Date Seen The patient was seen on 03/09/19. Progress Note SUBJECTIVE: Patient is comfortable without any complaints. Afebrile overnight. BP stable. OBJECTIVE PHYSICAL EXAMINATION: VITAL SIGNS: Please see below. General: No acute distress, Alert Eyes: Normal sclera, EOMI, YSABEL HENT: Atraumatic Cardiovascular: Normal rate, normal rhythm. Pulmonary: Clear to auscultation b/l, no wheezing GI: Soft, nontender, nondistended MSK: LLE with overlying bandage clean and dry. Skin: Warm and dry. Sacral wound with overlying bandage and wound vac. Wound appear clean and dry. Neuro: CN grossly intact. No focal deficits. Psych: oriented x 3 LABORATORY DATA, IMAGING STUDIES, MICROBIOLOGY: Please see below. DVT prophylaxis ordered?: HSQ ASSESSMENT AND PLAN: 1. L. foot osteomyelitis - s/p L. foot toes 1,3,4,5 amputation. - Wound culture + Proteus, Strep group G, MRSA and Strep mitis. - Blood cultures negative. - c/w wound dressing changes. - ID following. c/w Ceftaroline. Bactrim PO BID for 7-10 days post discharge. - Unable to get cleared by PT at this time as patient cannot perform appropriate gait work. - Discussed with Podiatry, will see if patient can make adjustment to gait for safe mobilization to not impact wound. 2. Decubitus ulcer - c/w wound care. Wound vac in place. - No care in place for home wound vac at this time. SW working on getting approval. 3. Decondition - PT/OT. 4. CAD - c/w home meds. 5. HIV - c/w home meds. VS, I&O, 24H, Fishbone Vital Signs/I&O Vital Signs Date Time Temp Pulse Resp B/P (MAP) Pulse Ox O2 Delivery O2 Flow Rate FiO2 03/09/19 14:00 98.3 86 18 100/63 (75) 98 Room Air I&O- Last 24 Hours up to 6 AM 03/09/19 06:00 Intake Total 1770 ml Output Total 4250 ml Balance -2480 ml Laboratory Data 24H LABS Laboratory Tests 2 03/09/19 06:26: Nucleated Red Blood Cells % (auto) 0.0, Anion Gap 6L, Glomerular Filtration Rate > 60.0, Calcium Level 8.1L CBC/BMP Laboratory Tests 03/09/19 06:26 Microbiology Microbiology 03/03/19 Gram Stain - Final, Complete 03/03/19 Abscess Culture - Final, Complete Staph.aureus Methicillin Resis Corynebacterium Species 03/01/19 Gram Stain - Final, Complete 03/01/19 Wound Culture - Final, Complete Proteus Penneri Staph.aureus Methicillin Resis Streptococcus Group G Streptococcus Mitis 02/28/19 MRSA Screen - Final, Complete Staph.aureus Methicillin Resis 02/28/19 Blood Culture - Final, Complete NO GROWTH AFTER 5 DAYS LAVELLE CALDERON MD Mar 09, 2019 15:41
[2019-03-09] MEDS: GENVOYA PO SCH (21:10)
[2019-03-09 22:00] VITALS: BP 101/62
[2019-03-09 23:25] LABS: C REACTIVE PROTEIN QUANTITATIV 0.95 MG/DL (0.00-0.30)
[2019-03-10] MEDS: oxyCODONE 5MG TAB PO SCH ×5 (00:13→23:54)
[2019-03-10 06:00] VITALS: BP 117/72
[2019-03-10] MEDS: SUCRALFATE SUSP 1GM/10ML UD PO SCH ×4 (06:16→20:16)
[2019-03-10 07:36] LABS: HEMATOCRIT 28.1 % (36.0-47.0); HEMOGLOBIN 8.7 g/dl (12.0-15.5); MEAN CORPUSCULAR HEMOGLOBIN 26.9 pg (27.0-33.0); PLATELET COUNT, AUTOMATED 138 10^3/uL (150-450); RED BLOOD COUNT 3.23 10^6/uL (4.00-5.40); WHITE BLOOD COUNT 3.1 10^3/uL (4.0-10.0)
[2019-03-10 08:01] LABS: BLOOD UREA NITROGEN 11 MG/DL (7-18); CALCIUM LEVEL 7.9 MG/DL (8.5-10.1); CARBON DIOXIDE LEVEL 30 MEQ/L (21-32); CHLORIDE LEVEL 104 MEQ/L (98-107); CREATININE FOR GFR 0.47 MG/DL (0.55-1.30); GLOMERULAR FILTRATION RATE > 60.0 (>51); GLUCOSE, FASTING 77 MG/DL (70-100); POTASSIUM SERUM 3.6 MEQ/L (3.5-5.1); SODIUM LEVEL 139 MEQ/L (136-145)
[2019-03-10] MEDS: FUROSEMIDE 20 MG TAB PO SCH (09:16)
[2019-03-10] MEDS: ASPIRIN 81 MG ENTERIC TAB PO SCH (09:16)
[2019-03-10] MEDS: PREGABALIN 100 MG CAP (LYRICA) PO SCH ×2 (09:16→20:16)
[2019-03-10] MEDS: CLOPIDOGREL 75 MG TAB PO SCH (09:16)
[2019-03-10] MEDS: MAGNESIUM CHLORIDE 64 MG TABCR (SLO MAG) PO SCH ×2 (09:16→20:15)
[2019-03-10] MEDS: HEPARIN SOD (PORCINE) 5000 UNITS/ML VIAL SC SCH ×2 (09:16→20:16)
[2019-03-10] MEDS: BACTRIM 160MG/800MG DS TAB PO SCH ×2 (09:16→20:16)
[2019-03-10] MEDS: ONDANSETRON 4MG/2ML VIAL (J2405) IV PRN (09:22)
--- NOTE | 2019-03-10 11:26 | REP ---
Duplex extremity venous ultrasound: Right lower extremity. History: Pain in the right leg. Rule out DVT fabricio Findings: The deep veins are anechoic and fully compressible from the groin to the popliteal fossa in the right lower extremity. Color flow imaging is homogeneous. Spectral Doppler interrogation demonstrates intact respiratory variation in flow and normal manual augmentation of flow. There is no evidence of deep vein thrombosis. Scanning over the painful palpable area in the medial thigh shows edematous subcutaneous fat. No collection or mass is seen. Impression: Negative right lower extremity duplex venous ultrasound. No evidence of deep vein thrombosis. Electronically Signed by Aristeo Gonzalez MD 03/10/2019 11:18 A
[2019-03-10 14:00] VITALS: BP 120/70
[2019-03-10] MEDS: MORPHINE 4 MG/ML 1ML VIAL/SYRINGE (J2270) IV PRN ×3 (14:07→23:01)
--- NOTE | 2019-03-10 15:15 | IPNPDOC ---
Date Seen The patient was seen on 03/10/19. Progress Note SUBJECTIVE: Patient has several complaints today, most concerning for her was that her R. breast appears larger than the left. She denies any complaints including pain, fever, chills or any discharges. Also medial R. thigh appears to have a lump and is a bit painful. OBJECTIVE PHYSICAL EXAMINATION: VITAL SIGNS: Please see below. General: No acute distress, Alert Eyes: Normal sclera, EOMI, YSABEL HENT: Atraumatic Cardiovascular: Normal rate, normal rhythm. Chest: R. breast appear larger than L. No lumps, erythema or tenderness on exam b/l. Pulmonary: Clear to auscultation b/l, no wheezing GI: Soft, nontender, nondistended MSK: LLE with overlying bandage clean and dry. RLE slightly larger than the left with reported tenderness in medial thigh. Skin: Warm and dry. Sacral wound with overlying bandage and wound vac. Wound appear clean and dry. Neuro: CN grossly intact. No focal deficits. Psych: oriented x 3 LABORATORY DATA, IMAGING STUDIES, MICROBIOLOGY: Please see below. DVT prophylaxis ordered?: HSQ ASSESSMENT AND PLAN: 1. L. foot osteomyelitis - s/p L. foot toes 1,3,4,5 amputation. - Wound culture + Proteus, Strep group G, MRSA and Strep mitis. - Blood cultures negative. - c/w wound dressing changes. - ID following. c/w Ceftaroline. Bactrim PO to finish 10 days course. - Cleared by PT. 2. Decubitus ulcer - c/w wound care. Wound vac in place. - No care in place for home wound vac at this time, denied from previous care provider due to noncompliance. SW working on getting approval. - If unable to obtain wound vac care, will likely go home without vac to continue dressing changes and wound care follow up. 3. Decondition - PT/OT. 4. CAD - c/w home meds. 5. HIV - c/w home meds. 6. RLE "lump" and R. breast enlargement - Likely dependent edema due to lying position. - no abnormal nodules/lumps or abnormalities noted on breast exam. - Recommend positional changes to the other side. - RLE US shows no evidence of DVT. VS, I&O, 24H, Fishbone Vital Signs/I&O Vital Signs Date Time Temp Pulse Resp B/P (MAP) Pulse Ox O2 Delivery O2 Flow Rate FiO2 03/10/19 14:17 18 03/10/19 14:00 96.8 76 120/70 (87) 98 Room Air I&O- Last 24 Hours up to 6 AM 03/10/19 06:00 Intake Total 1810 ml Output Total 1850 ml Balance -40 ml Laboratory Data 24H LABS Laboratory Tests 2 03/10/19 07:11: Nucleated Red Blood Cells % (auto) 0.0, Anion Gap 5L, Glomerular Filtration Rate > 60.0, Calcium Level 7.9L CBC/BMP Laboratory Tests 03/10/19 07:11 Microbiology Microbiology 03/03/19 Gram Stain - Final, Complete 03/03/19 Abscess Culture - Final, Complete Staph.aureus Methicillin Resis Corynebacterium Species 03/01/19 Gram Stain - Final, Complete 03/01/19 Wound Culture - Final, Complete Proteus Penneri Staph.aureus Methicillin Resis Streptococcus Group G Streptococcus Mitis 02/28/19 MRSA Screen - Final, Complete Staph.aureus Methicillin Resis 02/28/19 Blood Culture - Final, Complete NO GROWTH AFTER 5 DAYS LAVELLE CALDERON MD Mar 10, 2019 15:15
[2019-03-10] MEDS: GENVOYA PO SCH (21:00)
[2019-03-10 22:00] VITALS: BP 114/65
[2019-03-11] MEDS: oxyCODONE 5MG TAB PO SCH ×4 (05:57→23:44)
[2019-03-11] MEDS: SUCRALFATE SUSP 1GM/10ML UD PO SCH ×4 (05:57→20:48)
[2019-03-11 05:59] LABS: HEMATOCRIT 23.8 % (36.0-47.0); HEMOGLOBIN 7.3 g/dl (12.0-15.5); MEAN CORPUSCULAR HEMOGLOBIN 26.8 pg (27.0-33.0); MEAN CORPUSCULAR HGB CONC 30.7 g/dl (32.0-36.5); MEAN CORPUSCULAR VOLUME 87.5 fl (80.0-96.0); PLATELET COUNT, AUTOMATED 109 10^3/uL (150-450); RED BLOOD COUNT 2.72 10^6/uL (4.00-5.40); WHITE BLOOD COUNT 4.1 10^3/uL (4.0-10.0)
[2019-03-11 06:00] VITALS: BP_SYST 101; BP_SYST 141; BP_DIAS 63; BP_DIAS 83
[2019-03-11 06:23] LABS: BLOOD UREA NITROGEN 19 MG/DL (7-18); CALCIUM LEVEL 7.9 MG/DL (8.5-10.1); CARBON DIOXIDE LEVEL 29 MEQ/L (21-32); CHLORIDE LEVEL 108 MEQ/L (98-107); CREATININE FOR GFR 0.55 MG/DL (0.55-1.30); GLOMERULAR FILTRATION RATE > 60.0 (>51); GLUCOSE, FASTING 85 MG/DL (70-100); POTASSIUM SERUM 3.7 MEQ/L (3.5-5.1); SODIUM LEVEL 142 MEQ/L (136-145)
[2019-03-11] MEDS: FUROSEMIDE 20 MG TAB PO SCH (09:00)
[2019-03-11] MEDS: BACTRIM 160MG/800MG DS TAB PO SCH ×2 (09:37→20:48)
[2019-03-11] MEDS: MAGNESIUM CHLORIDE 64 MG TABCR (SLO MAG) PO SCH ×2 (09:38→20:50)
[2019-03-11] MEDS: PREGABALIN 100 MG CAP (LYRICA) PO SCH ×2 (09:38→20:48)
[2019-03-11] MEDS: ASPIRIN 81 MG ENTERIC TAB PO SCH (09:49)
[2019-03-11] MEDS: CLOPIDOGREL 75 MG TAB PO SCH (09:49)
[2019-03-11] MEDS: HEPARIN SOD (PORCINE) 5000 UNITS/ML VIAL SC SCH ×2 (09:50→20:47)
[2019-03-11] MEDS: MORPHINE 4 MG/ML 1ML VIAL/SYRINGE (J2270) IV PRN ×3 (10:48→20:47)
[2019-03-11 14:00] VITALS: BP 110/64
--- NOTE | 2019-03-11 15:48 | IPNPDOC ---
Date Seen The patient was seen on 03/11/19. Progress Note SUBJECTIVE: Patient noted that her R. breast is still larger than her left and R leg still slightly swollen and tender but may be a bit better. No new complaints today. Afebrile overnight. Platelets and Hb trending down. OBJECTIVE PHYSICAL EXAMINATION: VITAL SIGNS: Please see below. General: No acute distress, Alert Eyes: Normal sclera, EOMI, YSABEL HENT: Atraumatic Cardiovascular: Normal rate, normal rhythm. Chest: R. breast appear larger than L. No lumps, erythema or tenderness on exam b/l. Pulmonary: Clear to auscultation b/l, no wheezing GI: Soft, nontender, nondistended MSK: LLE with overlying bandage clean and dry. RLE slightly larger than the left with reported tenderness in medial thigh. Skin: Warm and dry. Sacral wound with overlying bandage and wound vac. Wound appear clean and dry. Neuro: CN grossly intact. No focal deficits. Psych: oriented x 3 LABORATORY DATA, IMAGING STUDIES, MICROBIOLOGY: Please see below. DVT prophylaxis ordered?: HSQ ASSESSMENT AND PLAN: 1. L. foot osteomyelitis - s/p L. foot toes 1,3,4,5 amputation. - Wound culture + Proteus, Strep group G, MRSA and Strep mitis. - Blood cultures negative. - c/w wound dressing changes. - ID following. c/w Ceftaroline. Bactrim PO to finish 10 days course. - Cleared by PT. 2. Decubitus ulcer - c/w wound care. Wound vac in place. - No care in place for home wound vac at this time, denied from previous care provider due to noncompliance. [employer] working on getting approval. - If unable to obtain wound vac care, will likely go home without vac to continue dressing changes and wound care follow up. 3. Decondition - PT/OT. 4. CAD - c/w home meds. 5. HIV - c/w home meds. 6. RLE "lump" and R. breast enlargement - Likely dependent edema due to lying position. - no abnormal nodules/lumps or abnormalities noted on breast exam. - Recommend positional changes to the other side. - RLE US shows no evidence of DVT. - CXR from admission noted no abnormal lung mass or irregularities. 7. Pancytopenia - WBC, Hb, platelets had been trending down. - HIV vs. infection vs. medications all can contribute - Monitor and transfuse as needed. May need hematology follow up with does not stabelize. VS, I&O, 24H, Fishbone Vital Signs/I&O Vital Signs Date Time Temp Pulse Resp B/P (MAP) Pulse Ox O2 Delivery O2 Flow Rate FiO2 03/11/19 14:00 96.1 78 18 110/64 (79) 98 Room Air I&O- Last 24 Hours up to 6 AM 03/11/19 06:00 Intake Total 1780 ml Output Total 1203 ml Balance 577 ml Laboratory Data 24H LABS Laboratory Tests 2 03/11/19 05:28: Nucleated Red Blood Cells % (auto) 0.0, Anion Gap 5L, Glomerular Filtration Rate > 60.0, Calcium Level 7.9L CBC/BMP Laboratory Tests 03/11/19 05:28 Microbiology Microbiology 03/03/19 Gram Stain - Final, Complete 03/03/19 Abscess Culture - Final, Complete Staph.aureus Methicillin Resis Corynebacterium Species 03/01/19 Gram Stain - Final, Complete 03/01/19 Wound Culture - Final, Complete Proteus Penneri Staph.aureus Methicillin Resis Streptococcus Group G Streptococcus Mitis LAVELLE CALDERON MD Mar 11, 2019 15:48
[2019-03-11] MEDS: GENVOYA PO SCH (21:00)
[2019-03-11 22:00] VITALS: BP 104/60
[2019-03-12] MEDS: MORPHINE 4 MG/ML 1ML VIAL/SYRINGE (J2270) IV PRN ×2 (02:32→10:30)
[2019-03-12] MEDS: oxyCODONE 5MG TAB PO SCH ×2 (05:51→11:42)
[2019-03-12 06:00] VITALS: BP 116/58
[2019-03-12 06:42] LABS: HEMATOCRIT 27.8 % (36.0-47.0); HEMOGLOBIN 8.6 g/dl (12.0-15.5); MEAN CORPUSCULAR HEMOGLOBIN 27.7 pg (27.0-33.0); MEAN CORPUSCULAR HGB CONC 30.9 g/dl (32.0-36.5); MEAN CORPUSCULAR VOLUME 89.4 fl (80.0-96.0); PLATELET COUNT, AUTOMATED 125 10^3/uL (150-450); RED BLOOD COUNT 3.11 10^6/uL (4.00-5.40); WHITE BLOOD COUNT 4.2 10^3/uL (4.0-10.0)
[2019-03-12 07:06] LABS: BLOOD UREA NITROGEN 18 MG/DL (7-18); CALCIUM LEVEL 8.2 MG/DL (8.5-10.1); CARBON DIOXIDE LEVEL 29 MEQ/L (21-32); CHLORIDE LEVEL 107 MEQ/L (98-107); CREATININE FOR GFR 0.54 MG/DL (0.55-1.30); GLOMERULAR FILTRATION RATE > 60.0 (>51); GLUCOSE, FASTING 83 MG/DL (70-100); POTASSIUM SERUM 4.5 MEQ/L (3.5-5.1); SODIUM LEVEL 140 MEQ/L (136-145)
[2019-03-12] MEDS: SUCRALFATE SUSP 1GM/10ML UD PO SCH ×2 (07:22→11:42)
[2019-03-12] MEDS: FUROSEMIDE 20 MG TAB PO SCH (09:00)
[2019-03-12] MEDS: MAGNESIUM CHLORIDE 64 MG TABCR (SLO MAG) PO SCH (09:00)
[2019-03-12 09:48] LABS: MAGNESIUM LEVEL 1.6 MG/DL (1.8-2.4)
[2019-03-12] MEDS: ASPIRIN 81 MG ENTERIC TAB PO SCH (10:27)
[2019-03-12] MEDS: HEPARIN SOD (PORCINE) 5000 UNITS/ML VIAL SC SCH (10:28)
[2019-03-12] MEDS: PREGABALIN 100 MG CAP (LYRICA) PO SCH (10:28)
[2019-03-12] MEDS: BACTRIM 160MG/800MG DS TAB PO SCH (10:29)
[2019-03-12] MEDS: CLOPIDOGREL 75 MG TAB PO SCH (10:29)
[2019-03-12] MEDS ORDERED: SULF1TAB93 PO (11:30)
[2019-03-12] MEDS: MAG SULF 1GM/100ML (MAG RUN) 1 GM in IV 1 EA IV SCH ×2 (11:48→13:06)
[2019-03-12 14:00] VITALS: BP 86/52
--- NOTE | 2019-03-12 19:25 | DS.PDOC ---
Discharge Summary General Date of Admission Feb 28, 2019 at 13:27 Date of Discharge 03/12/19 Discharge Summary PROCEDURES PERFORMED DURING STAY: [None]. ADMITTING DIAGNOSES: 1. L. foot osteomyelitis 2. Diabetic foot ulcer associated with DM 3. Decubitus ulcer 4. Physical deconditioning 5. HIV 6. CAD 7. peripheral neuropathy 8. DM 9. COPD DISCHARGE DIAGNOSES: 1. L. foot osteomyelitis 2. Diabetic foot ulcer associated with DM 3. Decubitus ulcer 4. Physical deconditioning 5. HIV 6. CAD 7. peripheral neuropathy 8. DM 9. COPD 10. L. breast enlargement 11. L. leg soreness COMPLICATIONS/CHIEF COMPLAINT: Diabetic Foot Ulcer,Osteomyelitis. HISTORY OF PRESENT ILLNESS: "Patient is 53 years old female with past medical history of HIV, diabetes mellitus type 2, diabetes neuropathy, hypertension, cirrhosis, chronic osteomyelitis of 4 and 5 th toe of left foot presented hospital for planned left metatarsal 4 and 5 th toes amputation. Patient stated that 2 months ago she had partial amputation of left 4th toe and distal phalanx amputation of left fifth toe. He burner technician is Dr. Alonso. I talked to Dr. Alonso by phone, he planned metatarsal amputation on this week. Patient denies fever, chills, nausea, vomiting, shortness of breath, diarrhea or dysuria" HOSPITAL COURSE: Patient underwent L. foot toe amputations of 1,3,4,5 digits and was on antibiotics with ID following. Symptoms improved and arranged for outpatient follow up. Patient has a wound vac in place for her sacral wound. To be discharged for continue wound management with Wound care/Dr. Ayala. Patient complained of R. breast being larger than the left as well as RLE soreness over medial upper thigh. Dopplers showed no evidence of DVT. Patient has had recent Mammogram last march. Discussed with Dr. Arroyo, will send her for repeat mammo as outpatient. DISCHARGE MEDICATIONS: Please see below. ALLERGIES: Please see below. PHYSICAL EXAMINATION ON DISCHARGE: VITAL SIGNS: Please see below. General: No acute distress, Alert Eyes: Normal sclera, EOMI, YSABEL HENT: Atraumatic Cardiovascular: Normal rate, normal rhythm. Chest: R. breast appear larger than L. No lumps, erythema or tenderness on exam b/l. Pulmonary: Clear to auscultation b/l, no wheezing GI: Soft, nontender, nondistended MSK: LLE with overlying bandage clean and dry. RLE slightly larger than the left with reported tenderness in medial thigh. Skin: Warm and dry. Sacral wound with overlying bandage and wound vac. Wound appear clean and dry. Neuro: CN grossly intact. No focal deficits. Psych: oriented x 3 LABORATORY DATA: Please see below. ACTIVITY: [As tolerated]. DIET: regular DISCHARGE PLAN: f/u PMD/ID f/u Wound care and continue wound vac changes complete course of Bactrim DISPOSITION: Home, Self-Care. DISCHARGE INSTRUCTIONS: f/u PMD/ID f/u Wound care and continue wound vac changes complete course of Bactrim ITEMS TO FOLLOWUP ON ON OUTPATIENT: None DISCHARGE CONDITION: [Stable]. TIME SPENT ON DISCHARGE: 35 minutes. Vital Signs/I&Os Vital Signs Date Time Temp Pulse Resp B/P (MAP) Pulse Ox O2 Delivery O2 Flow Rate FiO2 03/12/19 14:00 99.5 95 16 86/52 (63) 96 Room Air I&O- Last 24 Hours up to 6 AM 03/12/19 05:59 Intake Total 2110 ml Output Total 1450 ml Balance 660 ml Laboratory Data Labs 24H Laboratory Tests 2 03/12/19 06:13: Nucleated Red Blood Cells % (auto) 0.0, Anion Gap 4L, Glomerular Filtration Rate > 60.0, Calcium Level 8.2L, Magnesium Level 1.6L CBC/BMP Laboratory Tests 03/12/19 06:13 Microbiology Microbiology 03/03/19 Gram Stain - Final, Complete 03/03/19 Abscess Culture - Final, Complete Staph.aureus Methicillin Resis Corynebacterium Species Discharge Medications Scheduled Aspirin (Aspirin EC) 81 Mg Tablet.dr, 81 MG PO DAILY Darunavir Ethanolate (Prezista) 800 Mg Tab, 800 MG PO QPM, (Reported) Elviteg/Cob/Emtri/Tenof Alafen (Genvoya Tablet) 1 Tab Tab, 1 TAB PO QPM, (Reported) Oxycodone HCl (Oxycodone HCl) 10 Mg Tablet, 10 MG PO Q6H, (Reported) Pregabalin (Lyrica) 300 Mg Cap, 300 MG PO BID, (Reported) Sucralfate (Carafate) 1 Gm/10 Ml Kristi, 1 GM PO QID, (Reported) Sulfamethoxazole/Trimethoprim (Sulfamethoxazole-Tmp Ds Tablet) 1 Each Tablet, 1 TAB PO BID Scheduled PRN Furosemide (Furosemide) 20 Mg Tablet, 20 MG PO DAILY PRN for EDEMA, (Reported) Nitroglycerin (Nitroglycerin) 0.4 Mg Tab.subl, 0.4 MG SL NITRO PRN for CHEST PAIN, (Reported) Trazodone HCl (Trazodone HCl) 50 Mg Tab, 50 MG PO QHS PRN for SLEEP, (Reported) Allergies Coded Allergies: No Known Allergies (Unverified , 12/27/18) LAVELLE CALDERON MD Mar 12, 2019 19:25
== END 2019-03-12 15:00 | disposition home health service (06) | DRG 616 ==
LOC: M MSPAV 13:27
PROVIDERS: ADMIT Internal Medicine; ATTEND Student in an Organized Health Care Education/Training Program
PROC: 0Y6U0Z0 Detachment at Left 3rd Toe, Complete, Open Approach (ICD-10-PCS; 2019-03-03)
PROC: 0Y6W0Z0 Detachment at Left 4th Toe, Complete, Open Approach (ICD-10-PCS; 2019-03-03)
PROC: 0Y6Y0Z0 Detachment at Left 5th Toe, Complete, Open Approach (ICD-10-PCS; 2019-03-03)
PROC: 0Y6Q0Z0 Detachment at Left 1st Toe, Complete, Open Approach (ICD-10-PCS; principal; 2019-03-03 08:00)
DX: E11.621 Type 2 diabetes mellitus with foot ulcer (principal); L89.154 Pressure ulcer of sacral region, stage 4; M86.672 Other chronic osteomyelitis, left ankle and foot; B20 Human immunodeficiency virus [HIV] disease; E11.51 Type 2 diabetes mellitus with diabetic peripheral angiopathy without gangrene; I10 Essential (primary) hypertension; E11.69 Type 2 diabetes mellitus with other specified complication; L97.524 Non-pressure chronic ulcer of other part of left foot with necrosis of bone; J44.9 Chronic obstructive pulmonary disease, unspecified; I25.10 Atherosclerotic heart disease of native coronary artery without angina pectoris; K74.60 Unspecified cirrhosis of liver; Z79.899 Other long term (current) drug therapy; I25.2 Old myocardial infarction; Z98.84 Bariatric surgery status; Z96.612 Presence of left artificial shoulder joint; B96.4 Proteus (mirabilis) (morganii) as the cause of diseases classified elsewhere; B95.5 Unspecified streptococcus as the cause of diseases classified elsewhere; B95.62 Methicillin resistant Staphylococcus aureus infection as the cause of diseases classified elsewhere

== ENCOUNTER → 2019-03-29 | Outpatient (REF) | payer MEDICARE, MEDICAID ==
[~2019-03-29] MED LIST changes: +OXYC10TA12 PO
== END ==
LOC: M LAB REF 13:59
PROVIDERS: ATTEND Surgery
DX: M46.28 Osteomyelitis of vertebra, sacral and sacrococcygeal region (principal); L89.154 Pressure ulcer of sacral region, stage 4

== ENCOUNTER → 2019-04-17 | Outpatient (REF) | payer MEDICARE, MEDICAID ==
[2019-04-17 16:20] LABS: BASO % 0.5 % (0.0-1.0); EOS # 0.1 10^3/uL (0.0-0.5); EOS % 1.6 % (0.0-3.0); HEMATOCRIT 29.9 % (36.0-47.0); HEMOGLOBIN 9.2 g/dl (12.0-15.5); LYMPH # 1.3 10^3/uL (1.5-5.0); LYMPH % 17.9 % (24.0-44.0); MEAN CORPUSCULAR HEMOGLOBIN 26.9 pg (27.0-33.0); MEAN CORPUSCULAR HGB CONC 30.8 g/dl (32.0-36.5); MEAN CORPUSCULAR VOLUME 87.4 fl (80.0-96.0); MONO # 0.8 10^3/uL (0.0-0.8); MONO % 11.2 % (0.0-5.0); NEUTROPHILS # 4.9 10^3/uL (1.5-8.5); PLATELET COUNT, AUTOMATED 215 10^3/uL (150-450); RED BLOOD COUNT 3.42 10^6/uL (4.00-5.40); WHITE BLOOD COUNT 7.3 10^3/uL (4.0-10.0)
[2019-04-17 16:40] LABS: ERYTHROCYTE SEDIMENTATION RATE 82 mm/hr (0-30)
[2019-04-17 16:45] LABS: ALBUMIN 2.9 GM/DL (3.2-5.2); ALT/SGPT 37 U/L (12-78); BILIRUBIN,TOTAL 0.4 MG/DL (0.2-1.0); BLOOD UREA NITROGEN 29 MG/DL (7-18); C REACTIVE PROTEIN QUANTITATIV 5.92 MG/DL (0.00-0.30); CALCIUM LEVEL 8.2 MG/DL (8.5-10.1); CARBON DIOXIDE LEVEL 25 MEQ/L (21-32); CHLORIDE LEVEL 104 MEQ/L (98-107); CREATININE FOR GFR 0.86 MG/DL (0.55-1.30); GLOMERULAR FILTRATION RATE > 60.0 (>51); GLUCOSE, FASTING 122 MG/DL (70-100); POTASSIUM SERUM 4.7 MEQ/L (3.5-5.1); SODIUM LEVEL 136 MEQ/L (136-145); TOTAL PROTEIN 7.1 GM/DL (6.4-8.2)
[2019-04-26 14:07] LABS: % CD8 Pos Lymph 58.6 % (12.0-35.5); %CD4 Pos Lymphs 32.3 % (30.8-58.5); ABS Eosinophils 0.1 x10E3/uL (0.0-0.4); ABS Lymphs 1.2 x10E3/uL (0.7-3.1); ABS Monocytes 0.8 x10E3/uL (0.1-0.9); ABS Neutophils 4.6 x10E3/uL (1.4-7.0); Abs CD4 Helper 388 /uL (359-1519); Abs CD8 Suppres 703 /uL (109-897); CD4/CD8 Ratio 0.55 (0.92-3.72); Eosinophils 2 % (Not Estab.); HCT 29.3 % (34.0-46.6); HGB 9.4 g/dL (11.1-15.9); Imm ABS Grans 0.1 x10E3/uL (0.0-0.1); Immature Grans 2 % (Not Estab.); Lymphocytes 18 % (Not Estab.); MCH 26.6 pg (26.6-33.0); MCHC 32.1 g/dL (31.5-35.7); MCV 83 fL (79-97); Monocytes 12 % (Not Estab.); Neutrophils 66 % (Not Estab.); Platelets 229 x10E3/uL (150-450); RBC 3.54 x10E6/uL (3.77-5.28); RDW 15.3 % (12.3-15.4); WBC 6.8 x10E3/uL (3.4-10.8)
== END ==
LOC: M SFHCPLAZ 13:12
PROVIDERS: ATTEND Internal Medicine Infectious Disease
DX: M86.672 Other chronic osteomyelitis, left ankle and foot (principal); B20 Human immunodeficiency virus [HIV] disease; E11.621 Type 2 diabetes mellitus with foot ulcer
CPT/HCPCS: 36415; 80053; 83036; 85025; 85652; 86140; 86360; 87070; 87077; 87186; 87205; 87536; G0463

== ENCOUNTER → 2019-08-30 | Outpatient (REF) | payer MEDICARE, MEDICAID ==
[~2019-08-30] MED LIST changes: +ESOM40CA35; +LEVO500T3; +ONDA8TAB10 PO; -ONDA8TAB7 PO
[2019-08-30 13:29] LABS: INR 1.06; PROTHROMBIN TIME 13.5 SECONDS (11.8-14.0)
[2019-08-30 13:34] LABS: HEMOGLOBIN A1c 5.5 %
== END ==
LOC: M SFHCPLAZ 11:42
PROVIDERS: ATTEND Internal Medicine Infectious Disease
DX: L97.522 Non-pressure chronic ulcer of other part of left foot with fat layer exposed (principal); K74.60 Unspecified cirrhosis of liver; E11.621 Type 2 diabetes mellitus with foot ulcer
CPT/HCPCS: 36415; 82105; 83036; 85610; 87070; 87077; 87186; 87205; G0463

== ENCOUNTER 2019-09-16 10:30 | Emergency (ER) | payer MEDICARE, MEDICAID ==
[~2019-09-16] VITALS: Ht 172.7 cm; Wt 88.2 kg
[~2019-09-16 10:30] MED LIST changes: -ESOM40CA35; -LEVO500T3
[2019-09-16] MEDS ORDERED: ESOM40CA35 (10:54)
[2019-09-16] MEDS ORDERED: LEVO500T3 (10:54)
[2019-09-16 11:07] LABS: BASO # 0.1 10^3/uL (0.0-0.2); BASO % 0.7 % (0.0-1.0); EOS # 0.2 10^3/uL (0.0-0.5); EOS % 2.1 % (0.0-3.0); HEMOGLOBIN 12.2 g/dl (12.0-15.5); LYMPH # 2.1 10^3/uL (1.5-5.0); LYMPH % 30.3 % (24.0-44.0); MEAN CORPUSCULAR HEMOGLOBIN 27.2 pg (27.0-33.0); MEAN CORPUSCULAR HGB CONC 32.1 g/dl (32.0-36.5); MEAN CORPUSCULAR VOLUME 84.8 fl (80.0-96.0); MONO # 0.7 10^3/uL (0.0-0.8); MONO % 10.2 % (0.0-5.0); NEUTROPHILS # 3.9 10^3/uL (1.5-8.5); NEUTROPHILS % 55.3 % (36.0-66.0); PLATELET COUNT, AUTOMATED 100 10^3/uL (150-450); RED BLOOD COUNT 4.48 10^6/uL (4.00-5.40)
[2019-09-16 11:35] LABS: BLOOD UREA NITROGEN 17 MG/DL (7-18); CALCIUM LEVEL 8.7 MG/DL (8.5-10.1); CARBON DIOXIDE LEVEL 24 MEQ/L (21-32); CHLORIDE LEVEL 105 MEQ/L (98-107); CK-MB VALUE MASS < 1.0 NG/ML (<3.6); CPK CREATINE PHOSPHOKINASE 52 U/L (26-192); GLOMERULAR FILTRATION RATE > 60.0 (>51); GLUCOSE, FASTING 111 MG/DL (70-100); MB/CK RELATIVE INDEX 1.92 (< OR =4); POTASSIUM SERUM 4.1 MEQ/L (3.5-5.1); SODIUM LEVEL 137 MEQ/L (136-145); TROPONIN I < 0.02 NG/ML (< 0.10)
[2019-09-16 11:41] LABS: INR 1.06; PROTHROMBIN TIME 13.5 SECONDS (11.8-14.0)
[2019-09-16 11:42] LABS: PARTIAL THROMBOPLASTIN TIME 30.1 SECONDS (25.0-38.4)
[2019-09-16] MEDS ORDERED: MORPHINE 4 MG/ML 1ML VIAL/SYRINGE (J2270) IV ONE (11:45)
--- NOTE | 2019-09-16 12:00 | REP ---
CHEST, SINGLE VIEW: There is no evidence of acute infiltrate. No pleural effusion is seen. The heart is normal in size. The mediastinal silhouette is unremarkable. The visualized osseous structures are intact. IMPRESSION: No acute pulmonary disease. Electronically Signed by Golden Cesar MD 09/16/2019 09:55 P
[2019-09-16 12:10] LABS: D-DIMER QUANT 385.76 ng/ml (<500)
[2019-09-16] MEDS ORDERED: GASTROGRAFIN SOLUTION 30ML (Q9963) As Ordered ONE (13:17)
[2019-09-16] MEDS: GASTROGRAFIN SOLUTION 30ML PO SCH ×2 (13:24→13:50)
--- NOTE | 2019-09-16 13:40 | REP ---
CT ABDOMEN AND PELVIS WITHOUT CONTRAST: CT abdomen and pelvis performed without oral or IV contrast. Sagittal and coronal reconstruction images are performed. There are no prior studies for comparison. Visualized lung bases are clear. The liver is grossly unremarkable. The patient has had a prior cholecystectomy with multiple metallic clips seen in the gallbladder fossa. The spleen is normal in size. The left adrenal gland is normal. The right adrenal gland demonstrates an oval low-density nodule consistent with an adenoma 3 cm in diameter. The pancreas is grossly unremarkable. Two punctate intrarenal calculi are seen in the left kidney. There is no hydroureteronephrosis bilaterally. There is moderate atherosclerotic calcification of the abdominal aorta without aneurysm. I see no adenopathy. There is no free fluid. There is evidence of prior gastric surgery. In the anterior upper abdomen, there are a few foci of air anteriorly along the inner abdominal wall, which may be extraluminal. I see no definite bowel wall thickening or inflammation. No pelvic mass is seen. The left ovary appears extensively calcified. The urinary bladder is mildly distended and grossly unremarkable. There are degenerative changes of the spine. IMPRESSION: I suspect a few foci of extraluminal air in the anterior upper abdomen. I see no other acute finding. The patient has had prior gastric surgery. Further evaluation may be made with CT with oral and IV contrast. Results were discussed with Ryan Grace in the emergency room by phone at the time of the exam. Electronically Signed by Golden Cesar MD 09/16/2019 09:57 P
[2019-09-16] MEDS ORDERED: ISOVUE-370 76% 100ML VIAL As Ordered ONE (14:21)
[2019-09-16] MEDS ORDERED: MORPHINE 2 MG/ML 1ML VIAL (J2270) IV ONE (14:45)
[2019-09-16 16:00] VITALS: BP 97/63
[2019-09-16] MEDS ORDERED: NEXI40CA PO (16:15)
--- NOTE | 2019-09-16 16:18 | ECGEPIP ---
[facility] - ED Test Date: 2019-09-16 Pat Name: GEREMIAS WYATT Department: Room: - Gender: Female Plate Sensitizer: ef : 1965 Requested By: Viola Kramer Order Number: [id number] Reading MD: Sherman Bianchi Measurements Intervals [place] Rate: 98 P: 47 [place]: 156 QRS: 36 QRSD: 93 T: 45 QT: 342 QTc: 437 Interpretive Statements SINUS RHYTHM LOW QRS VOLTAGE IN EXTREMITY LEADS POOR R WAVE PROGRESSION SIMILAR TO 02/28/19 Electronically Signed on 09-16-2019 16:18:32 EDT by Sherman Bianchi
--- NOTE | 2019-09-17 10:06 | REP ---
CT ABDOMEN AND PELVIS WITH ORAL AND IV CONTRAST: TECHNIQUE: Axial contrast enhanced images from the lung bases to the pubic symphysis using 100 mL Isovue 370 intravenous contrast material with multiplanar reformations. COMPARISON: Noncontrast CT, 09/16/2019. The previously suspected foci of extraluminal air in the anterior upper abdomen are not visualized. The finding on the CT earlier today appears to have been artifactual. There is no free air or free fluid. No bowel wall thickening is seen. There is ingested contrast seen in the excluded portion of the stomach in this patient with a history of gastric bypass surgery. This indicates breakdown of the suture line dividing the stomach. There is no evidence of bowel obstruction. The liver is unremarkable. The patient has had a prior cholecystectomy. Spleen is unremarkable as is the left adrenal gland. Right adrenal adenoma is again seen. Pancreas demonstrates no mass. Kidneys are unremarkable, except a couple of small right renal cysts. There is no hydronephrosis. There is no abdominal aortic aneurysm. Urinary bladder is mildly distended and grossly unremarkable. IMPRESSION: Suspected extraluminal air is not seen on this exam indicating the finding on the noncontrast CT earlier today was artifactual. There is no free air or free fluid. However, there is ingested contrast in the excluded portion of the stomach, status post gastric bypass surgery. This is compatible with breakdown of the suture line which divides the stomach. Otherwise, no acute finding. Electronically Signed by Golden Cesar MD 09/17/2019 11:53 A
== END 2019-09-16 16:29 | disposition home or self-care (01) ==
LOC: M ED 10:30 → EDBD 10:30 → M ED 16:29
DX: K29.00 Acute gastritis without bleeding (principal); R07.9 Chest pain, unspecified; I25.10 Atherosclerotic heart disease of native coronary artery without angina pectoris; I25.2 Old myocardial infarction; B20 Human immunodeficiency virus [HIV] disease; E78.5 Hyperlipidemia, unspecified; Z98.84 Bariatric surgery status; F17.200 Nicotine dependence, unspecified, uncomplicated; Z79.899 Other long term (current) drug therapy; Z79.82 Long term (current) use of aspirin; Z79.891 Long term (current) use of opiate analgesic; Z79.2 Long term (current) use of antibiotics; Z95.5 Presence of coronary angioplasty implant and graft
CPT/HCPCS: 71045; 74176; 74177; 80048; 82550; 82553; 84484; 85025; 85379; 85610; 85730; 93005; 93041; 94760; 96374; 96376; 99285; J2270; Q9967

== ENCOUNTER → 2019-11-01 | Outpatient (REF) | payer MEDICARE, MEDICAID ==
[~2019-11-01] MED LIST changes: +ESOM40CA35; +LEVO500T3
[2019-11-01 14:24] LABS: ALBUMIN 2.8 GM/DL (3.2-5.2); ALT/SGPT 14 U/L (12-78); BILIRUBIN,TOTAL 0.5 MG/DL (0.2-1.0); BLOOD UREA NITROGEN 15 MG/DL (7-18); C REACTIVE PROTEIN QUANTITATIV 0.63 MG/DL (0.00-0.30); CALCIUM LEVEL 8.3 MG/DL (8.5-10.1); CARBON DIOXIDE LEVEL 24 MEQ/L (21-32); CHLORIDE LEVEL 111 MEQ/L (98-107); CREATININE FOR GFR 0.72 MG/DL (0.55-1.30); GLOMERULAR FILTRATION RATE > 60.0 (>51); GLUCOSE, FASTING 81 MG/DL (70-100); POTASSIUM SERUM 4.4 MEQ/L (3.5-5.1); SODIUM LEVEL 140 MEQ/L (136-145); TOTAL PROTEIN 6.1 GM/DL (6.4-8.2)
[2019-11-06 16:17] LABS: % CD8 Pos Lymph 52.4 % (12.0-35.5); %CD4 Pos Lymphs 30.9 % (30.8-58.5); ABS Eosinophils 0.2 x10E3/uL (0.0-0.4); ABS Lymphs 1.1 x10E3/uL (0.7-3.1); ABS Monocytes 0.3 x10E3/uL (0.1-0.9); ABS Neutophils 2.2 x10E3/uL (1.4-7.0); Abs CD4 Helper 340 /uL (359-1519); Abs CD8 Suppres 576 /uL (109-897); CD4/CD8 Ratio 0.59 (0.92-3.72); Eosinophils 4 % (Not Estab.); HCT 32.8 % (34.0-46.6); HGB 10.4 g/dL (11.1-15.9); HIV-1 RNA PCR QUANT 2 LC550285 2490 copies/mL (.); HIV-1 RNA PCR QUANT 3 LC550285 3.396 (.); Immature Grans 0 % (Not Estab.); Lymphocytes 30 % (Not Estab.); MCH 27.2 pg (26.6-33.0); MCHC 31.7 g/dL (31.5-35.7); MCV 86 fL (79-97); Monocytes 7 % (Not Estab.); Neutrophils 59 % (Not Estab.); Platelets 108 x10E3/uL (150-450); RBC 3.82 x10E6/uL (3.77-5.28); WBC 3.8 x10E3/uL (3.4-10.8)
== END ==
LOC: M SFHCPLAZ 12:16
PROVIDERS: ATTEND Internal Medicine Infectious Disease
DX: B20 Human immunodeficiency virus [HIV] disease (principal); L03.116 Cellulitis of left lower limb
CPT/HCPCS: 36415; 80053; 85652; 86140; 86360; 87536; G0463

== ENCOUNTER → 2019-11-01 | Outpatient (CLI) | payer MEDICARE, MEDICAID ==
--- NOTE | 2019-11-01 13:35 | REP ---
Left lower extremity Duplex Doppler venous ultrasound: Real time compression and duplex Doppler interrogation of the left lower extremity deep venous system is performed. The left common femoral, superficial femoral and popliteal veins are fully compressible with transducer pressure and demonstrate normal spontaneous and phasic flow, without evidence of deep venous thrombosis. Impression: No evidence of deep venous thrombosis of the left lower extremity femoral popliteal venous system.
== END ==
LOC: M WHC 11:44
PROVIDERS: ATTEND Internal Medicine Infectious Disease
DX: L03.116 Cellulitis of left lower limb (principal); M79.89 Other specified soft tissue disorders

== ENCOUNTER → 2020-10-17 | Outpatient (REF) | payer MEDICARE, MEDICAID ==
[~2020-10-17] MED LIST changes: +ASPI-569 PO; -ASPI81TAEC PO; +BACTDSTA PO; -MAG400TA PO; +MAGN400T35 PO; +PANT40TA29 PO; -PANT40TA3 PO; -SULF1TAB93 PO
[2020-10-17 15:31] LABS: HEMATOCRIT 40.9 % (36.0-47.0); HEMOGLOBIN 12.8 g/dl (12.0-15.5); MEAN CORPUSCULAR HGB CONC 31.3 g/dl (32.0-36.5); MEAN CORPUSCULAR VOLUME 92.5 fl (80.0-96.0); PLATELET COUNT, AUTOMATED 121 10^3/uL (150-450); RED BLOOD COUNT 4.42 10^6/uL (4.00-5.40); WHITE BLOOD COUNT 6.1 10^3/uL (4.0-10.0)
[2020-10-17 15:50] LABS: HEMOGLOBIN A1c 5.2 %
[2020-10-17 15:56] LABS: ALBUMIN 3.7 GM/DL (3.2-5.2); ALT/SGPT 14 U/L (12-78); BILIRUBIN,TOTAL 0.6 MG/DL (0.2-1.0); BLOOD UREA NITROGEN 20 MG/DL (7-18); CALCIUM LEVEL 8.6 MG/DL (8.5-10.1); CARBON DIOXIDE LEVEL 24 MEQ/L (21-32); CHLORIDE LEVEL 108 MEQ/L (98-107); CHOLESTEROL LEVEL 173 MG/DL (<200); CREATININE FOR GFR 0.81 MG/DL (0.55-1.30); GLOMERULAR FILTRATION RATE > 60.0 (>51); GLUCOSE, FASTING 93 MG/DL (70-100); HDL CHOLESTEROL 46 MG/DL (>40); IRON (FE) 98 UG/DL (50-170); LDL CHOLESTEROL 96 MG/DL (<100); NON-HDL-C 127 MG/DL; POTASSIUM SERUM 4.5 MEQ/L (3.5-5.1); SODIUM LEVEL 141 MEQ/L (136-145); TOTAL PROTEIN 7.3 GM/DL (6.4-8.2); TRIGLYCERIDES LEVEL 157 MG/DL (<150)
[2020-10-17 15:57] LABS: AMPHETAMINES URINE REFLEX NEGATIVE (NEGATIVE); BARBITURATES URINE REFLEX NEGATIVE (NEGATIVE); BENZODIAZEPINES URINE REFLEX NEGATIVE (NEGATIVE); COCAINE METABOLITE URINE REFLE NEGATIVE (NEGATIVE); METHADONE URINE REFLEX NEGATIVE (NEGATIVE); OPIATES URINE REFLEX NEGATIVE (NEGATIVE); PHENCYCLIDINE URINE REFLEX NEGATIVE (NEGATIVE)
[2020-10-17 16:02] LABS: FOLATE 7.5 NG/ML; TOTAL 25(OH) VITAMIN D 11.3 NG/ML (30.0-100.0); VITAMIN B12 LEVEL 345 PG/ML
[2020-10-17 16:24] LABS: MALB URINE SIEMENS 14.3 MG/L; MAU/CREAT RATIO 11.2 MCG/MG (0.0-30.0)
[2020-10-17 16:24] LABS: CANNABINOIDS URINE REFLEX PENDING CONFIRMATION (NEGATIVE)
== END ==
LOC: M SFHCPLAZ 11:14
PROVIDERS: ATTEND Physician Assistant
DX: E11.40 Type 2 diabetes mellitus with diabetic neuropathy, unspecified (principal); B20 Human immunodeficiency virus [HIV] disease; K74.69 Other cirrhosis of liver; Z98.84 Bariatric surgery status; Z79.899 Other long term (current) drug therapy
CPT/HCPCS: 36415; 80053; 80061; 80307; 82043; 82105; 82306; 82607; 82746; 83036; 83540; 85027; G0480

== ENCOUNTER 2020-12-06 17:31 | Emergency (ER) | payer MEDICARE, MEDICAID ==
[~2020-12-06] VITALS: Ht 172.7 cm; Wt 81.8 kg
[2020-12-06] MEDS ORDERED: ERGO500029 (17:50)
[2020-12-06] MEDS ORDERED: ONDA8TAB8 (17:50)
[2020-12-06] MEDS ORDERED: MORPHINE 4 MG/ML 1ML VIAL/SYRINGE (J2270) IV ONE (19:55)
--- NOTE | 2020-12-06 20:09 | REP ---
INDICATION: pain and swelling. COMPARISON: None. TECHNIQUE: Four views FINDINGS: Supracondylar comminuted fracture with intercondylar extension and involvement of the medial and lateral femoral condyles. Some distraction of fragments and a 1/4 shaft with posterior displacement on the lateral view of the major distal fragment of the lateral femoral condyle. No tibial or fibular fracture identified. Patella grossly intact. Heavy vascular calcification of femoral and popliteal artery. Bones appear demineralized. IMPRESSION: 1. Supracondylar comminuted fracture distal femur medially with intercondylar extension medially and laterally. Patella grossly intact. No fracture tibia or fibula. <Electronically signed by Josemanuel Chavez > 12/06/202004
--- NOTE | 2020-12-06 20:14 | REP ---
INDICATION: fall. COMPARISON: CT AP 09/16/2019 TECHNIQUE: AP pelvis and three views of the left hip provided. FINDINGS: AP pelvis shows pelvic ring intact. There is a sclerosis the inferior aspect of the right SI joint as on previous CT the left does not show this finding. No visible fracture the iliac wings acetabula E pubic rami. Symphysis pubis intact. Bilateral hip show minor degenerative changes at the acetabular roof but no visible joint space narrowing or fracture. There are degenerative changes of the lower lumbar facets and disc spaces. Left hip: AP and 2 cross-table lateral views are provided. The femoral at head neck and intertrochanteric region without definite fracture although the cross-table lateral views are not optimal. Degenerative changes at the left hip are noted with marginal osteophyte acetabular roof. Vascular calcifications in the pelvic and large dystrophic calcification about 2.2 cm on the left as before. IMPRESSION: No evidence of pelvic or hip fracture by plain film. The cross-table lateral view of the left hip is not optimal the radiographically despite technologist best efforts. If you have a high index of suspicion on clinical examination for hip injury, CT would be helpful. <Electronically signed by Josemanuel Chavez > 12/06/202010
[2020-12-06] MEDS ORDERED: HYDROMORPHONE HCL 0.5 MG/ 0.5 ML SYRINGE (J1170 PER 1) IV PRN (20:50)
[2020-12-06 20:52] LABS: BASO % 0.4 % (0.0-1.0); EOS # 0.1 10^3/uL (0.0-0.5); EOS % 0.9 % (0.0-3.0); HEMATOCRIT 35.3 % (36.0-47.0); HEMOGLOBIN 11.3 g/dl (12.0-15.5); LYMPH # 1.3 10^3/uL (1.5-5.0); LYMPH % 18.3 % (24.0-44.0); MEAN CORPUSCULAR HEMOGLOBIN 29.4 pg (27.0-33.0); MEAN CORPUSCULAR VOLUME 91.7 fl (80.0-96.0); MONO # 0.4 10^3/uL (0.0-0.8); MONO % 5.8 % (2.0-8.0); NEUTROPHILS % 72.9 % (36.0-66.0); PLATELET COUNT, AUTOMATED 124 10^3/uL (150-450); RED BLOOD COUNT 3.85 10^6/uL (4.00-5.40); WHITE BLOOD COUNT 6.9 10^3/uL (4.0-10.0)
[2020-12-06 21:03] LABS: INR 0.97; PARTIAL THROMBOPLASTIN TIME 27.9 SECONDS (24.2-38.5); PROTHROMBIN TIME 13.1 SECONDS (12.5-14.3)
[2020-12-06 21:14] LABS: BLOOD UREA NITROGEN 18 MG/DL (7-18); CALCIUM LEVEL 8.1 MG/DL (8.5-10.1); CARBON DIOXIDE LEVEL 25 MEQ/L (21-32); CHLORIDE LEVEL 112 MEQ/L (98-107); CREATININE FOR GFR 0.73 MG/DL (0.55-1.30); GLOMERULAR FILTRATION RATE > 60.0 (>51); GLUCOSE, FASTING 120 MG/DL (70-100); MAGNESIUM LEVEL 1.8 MG/DL (1.8-2.4); POTASSIUM SERUM 3.9 MEQ/L (3.5-5.1); SODIUM LEVEL 144 MEQ/L (136-145)
--- NOTE | 2020-12-06 22:34 | REPVR ---
PROCEDURE INFORMATION: Exam: CT Left Lower Extremity Without Contrast, Knee Exam date and time: 12/06/2020 9:04 PM Age: 55 years old Clinical indication: Injury or trauma; Fall; Fracture, traumatic; Closed fracture; Left; Lower end of femur; Additional info: Trauma - please eval distal femur TECHNIQUE: Imaging protocol: CT of the Left lower extremity without contrast was performed. Exam focused on the knee. Radiation optimization: All CT scans at this facility use at least one of these dose optimization techniques: automated exposure control; mA and/or kV adjustment per patient size (includes targeted exams where dose is matched to clinical indication); or iterative reconstruction. COMPARISON: [place] Knee, complete 12/06/2020 6:55 PM FINDINGS: Bones/joints: There is an acute, complete, comminuted, mildly displaced intra-articular fracture of the left distal femur, with fracture lines involving the distal femoral diaphysis, metaphysis, lateral trochlear facet, and superolateral aspect of the intercondylar notch. There is small ossified bodies in the intercondylar notch, patellofemoral joint, and suprapatellar bursa. There is a large left knee joint lipohemarthrosis. The femoral tibial alignment and patellofemoral alignment are maintained. Soft tissues: There is soft tissue swelling and hemorrhage around the left knee. There is a 2.5 cm x 1.3 cm x 5.6 cm hemorrhagic left popliteal cyst. Vasculature: There are atherosclerotic calcifications. IMPRESSION: 1. Acute, complete, comminuted, mildly displaced intra-articular fracture of the left distal femur. 2. Small ossified bodies in the left intercondylar notch, patellofemoral joint, and suprapatellar bursa. 3. Large left knee joint lipohemarthrosis. 4. 2.5 cm x 1.3 cm x 5.6 cm hemorrhagic left popliteal cyst. 5. Soft tissue swelling and hemorrhage around the left knee. Electronically signed by: Ki Rodriguez On 12/06/2020 22:33:27 PM
[2020-12-06 22:55] LABS: RSV AMPLIFICATION NEGATIVE (NEGATIVE)
[2020-12-06 23:36] VITALS: BP 126/67
[2020-12-06] MEDS ORDERED: HYDROMORPHONE HCL 0.5 MG/ 0.5 ML SYRINGE (J1170 PER 1) IV ONE (23:40)
== END 2020-12-06 23:48 | disposition short-term general hospital (02) ==
LOC: M ED 17:31
DX: S72.462A Displaced supracondylar fracture with intracondylar extension of lower end of left femur, initial encounter for closed fracture (principal); W19.XXXA Unspecified fall, initial encounter; Y92.830 Public park as the place of occurrence of the external cause; Y93.9 Activity, unspecified; Y99.9 Unspecified external cause status; E11.9 Type 2 diabetes mellitus without complications; Z98.84 Bariatric surgery status; F17.200 Nicotine dependence, unspecified, uncomplicated; M25.062 Hemarthrosis, left knee; M71.22 Synovial cyst of popliteal space [Baker], left knee; Z79.82 Long term (current) use of aspirin; Z79.899 Other long term (current) drug therapy
CPT/HCPCS: 73502; 73564; 73700; 80048; 83735; 85025; 85610; 85730; 86850; 86900; 86901; 87631; 96374; 96375; 96376; 99284; J1170; J2270

== ENCOUNTER → 2020-12-16 | Outpatient (REF) | payer MEDICARE, MEDICAID ==
[~2020-12-16] MED LIST changes: +ERGO500029; -KLOR10TA76 PO; -LEVO500T3; +LEVO500T4; +OMEP-173 PO; -OMEP-218 PO; +ONDA-84 PO; -ONDA8TAB10 PO; +ONDA8TAB8; +OXYC10TA3; +POTA-136 PO; +ZYVO1TAB PO
== END ==
LOC: M SFHCWAGY 18:11
PROVIDERS: ATTEND Internal Medicine Infectious Disease
DX: L89.92 Pressure ulcer of unspecified site, stage 2 (principal)

== ENCOUNTER → 2020-12-16 | Outpatient (CLI) | payer MEDICARE, MEDICAID ==
[2020-12-16 15:47] LABS: BASO % 0.4 % (0.0-1.0); EOS # 0.1 10^3/uL (0.0-0.5); EOS % 1.5 % (0.0-3.0); HEMATOCRIT 25.2 % (36.0-47.0); HEMOGLOBIN 7.8 g/dl (12.0-15.5); LYMPH % 20.8 % (24.0-44.0); MEAN CORPUSCULAR HEMOGLOBIN 28.8 pg (27.0-33.0); MONO # 0.4 10^3/uL (0.0-0.8); MONO % 9.5 % (2.0-8.0); NEUTROPHILS % 65.4 % (36.0-66.0); PLATELET COUNT, AUTOMATED 146 10^3/uL (150-450); RED BLOOD COUNT 2.71 10^6/uL (4.00-5.40); WHITE BLOOD COUNT 4.6 10^3/uL (4.0-10.0)
[2020-12-16 16:37] LABS: ERYTHROCYTE SEDIMENTATION RATE 81 mm/hr (0-30)
== END ==
LOC: M PLALAB 13:05
PROVIDERS: ATTEND Internal Medicine Infectious Disease
DX: L89.92 Pressure ulcer of unspecified site, stage 2 (principal); D62 Acute posthemorrhagic anemia

== ENCOUNTER 2021-01-01 09:58 | Emergency (ER) | payer MEDICARE, OTHER ==
[~2021-01-01] VITALS: Ht 172.7 cm; Wt 86.4 kg
[~2021-01-01 09:58] MED LIST changes: +KLOR10TA76 PO; +LEVO500T3; -LEVO500T4; -OMEP-173 PO; +OMEP-218 PO; -ONDA-84 PO; +ONDA8TAB10 PO; -OXYC10TA3; -POTA-136 PO; -ZYVO1TAB PO
[2021-01-01] MEDS ORDERED: NORCO, ANEXSIA 5/325MG TABLET (HYDROcodone/ACETAMINOPHEN) PO ONE (10:20)
[2021-01-01] MEDS ORDERED: OXYC10TA3 (10:22)
[2021-01-01] MEDS ORDERED: PERCOCET 5MG/325MG TAB PO ONE (10:25)
--- NOTE | 2021-01-01 10:59 | REP ---
INDICATION: area of sacrum nonhealing ? deeper abscess. COMPARISON: Comparison is made with CT imaging from September 16, 2019.. TECHNIQUE: Targeted soft tissue sonography in the sacral region posteriorly. FINDINGS: Scanning in the area of the open wound over the sacrum is performed. There is a hypoechoic linear tract like high area containing linear echogenic material suggesting air within the wound. No drainable or measurable cavity or abscess is seen. Somewhat edematous subcutaneous fat is observed. The linear hypoechoic tract like region measures up to 3.7 cm in length. IMPRESSION: An air containing thin tract is seen in the underlying soft tissues. No measurable or drainable abscess cavity is appreciated. <Electronically signed by Yan Gonzalez > 01/01/21 [id number]
[2021-01-01] MEDS ORDERED: ZYVO1TAB PO (12:18)
[2021-01-01] MEDS ORDERED: PREGABALIN 100 MG CAP (LYRICA) PO ONE (12:50)
[2021-01-01 14:31] VITALS: BP 96/52
--- NOTE | 2021-01-02 12:45 | ED PDOC ---
Post-Departure Follow-Up radiology report faxed to Dr. Ayala/Viola Camejo MD Jan 02, 2021 12:45
== END 2021-01-01 15:37 | disposition home or self-care (01) ==
LOC: M ED 09:58 → EDBD 09:58 → M ED 15:37
DX: L89.159 Pressure ulcer of sacral region, unspecified stage (principal); I25.10 Atherosclerotic heart disease of native coronary artery without angina pectoris; I25.2 Old myocardial infarction; E11.9 Type 2 diabetes mellitus without complications; I10 Essential (primary) hypertension; J44.9 Chronic obstructive pulmonary disease, unspecified; J45.909 Unspecified asthma, uncomplicated; B20 Human immunodeficiency virus [HIV] disease; F17.200 Nicotine dependence, unspecified, uncomplicated; Z79.82 Long term (current) use of aspirin; Z79.899 Other long term (current) drug therapy

== ENCOUNTER → 2021-06-15 | Outpatient (CLI) | payer MEDICARE, OTHER ==
[~2021-06-15] MED LIST changes: -KLOR10TA76 PO; -LEVO500T3; +LEVO500T4; +OMEP-173 PO; -OMEP-218 PO; +ONDA-84 PO; -ONDA8TAB10 PO; +OXYC10TA3; +POTA-136 PO; +ZYVO1TAB PO
[2021-06-15 15:36] LABS: ALBUMIN 3.1 GM/DL (3.2-5.2); ALT/SGPT 12 U/L (12-78); BILIRUBIN,TOTAL 0.4 MG/DL (0.2-1.0); BLOOD UREA NITROGEN 16 MG/DL (7-18); CALCIUM LEVEL 8.6 MG/DL (8.5-10.1); CARBON DIOXIDE LEVEL 23 MEQ/L (21-32); CHLORIDE LEVEL 109 MEQ/L (98-107); CHOLESTEROL LEVEL 149 MG/DL (<200); CHOLESTEROL RISK RATIO 3.239 (<5); CREATININE FOR GFR 0.46 MG/DL (0.55-1.30); GLOMERULAR FILTRATION RATE > 60.0 (>51); GLUCOSE, FASTING 93 MG/DL (70-100); HDL CHOLESTEROL 46 MG/DL (>40); LDL CHOLESTEROL 84 MG/DL (<100); NON-HDL-C 103 MG/DL; POTASSIUM SERUM 3.7 MEQ/L (3.5-5.1); SODIUM LEVEL 141 MEQ/L (136-145); TOTAL PROTEIN 6.5 GM/DL (6.4-8.2); TRIGLYCERIDES LEVEL 95 MG/DL (<150)
[2021-06-15 15:42] LABS: TOTAL 25(OH) VITAMIN D 23.3 NG/ML (30.0-100.0)
[2021-06-15 15:50] LABS: INR 1.03; PROTHROMBIN TIME 13.9 SECONDS (12.7-14.5)
[2021-06-15 15:52] LABS: HEMOGLOBIN A1c 5.1 %
[2021-06-18 02:07] LABS: % CD8 Pos Lymph 57.2 % (12.0-35.5); %CD4 Pos Lymphs 29.6 % (30.8-58.5); ABS Eosinophils 0.1 x10E3/uL (0.0-0.4); ABS Monocytes 0.3 x10E3/uL (0.1-0.9); ABS Neutophils 2.2 x10E3/uL (1.4-7.0); Abs CD4 Helper 296 /uL (359-1519); Abs CD8 Suppres 572 /uL (109-897); CD4/CD8 Ratio 0.52 (0.92-3.72); Eosinophils 1 % (Not Estab.); HCT 34.7 % (34.0-46.6); HGB 11.4 g/dL (11.1-15.9); HIV-1 RNA PCR QUANT 2 LC550285 12700 copies/mL (.); HIV-1 RNA PCR QUANT 3 LC550285 4.104 (.); Immature Grans 1 % (Not Estab.); Lymphocytes 27 % (Not Estab.); MCH 29.5 pg (26.6-33.0); MCHC 32.9 g/dL (31.5-35.7); MCV 90 fL (79-97); Monocytes 9 % (Not Estab.); Neutrophils 61 % (Not Estab.); Platelets 93 x10E3/uL (150-450); RBC 3.87 x10E6/uL (3.77-5.28); RDW 16.1 % (11.7-15.4); WBC 3.6 x10E3/uL (3.4-10.8)
== END ==
LOC: M PLALAB 12:40
PROVIDERS: ATTEND Internal Medicine Infectious Disease
DX: B20 Human immunodeficiency virus [HIV] disease (principal); K74.69 Other cirrhosis of liver; E55.9 Vitamin D deficiency, unspecified; Z79.899 Other long term (current) drug therapy

== ENCOUNTER → 2022-04-09 | Outpatient (REF) | payer MEDICARE, MEDICAID ==
[~2022-04-09] MED LIST changes: +CLOP75TA99 PO; -DOXY-350 PO; +DOXY-444 PO; +LEVO1TAB39; -LEVO500T4; -PLAV1TAB2 PO; +POTA-150 PO; -POTA10TA17 PO
== END ==
LOC: M SFHCPLAZ 13:23
PROVIDERS: ATTEND Family Medicine
DX: Z98.84 Bariatric surgery status (principal); K74.60 Unspecified cirrhosis of liver; I10 Essential (primary) hypertension; B20 Human immunodeficiency virus [HIV] disease

== ENCOUNTER 2023-09-26 12:41 | Emergency (ER) | payer MEDICARE, MEDICAID ==
[~2023-09-26] VITALS: Ht 172.7 cm; Wt 180.0 kg
[~2023-09-26 12:41] MED LIST changes: +DOXY-440 PO; -DOXY-444 PO
[2023-09-26] MEDS ORDERED: PANT40TA29 (13:02)
[2023-09-26 13:55] LABS: BASO % 0.4 % (0.0-1.0); EOS % 0.3 % (0.0-3.0); HEMATOCRIT 41.5 % (36.0-47.0); HEMOGLOBIN 13.9 g/dl (12.0-15.5); LYMPH # 1.1 10^3/uL (1.5-5.0); LYMPH % 10.1 % (24.0-44.0); MEAN CORPUSCULAR HEMOGLOBIN 28.8 pg (27.0-33.0); MEAN CORPUSCULAR HGB CONC 33.5 g/dl (32.0-36.5); MEAN CORPUSCULAR VOLUME 85.9 fl (80.0-96.0); MONO # 0.6 10^3/uL (0.0-0.8); MONO % 5.2 % (2.0-8.0); NEUTROPHILS # 8.8 10^3/uL (1.5-8.5); NEUTROPHILS % 83.1 % (36.0-66.0); PLATELET COUNT, AUTOMATED 222 10^3/uL (150-450); RED BLOOD COUNT 4.83 10^6/uL (4.00-5.40); WHITE BLOOD COUNT 10.6 10^3/uL (4.0-10.0)
[2023-09-26 14:27] LABS: ALBUMIN 2.5 G/DL (3.2-5.2); ALKALINE PHOSPHATASE 78 U/L (46-116); ALT/SGPT 9 U/L (7.0-40); AST/SGOT 25 U/L (<34); BILIRUBIN,DIRECT 0.9 MG/DL (<0.4); BILIRUBIN,TOTAL 1.1 MG/DL (0.3-1.2); BLOOD UREA NITROGEN 28 MG/DL (9-23); CALCIUM LEVEL 8.2 MG/DL (8.3-10.6); CARBON DIOXIDE LEVEL 17 MMOL/L (20-31); CHLORIDE LEVEL 103 MMOL/L (98-107); CK-MB VALUE MASS 1.5 NG/ML (<3.6); CPK CREATINE PHOSPHOKINASE 36 U/L (34-145); CREATININE FOR GFR 0.55 MG/DL (0.55-1.30); GLOMERULAR FILTRATION RATE > 60.0 (>45); GLUCOSE, FASTING 192 MG/DL (74-106); LIPASE 48 U/L (12-53); MB/CK RELATIVE INDEX 4.16 (< OR =4); SODIUM LEVEL 134 MMOL/L (136-145); TOTAL PROTEIN 6.5 G/DL (5.7-8.2)
[2023-09-26] MEDS: PERCOCET 5MG/325MG TAB PO ONE (16:02)
[2023-09-26] MEDS: KETOROLAC 30 MG/ML 1ML VIAL IV ONE (16:03)
[2023-09-26 16:08] LABS: CK-MB VALUE MASS 1.4 NG/ML (<3.6); MB/CK RELATIVE INDEX 4.37 (< OR =4)
[2023-09-26] MEDS ORDERED: ISOVUE-370 76% 100ML VIAL As Ordered ONE (16:28)
[2023-09-26] MEDS ORDERED: CEFD1CAP9 PO (18:13)
[2023-09-26] MEDS ORDERED: PROT1TAB2 PO (18:13)
[2023-09-26] MEDS: cefTRIAXone SOD 1 GM in D5W MINI-BAG PLUS 50 ML IV ONE (18:18)
[2023-09-26] MEDS: PANTOPRAZOLE 40MG VIAL IV ONE (18:18)
[2023-09-26] MEDS: AZITHROMYCIN INJ 500 MG, VIAL MATE ADAPTER 1 EACH in NS 250 ML IV ONE (19:10)
[2023-09-26 20:00] VITALS: BP 94/66; TEMP 97.9; O2SAT 98
== END 2023-09-26 20:20 | disposition home or self-care (01) ==
LOC: M ED 12:41
DX: K21.00 Gastro-esophageal reflux disease with esophagitis, without bleeding (principal); J18.9 Pneumonia, unspecified organism; E78.5 Hyperlipidemia, unspecified; I10 Essential (primary) hypertension; E11.9 Type 2 diabetes mellitus without complications; Z86.711 Personal history of pulmonary embolism; Z86.718 Personal history of other venous thrombosis and embolism; F17.200 Nicotine dependence, unspecified, uncomplicated; Z79.82 Long term (current) use of aspirin; Z79.899 Other long term (current) drug therapy
CPT/HCPCS: 71045; 71275; 80048; 80076; 82550; 82553; 83690; 84484; 85025; 85379; 93005; 96365; 96367; 96375; 99285; C9113; J0456; J0696; J1885; Q9967

== ENCOUNTER → 2024-01-03 | Outpatient (CLI) | payer MEDICARE, MEDICAID ==
[~2024-01-03] MED LIST changes: +CEFD1CAP9 PO; +ESOM1CAP20 PO; -ESOM1CAP5 PO; +ONDA-284; -ONDA8TAB8; +PANT40TA29; +PROT1TAB2 PO
[2024-01-03 13:40] LABS: BASO % 0.4 % (0.0-1.0); EOS # 0.1 10^3/uL (0.0-0.5); EOS % 1.1 % (0.0-3.0); HEMATOCRIT 36.6 % (36.0-47.0); HEMOGLOBIN 11.5 g/dl (12.0-15.5); LYMPH # 1.1 10^3/uL (1.5-5.0); LYMPH % 23.8 % (24.0-44.0); MEAN CORPUSCULAR HEMOGLOBIN 27.9 pg (27.0-33.0); MEAN CORPUSCULAR HGB CONC 31.4 g/dl (32.0-36.5); MEAN CORPUSCULAR VOLUME 88.8 fl (80.0-96.0); MONO # 0.4 10^3/uL (0.0-0.8); MONO % 9.6 % (2.0-8.0); NEUTROPHILS # 2.9 10^3/uL (1.5-8.5); PLATELET COUNT, AUTOMATED 165 10^3/uL (150-450); RED BLOOD COUNT 4.12 10^6/uL (4.00-5.40); WHITE BLOOD COUNT 4.5 10^3/uL (4.0-10.0)
[2024-01-03 13:58] LABS: HEMOGLOBIN A1c 5.1 % (4.0-6.0)
[2024-01-03 14:12] LABS: CREATININE, URINE 85.6 MG/DL; MAU/CREAT RATIO 16.3 MCG/MG (0.0-30.0)
[2024-01-03 14:13] LABS: ALBUMIN 3.4 G/DL (3.2-5.2); ALKALINE PHOSPHATASE 60 U/L (46-116); ALT/SGPT 10 U/L (7.0-40); AST/SGOT 18 U/L (<34); BILIRUBIN,TOTAL 0.3 MG/DL (0.3-1.2); BLOOD UREA NITROGEN 30 MG/DL (9-23); CALCIUM LEVEL 8.5 MG/DL (8.3-10.6); CARBON DIOXIDE LEVEL 15 MMOL/L (20-31); CHLORIDE LEVEL 109 MMOL/L (98-107); CHOLESTEROL LEVEL 149 MG/DL (<200); CHOLESTEROL RISK RATIO 3.44 (<5); CREATININE FOR GFR 0.71 MG/DL (0.55-1.30); GLOMERULAR FILTRATION RATE > 60.0 (>45); GLUCOSE, FASTING 100 MG/DL (74-106); HDL CHOLESTEROL 43.3 MG/DL (>40); LDL CHOLESTEROL 81.1 MG/DL (<100); NON-HDL-C 105.7 MG/DL; POTASSIUM SERUM 4.6 MMOL/L (3.5-5.1); SODIUM LEVEL 138 MMOL/L (136-145); TOTAL PROTEIN 7.1 G/DL (5.7-8.2); TRIGLYCERIDES LEVEL 123 MG/DL (<150)
== END ==
LOC: M PLALAB 11:11
PROVIDERS: ATTEND Family Medicine
DX: K74.69 Other cirrhosis of liver (principal); E11.9 Type 2 diabetes mellitus without complications; I10 Essential (primary) hypertension; I25.10 Atherosclerotic heart disease of native coronary artery without angina pectoris; R80.9 Proteinuria, unspecified

== ENCOUNTER → 2024-07-23 | Outpatient (CLI) | payer MEDICARE, MEDICAID ==
[2024-07-23 14:39] LABS: INR 0.97; PROTHROMBIN TIME 13.2 SECONDS (12.5-14.5)
[2024-07-23 15:43] LABS: ALBUMIN 1.1 G/DL (3.2-5.2); ALKALINE PHOSPHATASE 98 U/L (35-104); ALT/SGPT 10 U/L (7.0-40); AST/SGOT 29 U/L (<34); BILIRUBIN,TOTAL 0.2 MG/DL (0.3-1.2); BLOOD UREA NITROGEN 20 MG/DL (9-23); CALCIUM LEVEL 6.6 MG/DL (8.3-10.6); CARBON DIOXIDE LEVEL 12 MMOL/L (20-31); CHLORIDE LEVEL 116 MMOL/L (98-107); CHOLESTEROL LEVEL 160 MG/DL (<200); CHOLESTEROL RISK RATIO 4.46 (<5); CREATININE FOR GFR 0.82 MG/DL (0.55-1.30); GLOMERULAR FILTRATION RATE > 60.0 (>45); GLUCOSE, FASTING 94 MG/DL (74-106); HDL CHOLESTEROL 35.8 MG/DL (>40); NON-HDL-C 124.2 MG/DL; POTASSIUM SERUM 3.9 MMOL/L (3.5-5.1); SODIUM LEVEL 148 MMOL/L (136-145); TOTAL PROTEIN 5.5 G/DL (5.7-8.2); TRIGLYCERIDES LEVEL 156 MG/DL (<150)
[2024-07-24 15:12] LABS: ABSOLUTE CD4 HELPER 260 /uL (359-1519); BASOPHILS 1 % (Not Estab.); EOSINOPHILS 2 % (Not Estab.); EOSINOPHILS ABSOLUTE 0.1 x10E3/uL (0.0-0.4); HCT 34.3 % (34.0-46.6); HGB 11.3 g/dL (11.1-15.9); Imm ABS Grans 0.1 x10E3/uL (0.0-0.1); Immature Grans 2 % (Not Estab.); LYMPHOCYTES 27 % (Not Estab.); LYMPHOCYTES ABSOLUTE 1.3 x10E3/uL (0.7-3.1); MCH 30.5 pg (26.6-33.0); MCHC 32.9 g/dL (31.5-35.7); MCV 93 fL (79-97); MONOCYTES 9 % (Not Estab.); MONOCYTES ABSOLUTE 0.4 x10E3/uL (0.1-0.9); NEUTROPHILS 59 % (Not Estab.); NEUTROPHILS ABSOLUTE 2.8 x10E3/uL (1.4-7.0); PLT 126 x10E3/uL (150-450); RBC 3.71 x10E6/uL (3.77-5.28); RDW 13.6 % (11.7-15.4); WBC 4.7 x10E3/uL (3.4-10.8)
[2024-07-25 11:22] LABS: HIV-1 RNA PCR QUANT 3 5.28 (NOT DETECTED)
== END ==
LOC: M PLALAB 12:26
PROVIDERS: ATTEND Internal Medicine Infectious Disease
DX: K74.69 Other cirrhosis of liver (principal); I25.10 Atherosclerotic heart disease of native coronary artery without angina pectoris; B20 Human immunodeficiency virus [HIV] disease